=== PATIENT | male | born 1940 | race Caucasian/White ===

== ENCOUNTER 2018-07-24 17:18 | Emergency (ER) | payer MEDICARE, SELFPAY ==
[2018-07-24 17:20] VITALS: BP 125/103; PULSE 99; RESP 18; TEMP 36.8; O2SAT 97; BMI 22.7
[2018-07-24 17:25] VITALS: PULSE 92; RESP 18; O2SAT 97
--- NOTE | 2018-07-24 17:33 | EKG12_ITS ---
Test Reason : ARRHYTMIA Blood Pressure : / mmHG Vent. Rate : 093 BPM Atrial Rate : 093 BPM P-R Int : 144 ms QRS Dur : 106 ms QT Int : 334 ms P-R-T Axes : 084 041 072 degrees QTc Int : 415 ms Normal sinus rhythm Incomplete right bundle branch block Borderline ECG Confirmed by TYRONE WILSON, CORINNE ([id number]), online editor EPI ENRIQUEZ ([id number] on 07/26/2018 2:36:49 PM Referred By: Confirmed By:CORINNE HANSEN MD
--- NOTE | 2018-07-24 17:35 | RAD_ITS ---
STUDY: X-RAY CHEST REASON FOR EXAM: Male, 78 years old. Palpitation TECHNIQUE: Frontal view of the chest COMPARISON: 01/21/2016 FINDINGS: The lungs are hyperinflated, but clear. There are no pleural effusions. There is no pneumothorax. The heart is normal in size. The visualized osseous structures are within normal limits. RAD/Chest 1 View (Portable) IMPRESSION: No acute thoracic pathology. Electronically Signed: Ankush Melara, at 18:39 EDT Tel , Service support ,
[2018-07-24 17:47] LABS: Absolute Lymphocyte Count 1.68 X10^3/ul (0.83-4.51); Absolute Neutrophil Count 5.2 X10^3/uL (2.0-7.7); Basophil# 0.03 X10^3/uL; Basophil% 0.4 % (0-1); Eosinophil# 0.14 X10^3/uL; Eosinophils% 1.8 % (0-5); Hematocrit 46.8 % (40-54); Hemoglobin 16.5 g/dl (13.0-16.5); Lymphocyte # 1.68 X10^3/ul (4.0); Lymphocyte % 21.9 % (19-41); Mean Corp Hgb Conc 35.3 g/gl (32-36); Mean Corpuscular Hgb 33.4 pg (27.0-32.0); Mean Corpuscular Volume 94.7 fL (80-94); Mean Platelet Vol. 10.8 fl (6.2-12.0); Monocyte% 7.8 % (0-10); Platelet Count 210 K/mm3 (150-450); RBC Distribution Width CV 12.8 % (11.6-14.6); RBC Distribution Width SD 43.2 fl (35.1-43.9); Red Blood Count 4.94 M/mm3 (4.6-6.2); White Blood Count 7.7 K/mm3 (4.4-11.0)
[2018-07-24] MEDS: 0.9% Normal Saline 1,000 ML 150 ML IV (17:47)
[2018-07-24 17:52] LABS: POSITIVE COUNT NO; POSITIVE DIFFERENTIAL NO; POSITIVE MORPHOLOGY NO
[2018-07-24 18:04] LABS: Anion Gap 7 (5-15); BUN 13 mg/dL (7-18); BUN/Creat Ratio 14.5 RATIO (10-20); Calcium,Total 8.6 mg/dL (8.5-10.1); Chloride 101 mmol/L (98-107); EST Glomerular Filtration Rate 87 mL/min (>60); Est Glom Filt Rate - Afr Amer 105 mL/min (>60); Estimated Creatinine Clearance 60.06 ml/min; Glucose 111 mg/dL (74-106); Potassium 3.7 mmol/L (3.5-5.1); Sodium Level 136 mmol/L (136-145)
--- NOTE | 2018-07-24 19:16 | ED.VISSUMM ---
- ER Visit Summary Date of Service: 07/24/18 Chief Complaint: [Palpitations] History of Present Illness: The patient is a 78 M [resents the emergency room with complaint of palpitations that started around 10 AM today. Patient states that he felt like his heart was racing and when he would check his pulse with his pulse oximeter was reading in the 140s and then at times will go back into the 70s. Patient at times feels like he might pass out with it. Patient generally felt weak. He denies any nausea vomiting or diarrhea. Does have some shortness of breath which is chronic for him. Patient also with history of paroxysmal atrial fibrillation. Patient with history of hypertension and COPD. Patient denied any chest pain at any point. He denied recent fever.] Physical Examination: [HEENT-PERRLA, EOMI. Cranial nerves II through XII grossly intact. TMs clear. Mucous membranes moist. No adenopathy. Cardiovascular-regular rate and rhythm without murmur or ectopy Lungs-clear to auscultation, chest wall stable without crepitus or subcu emphysema Abdomen-normoactive bowel sounds, soft, nontender, no rebound or rigidity, no peritoneal signs. Extremities-intact ?4, normal range of motion, normal pulses, atraumatic] Test Results: [EKG obtained on arrival shows sinus rhythm with a ventricular rate of 93 bpm with a right bundle branch block. CBC with differential showed a white count 7.7, hemoglobin 16, hematocrit 47, platelets 210. Chemistries were unremarkable. Troponin was less than 0.015.] Chest x-ray showed nothing acute. Emergency Department Course and Treatment: [Patient case was discussed with Dr. Abel Price who was on-call for cardiology who asked that we increase his metoprolol to 50 mg twice a day. I was also asked to have patient receive a 48-hour Holter monitor. Patient to follow-up with sap security consultant within next 3-5 days.] Treatment Plan: [Holter monitor and increase metoprolol to 50 mg twice a day] Disposition: [Discharged to home in stable condition] Impression: [Palpitations-suspect paroxysmal atrial fibrillation] This note was generated with [employer] software. It may contain incorrect words, spelling, and punctuation that were not noted in review of the chart prior to signing ED Disposition - Plan for ED Patient: Chief Complaint: Palpitations Referrals: Maulik Christy MD [Primary Care Provider] -
--- NOTE | 2018-07-24 19:20 | ED.DCSUM_ITS ---
- ER Visit Summary Date of Service: 07/24/18 Chief Complaint: [Palpitations] History of Present Illness: The patient is a 78 M [resents the emergency room with complaint of palpitations that started around 10 AM today. Patient states that he felt like his heart was racing and when he would check his pulse with his pulse oximeter was reading in the 140s and then at times will go back into the 70s. Patient at times feels like he might pass out with it. Patient generally felt weak. He denies any nausea vomiting or diarrhea. Does have some shortness of breath which is chronic for him. Patient also with history of paroxysmal atrial fibrillation. Patient with history of hypertension and COPD. Patient denied any chest pain at any point. He denied recent fever.] Physical Examination: [HEENT-PERRLA, EOMI. Cranial nerves II through XII grossly intact. TMs clear. Mucous membranes moist. No adenopathy. Cardiovascular-regular rate and rhythm without murmur or ectopy Lungs-clear to auscultation, chest wall stable without crepitus or subcu emphysema Abdomen-normoactive bowel sounds, soft, nontender, no rebound or rigidity, no peritoneal signs. Extremities-intact ?4, normal range of motion, normal pulses, atraumatic] Test Results: [EKG obtained on arrival shows sinus rhythm with a ventricular rate of 93 bpm with a right bundle branch block. CBC with differential showed a white count 7.7, hemoglobin 16, hematocrit 47, platelets 210. Chemistries were unremarkable. Troponin was less than 0.015.] Chest x-ray showed nothing acute. Emergency Department Course and Treatment: [Patient case was discussed with Dr. Abel Price who was on-call for cardiology who asked that we increase his metoprolol to 50 mg twice a day. I was also asked to have patient receive a 48- hour Holter monitor. Patient to follow-up with surgical technologist within next 3-5 days.] Treatment Plan: [Holter monitor and increase metoprolol to 50 mg twice a day] Disposition: [Discharged to home in stable condition] Impression: [Palpitations-suspect paroxysmal atrial fibrillation] This note was generated with [employer]ation software. It may contain incorrect words, spelling, and punctuation that were not noted in review of the chart prior to signing ED Disposition - Plan for ED Patient: Chief Complaint: Palpitations Referrals: Maulik Christy MD [Primary Care Provider] -
--- NOTE | 2018-07-24 19:25 | ED.DEP ---
ED Disposition - Plan for ED Patient: Chief Complaint: Palpitations Instructions: ED Palpitations Referrals: Maulik Christy MD [Primary Care Provider] - Bharath Escalona MD [STAFF PHYSICIAN] - 3-5 Days Additional Instructions: increase your metoprolol to 50mg twice per day
[2018-07-24 19:37] VITALS: BP 148/73; PULSE 72; RESP 16; O2SAT 97
== END 2018-07-24 19:50 | disposition home or self-care (01) ==
PROVIDERS: Emergency Provider Emergency Medicine; Family Provider Family Medicine; PCP Family Medicine
DX: R00.2 Palpitations (principal); R51 Headache; I45.10 Unspecified right bundle-branch block; J44.9 Chronic obstructive pulmonary disease, unspecified; I10 Essential (primary) hypertension; I48.0 Paroxysmal atrial fibrillation; Z79.82 Long term (current) use of aspirin; Z79.899 Other long term (current) drug therapy; Z72.0 Tobacco use
CPT/HCPCS: 71045; 80048; 84484; 85025; 93005; 93225; 96360; 96361; 99284; J7030

== ENCOUNTER → 2018-07-24 19:44 | Outpatient (CLI) | payer MEDICARE, SELFPAY | PROVIDERS: Family Provider Family Medicine; PCP Family Medicine; Visit Provider Emergency Medicine | DX: R69 Illness, unspecified (principal) ==

== ENCOUNTER → 2018-08-18 09:46 | Outpatient (CLI) | payer MEDICARE, SELFPAY ==
--- NOTE | 2018-08-19 12:18 | PFT ---
INTRODUCTION: The patient is a 78-year-old male that presents for pulmonary function testing secondary to a diagnosis of COPD. Respiratory therapy reports good patient effort. Bronchodilators were used during testing. INTERPRETATION: Forced expiration spirometry demonstrates the presence of a moderately severe large airways obstructive ventilatory defect. There was a significant response to aerosolized bronchodilator noted based upon change in FVC. Spirograms are of good quality and do not plateau indicating slow emptying of the lungs. The respiratory flow volume loop pattern is suggestive of obstructive lung disease. Body plethysmography was performed and reveals an elevated TLC and RV, indicative of underlying hyperinflation and air-trapping. Diffusing capacity by single breath CO is within normal limits at 79% of predicted. IMPRESSION: These pulmonary function studies demonstrate the presence of a partially reversible moderately severe large airways obstructive ventilatory defect with associated hyperinflation and air-trapping. There are no previous pulmonary function studies available for comparison.
== END ==
PROVIDERS: Family Provider Family Medicine; PCP Family Medicine; Referring Provider Family Medicine; Visit Provider Family Medicine
DX: J44.9 Chronic obstructive pulmonary disease, unspecified (principal)
CPT/HCPCS: 94060; 94726; 94729

== ENCOUNTER → 2018-09-06 12:15 | Outpatient (CLI) | payer MEDICARE, SELFPAY ==
[2018-09-06 12:23] VITALS: PULSE 73; PULSE 86; PULSE 91; PULSE 93; PULSE 94; PULSE 96; PULSE 97; O2SAT 94; O2SAT 95; O2SAT 97
--- NOTE | 2018-09-06 15:50 | PCM.PSN.6M ---
PSN 6 Minute Walk Test - 6 Minute Walk Test 6 Minute Walk Test: 6 Minute Walk Test PSN:6-Minute Walk Test Start: 09/06/18 12:39 Freq: Status: Active Protocol: RESP.6MINW Document 09/06/18 12:23 SMB (Rec: 09/06/18 12:41 SMB [id number]) 6 Minute Walk Test Date Performed 09/06/18 Time Performed 12:23 Height 5 ft 6 in Weight: 63.503 kg Weight in Pounds 140.[address]: Maulik Christy Assistive device used: None Pre-test Oxygen Delivery Method Room Air Pulse Ox (%) 97 Pulse Rate (60-100 beats/min) 73 Dyspnea Natali Scale (0-10) 0 Exertion Natali Scale (6-20) 13 1st minute Oxygen Delivery Method Room Air Pulse Ox (%) 95 Pulse Rate (60-100 beats/min) 93 2nd minute Oxygen Delivery Method Room Air Pulse Ox (%) 94 Pulse Rate (60-100 beats/min) 94 3rd minute Oxygen Delivery Method Room Air Pulse Ox (%) 94 Pulse Rate (60-100 beats/min) 93 Number of Rests Taken 1 4th minute Oxygen Delivery Method Room Air Pulse Ox (%) 94 Pulse Rate (60-100 beats/min) 91 5th minute Oxygen Delivery Method Room Air Pulse Ox (%) 94 Pulse Rate (60-100 beats/min) 97 6th minute Oxygen Delivery Method Room Air Pulse Ox (%) 95 Pulse Rate (60-100 beats/min) 96 Post-test Oxygen Delivery Method Room Air Pulse Ox (%) 95 Pulse Rate (60-100 beats/min) 86 Dyspnea Natali Scale (0-10) 4 Exertion Natali Scale (6-20) 12 Full Laps Walked 8 Partial Lap, Number of Tiles Walked 9 Total Distance Walked (ft) 481 - Interpretation Interpretation: The patient was able to ambulate only 481 feet over the course of 6 minutes on room air with the assistance of a cane and one break. Patient explains no significant desaturation or tachycardia. These findings are consistent with a musculoskeletal limitation exercise tolerance - Recommendations Recommendations: No supplemental oxygen is indicated at this time.
== END ==
PROVIDERS: Family Provider Family Medicine; PCP Family Medicine; Referring Provider Family Medicine; Visit Provider Family Medicine
DX: J44.9 Chronic obstructive pulmonary disease, unspecified (principal)
CPT/HCPCS: 94618

== ENCOUNTER → 2018-09-14 15:49 | Outpatient (CLI) | payer MEDICARE, SELFPAY ==
[2018-08-02 15:05] VITALS: BMI 22.6
--- NOTE | 2018-09-14 15:53 | CT_ITS ---
STUDY: CT CHEST WITHOUT CONTRAST REASON FOR EXAM: Male, 78 years old. Smoking history, COPD RADIATION DOSAGE (If Supplied By Facility): CTDIvol = ( 10.39 ) mGy, DLP = ( 394.74 ) mGycm TECHNIQUE: Transaxial imaging was performed without the administration of intravenous contrast material. Multiplanar coronal and sagittal images were reformatted. Individualized dose optimization techniques were used for this CT. COMPARISON: None. FINDINGS: Lungs are hyperexpanded with moderate central lobular emphysema of the upper and midlung zones. No bronchiectasis or intralobular septal thickening identified. Minimal fibrotic bands of the right lower lobe demonstrated, however. Elongated soft tissue density in the posterior lower trachea extending into the right mainstem bronchus likely secretions. No solid pulmonary nodule or localized groundglass opacity. There is no demonstrated pleural abnormality. Normal heart and pericardium. There are calcifications of the coronary arteries. Normal mediastinum. Normal hilar regions. Normal unenhanced pulmonary arteries. There is atherosclerotic calcification of the aortic arch with tortuosity and elongation of the aortic arch and descending thoracic aorta. There are multi-level degenerative changes of the thoracic spine. There is no demonstrated abnormality of the visualized upper abdomen. CT/Chest without Contrast IMPRESSION: 1. Minimal fibrotic scarring in the right lower lobe. Centrilobular emphysema. No traction bronchiectasis. 2. Atherosclerosis including coronary arteries 3. Lower trachea and right mainstem bronchus secretions. Electronically Signed: Fabian Sultana MD at 9:34 EST , Service support ,
== END ==
PROVIDERS: Family Provider Family Medicine; PCP Family Medicine; Referring Provider Family Medicine; Visit Provider Family Medicine
DX: J44.9 Chronic obstructive pulmonary disease, unspecified (principal)
CPT/HCPCS: 71250

== ENCOUNTER → 2018-09-26 06:25 | Outpatient (CLI) | payer MEDICARE, SELFPAY ==
--- NOTE | 2018-09-26 11:50 | STRESSREP_ITS ---
Stress Test Report Pharmacologic myocardial perfusion stress test. 78-year-old man with a history of nonsustained ventricular tachycardia. Stress protocol: Resting EKG demonstrates normal sinus rhythm with a rate of 66 bpm incomplete right bundle branch block is noted resting blood pressure 132/70 6 m of mercury. 0.4 mg of regadenoson was infused per usual protocol followed by rapid intravenous saline flush injection continuous EKG monitoring was performed. The patient maintained sinus rhythm throughout the recording. The maximum heart rate attained was 108 bpm which was 76% of maximum predicted heart rate the maximum workload was 1 metabolic equivalent. At rest there were no ST or T wave changes noted suggest ischemia at peak infusion no ST or T wave changes were noted suggest ischemia. The resting blood pressure 132/76 with a final blood pressure 148/76. The peak blood pressure 162/80 mmHg. Myocardial perfusion protocol. 11.7 mCi of technetium 99m sestamibi was injected at rest. 0.4 mg of regadenoson was infused per usual protocol peak infusion 31.8 mCi of technetium 99m sestamibi was injected stress images were obtained stress and rest images were reconstructed and compared in the short axis vertical long and horizontal long axis. Gated images were also obtained pre- Perfusion SPECT analysis: Review of the stress images demonstrate normal uptake of tracer noted in all areas of the myocardium. The resting images similarly demonstrate normal uptake of tracer noted in all areas of the myocardium. No areas of perfusion a bnormality were noted to suggest ischemia or infarct. Gated SPECT analysis: The gated ejection fraction is noted to be 78%. Conclusion: Normal pharmacologic myocardial perfusion stress test. Preserved ejection fraction.
--- OUTSIDE RECORDS SUMMARY | 2018-11-19 03:55 | XMS RPT_ITS ---
:1940 Author Organization OHIP Support Name Relationship Address Phone DIANNA KENDAL Unavailable Unavailable + [place] [address] NUNU, SARA Unavailable [address] + [place] [address] R Unavailable Unavailable Unavailable MELLERT, KENDAL Unavailable Unavailable + [place] [address] NUNU, SARA Unavailable [address] + [place] [address] R Unavailable Unavailable Unavailable MELLERT, KENDAL Unavailable Unavailable + [place] [address] NUNU, SARA Unavailable [address] + [place] [address] R Unavailable Unavailable Unavailable MELLERT, KENDAL Unavailable Unavailable + [place] [address] NUNU, SARA Unavailable [address] + [place] [address] R Unavailable Unavailable Unavailable MELLERT, KENDAL Unavailable Unavailable + [place] [address] NUNU, SARA Unavailable [address] + [facility] [address] R Unavailable Unavailable Unavailable MELLERT, KENDAL Unavailable Unavailable + [place] [address] NUNU, SARA Unavailable [address] + [facility] [address] R Unavailable Unavailable Unavailable MELLERT, KENDAL Unavailable Unavailable + [place] [address] NUNU, SARA Unavailable [address] + [facility] [address] R Unavailable Unavailable Unavailable MELLERT, KENDAL Unavailable Unavailable + [place] [address] NUNU, SARA Unavailable [address] + [place] [address] R Unavailable Unavailable Unavailable NUNU, SARA Unavailable [address] + [place] [address] R Unavailable Unavailable Unavailable NUNU, SARA Unavailable [address] + [place] [address] R Unavailable Unavailable Unavailable NUNU, SARA Unavailable [address] + [place] [address] R Unavailable Unavailable Unavailable NUNU, SARA Unavailable [address] + [place] [address] R Unavailable Unavailable Unavailable NUNU, SARA Unavailable [address] + [place] [address] R Unavailable Unavailable Unavailable Care Team Providers Name Role Phone IqraJúnior sotoril Attending Unavailable Roof, Everton H Referring Unavailable Iqra, Oakdale Attending Unavailable Christy, Maulik Referring Unavailable Christy, Maulik Primary Care Unavailable Christy, Maulik Primary Care Unavailable Ungur, Remus Attending Unavailable Ungur, Remus Attending Unavailable Christy, Maulik Primary Care Unavailable Roof, Everton H Attending Unavailable Christy, Maulik Referring Unavailable Iqra, Oakdale Attending Unavailable Ungur, Remus Referring Unavailable Christy, Maulik Attending Unavailable Christy, Maulik Referring Unavailable Christy, Maulik Primary Care Unavailable Christy, Maulik Attending Unavailable Christy, Maulik Referring Unavailable Christy, Maulik Primary Care Unavailable Roof, Everton H Attending Unavailable Roof, Everton H Referring Unavailable Christy, Maulik Primary Care Unavailable Hernan Souza D.O. Attending Unavailable Christy, Maulik Referring Unavailable Christy, Maulik Attending Unavailable Christy, Maulik Referring Unavailable Christy, Maulik Primary Care Unavailable Apollo Washburn Attending Unavailable Christy, Maulik Referring Unavailable Iqra, Bharath Attending Unavailable Iqra, Bharath Referring Unavailable Christy, Maulik Primary Care Unavailable PROBLEMS PROBLEMS DATE TYPE CONDITION / CODE ATTENDING STATUS SOURCE 09/12/2018 Unknown J44.9 - Chronic Apollo Washburn Active [facility] obstructive pulmonary Community disease, unspecified / Hospital J44.9(ICD-10) Repository 08/18/2018 Unknown I48.0 - Paroxysmal Roof, Everton H Active [facility] atrial fibrillation / Community I48.0(ICD-10) Hospital Repository 10/10/2018 Unknown R00.2 - Palpitations / Iqra, Bharath Active [facility] R00.2(ICD-10) [facility] Repository 01/27/2018 Unknown I10 - Essential Iqra, [place] Active [facility] (primary) hypertension Community / I10(ICD-10) Hospital Repository 01/27/2018 Unknown I47.1 - Bharath Escalona Active [facility] Supraventricular [facility] tachycardia / Hospital I47.1(ICD-10) Repository PROCEDURES PROCEDURES No Procedure Records FoundRESULTS RESULTS STRESS REPORT Observed: 09/26/2018 Status: F Source: [place] 11:51 AM [facility] REPOSITORY [facility] Cardiovascular Services [address] [place] [address] MR#: [id number] Acct: [id number] Name: TOLU MONTANA Rep #: [id number] : 1940 78 From: Bharath Escalona MD Primary Care: Westley WILSON,Maulik Status: REG CLI Ordering Dr: Alexis: Agustin Vallecillo Stress Test Report Pharmacologic myocardial perfusion stress test. 78-year-old man with a history of nonsustained ventricular tachycardia. Stress protocol: Resting EKG demonstrates normal sinus rhythm with a rate of 66 bpm incomplete right bundle branch block is noted resting blood pressure 132/70 6 m of mercury. 0.4 mg of regadenoson was infused per usual protocol followed by rapid intravenous saline flush injection continuous EKG monitoring was performed. The patient maintained sinus rhythm throughout the recording. The maximum heart rate attained was 108 bpm which was 76% of maximum predicted heart rate the maximum workload was 1 metabolic equivalent. At rest there were no ST or T wave changes noted suggest ischemia at peak infusion no ST or T wave changes were noted suggest ischemia. The resting blood pressure 132/76 with a final blood pressure 148/76. The peak blood pressure 162/80 mmHg. Myocardial perfusion protocol. 11.7 mCi of technetium 99m sestamibi was injected at rest. 0.4 mg of regadenoson was infused per usual protocol peak infusion 31.8 mCi of technetium 99m sestamibi was injected stress images were obtained stress and rest images were reconstructed and compared in the short axis vertical long and horizontal long axis. Gated images were also obtained pre- Perfusion SPECT analysis: Review of the stress images demonstrate normal uptake of tracer noted in all areas of the myocardium. The resting images similarly demonstrate normal uptake of tracer noted in all areas of the myocardium. No areas of perfusion abnormality were noted to suggest ischemia or infarct. Gated SPECT analysis: The gated ejection fraction is noted to be 78%. Conclusion: Normal pharmacologic myocardial perfusion stress test. Preserved ejection fraction. 09/26/18 1151 <Electronically signed by Bharath Escalona MD> Date Bharath Escalona MD CC: Bharath Escalona MD; Maulik Christy MD Date Dictated: 09/26/18 1144 Date Transcribed: 09/26/18 114 [facility] Accommodation Consultant: CO Signed CHEST WITHOUT Observed: 09/14/2018 Status: F Source: [place] CONTRAST 3:53 PM [facility] Imaging Services [address] [place] [address] Chest without Contrast MR#: [id number] Acct: [id number] Name: TOLU MONTANA Rep #: [id number] : 1940 M 78 From: Fabian Sultana MD PCP: Maulik Christy MD Status: REG CLI Study: Chest without Contrast Date of Exam: 09/14/18 Exam# [id number] Ordering Dr: Maulik Christy MD STUDY: CT CHEST WITHOUT CONTRAST REASON FOR EXAM: Male, 78 years old. Smoking history, COPD RADIATION DOSAGE (If Supplied By Facility): CTDIvol = ( 10.39 ) mGy, DLP = ( 394.74 ) mGycm TECHNIQUE: Transaxial imaging was performed without the administration of intravenous contrast material. Multiplanar coronal and sagittal images were reformatted. Individualized dose optimization techniques were used for this CT. COMPARISON: None. FINDINGS: Lungs are hyperexpanded with moderate central lobular emphysema of the upper and midlung zones. No bronchiectasis or intralobular septal thickening identified. Minimal fibrotic bands of the right lower lobe demonstrated, however. Elongated soft tissue density in the posterior lower trachea extending into the right mainstem bronchus likely secretions. No solid pulmonary nodule or localized groundglass opacity. There is no demonstrated pleural abnormality. Normal heart and pericardium. There are calcifications of the coronary arteries. Normal mediastinum. Normal hilar regions. Normal unenhanced pulmonary arteries. There is atherosclerotic calcification of the aortic arch with tortuosity and elongation of the aortic arch and descending thoracic aorta. There are multi-level degenerative changes of the thoracic spine. There is no demonstrated abnormality of the visualized upper abdomen. CT/Chest without Contrast IMPRESSION: 1. Minimal fibrotic scarring in the right lower lobe. Centrilobular emphysema. No traction bronchiectasis. 2. Atherosclerosis including coronary arteries 3. Lower trachea and right mainstem bronchus secretions. Electronically Signed: Fabian Sultana MD at 9:34 EST , Service support , CC: Maulik Christy MD [facility] Accommodation Consultant: Signed 6 MINUTE WALK TEST Observed: 09/07/2018 Status: F Source: [place] 5:47 AM [facility] Pulmonary Services/Neurology [address] [place] [address] MR#: [id number] Acct: [id number] Name: TOLU MONTANA Rep #: [id number] : 1940 78 From: Apollo Washburn MD Referring Dr: Maulik Christy MD Date: Ordering Dr: Sex: M C Location: PSN PSN 6 Minute Walk Test - 6 Minute Walk Test 6 Minute Walk Test: 6 Minute Walk Test PSN:6-Minute Walk Test Start: 09/06/18 12:39 Freq: Status: Active Protocol: RESP.6MINW Document 09/06/18 12:23 SMB (Rec: 09/06/18 12:41 SMB [id number]) 6 Minute Walk Test Date Performed 09/06/18 Time Performed 12:23 Height 5 ft 6 in Weight: 63.503 kg Weight in Pounds 140.[address]: Maulik Christy Assistive device used: None Pre-test Oxygen Delivery Method Room Air Pulse Ox (%) 97 Pulse Rate (60-100 beats/min) 73 Dyspnea Natali Scale (0-10) 0 Exertion Natali Scale (6-20) 13 1st minute Oxygen Delivery Method Room Air Pulse Ox (%) 95 Pulse Rate (60-100 beats/min) 93 2nd minute Oxygen Delivery Method Room Air Pulse Ox (%) 94 Pulse Rate (60-100 beats/min) 94 3rd minute Oxygen Delivery Method Room Air Pulse Ox (%) 94 Pulse Rate (60-100 beats/min) 93 Number of Rests Taken 1 4th minute Oxygen Delivery Method Room Air Pulse Ox (%) 94 Pulse Rate (60-100 beats/min) 91 5th minute Oxygen Delivery Method Room Air Pulse Ox (%) 94 Pulse Rate (60-100 beats/min) 97 6th minute Oxygen Delivery Method Room Air Pulse Ox (%) 95 Pulse Rate (60-100 beats/min) 96 Post-test Oxygen Delivery Method Room Air Pulse Ox (%) 95 Pulse Rate (60-100 beats/min) 86 Dyspnea Natali Scale (0-10) 4 Exertion Natali Scale (6-20) 12 Full Laps Walked 8 Partial Lap, Number of Tiles Walked 9 Total Distance Walked (ft) 481 - Interpretation Interpretation: The patient was able to ambulate only 481 feet over the course of 6 minutes on room air with the assistance of a cane and one break. Patient explains no significant desaturation or tachycardia. These findings are consistent with a musculoskeletal limitation exercise tolerance - Recommendations Recommendations: No supplemental oxygen is indicated at this time. 09/07/18 0547 <Electronically signed by Apollo Washburn MD> Date Apollo Washburn MD CC: Date Dictated: 09/06/18 1550 Date Transcribed: 09/06/18 155 [facility] Accommodation Consultant: Apollo Washburn Signed PULMONARY FUNCTION Observed: 08/19/2018 Status: F Source: [place] TEST 12:20 PM [facility] Pulmonary Services/Neurology [address] [place] [address] MR#: [id number] Acct: [id number] Name: TOLU MONTANA Rep #: [id number] : 1940 78 From: Hernan Souza DO Referring Dr: Maulik Christy MD Status: REG CLI Ordering Dr: Date: Location: [facility] Sex: M C INTRODUCTION: The patient is a 78-year-old male that presents for pulmonary function testing secondary to a diagnosis of COPD. Respiratory therapy reports good patient effort. Bronchodilators were used during testing. INTERPRETATION: Forced expiration spirometry demonstrates the presence of a moderately severe large airways obstructive ventilatory defect. There was a significant response to aerosolized bronchodilator noted based upon change in FVC. Spirograms are of good quality and do not plateau indicating slow emptying of the lungs. The respiratory flow volume loop pattern is suggestive of obstructive lung disease. Body plethysmography was performed and reveals an elevated TLC and RV, indicative of underlying hyperinflation and air-trapping. Diffusing capacity by single breath CO is within normal limits at 79% of predicted. IMPRESSION: These pulmonary function studies demonstrate the presence of a partially reversible moderately severe large airways obstructive ventilatory defect with associated hyperinflation and air-trapping. There are no previous pulmonary function studies available for comparison. 08/19/18 1220 <Electronically signed by Hernan Souza DO> Date Hernan Souza DO CC: Maulik Christy MD Date Dictated: 08/19/181217 Date Transcribed: 08/19/181217 [facility] Accommodation Consultant: DB Signed 12 LEAD ELECTROCARDIOGRAM Observed: 07/26/2018 Status: F Source: [place] 2:37 PM [facility] Cardiovascular Services [address] [place] [address] 12 Lead EKG 07/24/18 1725 MR#: [id number] Acct: [id number] Name: TOLU MONTANA Rep #: [id number] : 1940 78 From: Bharath Escalona MD Attending Dr: Status: DEP ER Ordering Dr: Chidi Sanabria DO Date: 07/24/18 Location: ED Sex: M C Admitted: Test Reason : ARRHYTMIA Blood Pressure : / mmHG Vent. Rate : 093 BPM Atrial Rate : 093 BPM P-R Int : 144 ms QRS Dur : 106 ms QT Int : 334 ms P-R-T Axes : 084 041 072 degrees QTc Int : 415 ms Normal sinus rhythm Incomplete right bundle branch block Borderline ECG Confirmed by BHARATH ESCALONA MD ([id number]), pictures editor EPI ENRIQUEZ ([id number]) on 07/26/2018 2:36:49 PM Referred By: Confirmed By:BHARATH ESCALONA MD 07/26/18 1436 Date Bharath Escalona MD CC: Maulik Christy MD; Chidi Sanabria DO Signed EMERGENCY DEPARTMENT Observed: 07/24/2018 Status: F Source: [place] SUMMARY 11:53 PM [facility] Medical Records Department [address] [place] [address] Emergency Department Summary 07/24/181915 MR#: [id number] Acct: [id number] Name: TOLU MONTANA Rep #: [id number] : 1940 78 From: Chidi Sanabria DO PCP: Maulik Christy MD Status: DEP ER - ER Visit Summary Date of Service: 07/24/18 Chief Complaint: [Palpitations] History of Present Illness: The patient is a 78 M [resents the emergency room with complaint of palpitations that started around 10 AM today. Patient states that he felt like his heart was racing and when he would check his pulse with his pulse oximeter was reading in the 140s and then at times will go back into the 70s. Patient at times feels like he might pass out with it. Patient generally felt weak. He denies any nausea vomiting or diarrhea. Does have some shortness of breath which is chronic for him. Patient also with history of paroxysmal atrial fibrillation. Patient with history of hypertension and COPD. Patient denied any chest pain at any point. He denied recent fever.] Physical Examination: [HEENT-PERRLA, EOMI. Cranial nerves II through XII grossly intact. TMs clear. Mucous membranes moist. No adenopathy. Cardiovascular-regular rate and rhythm without murmur or ectopy Lungs-clear to auscultation, chest wall stable without crepitus or subcu emphysema Abdomen-normoactive bowel sounds, soft, nontender, no rebound or rigidity, no peritoneal signs. Extremities-intact 4, normal range of motion, normal pulses, atraumatic] Test Results: [EKG obtained on arrival shows sinus rhythm with a ventricular rate of 93 bpm with a right bundle branch block. CBC with differential showed a white count 7.7, hemoglobin 16, hematocrit 47, platelets 210. Chemistries were unremarkable. Troponin was less than 0.015.] Chest x-ray showed nothing acute. Emergency Department Course and Treatment: [Patient case was discussed with Dr. Abel Price who was on-call for cardiology who asked that we increase his metoprolol to 50 mg twice a day. I was also asked to have patient receive a 48-hour Holter monitor. 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 It may contain incorrect words, spelling, and punctuation that were not noted in review of the chart prior to signing ED Disposition - Plan for ED Patient: Chief Complaint: Palpitations Referrals: Maulik Christy MD [Primary Care Provider] - What to do if you have Problems For any increased pain, shortness of breath, bleeding, nausea or vomiting, chest pain, or any unexpected problems, contact your Primary Care Provider. Call [facility] ([phone]) or report to the closest Emergency Room. Call 911 if necessary. 07/24/18 4249 <Electronically signed by Chidi Sanabria DO> Date Chidi Sanabria DO Cosigner Signature (If Indicated): Date CC: Maulik Christy MD DISCHARGE INSTRUCTION Observed: 07/24/2018 Status: F Source: [place] 7:26 PM [facility] Medical Records Department [address] [place] [address] Discharge Instruction 07/24/18 1925 MR#: [id number] Acct: [id number] Name: TOLU MONTANA Rep #: [id number] : 1940 78 From: Chidi Sanabria DO PCP: Maulik Christy MD Status: REG ER ED Disposition - Plan for ED Patient: Chief Complaint: Palpitations Instructions: ED Palpitations Referrals: Maulik Christy MD [Primary Care Provider] - Bharath Escalona MD [STAFF PHYSICIAN] - 3-5 Days Additional Instructions: increase your metoprolol to 50mg twice per day What to do if you have Problems For any increased pain, shortness of breath, bleeding, nausea or vomiting, chest pain, or any unexpected problems, contact your Primary Care Provider. Call [facility] ([phone]) or report to the closest Emergency Room. Call 911 if necessary. 07/24/181925 <Electronically signed by Chidi Sanabria DO> Date Chidi Sanabria DO Cosigner Signature (If Indicated): Date CC: Maulik Christy MD CHEST 1 VIEW Observed: 07/24/2018 Status: F Source: [place] (PORTABLE) 5:34 PM [facility] Imaging Services [address] [place] [address] Chest 1 View (Portable) MR#: [id number] Acct: [id number] Name: TOLU MONTANA Rep #: [id number] : 1940 M 78 From: Ankush Melara MD PCP: Maulik Christy MD Status: REG ER Study: Chest 1 View (Portable) Date of Exam: 07/24/18 Exam# [id number] Ordering Dr: Chidi Sanabria DO STUDY: X-RAY CHEST REASON FOR EXAM: Male, 78 years old. Palpitation TECHNIQUE: Frontal view of the chest COMPARISON: 01/21/2016 FINDINGS: The lungs are hyperinflated, but clear. There are no pleural effusions. There is no pneumothorax. The heart is normal in size. The visualized osseous structures are within normal limits. RAD/Chest 1 View (Portable) IMPRESSION: No acute thoracic pathology. Electronically Signed: Ankush Melara, at 18:39 EDT Tel , Service support , CC: Maulik Christy MD; Chidi Sanabria DO [facility]ommodation Consultant: Signed CBC W/DIFF, AUTOMATED Collected: 07/24/2018 Status: F Source: [place] 5:30 PM [facility] TYPE CODE TESTS RESULT OUT OF RANGE REFERENCE UNITS LAB L100.1000 4.4-11.0 K/mm3 Normal WBC 7.7 LAB L100.1200 4.6-6.2 M/mm3 Normal RBC 4.94 LAB L100.1300 13.0-16.5 g/dl Normal HGB 16.5 LAB L100.1400 40-54 % Normal HCT 46.8 LAB L100.1500 80-94 fL High MCV 94.7 LAB L100.1600 27.0-32.0 pg High MCH 33.4 LAB L100.1700 32-36 g/gl Normal MCHC 35.3 LAB L100.1810 11.6-14.6 % Normal RDW CV 12.8 LAB L100.1820 35.1-43.9 fl Normal RDW SD 43.2 LAB L100.1900 150-450 K/mm3 Normal PLT 210 LAB L100.2000 6.2-12.0 fl Normal MPV 10.8 LAB L100.2100 47-70 % Normal NEUT% 68.0 LAB L100.2200 19-41 % Normal LY% 21.9 LAB L100.2300 0-10 % Normal MONO% 7.8 LAB L100.2400 0-5 % Normal EO% 1.8 LAB L100.2500 0-1 % Normal BASO% 0.4 LAB L100.2550 0.0-0.9 % Normal IM GRAN % 0.100 Result Comment: IG% - Immature Granulocytes (promyelocytes, myelocytes and metamyelocytes) > 1% indicates that a LEFT SHIFT is Present. LAB L100.2620 2.0-7.7 X10 3/uL Normal Absolute Neut 5.2 LAB L100.2720 0.83-4.51 X10 3/ul Normal Absolute Lymph 1.68 Performed By: #### L100.0100 #### [facility] [address] [place], [address] BASIC METABOLIC Collected: 07/24/2018 Status: F Source: [place] PROFILE (BMP) 5:30 PM [facility] TYPE CODE TESTS RESULT OUT OF RANGE REFERENCE UNITS LAB L501.0100 74-106 mg/dL High GLU 111 Result Comment: Fasting Glucose result from 100 to 125 mg/dL suggests IMPAIRED HOMEOSTASIS per A.D.A. criteria. Please note revised GLUCOSE reference range effective 2017. LAB L501.1000 7-18 mg/dL Normal BUN 13 LAB L501.1100 0.70-1.30 mg/dL Normal CREAT,SERUM 0.90 Result Comment: The validity of the calculated GFR AND GFRAA in patients over 70 years has not been determined. Clinical correlation is essential. LAB L501.1110 >60 mL/min Normal EST GFR 87 Result Comment: Non- GFR Calc LAB L501.1115 >60 mL/min Normal EST GFR - AA 105 Result Comment: GFR Calc LAB L501.1255 ml/min Normal Estimated CRCL 60.06 LAB L501.1300 10-20 RATIO Normal BUN/CRE 14.5 LAB L501.2200 8.5-10 mg/dL Normal .1 CA 8.6 LAB L501.5300 136-14 mmol/L Normal 5 NA 136 LAB L501.5600 3.5-5. mmol/L Normal 1 K 3.7 LAB L501.5900 98-107 mmol/L Normal CL 101 LAB L501.6100 21.0-3 mmol/L Normal 2.0 CO2 28.0 LAB L501.6200 5-15 Normal GAP 7 Performed By: #### L500.2500, L501.4010 #### [facility] [address] [place], [address] TROPONIN-I Collected: 07/24/2018 Status: F Source: [place] 5:30 PM [facility] TYPE CODE TESTS RESULT OUT OF RANGE REFERENCE UNITS LAB L501.4010 <0.045 ng/mL Normal < 0.015 TROPONIN-I Result Comment: TROPONIN-I EXPECTED VALUES <0.045 Negative 0.045 - 0.590 Consistent with Cardiac Damage > OR = 0.600 Critical Value Not every elevated troponin is indicative of ID. These values should be used with clinical judgement in examining the patient's clinical picture for diagnosis. To establish a diagnosis of ID versus myocardial injury, there must be a demonstrated rise and/or fall in the troponin values, in addition to ischemic symptoms, EKG changes, new regional wall motion abnormality, and/or angiographical evidence. PLEASE NOTE: REFERENCE RANGES EDITED 18 Performed By: #### L500.2500, L501.4010 #### [facility] [address] [place], [address] CARDIOLOGY VISIT Observed: 01/27/2018 Status: F Source: [place] REPORT 3:07 PM [facility] [address] [place] [address] OFFICE VISIT Date of Service: 01/27/18 MR#: [id number] Acct: [id number] Name: TOLU MONTANA Rep #: [id number] : 1940 Provider: Bharath Escalona MD Age/Sex: 78/M Location: [facility] Status: Signed HPI HPI Chief Complaint: Follow-up visit. Details: TOLU MONTANA, is a 78 M who presents to the office today for a follow-up cardiovascular visit. He has a history of hypertension paroxysmal atrial fibrillation as well as tobacco abuse. He returns for routine follow-up visit he denies any chest pain or shortness breath or paroxysmal nocturnal dyspnea he says that he has had possibly an upper respiratory tract infection. He has not had any neck arm or jaw discomfort suggest angina no dizziness no diaphoresis no near syncope or syncope. He has been compliant with all his medications. His blood pressure today appears to be elevated. His physical exam demonstrates clear lung acharya regular rate and rhythm and no pedal edema. Intake Vital Signs01/27/18 Height 5 ft 6 in 01/27/18 Weight: 146 lb 01/27/18 Body Mass Index (BMI) 23.6 01/27/18 Blood Pressure 178/80 Intake Visit Reasons: 6 M FU Allergies atenolol Adverse Reaction (Intermediate, Verified 01/27/18 14:45) Made me feel terrible Medications Budesonide/Formoterol 160/4.5 [Symbicort 160/4.5 Mcg Inhaler (SP)] 2 puff INHALATION BID 01/26/16 [History Confirmed 01/27/18] Handicap Parking Placard See Label Instructions .ROUTE .COMPLEX #1 12/20/17 [Rx Confirmed 01/27/18] aspirin 81 mg tablet,delayed release 81 mg PO QDAY tab 01/24/18 [History Confirmed 01/27/18] albuterol sulfate HFA 90 mcg/actuation aerosol inhaler 2 puff INHALATION Q4H g 01/27/18 [History Confirmed 01/27/18] amlodipine 10 mg tablet 10 mg PO QDAY #90 tab 01/27/18 [Rx Confirmed 01/27/18] metoprolol succinate ER 50 mg tablet,extended release 24 hr 50 mg PO QDAY #90 tab 01/27/18 [Rx Confirmed 01/27/18] multivitamin tablet 1 tab PO QDAY 01/27/18 [History Confirmed 01/27/18] vitamin B complex and vit C no.3 15 mg-10 mg-50 mg-5 mg-300 mg capsule 1 cap PO QDAY 01/27/18 [History Confirmed 01/27/18] vitamin E (dl, acetate) 1,000 unit capsule 1,000 unit PO QDAY 01/27/18 [History Confirmed 01/27/18] [facility] Medical History Peripheral vascular disease (Chronic) Nicotine abuse (Chronic) Palpitations (Chronic) Paroxysmal supraventricular tachycardia by electrocardiogram (ECG) (Chronic) COPD exacerbation (Acute) CAD (coronary artery disease) (Chronic) Old myocardial infarction (Chronic) Benign essential HTN (Chronic) Alcohol abuse (Chronic) Dyspnea (Acute) Near syncope (Acute) Weakness (Acute) Family History Other Sudden cardiac Social History Smoking Status: Current every day smoker ROS Const Const: Positive for fatigue (continues with fatigue); negative for weakness, weight gain, weight loss, frequent falls or excessive sweating Eyes Eyes: Negative for change in vision, blurry vision or transient loss of vision ENT ENT: Positive for balance problems (ambulates with a cane); negative for dizziness Cardio Chest Pain: No Palpitations: Yes (occasional/rare) Edema: None Muscle aches with walking: None Resp Respiratory: Positive for SOB with activity (increased); negative for SOB at rest GI GI: Negative vomiting or vomiting blood/hematemesis : Negative for hematuria Musc Musc: Positive for balance problems (ambulates with a cane) and muscle aches/ myalgia (generalized); negative for muscle weakness or joint pain Skin Skin: Negative non-healing lesions or rash Neuro Neuro: Negative for weakness, blurry vision, dizziness, lightheadedness, frequent falls or orthostatic symptoms Neto Hematologic/Lymphatic: Negative for easy bleeding Endo Endo: Positive for fatigue (continues with fatigue); negative for excessive sweating Psych Psych: Negative for anxiety or depression Allergy Allergy/Immunology: Negative for hives, Negative for rash Cardiology Exam Const Appearance: cooperative, healthy appearing, well developed, well groomed and no acute distress Nutritional Appearance: well nourished and average body habitus Orientation: alert, awake and oriented x3 Head Head: normal to inspection, normocephalic and atraumatic Ears: hearing grossly normal bilaterally and external ears normal Nose: external nose normal, nasal mucous membranes and turbinates normal, nares normal, septum normal, no nasal discharge Face and Sinus: face symmetric Mouth: oral mucosae normal, tongue normal, oropharynx normal and moist mucous membranes Teeth and gingiva: dentition normal Throat: posterior oropharynx normal, tonsils normal and uvula midline Eyes General: appearance normal, both eyes and all related structures Eyelids: eyelids normal Conjunctivae: conjunctivae normal Pupils: PERRL, normal by confrontation and accommodation normal EOM: EOM intact bilaterally Neck Neck: normal visual inspection, trachea midline and no JVD JVD: +5 Carotids: normal carotid upstroke and bounding pulses Chest Chest inspection: normal inspection of the chest, symmetric chest movement and normal respiratory effort Auscultation: Bilateral: Clear to Auscultation Cardio Palpation: normal PMI Rate: regular rate Rhythm: regular rhythm Heart sounds: S1 normal, S2 normal and normal, physiologic split S2; negative rub, gallop or murmur GI GI: normal to inspection, soft, no hepatosplenomegaly and bowel sounds present Neuro General: alert, awake, oriented x3, no focal sensory deficit, gait normal and moves all extremities Skin Skin: no rashes or lesions noted Extremities Pulses: Normal: Right Femoral Pulse, Left Femoral Pulse, Right Dorsalis Pedis Pulse, Left Dorsalis Pedis Pulse, Right Posterior Tibial Pulse, Left Posterior Tibial Pulse, Right Radial Pulse, Left Radial Pulse Lower Extremity Edema: None: Bilateral Musculoskel Musculoskeletal: No joint tenderness Psych Psychological: normal affect Assessment AND Plan 1. Benign essential HTN I10 Plan His blood pressure today appears to be elevated. He has had previous visit also with elevated blood pressures and my recommendation will be to increase the amlodipine to 10 mg once a day. He will continue on the beta-antonio at the same dosage. 2. Paroxysmal supraventricular tachycardia by electrocardiogram (ECG) I47.1 Plan He has not had any recurrence of the above he will stay on the beta-antonio his last echocardiogram had demonstrated preserved ejection fraction estimated at 65% with no wall motion abnormalities present. Thank you for allowing me to participate in the care of your patient. Please don't hesitate to call if any issues arise 3. Palpitations R00.2 Plan Detail Other Medications New: Discontinued: Follow Up 6 Months (r) Coding Level of Care Code Off vis,est,level 3 Diagnoses Benign essential HTN I10 Paroxysmal supraventricular tachycardia by electrocardiogram (ECG) I47.1 Palpitations R00.2 Coding Level of Care Code Off vis,est,level 3 Diagnoses Benign essential HTN I10 Paroxysmal supraventricular tachycardia by electrocardiogram (ECG) I47.1 Palpitations R00.2 01/27/18 1507 <Electronically signed by Bharath Escalona MD> Date Bharath Escalona MD Cosigner Signature: Date (if applicable) CC: Maulik Christy MD ALLERGIES ALLERGIES DATE TYPE / CODE NAME / CODE REACTION SEVERITY SOURCE 08/02/2018 Drug atenolol/F00 Made me feel MO Lisseth [id number] Repository CT) ENCOUNTERS ENCOUNTERS ADMIT/DISCHARGE ACCOUNT ADMITTING ENCOUNTER LOCATION SOURCE NUMBER CLASS 09/26/2018 [id number] Ambulatory [place] Liss[place] 1 [facility] Hospital ing:[facility] Repository 09/14/2018 [id number] Ambulatory Liss[place] Lisseth 4 [facility] Hospital ing:CT Repository 09/06/2018 [id number] Ambulatory [place] 8 [facility] Hospital ing:PSN Repository 09/06/2018 [id number] Ambulatory BMSBuilding:W Lisseth 9 [facility] Repository 08/19/2018 [id number] Ambulatory BMSBuilding:W [place] 6 [facility] Repository 08/18/2018 [id number] Ambulatory [place] Lisseth 4 [facility] Hospital ing:[facility] Repository 08/18/2018 [id number] Ambulatory BMSBuilding:W [place] 2 [facility] Repository 08/18/2018 [id number] Ambulatory Liss[place] Lisseth 5 [facility] Hospital ing:PSN Repository 08/02/2018/ [id number] Ambulatory BMSBuilding:B [place] 8 4 [facility] Repository 07/24/2018 [id number] Ambulatory Lisseth Lisseth 8 [facility] Hospital ing:PSN Repository 07/24/2018/ [id number] Emergency [place] 8 7 [facility] Hospital ing:ED Repository 07/24/2018 [id number] Ambulatory BMSBuilding:W [place] 9 [facility] Repository 01/27/2018/ [id number] Ambulatory BMSBuilding:B [place] 8 6 [facility] Repository PAYERS PAYERS ENCOUNTER GUARANTOR PAYER SUBSCRIBER SOURCE 09/26/2018 TOLU [id number] Insurance:DAVID ZARLENGODOB: [id number] Number: Repository [id number]: 330 [id number] [phone] (HP) Date:5514-77-59SG [address], [place] [address]XD: 09/26/2018 Secondary NOT GIVENUNK [place] Insurance:SELF PAY [facility] Number: Effective Repository Date:2018-09-19 09/14/2018 TOLU L Primary TOLU Burrell Lisseth [id number] Insurance:DAVID ZARLENGODOB: [facility] [id number] Lake Medical Center Number: Repository [id number]: 330 [id number] [phone] (HP) Date:3697-83-43JS [address] [address]AN: 09/14/2018 Secondary NOT GIVENUNK L[place] Insurance:SELF PAY [facility] Number: Effective Repository Date:2018-08-25 09/06/2018 TOLU L Primary TOLU L [place] [id number] Insurance:DAVID ZARLENGODOB: [facility] [id number] Lake Medical Center Number: Repository [id number]: 330 [id number] [phone]) Date:5986-55-43WB [facility] [address], [place] [address]SI: 09/06/2018 Secondary NOT GIVENUNK [place] Insurance:SELF PAY [facility] Number: Effective Repository Date:2018-08-09 09/06/2018 TOLU L Primary TOLU L [place] [id number] Insurance:DAVID ZARLENGODOB: [facility] [id number] Lake Medical Center Number: Repository [id number]: 330 [id number] [phone] (HP) Date:2036-37-39CA [address], [place] [address]UT: 09/06/2018 Secondary NOT GIVENUNK Liss[place] Insurance:SELF PAY [facility] Number: Effective Repository Date:2018-09-06 08/19/2018 TOLU Burrell Primary TOLU Burrell Lisseth [id number] Insurance:DAVID ZARLENGODOB: [facility] [id number]. Joseph's Medical CenterOPolunitypoint [facility] Number: Repository [id number]: 330 [id number] [phone] (HP) Date:1415-72-35FB [address], [place] [address]RK: 08/19/2018 Secondary NOT GIVENUNK [place] Insurance:SELF PAY [facility] Number: Effective Repository Date:2018-08-19 08/18/2018 TOLU Burrell Primary NOT GIVENUNK Liss[place] [id number] Insurance:SELF PAY [place] Number: Effective Repository [id number]: 330) Date:2018-08-17 [phone] (HP) 08/18/2018 TOLU L Primary TOLU Burrell [place] [id number] Insurance:DAVID ZARLENGODOB: [facility] [id number]. Joseph's Medical CenterOPolunitypoint [facility] Number: Repository [id number]: 330 [id number] [phone] () Date:3351-19-98XI [facility] [address], [place] [address]BI: 08/18/2018 Secondary NOT GIVENUNK [place] Insurance:SELF PAY [facility] Number: Effective Repository Date:2018-08-18 08/18/2018 TOLU Burrell Primary TOLU Burrell [place] [id number] Insurance:DAVID ZARLENGODOB: [facility] [id number]. Joseph's Medical CenterOPolunitypoint health[facility] Number: Repository [address]Eng: 330 [id number] [phone] (HP) Date:1700-61-48RN [address], [place] [address]PZ: 08/18/2018 Secondary NOT GIVENUNK [place] Insurance:SELF PAY [facility] Number: Effective Repository Date:2018-08-09 08/02/2018 TOLU Burrell Primary TOLU Burrell Lisseth [id number] Insurance:DAVID ZARLENGODOB: [facility] [id number] Lake Medical Center Number: Repository [id number]: 330 [id number] [phone] () Date:0048-61-93FK [address], [place] [address]PR: 08/02/2018 Secondary NOT GIVENUNK Liss[place] Insurance:SELF PAY [facility] Number: Effective Repository Date:2018-07-25 07/24/2018 TOLU Burrell Primary TOLU Burrell [place] [id number] Insurance:DAVID ZARLENGODOB: [facility] [id number] Lake Medical Center Number: Repository [address]Utw: 330 [id number] [phone] () Date:0466-11-04CZ [facility] [address], [place] [address]XB: 07/24/2018 Secondary NOT GIVENUNK Liss[place] Insurance:SELF PAY [facility] Number: Effective Repository Date:2018-07-24 07/24/2018 TOLU Burrell Primary TOLU Burrell [place] [id number] Insurance:DAVID ZARLENGODOB: [facility] [id number] Lake Medical Center Number: Repository [id number]: 330 [id number] [phone] () Date:7183-48-23VJ [address], [place] [address]HY: 07/24/2018 Secondary NOT GIVENUNK L[place] Insurance:SELF PAY [facility] Number: Effective Repository Date:2018-07-24 07/24/2018 TOLU L Primary TOLU Burrell Lisseth [id number] Insurance:DAVID ZARLENGODOB: [facility] [id number], [place] HMOPolicy Number: Repository [id number]: 330 [id number] [phone] () Date:4786-78-20CW [facility] [address], [place] [address]DB: 07/24/2018 Secondary NOT GIVENUNK [place] Insurance:SELF PAY [facility] Number: Effective Repository Date:2018-07-24 01/27/2018 TOLU Primary TOLU [place] [id number] Insurance:DVAIDLT MONTANADOB: [facility] [id number], [place] HMOPolicy Number: Repository [id number]: 330 [id number] [phone] () Date:9177-44-19HS [facility] [address] [address]CO: 01/27/2018 Secondary NOT GIVENUNK [place] Insurance:SELF PAY [facility] Number: Effective Repository Date:2018-01-27
== END ==
PROVIDERS: Family Provider Family Medicine; PCP Family Medicine; Referring Provider Internal Medicine Cardiovascular Disease; Visit Provider Internal Medicine Cardiovascular Disease
DX: I47.2 Ventricular tachycardia (principal); R06.09 Other forms of dyspnea; I48.0 Paroxysmal atrial fibrillation; I45.10 Unspecified right bundle-branch block; I73.9 Peripheral vascular disease, unspecified; I47.1 Supraventricular tachycardia; I25.2 Old myocardial infarction; I10 Essential (primary) hypertension
CPT/HCPCS: 78452; 93017; A9500; A4216; J2785

== ENCOUNTER 2019-01-02 16:24 | Emergency (ER) | payer MEDICARE, SELFPAY ==
[2019-01-02 16:25] VITALS: BP 161/73; PULSE 82; RESP 15; TEMP 37.4; O2SAT 97; BMI 22.7
--- NOTE | 2019-01-02 16:37 | EKG12_ITS ---
Test Reason : PALPS Blood Pressure : / mmHG Vent. Rate : 076 BPM Atrial Rate : 076 BPM P-R Int : 144 ms QRS Dur : 134 ms QT Int : 390 ms P-R-T Axes : 081 055 085 degrees QTc Int : 438 ms Normal sinus rhythm Right bundle branch block Abnormal ECG Confirmed by TYRONE WILSON, CORINNE ([id number]), sound editor YENI GALVIN ([id number]) on 01/06/2019 9:28:58 AM Referred By: CELSA Confirmed By:CORINNE HANSEN MD
[2019-01-02 17:32] VITALS: BP 145/71; PULSE 69; RESP 17; TEMP 36.8; O2SAT 96
--- NOTE | 2019-01-02 17:54 | CT_ITS ---
STUDY: CT BRAIN WITHOUT CONTRAST REASON FOR EXAM: Male, 78 years old. Palpitations, blurred vision RADIATION DOSAGE (If Supplied By Facility): CTDIvol = ( 44.99 ) mGy, DLP = ( 745.49 ) mGycm TECHNIQUE: Transaxial CT imaging of the brain was performed without administration of intravenous contrast material. Individualized dose optimization techniques were used for this CT. COMPARISON: None. FINDINGS: Normal soft tissue structures. Normal calvarium. There are bilateral deep white matter periventricular hypodensities. There are bilateral hypodensities within the basal ganglia. Normal basal ganglia and thalami. Normal brainstem. Normal cerebellum. There is no intracranial hemorrhage. There are no findings of an acute ischemic infarction. There is mild mucosal thickening within the paranasal sinuses. There is left maxillary sinus mucous retention cyst. CT/Brain/Head without Contrast IMPRESSION: Deep white matter small vessel ischemic changes with likely ischemic changes as well within the basal ganglia, MRI follow-up could be performed to exclude acute infarct Inflammatory changes paranasal sinuses Electronically Signed: John Gray, at 19:19 EDT Tel , Service support ,
--- NOTE | 2019-01-02 17:55 | RAD_ITS ---
STUDY: X-RAY CHEST REASON FOR EXAM: Male, 78 years old. Palpitations TECHNIQUE: Portable chest COMPARISON: 01/21/2016 FINDINGS: There is upper lobe COPD changes and scattered pulmonary scarring. There is a new 1 cm density within the right lower lobe.. There is no demonstrated pleural abnormality. Normal size heart. Normal mediastinum and bill. Normal visualized pulmonary arteries. Normal visualized aortic arch and descending thoracic aorta. Normal visualized thoracic spine. Normal visualized ribs, clavicles, and shoulders. There is no demonstrated abnormality of the visualized soft tissue structures of the upper abdomen. RAD/Chest 1 View (Portable) IMPRESSION: Scattered pulmonary scarring and likely COPD changes New 1 cm density within the right lower lobe possible pulmonary nodule versus scar, less likely atelectasis or infiltrate. CT chest follow-up is recommended Electronically Signed: John Gray, at 19:02 EDT Tel , Service support ,
[2019-01-02 18:13] VITALS: O2SAT 96
[2019-01-02 18:14] VITALS: BP 141/52; PULSE 67; RESP 14; TEMP 36.6; O2SAT 96
[2019-01-02] MEDS: Aspirin 81 MG TAB.CHEW 324 MG PO (18:17)
[2019-01-02 18:18] LABS: Absolute Neutrophil Count 5.4 X10^3/uL (2.0-7.7); Basophil# 0.02 X10^3/uL; Basophil% 0.3 % (0-1); Eosinophil# 0.16 X10^3/uL; Eosinophils% 2.1 % (0-5); Hematocrit 43.3 % (40-54); Hemoglobin 14.9 g/dl (13.0-16.5); Lymphocyte % 17.1 % (19-41); Mean Corp Hgb Conc 34.4 g/gl (32-36); Mean Corpuscular Hgb 33.4 pg (27.0-32.0); Mean Corpuscular Volume 97.1 fL (80-94); Mean Platelet Vol. 10.8 fl (6.2-12.0); Monocyte# 0.77 X10^3/uL; Monocyte% 10.1 % (0-10); Neutrophil # 5.36 X10^3/uL (2.7-7.7); Neutrophil % 70.3 % (47-70); Platelet Count 209 K/mm3 (150-450); RBC Distribution Width CV 12.6 % (11.6-14.6); RBC Distribution Width SD 44.1 fl (35.1-43.9); Red Blood Count 4.46 M/mm3 (4.6-6.2); White Blood Count 7.6 K/mm3 (4.4-11.0)
[2019-01-02 18:19] LABS: POSITIVE COUNT NO; POSITIVE DIFFERENTIAL NO; POSITIVE MORPHOLOGY NO
[2019-01-02 18:24] LABS: International Normalized Ratio 1.1; Partial Thromboplast Time 26.3 Seconds (24.1-36.2)
[2019-01-02 18:37] LABS: ALB/GLOB Ratio 1.1 RATIO (0.9-2.4); AST(SGOT) 15 U/L (15-37); Alanine Aminotransfer ALT/SGPT 24 U/L (16-61); Albumin, Serum 3.9 g/dL (3.2-5.0); Alkaline Phosphatase 104 U/L (45-117); Anion Gap 5 (5-15); BUN 17 mg/dL (7-18); BUN/Creat Ratio 20.1 RATIO (10-20); Calcium,Total 8.8 mg/dL (8.5-10.1); Chloride 104 mmol/L (98-107); Creatinine, Serum 0.84 mg/dL (0.70-1.30); EST Glomerular Filtration Rate 93 mL/min (>60); Est Glom Filt Rate - Afr Amer 113 mL/min (>60); Estimated Creatinine Clearance 66.34 ml/min; Globulin 3.6 g/dL (2.2-4.2); Glucose 82 mg/dL (74-106); Potassium 4.3 mmol/L (3.5-5.1); Protein, Total 7.5 g/dL (6.4-8.2); Sodium Level 135 mmol/L (136-145)
[2019-01-02 19:24] VITALS: BP 159/61; PULSE 68; RESP 14; O2SAT 96
--- NOTE | 2019-01-02 19:33 | ED.VISSUMM ---
- ER Visit Summary Date of Service: 01/02/19 Chief Complaint: Palpitations History of Present Illness: The patient is a 78 M who presents with palpitations. This has been going on for 3-4 days intermittently. It was worse today. Patient reports a headache but has no other associated symptoms. He has a history of atrial fibrillation, and complete right bundle branch block pattern, hypertension, CT, and COPD. He takes aspirin but no other blood thinners. Physical Examination: Afebrile and vital signs unremarkable. Alert and oriented. No acute distress. Heart is regular on my exam. Lungs clear. Abdomen soft. Skin normal in color. Alert and oriented. Test Results: EKG showed sinus rhythm at a rate of 76. CBC normal. Sodium 135. Coags normal. Troponin normal. Chest x-ray showed COPD and a possible lung nodule versus scar, CT follow-up recommended. Head CT showed chronic changes and sinusitis. Emergency Department Course and Treatment: Patient was placed on a monitor. He was in sinus rhythm with a right bundle branch block pattern. He had intermittent frequent PVCs and possibly atrial fibrillation on the monitor, but nothing sustained. Workup as above. He remained hemo-dynamically stable. He was discussed with Dr. Escalona. Holter monitor was ordered. He will follow-up with Dr. Escalona. Patient will follow up with his primary care doctor regarding a possible lung nodule. Treatment Plan: As above Disposition: Discharge Impression: 1. Palpitations 2. Right lung nodule This note was generated with [employer] software. It may contain incorrect words, spelling, and punctuation that were not noted in review of the chart prior to signing ED Disposition - Plan for ED Patient: Referrals: Maulik Christy MD [Primary Care Provider] -
--- NOTE | 2019-01-02 19:36 | ED.DCSUM_ITS ---
- ER Visit Summary Date of Service: 01/02/19 Chief Complaint: Palpitations History of Present Illness: The patient is a 78 M who presents with palpitations. This has been going on for 3-4 days intermittently. It was worse today. Patient reports a headache but has no other associated symptoms. He has a history of atrial fibrillation, and complete right bundle branch block pattern, hypertension, RI, and COPD. He takes aspirin but no other blood thinners. Physical Examination: Afebrile and vital signs unremarkable. Alert and oriented. No acute distress. Heart is regular on my exam. Lungs clear. Abdomen soft. Skin normal in color. Alert and oriented. Test Results: EKG showed sinus rhythm at a rate of 76. CBC normal. Sodium 135. Coags normal. Troponin normal. Chest x-ray showed COPD and a possible lung nodule versus scar, CT follow-up recommended. Head CT showed chronic changes and sinusitis. Emergency Department Course and Treatment: Patient was placed on a monitor. He was in sinus rhythm with a right bundle branch block pattern. He had intermittent frequent PVCs and possibly atrial fibrillation on the monitor, but nothing sustained. Workup as above. He remained hemo-dynamically stable. He was discussed with Dr. Escalona. Holter monitor was ordered. He will follow-up with Dr. Escalona. Patient will follow up with his primary care doctor regarding a possible lung nodule. Treatment Plan: As above Disposition: Discharge Impression: 1. Palpitations 2. Right lung nodule This note was generated with [employer] software. It may contain incorrect words, spelling, and punctuation that were not noted in review of the chart prior to signing ED Disposition - Plan for ED Patient: Referrals: Maulik Christy MD [Primary Care Provider] -
--- NOTE | 2019-01-02 19:36 | ED.DEP ---
ED Disposition - Plan for ED Patient: Instructions: ED Palpitations Referrals: Maulik Christy MD [Primary Care Provider] - Bharath Escalona MD [STAFF PHYSICIAN] -
--- NOTE | 2019-01-02 19:45 | ED.RN ---
notified resp therapy and then registration of pt needing holter monitor.
== END 2019-01-02 20:09 | disposition home or self-care (01) ==
LOC: ED 17:53
PROVIDERS: Emergency Provider Emergency Medicine; Family Provider Family Medicine; PCP Family Medicine
DX: R00.2 Palpitations (principal); R91.1 Solitary pulmonary nodule; I48.91 Unspecified atrial fibrillation; I25.2 Old myocardial infarction; Z72.0 Tobacco use; Z79.82 Long term (current) use of aspirin
CPT/HCPCS: 70450; 71045; 80053; 84484; 85025; 85610; 85730; 99285; A4216

== ENCOUNTER → 2019-01-02 19:49 | Outpatient (CLI) | payer MEDICARE, SELFPAY ==
[2019-01-02 16:25] VITALS: BMI 22.7
== END ==
PROVIDERS: Family Provider Family Medicine; PCP Family Medicine; Visit Provider Emergency Medicine
DX: I48.91 Unspecified atrial fibrillation (principal); R00.2 Palpitations; R91.1 Solitary pulmonary nodule; I25.2 Old myocardial infarction; Z72.0 Tobacco use; Z79.82 Long term (current) use of aspirin
CPT/HCPCS: 70450; 71045; 80053; 84484; 85025; 85610; 85730; 93005; 93225; 99285; A4216

== ENCOUNTER → 2019-11-15 16:59 | Outpatient (CLI) | payer MEDICARE, SELFPAY ==
[2019-08-01 14:57] VITALS: BMI 21.9
--- NOTE | 2019-11-15 17:03 | RAD_ITS ---
STUDY: X-RAY CHEST REASON FOR EXAM: Male, 79 years old. COPD with exacerbation TECHNIQUE: PA and lateral views of the chest. COMPARISON: January 02, 2019 FINDINGS: There is hyperinflation of the lungs consistent with chronic obstructive lung disease (COPD). Lungs are clear. There is no demonstrated pleural abnormality. There is mild cardiac enlargement. Normal mediastinum and bill. Normal visualized pulmonary arteries. Normal visualized aortic arch and descending thoracic aorta. There are diffuse degenerative changes of the visualized thoracic spine. There is degenerative osteoarthritis of the bilateral shoulders. There is no demonstrated abnormality of the visualized soft tissue structures of the upper abdomen. RAD/Chest PA and Lateral IMPRESSION: COPD. Lungs are clear. Electronically Signed: Loyd Becerra DO at 21:55 EST Tel , Service support ,
== END ==
PROVIDERS: PCP Family Medicine; Referring Provider Family Medicine; Visit Provider Family Medicine
DX: J44.1 Chronic obstructive pulmonary disease with (acute) exacerbation (principal)
CPT/HCPCS: 71046

== ENCOUNTER 2022-04-28 13:37 | Emergency (ER) | payer MEDICARE, SELFPAY ==
[2022-04-28 13:38] VITALS: BP 185/79; PULSE 87; RESP 20; TEMP 36.9; O2SAT 96; BMI 21.6
[2022-04-28 13:52] VITALS: BP 139/74; PULSE 85; RESP 17; O2SAT 94
[2022-04-28 13:56] VITALS: O2SAT 98
--- NOTE | 2022-04-28 14:15 | EKG12_ITS ---
Test Reason : PALPITATIONS Blood Pressure : / mmHG Vent. Rate : 080 BPM Atrial Rate : 080 BPM P-R Int : 136 ms QRS Dur : 118 ms QT Int : 368 ms P-R-T Axes : 080 025 069 degrees QTc Int : 424 ms Normal sinus rhythm Low voltage QRS Borderline ECG Confirmed by GT WILSON, SILVERIO ([id number]), magazine editor YENI GALVIN ([id number]) on 04/30/2022 9:04:24 AM Referred By: TSERING/JI Confirmed By:SILVERIO DEL REAL MD
--- NOTE | 2022-04-28 14:15 | RAD_ITS ---
STUDY: X-RAY CHEST REASON FOR EXAM: Male, 82 years old. Palpitations. Dyspnea. Wheezing. TECHNIQUE: Single AP portable view of the chest. COMPARISON: Comparison is made with prior study dated 04/15/2020. FINDINGS: EKG electrodes are seen. There is hyperinflation of the lungs consistent with chronic obstructive lung disease (COPD). Stable mild scarring at the lung bases. There is no demonstrated pleural abnormality. Normal size heart. Normal mediastinum and bill. Normal visualized pulmonary arteries. There is atherosclerotic calcification of the aortic arch with tortuosity. There are diffuse degenerative changes of the visualized thoracic spine. Normal visualized ribs, clavicles, and shoulders. There is no demonstrated abnormality of the visualized soft tissue structures of the upper abdomen. RAD/Chest 1 View (Portable) IMPRESSION: Hyperinflation. Stable mild scarring at the lung bases. Electronically Signed: Buddy Dave MD at 14:54 EDT ,
--- NOTE | 2022-04-28 14:17 | EX.ED.DYSGE1 ---
HPI History of Present Illness Chief Complaint: Palpitations Narrative Narrative: This is an 82-year-old male presenting with palpitations. He states it is not painful. He started having palpitations last night and noted that they did come and go. He checked his pulse ox with his pulse oximeter and it stated that his heart rate was about 45. When he checked his pulse it was not 45 but he can tell he was skipping beats. He does feel short of breath. He is currently wheezing more than he normally does. He states he has not had a fever or chills but does admit to a headache. No nausea or vomiting. [facility] Medical History Alcohol abuse COPD exacerbation Dyspnea Essential (primary) hypertension Incomplete right bundle branch block Near syncope Nicotine dependence Nonsustained paroxysmal supraventricular tachycardia Nonsustained ventricular tachycardia Palpitations Paroxysmal atrial fibrillation Peripheral vascular disease Weakness Home Medications budesonide-formoterol HFA 160 mcg-4.5 mcg/actuation aerosol inhaler 2 puff inhalation BID 01/26/16 [History Last Taken Unknown] aspirin 81 mg tablet,delayed release (Adult Low Dose Aspirin) 81 mg PO QDAY 01/24/18 [History Last Taken Unknown] albuterol sulfate 90 mcg/actuation aerosol inhaler (Proventil HFA) 2 puff inhalation Q4H 01/27/18 [History Last Taken Unknown] multivitamin 1 tab PO QDAY 01/27/18 [History Last Taken Unknown] vitamin B comp and C no.3 15 mg-10 mg-50 mg-5 mg-300 mg capsule (B Complex Plus Vitamin C) 1 cap PO QDAY 01/27/18 [History Last Taken Unknown] vitamin E (dl, acetate) 450 mg (1,000 unit) capsule 1,000 unit PO QDAY 01/27/18 [History Last Taken Unknown] metoprolol succinate 50 mg tablet,extended release 24 hr 50 mg PO BID #180 tabs 07/23/21 [Rx Last Taken Unknown] amlodipine 10 mg tablet 10 mg PO QDAY #90 tabs 10/20/21 [Rx Last Taken Unknown] prednisone 50 mg tablet 50 mg PO DAILY #5 tabs 04/28/22 [Rx Last Taken Unknown] Allergy/AdvReac Type Severity Reaction Status Date / Time atenolol AdvReac Intermediate Made me Verified 04/28/22 13:40 feel terrible Family History Other Sudden cardiac Social History Smoking Status: Current every day smoker tobacco type: cigarettes ROS ROS ED Constitutional Constitutional ED: Denies chills or fever(s) Eyes Eyes: Denies change in vision or diplopia ENT ENT ED: Denies rhinorrhea or sore throat Cardiovascular Cardiovascular: Reports palpitations; Denies chest pain Respiratory/Chest Respiratory/Chest: Reports dyspnea and dyspnea on exertion Gastrointestinal Gastrointestinal: Denies abdominal pain or constipation Genitourinary Genitourinary ED: Denies dysuria Musculoskeletal Musculoskeletal: Denies arthralgias, back pain or myalgias Integumentary Denies abscess or rash Neurologic Neurologic: Reports headache(s); Denies paresthesias or weakness EXAM Physical Exam Const Vital Signs: 04/28/22 13:38 04/28/22 13:52 04/28/22 13:55 Temperature 98.4 F Temperature Source Temporal Pulse Rate 87 85 Respiratory Rate 20 H 17 Respiratory Effort Short of Breath Respiratory Depth Normal Respiratory Pattern Normal Blood Pressure 185/79 H 139/74 H Blood Pressure Mean 114 95 Pulse Ox 96 94 Oxygen Delivery Method Room Air Room Air Oxygen Flow Rate (L/min) 04/28/22 13:56 04/28/22 14:37 04/28/22 15:08 Temperature Temperature Source Pulse Rate 78 73 Respiratory Rate 18 17 Respiratory Effort Respiratory Depth Respiratory Pattern Blood Pressure 145/68 H Blood Pressure Mean 93 Pulse Ox 98 97 Oxygen Delivery Method Nasal Cannula Room Air Oxygen Flow Rate (L/min) 2 Positive cachectic General Appearance ED: cachectic and NAD; Negative for pallor Nutritional Appearance: cachectic HEENT Reports dry mucous membranes Mouth ED: Yes dry mucous membranes Mouth: dry mucous membranes Eyes PERRL and EOMs intact bilaterally Resp normal respiratory effort Auscultation: wheezes expiratory wheezes and throughout Cardio regular rate and regular rhythm GI normal to inspection, nondistended, normoactive bowel sounds Neuro oriented x3 and CN's II-XII intact bilaterally Psych mental status grossly normal Skin no rashes or lesions noted and no wounds General Skin Exam: Negative for jaundice or pallor MDM MDM MDM Narrative Medical decision making narrative: Patient presenting with palpitations. He states is not having any chest pain. He feels as if his heart is skipping beats. He does have a history of paroxysmal A. fib. His EKG on my interpretation shows a normal sinus rhythm with a ventricular rate of 80 bpm without sign of ischemic change. It is noted that while I am interviewing the patient he does have PVCs on the monitor. Patient states he is using his albuterol inhaler more and this sometimes causes his heart to feel this way. CBC and BMP within normal limits. High-sensitivity troponin 7. Electrolytes within normal limits. Chest x-ray my interpretation shows no acute cardiopulmonary process and the radiologist agree. Patient feeling improved after Solu-Medrol and breathing treatments. He is no longer on oxygen. He started on prednisone burst for home. He is given instructions on albuterol inhaler. Impression: 1. COPD exacerbation 2. Palpitations Lab Data Attestation: I reviewed the patient's lab results. Labs: Laboratory Results - last 24 hr 04/28/22 04/28/22 04/28/22 13:50 13:50 13:50 WBC 7.9 RBC 4.86 Hgb 15.7 Hct 46.3 MCV 95.3 H MCH 32.3 H MCHC 33.9 RDW Std Deviation 44.3 H RDW Coeff of Matt 12.6 Plt Count 241 MPV 11.3 Immature Gran % (Auto) 0.500 Neut % (Auto) 63.3 Lymph % (Auto) 24.9 [place] % (Auto) 9.6 Eos % (Auto) 1.1 Baso % (Auto) 0.6 Absolute Neuts (auto) 5.0 Absolute Lymphs (auto) 1.97 Nucleated RBC % 0 Sodium 136 Potassium 4.3 Chloride 103 Carbon Dioxide 24.0 Anion Gap 9 BUN 13 Creatinine 0.62 L Estim Creat Clear Calc 46.68 Est GFR (MDRD) Af Amer 159 Est GFR (MDRD) Non-Af 131 BUN/Creatinine Ratio 20.9 H Glucose 101 Calcium 9.1 Total Bilirubin 0.60 AST 23 ALT 27 Alkaline Phosphatase 108 Troponin I High Sens 7 Total Protein 7.5 Albumin 3.9 Globulin 3.6 Albumin/Globulin Ratio 1.1 Radiography Diagnostic Testing: Clinical Impression(s) from Imaging Studies Chest X-Ray 04/28/22 14:15 IMPRESSION: Hyperinflation. Stable mild scarring at the lung bases. Electronically Signed: Buddy Dave MD at 14:54 EDT , Discharge Plan Triage Chief Complaint: Palpitations ED Provider: John Lowery Dx/Rx/DC Orders Instructions: ED Palpitations Prescriptions: New prednisone 50 mg tablet 50 mg PO DAILY Qty: 5 0RF No Action aspirin [Adult Low Dose Aspirin] 81 mg tablet,delayed release (DR/EC) 81 mg PO QDAY albuterol sulfate [Proventil HFA] 90 mcg/actuation HFA aerosol inhaler 2 puff INHALATION Q4H vitamin B comp and C no.3 [B Complex Plus Vitamin C] 16-44-04-5-300 mg capsule 1 cap PO QDAY multivitamin tablet 1 tab PO QDAY vitamin E (dl, acetate) 1,000 unit capsule 1,000 unit PO QDAY budesonide-formoterol 1 INHALER inhaler 2 puff INHALATION BID Label Comments: Inhale 2 (TWO) puffs TWICE DAILY metoprolol succinate 50 mg tablet extended release 24 hr 50 mg PO BID Qty: 180 3RF amlodipine 10 mg tablet 10 mg PO QDAY Qty: 90 3RF Primary Care Provider: Maulik Christy Referrals: Maulik Christy MD [Primary Care Provider] - Disposition Disposition: Home, Self Care Discharge Date/Time: 04/28/22 17:10
[2022-04-28] MEDS: Albuterol 2.5 MG/3 ML VIAL.NEB. INHALATION (14:36)
[2022-04-28 14:37] VITALS: PULSE 78; RESP 18
[2022-04-28] MEDS: Ipratropium/Albuterol Sulfate 3 ML AMPUL.NEB INHALATION (14:37)
[2022-04-28 14:47] LABS: Absolute Lymphocyte Count 1.97 X10^3/uL (0.83-4.51); Basophil# 0.05 X10^3/uL; Basophil% 0.6 % (0-1); Eosinophil# 0.09 X10^3/uL; Eosinophils% 1.1 % (0-5); Hematocrit 46.3 % (40-54); Hemoglobin 15.7 g/dL (13.0-16.5); Lymphocyte # 1.97 X10^3/ul (0.83-4.51); Lymphocyte % 24.9 % (19-41); Mean Corp Hgb Conc 33.9 g/dL (32-36); Mean Corpuscular Hgb 32.3 pg (27.0-32.0); Mean Corpuscular Volume 95.3 fL (80-94); Mean Platelet Vol. 11.3 fl (6.2-12.0); Monocyte# 0.76 X10^3/uL; Monocyte% 9.6 % (0-10); NRBC Flagged by Analyzer 0 % (0-5); Neutrophil # 4.99 X10^3/uL (2.7-7.7); Neutrophil % 63.3 % (47-70); Platelet Count 241 K/mm3 (150-450); RBC Distribution Width CV 12.6 % (11.6-14.6); RBC Distribution Width SD 44.3 fl (35.1-43.9); Red Blood Count 4.86 M/mm3 (4.6-6.2); White Blood Count 7.9 K/mm3 (4.4-11.0)
[2022-04-28] MEDS: Acetaminophen 500 MG Tablet 1000 MG PO (14:52)
[2022-04-28 15:05] LABS: Troponin-I HS 7 pg/mL (3.0-78.0)
[2022-04-28] MEDS: MethylPREDNISolone 125 MG/2 ML Vial IV (15:07)
[2022-04-28 15:08] VITALS: BP 145/68; PULSE 73; RESP 17; O2SAT 97
[2022-04-28 15:35] LABS: ALB/GLOB Ratio 1.1 RATIO (0.9-2.4); AST(SGOT) 23 U/L (15-37); Alanine Aminotransfer ALT/SGPT 27 U/L (16-61); Albumin, Serum 3.9 g/dL (3.2-5.0); Alkaline Phosphatase 108 U/L (45-117); Anion Gap 9 (5-15); BUN 13 mg/dL (7-18); BUN/Creat Ratio 20.9 RATIO (10-20); Calcium,Total 9.1 mg/dL (8.5-10.1); Chloride 103 mmol/L (98-107); Creatinine, Serum 0.62 mg/dL (0.70-1.30); EST Glomerular Filtration Rate 131 mL/min (>60); Est Glom Filt Rate - Afr Amer 159 mL/min (>60); Estimated Creatinine Clearance 46.68 ml/min; Globulin 3.6 g/dL (2.2-4.2); Glucose 101 mg/dL (74-106); Potassium 4.3 mmol/L (3.5-5.1); Protein, Total 7.5 g/dL (6.4-8.2); Sodium Level 136 mmol/L (136-145)
== END 2022-04-28 17:10 | disposition home or self-care (01) ==
PROVIDERS: Emergency Provider Student in an Organized Health Care Education/Training Program; PCP Family Medicine; Visit Provider Student in an Organized Health Care Education/Training Program
DX: J44.1 Chronic obstructive pulmonary disease with (acute) exacerbation (principal); I73.9 Peripheral vascular disease, unspecified; I48.0 Paroxysmal atrial fibrillation; I10 Essential (primary) hypertension; Z79.82 Long term (current) use of aspirin; Z79.899 Other long term (current) drug therapy; F17.210 Nicotine dependence, cigarettes, uncomplicated; I49.3 Ventricular premature depolarization
CPT/HCPCS: 71045; 80053; 84484; 85025; 93005; 94640; 96361; 96374; 99285; J7040; A4216

== ENCOUNTER → 2022-11-27 | Outpatient (CLI) | payer MEDICARE, SELFPAY ==
[2022-11-27 17:42] LABS: Absolute Lymphocyte Count 1.35 X10^3/uL (0.83-4.51); Absolute Neutrophil Count 5.4 X10^3/uL (2.0-7.7); Basophil# 0.04 X10^3/uL; Basophil% 0.5 % (0-1); Eosinophil# 0.08 X10^3/uL; Hematocrit 48.4 % (40-54); Lymphocyte # 1.35 X10^3/ul (0.83-4.51); Lymphocyte % 17.6 % (19-41); Mean Corp Hgb Conc 33.1 g/dL (32-36); Mean Corpuscular Hgb 31.9 pg (27.0-32.0); Mean Corpuscular Volume 96.4 fL (80-94); Mean Platelet Vol. 10.9 fl (6.2-12.0); Monocyte% 10.4 % (0-10); NRBC Flagged by Analyzer 0 % (0-5); Neutrophil # 5.38 X10^3/uL (2.7-7.7); Neutrophil % 70.1 % (47-70); Platelet Count 263 K/mm3 (150-450); Red Blood Count 5.02 M/mm3 (4.6-6.2); White Blood Count 7.7 K/mm3 (4.4-11.0)
[2022-11-27 18:06] LABS: AST(SGOT) 22 U/L (15-37); Alanine Aminotransfer ALT/SGPT 29 U/L (16-61); Albumin, Serum 3.9 g/dL (3.2-5.0); Alkaline Phosphatase 114 U/L (45-117); Anion Gap 7 (5-15); BUN 17 mg/dL (7-18); BUN/Creat Ratio 24.5 RATIO (10-20); Calcium,Total 9.1 mg/dL (8.5-10.1); Chloride 99 mmol/L (98-107); Creatinine, Serum 0.69 mg/dL (0.70-1.30); EST Glomerular Filtration Rate 116 mL/min (>60); Est Glom Filt Rate - Afr Amer 140 mL/min (>60); Globulin 3.9 g/dL (2.2-4.2); Glucose 103 mg/dL (74-106); Potassium 4.2 mmol/L (3.5-5.1); Protein, Total 7.8 g/dL (6.4-8.2); Sodium Level 134 mmol/L (136-145); Thyroid Stim Hormone (TSH) 1.38 uIU/mL (0.358-3.74)
== END | disposition home or self-care (01) ==
LOC: MFPLAB 16:10
PROVIDERS: PCP Family Medicine; Referring Provider Family Medicine; Visit Provider Family Medicine
DX: R06.02 Shortness of breath (principal); I10 Essential (primary) hypertension
CPT/HCPCS: 36415; 80053; 84443; 85025

== ENCOUNTER 2023-02-19 17:05 | Emergency (ER) | payer MEDICARE, SELFPAY ==
[2023-02-19] VITALS (7 sets, daily range): BP systolic 111–143; BP diastolic 64–79; PULSE 83–123; RESP 16–21; TEMP 36; O2SAT 94–98; BMI 22.6
--- NOTE | 2023-02-19 18:23 | EKG12_ITS ---
Test Reason : SOB/PALPS Blood Pressure : / mmHG Vent. Rate : 116 BPM Atrial Rate : 000 BPM P-R Int : 000 ms QRS Dur : 114 ms QT Int : 318 ms P-R-T Axes : 000 -55 074 degrees QTc Int : 442 ms Atrial fibrillation with rapid ventricular response Left axis deviation Incomplete right bundle branch block Abnormal ECG Confirmed by NURY WILSON, MG ([id number]), photograph editor YENI GALVIN ([id number]) on 02/22/2023 11:32:31 AM Referred By: TATE/CARLOS Confirmed By:BUFFY ARRINGTON MD
--- NOTE | 2023-02-19 18:30 | ED.VIS.CHEST ---
HPI History of Present Illness Chief Complaint: Palpitations Detail of Chief Complaint: History of A-fib. No chest pain. Informant: patient and family Onset/Context/Timing Onset: Today Activity at onset: gradual Timing: Continuous Worsened By: Nothing Relieved By: Nothing Associated Symptoms: Negative for Nausea, Vomiting, Diaphoresis, Cough, Fever, Lightheadedness, Acid Reflux or Palpitations Narrative Narrative: 83-year-old male history of A-fib, COPD, hypertension, peripheral vascular disease. He is on aspirin but no other blood thinners. States he had elevated heart rate today. Denies any chest pain. He is chronically short of breath he said he may be a little more short of breath today. He has had a history of A-fib for years. Denies any recent illness. Prior Similar Symptoms: Yes Recent Illness/Hospitalization: No CVD Risk Factors: Negative for Diabetes PE Risk Factors: Negative for Recent Travel/Surgery, Recent Immobilization, Prior DVT or PE, Cancer or OCP + Smoking + >/=35 TAD Risk Factors: Negative for Marfan's Syndrome [facility] Medical History (Updated 02/19/23 @ 19:[address] Aydin Goldberg MD) Alcohol abuse COPD exacerbation Dyspnea Essential (primary) hypertension Incomplete right bundle branch block Near syncope Nicotine dependence Nonsustained paroxysmal supraventricular tachycardia Nonsustained ventricular tachycardia Palpitations Paroxysmal atrial fibrillation Peripheral vascular disease Weakness Home Medications budesonide-formoterol HFA 160 mcg-4.5 mcg/actuation aerosol inhaler 2 puff inhalation BID 01/26/16 [History Last Taken Unknown] aspirin 81 mg tablet,delayed release (Adult Low Dose Aspirin) 81 mg PO QDAY 01/24/18 [History Last Taken Unknown] albuterol sulfate 90 mcg/actuation aerosol inhaler (Proventil HFA) 2 puff inhalation Q4H 01/27/18 [History Last Taken Unknown] multivitamin 1 tab PO QDAY 01/27/18 [History Last Taken Unknown] vitamin B comp and C no.3 15 mg-10 mg-50 mg-5 mg-300 mg capsule (B Complex Plus Vitamin C) 1 cap PO QDAY 01/27/18 [History Last Taken Unknown] vitamin E (dl, acetate) 450 mg (1,000 unit) capsule 1,000 unit PO QDAY 01/27/18 [History Last Taken Unknown] prednisone 50 mg tablet 50 mg PO DAILY #5 tabs 04/28/22 [Rx Last Taken Unknown] metoprolol succinate 50 mg tablet,extended release 24 hr 50 mg PO BID #180 tabs 07/20/22 [Rx Last Taken Unknown] Handicap Parking Placard #1 ea 10/05/22 [Rx Last Taken Unknown] amlodipine 10 mg tablet 10 mg PO QDAY #90 tabs 10/20/22 [Rx Last Taken Unknown] Allergy/AdvReac Type Severity Reaction Status Date / Time atenolol AdvReac Intermediate Made me Verified 02/19/23 17:08 feel terrible Family History Other Sudden cardiac Social History Smoking Status: Current every day smoker tobacco type: cigarettes ROS ROS ED ROS Narrative Denies recent illness. Palpitations. Review of Systems ROS Unobtainable: Denies due to encephalopathy Constitutional Constitutional ED: Denies chills or fever(s) Eyes Eyes: Reports none ENT ENT ED: Denies ear pain Cardiovascular Cardiovascular: Reports as per HPI, palpitations and racing heartbeat; Denies chest pain Respiratory/Chest Respiratory/Chest: Reports dyspnea; Denies cough Gastrointestinal Gastrointestinal: Denies abdominal pain Genitourinary Genitourinary ED: Denies dysuria or hematuria Musculoskeletal Musculoskeletal: Denies arthralgias Integumentary Denies abscess Neurologic Neurologic: Denies headache(s) Psychiatric Psychiatric: Denies anxiety or depression Endocrine Endocrinology: Denies cold intolerance Hematologic/Lymphatic Hematologic/Lymphatic: Denies easy bleeding Allergic/Immunologic Allergic/Immunologic ED: Denies mouth swelling EXAM Physical Exam Narrative Exam Narrative: 83-year-old male no acute distress vital signs stable he is tachycardic A-fib RVR rate in the 120-130 range. H EENT exam unremarkable. Neck nontender. Lungs coarse breath sounds. Few scattered wheezes. No rales or rhonchi. Heart irregularly irregular consistent with A-fib RVR rate of 105-130. Chest wall nontender. Abdomen soft nontender. Moving all 4 extremities. Calves are nontender that edema or cords. Neurologically is awake alert no focal motor deficits. Const Vital Signs: 02/19/23 17:06 02/19/23 17:05 04/28/23 17:05 Temperature 96.8 F L Temperature Source Temporal Pulse Rate 123 H 111 H Respiratory Rate 20 H Respiratory Effort Short of Breath Blood Pressure 124/64 H Blood Pressure Mean 84 Pulse Ox 94 Oxygen Delivery Method Room Air Oxygen Flow Rate (L/min) 02/19/23 17:11 02/19/23 18:23 02/19/23 18:11 Temperature Temperature Source Pulse Rate 105 H 112 H Respiratory Rate 16 16 Respiratory Effort Blood Pressure 143/79 H 112/72 Blood Pressure Mean 100 85 Pulse Ox 98 97 Oxygen Delivery Method Nasal Cannula Nasal Cannula Nasal Cannula Oxygen Flow Rate (L/min) 2 2 2 02/19/23 18:47 02/19/23 19:00 Temperature Temperature Source Pulse Rate 83 84 Respiratory Rate 16 21 H Respiratory Effort Blood Pressure 111/69 Blood Pressure Mean 83 Pulse Ox 98 95 Oxygen Delivery Method Nasal Cannula Nasal Cannula Oxygen Flow Rate (L/min) 2 2 Positive well nourished and well developed; Negative for obese, cachectic, contractures or unkempt General Appearance ED: well developed and NAD; Negative for unkempt, cachectic, contractures or pallor Nutritional Appearance: Negative for cachectic or obese HEENT Reports moist mucous membranes normocephalic and atraumatic; Negative for trauma or tenderness Eyes PERRL and EOMs intact bilaterally General Eye ED: Negative for pale conjunctiva or scleral icterus Neck no lymphadenopathy, supple and no JVD General: Negative for tenderness Chest Wall inspection of chest normal and palpation of chest normal Chest: Negative for tenderness Resp normal respiratory effort and No clear to auscultation bilaterally Resp Narrative: Few scattered wheezes. Auscultation: wheezes; Negative for rales or rhonchi Cardio regular rhythm; Negative for regular rate Rate: tachycardic Rhythm: abnormal rhythm irregularly irregular GI normal to inspection, nondistended, normoactive bowel sounds, soft to palpation, non-tender, non-distended and no masses Back/Spine no CVA tenderness and no thoracic nor lumbar tenderness General Back: Negative for CVA tenderness Cervical Spine: Negative for cervical spine tenderness Extremity General Extremety ED: Negative for edema General Extremity: Negative for edema Neuro oriented x3 and CN's II-XII intact bilaterally Sensorium / Orientation: awake, alert, oriented to person, oriented to place and oriented to time; Negative for confused or lethargic Motor Exam: strength 5/5 throughout Psych mental status grossly normal Appearance: Negative for unkempt Attitude: No agitated Mood & Affect: Negative for depressed, anxious or tearful Skin no rashes or lesions noted and no wounds General Skin Exam: Negative for jaundice or pallor Rashes: No rashes noted Trauma: Negative for abrasion or laceration MDM MDM MDM Narrative Medical decision making narrative: 83-year-old male history of COPD and A-fib. Currently he is in A-fib RVR. Will be given dose of Cardizem. Cardiac work-up. And reevaluated. Repeat exam patient is doing well at 7:45 PM. His heart rates in the 80s. He is in no distress. I went over all his labs with he and his family. They are comfortable with him being discharged home. He will take his normal medications tonight. Follow-up with Dr. Escalona next week or return if his heart rate becomes accelerated again. History & Record Review Discussion w/independent historian: Patient Lab Data Attestation: I reviewed the patient's lab results. Lab results narrative: CBC unremarkable white count 10.4. H&H 15 and 47. Platelets 264. Electrolytes showed a hyponatremia sodium 132. Gap of 4. Normal BUN of 14 creatinine 0.6. Glucose 98. Troponin normal at 8. Labs: Laboratory Results - last 24 hr 02/19/23 02/19/23 17:25 17:25 WBC 10.4 RBC 4.94 Hgb 15.9 Hct 47.3 MCV 95.7 H MCH 32.2 H MCHC 33.6 RDW Std Deviation 46.6 H RDW Coeff of Matt 13.2 Plt Count 264 MPV 11.5 Immature Gran % (Auto) 0.500 Neut % (Auto) 68.1 Lymph % (Auto) 18.5 L [place] % (Auto) 10.4 H Eos % (Auto) 1.9 Baso % (Auto) 0.6 Absolute Neuts (auto) 7.1 Absolute Lymphs (auto) 1.92 Nucleated RBC % 0 Sodium 132 L Potassium 3.9 Chloride 97 L Carbon Dioxide 31.0 Anion Gap 4 L BUN 14 Creatinine 0.66 L Estim Creat Clear Calc 47.83 Est GFR (MDRD) Af Amer 148 Est GFR (MDRD) Non-Af 122 BUN/Creatinine Ratio 21.2 H Glucose 98 Calcium 9.5 Troponin I High Sens 8 Radiography Chest X-Ray - ED: 1 View and Read by ED Physician Diagnostic Testing: Clinical Impression(s) from Imaging Studies Chest X-Ray 02/19/23 18:38 IMPRESSION: No acute radiographic abnormalities. COPD. Electronically Signed: Edi Sexton MD at 19:28 EDT , Chest x-ray, portable, single view interpreted both by myself and the radiologist. Shows no acute process. Normal cardiac silhouette. No effusions or failure. Chronic changes consistent with COPD. Rhythm Strip Rhythm Strip: A-fib Rate: 116 EKG Initial EKG: Attestation: I personally reviewed and interpreted this EKG as follows: Interpretation: Atrial Fibrillation Comments: A-fib with ventricular rate of 116. No acute signs of [place]. Incomplete right bundle branch block. Discharge Plan Triage Chief Complaint: Palpitations ED Provider: Aydin Goldberg Dx/Rx/DC Orders Clinical Impression: Atrial fibrillation with RVR, Essential (primary) hypertension, Palpitations, History of atrial fibrillation, No family history of COPD Instructions: AFib Prescriptions: No Action aspirin [Adult Low Dose Aspirin] 81 mg tablet,delayed release (DR/EC) 81 mg PO QDAY albuterol sulfate [Proventil HFA] 90 mcg/actuation HFA aerosol inhaler 2 puff INHALATION Q4H vitamin B comp and C no.3 [B Complex Plus Vitamin C] 50-59-42-5-300 mg capsule 1 cap PO QDAY multivitamin tablet 1 tab PO QDAY vitamin E (dl, acetate) 1,000 unit capsule 1,000 unit PO QDAY budesonide-formoterol 1 INHALER inhaler 2 puff INHALATION BID Label Comments: Inhale 2 (TWO) puffs TWICE DAILY prednisone 50 mg tablet 50 mg PO DAILY Qty: 5 0RF metoprolol succinate 50 mg tablet extended release 24 hr 50 mg PO BID Qty: 180 3RF (DME) Handicap Parking Placard See Rx Instructions .Route .MEDSUPPLY Qty: 1 0RF Rx Instructions: As directed amlodipine 10 mg tablet 10 mg PO QDAY Qty: 90 3RF Primary Care Provider: Christy,Maulik Referrals: Bharath Escalona MD [Med Staff - Active Staff] - As soon as possible Maulik Christy MD [Primary Care Provider] - Activity Restrictions/Additional Instructions: Are in A-fib. Your heart rate was accelerated. With 1 dose of medication we were able to get it back in a normal rate. You do remain in A-fib. Continue your normal medications. Make sure you take a dose of the medication to control your heart rate tonight before you go to bed. That is your metoprolol. Follow-up with Dr. Escalona next week. Return if you are feeling worse or if your heart rate becomes accelerated and continues that way. Disposition Disposition: Home, Self Care
--- NOTE | 2023-02-19 18:38 | RAD_ITS ---
INDICATION: chest pain EXAMINATION/TECHNIQUE: X-RAY - XR Chest 1 View COMPARISON: 11/15/2019. FINDINGS: Chronic lung changes with bibasilar scarring. No definite acute lung findings. Tortuous and calcified thoracic aorta. The heart is not enlarged. No pleural effusion or pneumothorax. Degenerative changes of the thoracic spine. RAD/Chest 1 View (Portable) IMPRESSION: No acute radiographic abnormalities. COPD. Electronically Signed: Edi Sexton MD at 19:28 EDT ,
[2023-02-19] MEDS: dilTIAZem 25 MG/5 ML Vial IV BOLUS (18:44)
[2023-02-19 18:51] LABS: Absolute Lymphocyte Count 1.92 X10^3/uL (0.83-4.51); Absolute Neutrophil Count 7.1 X10^3/uL (2.0-7.7); Basophil# 0.06 X10^3/uL; Basophil% 0.6 % (0-1); Eosinophils% 1.9 % (0-5); Hematocrit 47.3 % (40-54); Hemoglobin 15.9 g/dL (13.0-16.5); Lymphocyte # 1.92 X10^3/ul (0.83-4.51); Lymphocyte % 18.5 % (19-41); Mean Corp Hgb Conc 33.6 g/dL (32-36); Mean Corpuscular Hgb 32.2 pg (27.0-32.0); Mean Corpuscular Volume 95.7 fL (80-94); Mean Platelet Vol. 11.5 fl (6.2-12.0); Monocyte# 1.08 X10^3/uL; Monocyte% 10.4 % (0-10); NRBC Flagged by Analyzer 0 % (0-5); Neutrophil # 7.06 X10^3/uL (2.7-7.7); Neutrophil % 68.1 % (47-70); Platelet Count 264 K/mm3 (150-450); RBC Distribution Width CV 13.2 % (11.6-14.6); RBC Distribution Width SD 46.6 fl (35.1-43.9); Red Blood Count 4.94 M/mm3 (4.6-6.2); White Blood Count 10.4 K/mm3 (4.4-11.0)
[2023-02-19 19:10] LABS: Anion Gap 4 (5-15); BUN 14 mg/dL (7-18); BUN/Creat Ratio 21.2 RATIO (10-20); Calcium,Total 9.5 mg/dL (8.5-10.1); Chloride 97 mmol/L (98-107); Creatinine, Serum 0.66 mg/dL (0.70-1.30); EST Glomerular Filtration Rate 122 mL/min (>60); Est Glom Filt Rate - Afr Amer 148 mL/min (>60); Estimated Creatinine Clearance 47.83 ml/min; Glucose 98 mg/dL (74-106); Potassium 3.9 mmol/L (3.5-5.1); Sodium Level 132 mmol/L (136-145); Troponin-I HS 8 pg/mL (3.0-78.0)
== END 2023-02-19 20:04 | disposition home or self-care (01) ==
PROVIDERS: Emergency Provider Emergency Medicine; PCP Family Medicine; Visit Provider Emergency Medicine
DX: I48.0 Paroxysmal atrial fibrillation (principal); J44.9 Chronic obstructive pulmonary disease, unspecified; R00.2 Palpitations; I10 Essential (primary) hypertension; F17.210 Nicotine dependence, cigarettes, uncomplicated; Z79.82 Long term (current) use of aspirin; R00.0 Tachycardia, unspecified; Z79.51 Long term (current) use of inhaled steroids
CPT/HCPCS: 71045; 80048; 84484; 85025; 93005; 96374; 99284; A4216

== ENCOUNTER 2023-03-31 18:01 | Emergency (ER) | payer MEDICARE, SELFPAY ==
[2023-03-31 18:03] VITALS: BP 159/95; PULSE 114; RESP 18; TEMP 36.6; O2SAT 94; BMI 22.4
[2023-03-31 18:20] VITALS: BP 155/79; PULSE 108; RESP 18; O2SAT 96
--- NOTE | 2023-03-31 18:21 | EKG12_ITS ---
Test Reason : PALPS Blood Pressure : / mmHG Vent. Rate : 100 BPM Atrial Rate : 000 BPM P-R Int : 000 ms QRS Dur : 118 ms QT Int : 338 ms P-R-T Axes : 000 -02 060 degrees QTc Int : 436 ms Atrial fibrillation Incomplete right bundle branch block Nonspecific ST abnormality Abnormal ECG Confirmed by TYRONE WILSON, CORINNE ([id number]), graphic editor YENI GALVIN ([id number]) on 04/02/2023 8:09:05 AM Referred By: Confirmed By:CORINNE HANSEN MD
[2023-03-31] MEDS: Furosemide 100 MG/10 ML Vial 60 MG IV (18:51)
--- NOTE | 2023-03-31 18:57 | RAD_ITS ---
STUDY: X-RAY CHEST REASON FOR EXAM: Male, 83 years old. Bibasilar rales, lymphedema, A-fib TECHNIQUE: PA and lateral COMPARISON: February 19, 2023 FINDINGS: Lungs are hyperinflated. There is mild discoid atelectasis or scarring at the right base. There is no demonstrated pleural abnormality. Normal size heart. Normal mediastinum and bill. Normal visualized pulmonary arteries. Mildly calcified aortic arch and descending thoracic aorta. Dorsal spine and shoulders demonstrate degenerative changes. Normal visualized ribs, and clavicles. There is no demonstrated abnormality of the visualized soft tissue structures of the upper abdomen. RAD/Chest PA and Lateral IMPRESSION: COPD. Mild discoid atelectasis or scarring in the right lower lobe Electronically Signed: Lew Gastelum MD at 19:40 EDT ,
[2023-03-31 19:00] LABS: Hematocrit 46.3 % (40-54); Hemoglobin 15.7 g/dL (13.0-16.5); Mean Corp Hgb Conc 33.9 g/dL (32-36); Mean Corpuscular Hgb 32.5 pg (27.0-32.0); Mean Corpuscular Volume 95.9 fL (80-94); Mean Platelet Vol. 10.8 fl (6.2-12.0); Platelet Count 233 K/mm3 (150-450); RBC Distribution Width CV 12.8 % (11.6-14.6); RBC Distribution Width SD 45.3 fl (35.1-43.9); Red Blood Count 4.83 M/mm3 (4.6-6.2); White Blood Count 8.2 K/mm3 (4.4-11.0)
[2023-03-31 19:12] LABS: Anion Gap 4 (5-15); BUN 16 mg/dL (7-18); Calcium,Total 9.3 mg/dL (8.5-10.1); Chloride 100 mmol/L (98-107); EST Glomerular Filtration Rate 115 mL/min (>60); Est Glom Filt Rate - Afr Amer 139 mL/min (>60); Estimated Creatinine Clearance 50.45 ml/min; Glucose 110 mg/dL (74-106); Potassium 4.1 mmol/L (3.5-5.1); Sodium Level 135 mmol/L (136-145)
[2023-03-31 19:29] LABS: BNP,B-Type NATRIURETIC PEPTIDE 292.3 pg/mL (0-100)
--- NOTE | 2023-03-31 19:36 | EDS_ITS ---
HPI History of Present Illness Chief Complaint: Palpitations Detail of Chief Complaint: Palpitations and rapid heart rate Informant: patient Onset/Context/Timing Onset: Days Context: Sudden Onset Timing: Intermittent Quality: Fast irregular heartbeat Location: Chest Current Severity: Mild Maximum Severity: Moderate Worsened by: Nothing Relieved by: Nothing Associated Symptoms Associated Symptoms: None Narrative Narrative: Patient is a 83-year-old male with history of atrial fibrillation on metoprolol who presents with rapid heart rate and palpitations. This been going on for the past couple of days. He also reports increased swelling of his lower extremities. He was seen by Dr. Escalona's nurse practitioner. He was placed on Lasix by his PCP. He denies orthopnea or PND. He denies chest discomfort. He denies nausea or vomiting. He denies dyspnea on exertion. He denies headache, visual, ocular auditory symptoms. He denies abdominal pain, nausea, vomiting, diarrhea or constipation. Denies black or maroon-colored stool. Patient does endorse swelling of his lower extremities over the past several days. He states he is taking Lasix with slight improvement. Patient is on aspirin. He states he is not on an anticoagulant. He is a smoker and does have history of COPD. Prior similar symptoms: Yes Recent Illness/Hospitalization: Yes [facility] Medical History (Updated 03/31/23 @ 21:[address] Venu Brumfield MD) Alcohol abuse COPD exacerbation Dyspnea Essential (primary) hypertension Incomplete right bundle branch block Near syncope Nicotine dependence Nonsustained paroxysmal supraventricular tachycardia Nonsustained ventricular tachycardia Palpitations Paroxysmal atrial fibrillation Peripheral vascular disease Weakness Home Medications aspirin 81 mg tablet,delayed release (Adult Low Dose Aspirin) 81 mg PO QDAY 01/24/18 [History Last Taken Unknown] multivitamin 1 tab PO QDAY 01/27/18 [History Last Taken Unknown] vitamin B comp and C no.3 15 mg-10 mg-50 mg-5 mg-300 mg capsule (B Complex Plus Vitamin C) 1 cap PO QDAY 01/27/18 [History Last Taken Unknown] vitamin E (dl, acetate) 450 mg (1,000 unit) capsule 1,000 unit PO QDAY 01/27/18 [History Last Taken Unknown] Handicap Parking Placard #1 ea 10/05/22 [Rx Last Taken Unknown] amlodipine 10 mg tablet 10 mg PO QDAY #90 tabs 10/20/22 [Rx Last Taken Unknown] albuterol sulfate 90 mcg/actuation aerosol inhaler (Proventil HFA) 2 puff inhalation Q4H PRN 03/01/23 [History Last Taken Unknown] budesonide-formoterol HFA 160 mcg-4.5 mcg/actuation aerosol inhaler 2 puff inhalation BID 03/01/23 [History Last Taken Unknown] furosemide 40 mg tablet (Lasix) 40 mg PO Q OTHER DAY #45 tabs 03/01/23 [Rx Last Taken Unknown] metoprolol succinate 50 mg tablet,extended release 24 hr 50 mg PO TID 03/01/23 [History Last Taken Unknown] metoprolol succinate 25 mg capsule sprinkle, ext. release 24 hr 25 mg PO QHS #30 ea 03/31/23 [Rx Last Taken Unknown] Allergy/AdvReac Type Severity Reaction Status Date / Time atenolol AdvReac Intermediate Made me Verified 03/01/23 13:03 feel terrible Family History Other Sudden cardiac Social History (Updated 03/31/23 @ 19:[address] Venu Brumfield MD) household members: none Smoking Status: Light Smoker (<10/day) alcohol intake: never substance use type: does not use caffeine: Yes Type: coffee Number of servings: 3 ROS ROS ED Constitutional Constitutional ED: Denies chills, fever(s), subjective, sweats or weight loss Eyes Eyes: Denies blurry vision, change in vision or diplopia ENT ENT ED: Denies ear pain, rhinorrhea or sore throat Cardiovascular Cardiovascular: Reports palpitations and racing heartbeat; Denies chest pain, orthopnea or paroxysmal nocturnal dyspnea Respiratory/Chest Respiratory/Chest: Reports cough and dyspnea; Denies dyspnea on exertion, orthopnea or paroxysmal nocturnal dyspnea Gastrointestinal Gastrointestinal: Denies abdominal pain, nausea or vomiting Genitourinary Genitourinary ED: Denies dysuria, hematuria or urinary frequency Musculoskeletal Musculoskeletal: Denies arthralgias, back pain, myalgias or neck pain Integumentary Denies rash Neurologic Neurologic: Denies paresthesias or weakness Endocrine Endocrinology: Denies cold intolerance, heat intolerance, polydipsia or polyuria Hematologic/Lymphatic Hematologic/Lymphatic: Reports systems reviewed and no addt'l complaints, except as documented EXAM Physical Exam Const Vital Signs: 03/31/23 18:03 03/31/23 18:20 03/31/23 19:47 Temperature 97.9 F Temperature Source Temporal Pulse Rate 114 H 108 H 95 Respiratory Rate 18 18 16 Blood Pressure 159/95 H 155/79 H 127/66 H Blood Pressure Mean 116 104 86 Pulse Ox 94 96 96 Oxygen Delivery Method Room Air Room Air Room Air 03/31/23 20:07 03/31/23 20:38 Temperature Temperature Source Pulse Rate 102 H 99 Respiratory Rate 18 15 Blood Pressure 135/80 H 133/84 H Blood Pressure Mean 98 100 Pulse Ox 96 95 Oxygen Delivery Method Room Air Room Air Positive well nourished, well developed and unkempt General Appearance ED: unkempt, well developed, NAD and pallor; Negative for cyanotic or diaphoretic HEENT Reports moist mucous membranes HEENT Narrative: Head is atraumatic normocephalic. Ears are normal. Nares are patent. Posterior pharynx is normal. Uvula is midline. There is no deviation tongue with protrusion. Eyes PERRL and EOMs intact bilaterally General Eye ED: Negative for pale conjunctiva or scleral icterus Neck no lymphadenopathy, supple and no JVD Chest Wall inspection of chest normal and palpation of chest normal Resp normal respiratory effort and No clear to auscultation bilaterally Auscultation: rales bilateral base and wheezes expiratory wheezes, scattered wheezes and throughout Cardio no murmurs Rate: tachycardic Rhythm: abnormal rhythm irregularly irregular GI normal to inspection, nondistended, normoactive bowel sounds, non-tender, non- distended and no masses; Negative for hepatosplenomegaly Auscultation: normoactive bowel sounds Palpation: soft Back/Spine no CVA tenderness Extremity Extremity Narrative: 2-3+ pitting edema bilaterally. General Extremety ED: Yes edema General Extremity: edema Neuro oriented x3, CN's II-XII intact bilaterally and no sensory deficits noted Sensorium / Orientation: alert Motor Exam: strength 5/5 throughout Psych mental status grossly normal Appearance: unkempt Skin no rashes or lesions noted, no wounds and No skin turgor normal General Skin Exam: elasticity normal and pallor; Negative for jaundice MDM MDM MDM Narrative Medical decision making narrative: Patient has wheezing. This may be cardiac wheezing due to congestive heart failure since his bilateral rales and lymphedema will obtain chest x-ray versus wheezing due to his COPD. EKG was obtained to assess rhythm and rule out any acute ischemic changes. CBC to assess H&H. BMP to assess renal function. BNP was elevated at 292. Patient received 60 mg of Lasix IV push and 5 mg of metoprolol IV push for fluid overload state and A-fib with RVR. He is presently on metoprolol. Lab Data Labs: Laboratory Results - last 24 hr 03/31/23 03/31/23 03/31/23 18:40 18:40 18:40 WBC 8.2 RBC 4.83 Hgb 15.7 Hct 46.3 MCV 95.9 H MCH 32.5 H MCHC 33.9 RDW Std Deviation 45.3 H RDW Coeff of Matt 12.8 Plt Count 233 MPV 10.8 Sodium 135 L Potassium 4.1 Chloride 100 Carbon Dioxide 31.0 Anion Gap 4 L BUN 16 Creatinine 0.70 Estim Creat Clear Calc 50.45 Est GFR (MDRD) Af Amer 139 Est GFR (MDRD) Non-Af 115 BUN/Creatinine Ratio 23.0 H Glucose 110 H Calcium 9.3 B-Natriuretic Peptide 292.3 H Radiography Chest X-Ray - ED: 2 View and Read by ED Physician (Atelectasis right lower lobe. There is chronic changes. Cardiac silhouette size unremarkable. Perihilar region unremarkable. Osseous structures are unremarkable. This was independent reviewed interpreted by me at 1931) Diagnostic Testing: Clinical Impression(s) from Imaging Studies Chest X-Ray 03/31/23 18:57 IMPRESSION: COPD. Mild discoid atelectasis or scarring in the right lower lobe Electronically Signed: Lew Gastelum MD at 19:40 EDT , EKG Initial EKG: Interpretation: Atrial Fibrillation (Atrial fibrillation with a rate of 100. Cures duration 118 ms. QT duration 3 to 38 ms. [place] Point is normal. There is an RR prime and findings are consistent with incomplete right bundle branch block. There is also motion artifact noted.) Treatment and Re-Evaluation :: Patient was reassessed at 2019. He is no longer wheezing. This he presented for A-fib with RVR we will not treat with albuterol at this time since he is not wheezing. I was informed that he just received his metoprolol. We will reassess in 30 minutes. Patient was reassessed at 210. He feels markedly better. Heart rate is 95- 100. Will discharge to home with prescription to take 25 mg metoprolol at night. He is to contact Dr. Bharath Escalona for follow-up. Discharge Plan Triage Chief Complaint: Palpitations ED Provider: Venu Brumfield Dx/Rx/DC Orders Clinical Impression: Atrial fibrillation with RVR, Incomplete right bundle branch block, Nicotine dependence, Essential (primary) hypertension, Peripheral vascular disease, Chronic obstructive pulmonary disease with bronchospasm, Lymphedema Instructions: ED AFIB Prescriptions: New metoprolol succinate 25 mg capsule,sprinkle,ER 24hr 25 mg PO QHS Qty: 30 0RF No Action aspirin [Adult Low Dose Aspirin] 81 mg tablet,delayed release (DR/EC) 81 mg PO QDAY vitamin B comp and C no.3 [B Complex Plus Vitamin C] 63-31-16-5-300 mg capsule 1 cap PO QDAY multivitamin tablet 1 tab PO QDAY vitamin E (dl, acetate) 1,000 unit capsule 1,000 unit PO QDAY albuterol sulfate [Proventil HFA] 90 mcg/actuation HFA aerosol inhaler 2 puff INHALATION Q4H PRN metoprolol succinate 50 mg tablet extended release 24 hr 50 mg PO TID furosemide [Lasix] 40 mg tablet 40 mg PO Q OTHER DAY Qty: 45 3RF budesonide-formoterol 160-4.5 mcg/actuation HFA aerosol inhaler 2 puff INHALATION BID Label Comments: Inhale 2 (TWO) puffs TWICE DAILY (DME) Handicap Parking Placard See Rx Instructions .Route .MEDSUPPLY Qty: 1 0RF Rx Instructions: As directed amlodipine 10 mg tablet 10 mg PO QDAY Qty: 90 3RF Primary Care Provider: Maulik Christy Referrals: Bharath Escalona MD [Med Staff - Active Staff] - 5-7 Days Maulik Christy MD [Primary Care Provider] - Disposition Disposition: Home, Self Care
[2023-03-31 19:47] VITALS: BP 127/66; PULSE 95; RESP 16; O2SAT 96
[2023-03-31] MEDS: Metoprolol Tartrate 5 MG/5 ML Vial IV (20:06)
[2023-03-31 20:07] VITALS: BP 135/80; PULSE 102; RESP 18; O2SAT 96
[2023-03-31 20:38] VITALS: BP 133/84; PULSE 99; RESP 15; O2SAT 95
== END 2023-03-31 21:26 | disposition home or self-care (01) ==
PROVIDERS: Emergency Provider Emergency Medicine; PCP Family Medicine; Visit Provider Emergency Medicine
DX: I48.91 Unspecified atrial fibrillation (principal); J44.9 Chronic obstructive pulmonary disease, unspecified; I73.9 Peripheral vascular disease, unspecified; I89.0 Lymphedema, not elsewhere classified; F17.200 Nicotine dependence, unspecified, uncomplicated; E87.70 Fluid overload, unspecified; I10 Essential (primary) hypertension; I45.4 Nonspecific intraventricular block; Z79.82 Long term (current) use of aspirin; Z79.899 Other long term (current) drug therapy; Z79.51 Long term (current) use of inhaled steroids
CPT/HCPCS: 71046; 80048; 83880; 85027; 93005; 96374; 96375; 99284; A4216; J1940

== ENCOUNTER 2023-04-16 21:44 | Inpatient (IN) | payer MEDICARE, SELFPAY ==
[2023-04-16 21:46] VITALS: BP 134/79; PULSE 116; RESP 18; TEMP 36.6; O2SAT 97; BMI 22.1
[2023-04-16 22:18] VITALS: BP 142/83; PULSE 123; O2SAT 98
--- NOTE | 2023-04-16 22:18 | EKG12_ITS ---
Test Reason : DYSRHYTHMIA Blood Pressure : / mmHG Vent. Rate : 116 BPM Atrial Rate : 108 BPM P-R Int : 000 ms QRS Dur : 110 ms QT Int : 280 ms P-R-T Axes : 000 -21 066 degrees QTc Int : 389 ms Atrial fibrillation Abnormal ECG Confirmed by CORINNE HANSEN MD ([id number]), film editor supervisor YENI GALVIN ([id number]) on 04/19/2023 12:56:57 PM Referred By: YADI Confirmed By:CORINNE HANSEN MD
--- NOTE | 2023-04-16 22:19 | EDS_ITS ---
HPI History of Present Illness Chief Complaint: Dizziness Detail of Chief Complaint: Rapid heart rate with a history of A-fib. Informant: patient and family Onset/Context/Timing Onset: Today and Hours Activity at onset: gradual Timing: Continuous Narrative Narrative: 83-year-old male history of A-fib and COPD. Was at home used his nebulizer which is his routine. Noticed he was feeling somewhat lightheaded and dizzy with standing. Said on his pulse ox at home his heart rate was 145. He initially did not think that was correct and he took his pulse himself and said he has pulse was very rapid. No chest pain. No recent illness. Currently not on any blood thinners. Denies any recent hospitalization. Prior Similar Symptoms: Yes Recent Illness/Hospitalization: No CVD Risk Factors: Negative for Diabetes PE Risk Factors: Negative for Recent Travel/Surgery, Recent Immobilization, Prior DVT or PE, Cancer or OCP + Smoking + >/=35 TAD Risk Factors: Negative for Marfan's Syndrome [facility] Medical History (Updated 04/16/23 @ 23:[address] Aydin Goldberg MD) Alcohol abuse COPD exacerbation Dyspnea Essential (primary) hypertension Incomplete right bundle branch block Near syncope Nicotine dependence Nonsustained paroxysmal supraventricular tachycardia Nonsustained ventricular tachycardia Palpitations Paroxysmal atrial fibrillation Peripheral vascular disease Weakness Home Medications aspirin 81 mg tablet,delayed release (Adult Low Dose Aspirin) 81 mg PO QDAY 01/24/18 [History Last Taken Unknown] multivitamin 1 tab PO QDAY 01/27/18 [History Last Taken Unknown] vitamin B comp and C no.3 15 mg-10 mg-50 mg-5 mg-300 mg capsule (B Complex Plus Vitamin C) 1 cap PO QDAY 01/27/18 [History Last Taken Unknown] vitamin E (dl, acetate) 450 mg (1,000 unit) capsule 1,000 unit PO QDAY 01/27/18 [History Last Taken Unknown] Handicap Parking Placard #1 ea 10/05/22 [Rx Last Taken Unknown] amlodipine 10 mg tablet 10 mg PO QDAY #90 tabs 10/20/22 [Rx Last Taken Unknown] albuterol sulfate 90 mcg/actuation aerosol inhaler (Proventil HFA) 2 puff inhalation Q4H PRN Wheezing 03/01/23 [History Last Taken Unknown] budesonide-formoterol HFA 160 mcg-4.5 mcg/actuation aerosol inhaler 2 puff inhalation BID 03/01/23 [History Last Taken Unknown] furosemide 40 mg tablet (Lasix) 40 mg PO Q OTHER DAY #45 tabs 03/01/23 [Rx Last Taken Unknown] metoprolol succinate 25 mg tablet,extended release 24 hr 25 mg PO .COMPLEX #450 tabs 04/05/23 [Rx Last Taken Unknown] potassium citrate 10 mEq (1,080 mg) tablet,extended release 10 meq PO DAILY PRN supplement 04/16/23 [History Last Taken Unknown] Allergy/AdvReac Type Severity Reaction Status Date / Time atenolol AdvReac Intermediate Made me Verified 04/16/23 21:48 feel terrible Family History Other Sudden cardiac Social History household members: none Smoking Status: Light Smoker (<10/day) alcohol intake: never substance use type: does not use caffeine: Yes Type: coffee Number of servings: 3 ROS ROS ED ROS Narrative Denies recent illness. Review of Systems ROS Unobtainable: Denies due to encephalopathy Constitutional Constitutional ED: Denies chills or fever(s) Eyes Eyes: Reports none ENT ENT ED: Denies ear pain Cardiovascular Cardiovascular: Reports palpitations and racing heartbeat; Denies as per HPI or chest pain Respiratory/Chest Respiratory/Chest: Denies cough Gastrointestinal Gastrointestinal: Denies abdominal pain Genitourinary Genitourinary ED: Denies dysuria Musculoskeletal Musculoskeletal: Denies arthralgias Integumentary Denies abscess Neurologic Neurologic: Denies headache(s) Psychiatric Psychiatric: Denies anxiety Endocrine Endocrinology: Denies cold intolerance Hematologic/Lymphatic Hematologic/Lymphatic: Denies easy bleeding Allergic/Immunologic Allergic/Immunologic ED: Denies mouth swelling or tongue swelling EXAM Physical Exam Narrative Exam Narrative: 83-year-old male. No acute distress. He is in A-fib on the monitor jumping between 110 and 145. HEENT exam unremarkable. Neck nontender. Lungs few scattered wheezes. Heart irregular irregular consistent with A-fib rate between 110 and 145. Chest wall nontender. Equal and symmetrical. No rales or rhonchi. Abdomen soft nontender. Normal bowel sounds no peritoneal signs. Moving all 4 extremities. Edema bilaterally greater on the right which is his baseline. Neurologically is awake and alert. Moving all 4 extremities. Answering questions and following commands. Const Vital Signs: 04/16/23 21:46 04/16/23 22:30 04/16/23 22:18 Temperature 97.8 F Temperature Source Temporal Pulse Rate 116 H 123 H Respiratory Rate 18 Blood Pressure 134/79 H 142/83 H Blood Pressure Mean 97 102 Pulse Ox 97 98 Oxygen Delivery Method Nasal Cannula Nasal Cannula Nasal Cannula Oxygen Flow Rate (L/min) 2 2 2 04/16/23 22:45 04/16/23 23:00 Temperature Temperature Source Pulse Rate 114 H 126 H Respiratory Rate 17 Blood Pressure 130/73 H Blood Pressure Mean 92 Pulse Ox 97 Oxygen Delivery Method Nasal Cannula Oxygen Flow Rate (L/min) 2 Positive well nourished and well developed; Negative for obese, cachectic, contractures or unkempt General Appearance ED: well developed and NAD; Negative for unkempt, cachectic, contractures or pallor Nutritional Appearance: Negative for cachectic or obese HEENT Reports moist mucous membranes normocephalic and atraumatic; Negative for trauma or tenderness Eyes PERRL and EOMs intact bilaterally General Eye ED: Negative for pale conjunctiva, scleral icterus or other Neck no lymphadenopathy, supple and no JVD General: Negative for tenderness Chest Wall inspection of chest normal and palpation of chest normal Resp normal respiratory effort and No clear to auscultation bilaterally Auscultation: wheezes Cardio Negative for regular rate or regular rhythm Rate: tachycardic Rhythm: abnormal rhythm GI normal to inspection, nondistended, normoactive bowel sounds, soft to palpation, non-tender, non-distended and no masses Auscultation: Negative for hyperactive bowel sounds Palpation: Negative for splenomegaly Back/Spine no CVA tenderness and no thoracic nor lumbar tenderness General Back: Negative for CVA tenderness Cervical Spine: Negative for cervical spine tenderness Extremity normal to inspection General Extremety ED: Yes edema; Negative for pulses abnormal or tenderness General Extremity: edema; Negative for pulses abnormal Neuro oriented x3 and CN's II-XII intact bilaterally Sensorium / Orientation: awake, alert, oriented to person, oriented to place and oriented to time; Negative for confused, lethargic, stuporous or other Motor Exam: strength 5/5 throughout Psych mental status grossly normal Appearance: Negative for unkempt Attitude: No agitated Mood & Affect: Negative for depressed, anxious, tearful or other Skin no rashes or lesions noted and no wounds General Skin Exam: Negative for jaundice or pallor Rashes: No rashes noted Trauma: Negative for abrasion, laceration or puncture MDM MDM MDM Narrative Medical decision making narrative: 83-year-old male A-fib RVR will be given IV Cardizem. Undergo cardiac work-up. He has no neurological symptoms. His dizziness and lightheaded I think is from his A-fib RVR. He has normal motor strength and sensation bilaterally. NIH score is 0. I do not think he needs any imaging of his brain. Repeat exam patient is initially given IV Cardizem. Currently his weight is actually 140+ he remains in A-fib. His exam otherwise is unchanged. He will be started on a Cardizem drip and admitted. I will discuss his admission with the hospitalist. I also discussed with the patient his test results. He has not had any recent fever. He has a chronic cough. His phlegm is clear and unchanged. History & Record Review Discussion w/independent historian: Patient Additional record(s) reviewed:: Prior inpatient record, Prior outpatient record, Prior ED visit, Prior labs and No prior records Lab Data Attestation: I reviewed the patient's lab results. Lab results narrative: CBC unremarkable. White count 8.9. H&H 15 and 46. Platelets 243. Electrolytes show sodium 134 gap of 5. Normal BUN and creatinine. Glucose 110. Troponin 7. Chest x-ray chronic changes. No acute process. Labs: Laboratory Results - last 24 hr 04/16/23 04/16/23 22:20 22:20 WBC 8.9 RBC 4.82 Hgb 15.7 Hct 46.4 MCV 96.3 H MCH 32.6 H MCHC 33.8 RDW Std Deviation 44.7 H RDW Coeff of Matt 12.5 Plt Count 243 MPV 11.1 Immature Gran % (Auto) 0.400 Neut % (Auto) 61.9 Lymph % (Auto) 24.4 Cannon % (Auto) 9.9 Eos % (Auto) 2.8 Baso % (Auto) 0.6 Absolute Neuts (auto) 5.5 Absolute Lymphs (auto) 2.17 Nucleated RBC % 0 Sodium 134 L Potassium 3.8 Chloride 100 Carbon Dioxide 29.0 Anion Gap 5 BUN 18 Creatinine 0.71 Estim Creat Clear Calc 50.01 Est GFR (MDRD) Af Amer 136 Est GFR (MDRD) Non-Af 112 BUN/Creatinine Ratio 25.3 H Glucose 110 H Calcium 9.3 Troponin I High Sens 7 Radiography Chest X-Ray - ED: 1 View, Read by ED Physician, Read by Radiologist, Heart, Lungs, Mediastinum, Bony Structures, No Acute Disease and Chronic Changes Diagnostic Testing: Clinical Impression(s) from Imaging Studies Chest X-Ray 04/16/23 22:32 IMPRESSION: Basilar atelectasis. Possible focal right midlung infiltrate. Electronically Signed: Vlad Arita DO at 22:50 EDT Reading Location ID and State: [facility] / [place] Tel [phone], Service support , Chest x-ray, portable, single view shows no acute process. Chronic changes. He has COPD. Radiologist mentioned possible right middle lobe infiltrate I do not think so clinically or my interpretation of the x-ray. Rhythm Strip Rhythm Strip: A-fib Rate: 116 EKG Initial EKG: Attestation: I personally reviewed and interpreted this EKG as follows: Interpretation: Atrial Fibrillation Comments: A-fib with rapid ventricular rate 116. No acute signs of ND. No ischemia. Discharge Plan Triage Chief Complaint: Dizziness Other Complaint: Palpitations ED Provider: Aydin Goldberg Dx/Rx/DC Orders Clinical Impression: Atrial fibrillation with rapid ventricular response, History of COPD Prescriptions: No Action aspirin [Adult Low Dose Aspirin] 81 mg tablet,delayed release (DR/EC) 81 mg PO QDAY vitamin B comp and C no.3 [B Complex Plus Vitamin C] 91-07-84-5-300 mg capsule 1 cap PO QDAY multivitamin tablet 1 tab PO QDAY vitamin E (dl, acetate) 1,000 unit capsule 1,000 unit PO QDAY albuterol sulfate [Proventil HFA] 90 mcg/actuation HFA aerosol inhaler 2 puff INHALATION Q4H PRN (Reason: Wheezing) furosemide [Lasix] 40 mg tablet 40 mg PO Q OTHER DAY Qty: 45 3RF budesonide-formoterol 160-4.5 mcg/actuation HFA aerosol inhaler 2 puff INHALATION BID Label Comments: Inhale 2 (TWO) puffs TWICE DAILY potassium citrate 10 mEq (1,080 mg) tablet extended release 10 meq PO DAILY PRN (Reason: supplement) Label Comments: TAKE 1 TABLET BY MOUTH DAILY AT LUNCH (DME) Handicap Parking Placard See Rx Instructions .Route .MEDSUPPLY Qty: 1 0RF Rx Instructions: As directed amlodipine 10 mg tablet 10 mg PO QDAY Qty: 90 3RF metoprolol succinate 25 mg tablet extended release 24 hr 25 mg PO .COMPLEX Qty: 450 3RF Rx Instructions: 25 mg orally; 50mg in AM, 25mg in afternoon, 50mg in PM Primary Care Provider: Maulik Christy Referrals: Maulik Christy MD [Primary Care Provider] - Disposition Disposition: Acute Care Hospital [facility]
[2023-04-16] MEDS: Aspirin 81 MG TAB.CHEW 324 MG PO (22:26)
[2023-04-16] MEDS: dilTIAZem 25 MG/5 ML Vial 20 MG IV BOLUS (22:27)
[2023-04-16 22:29] LABS: Absolute Lymphocyte Count 2.17 X10^3/uL (0.83-4.51); Absolute Neutrophil Count 5.5 X10^3/uL (2.0-7.7); Basophil# 0.05 X10^3/uL; Basophil% 0.6 % (0-1); Eosinophil# 0.25 X10^3/uL; Eosinophils% 2.8 % (0-5); Hematocrit 46.4 % (40-54); Hemoglobin 15.7 g/dL (13.0-16.5); Lymphocyte # 2.17 X10^3/ul (0.83-4.51); Lymphocyte % 24.4 % (19-41); Mean Corp Hgb Conc 33.8 g/dL (32-36); Mean Corpuscular Hgb 32.6 pg (27.0-32.0); Mean Corpuscular Volume 96.3 fL (80-94); Mean Platelet Vol. 11.1 fl (6.2-12.0); Monocyte# 0.88 X10^3/uL; Monocyte% 9.9 % (0-10); NRBC Flagged by Analyzer 0 % (0-5); Neutrophil # 5.51 X10^3/uL (2.7-7.7); Neutrophil % 61.9 % (47-70); Platelet Count 243 K/mm3 (150-450); RBC Distribution Width CV 12.5 % (11.6-14.6); RBC Distribution Width SD 44.7 fl (35.1-43.9); Red Blood Count 4.82 M/mm3 (4.6-6.2); White Blood Count 8.9 K/mm3 (4.4-11.0)
--- NOTE | 2023-04-16 22:32 | RAD_ITS ---
INDICATION: chest pain EXAMINATION/TECHNIQUE: X-RAY - XR Chest 1 View COMPARISON: March 31 2023 FINDINGS: LINES/DEVICES: None. LUNGS: Possible focal right mid lung infiltrate. Basilar atelectasis. No pneumothorax. MEDIASTINUM AND CARDIOVASCULAR STRUCTURES: Cardiac silhouette not enlarged. Calcified aortic arch. Central airways and mediastinal contour are unremarkable. BONES AND SOFT TISSUES: Degenerative vertebral changes. RAD/Chest 1 View (Portable) IMPRESSION: Basilar atelectasis. Possible focal right midlung infiltrate. Electronically Signed: Vlad Arita DO at 22:50 EDT ,
[2023-04-16 22:45] VITALS: PULSE 114
[2023-04-16 22:50] LABS: Anion Gap 5 (5-15); BUN 18 mg/dL (7-18); BUN/Creat Ratio 25.3 RATIO (10-20); Calcium,Total 9.3 mg/dL (8.5-10.1); Chloride 100 mmol/L (98-107); Creatinine, Serum 0.71 mg/dL (0.70-1.30); EST Glomerular Filtration Rate 112 mL/min (>60); Est Glom Filt Rate - Afr Amer 136 mL/min (>60); Estimated Creatinine Clearance 50.01 ml/min; Glucose 110 mg/dL (74-106); Potassium 3.8 mmol/L (3.5-5.1); Sodium Level 134 mmol/L (136-145); Troponin-I HS 7 pg/mL (3.0-78.0)
[2023-04-16 23:00] VITALS: BP 130/73; PULSE 126; RESP 17; O2SAT 97
[2023-04-16 23:51] VITALS: BP 132/73; PULSE 128; RESP 16; TEMP 36.2; O2SAT 98
[2023-04-16 23:52] VITALS: PULSE 160
[2023-04-17] VITALS (35 sets, daily range): BP systolic 98–165; BP diastolic 44–83; PULSE 77–130; RESP 16–30; TEMP 36.6–37.2; O2SAT 88–97; BMI 22.7
--- NOTE | 2023-04-17 00:51 | PCM.HP.STD ---
HPI - General General Date of Admission: 04/17/23 Date of Service: 04/17/23 Chief Complaint: Elevated heart rate HPI Narrative TOLU MONTANA, is a 83 M with a significant history of oxygen dependent COPD; and proximal A-fib who presents emergency department with elevated heart beats. Patient use is Pulse oximeter at home and realized that his heart rate was elevated. When he stood out he realized he was dizzy. He reports his dizziness as a feeling of getting ready to fall. At the emergency department patient was found to be in A-fib RVR. He was placed on a Cardizem drip. [facility] Medical History Alcohol abuse COPD exacerbation Dyspnea Essential (primary) hypertension Incomplete right bundle branch block Near syncope Nicotine dependence Nonsustained paroxysmal supraventricular tachycardia Nonsustained ventricular tachycardia Palpitations Paroxysmal atrial fibrillation Peripheral vascular disease Weakness Home Medications aspirin 81 mg tablet,delayed release (Adult Low Dose Aspirin) 81 mg PO QDAY 01/24/18 [History Last Taken Unknown] multivitamin 1 tab PO QDAY 01/27/18 [History Last Taken Unknown] vitamin B comp and C no.3 15 mg-10 mg-50 mg-5 mg-300 mg capsule (B Complex Plus Vitamin C) 1 cap PO QDAY 01/27/18 [History Last Taken Unknown] vitamin E (dl, acetate) 450 mg (1,000 unit) capsule 1,000 unit PO QDAY 01/27/18 [History Last Taken Unknown] Handicap Parking Placard #1 ea 10/05/22 [Rx Last Taken Unknown] amlodipine 10 mg tablet 10 mg PO QDAY #90 tabs 10/20/22 [Rx Last Taken Unknown] albuterol sulfate 90 mcg/actuation aerosol inhaler (Proventil HFA) 2 puff inhalation Q4H PRN Wheezing 03/01/23 [History Last Taken Unknown] budesonide-formoterol HFA 160 mcg-4.5 mcg/actuation aerosol inhaler 2 puff inhalation BID 03/01/23 [History Last Taken Unknown] furosemide 40 mg tablet (Lasix) 40 mg PO Q OTHER DAY #45 tabs 03/01/23 [Rx Last Taken Unknown] metoprolol succinate 25 mg tablet,extended release 24 hr 25 mg PO .COMPLEX #450 tabs 04/05/23 [Rx Last Taken Unknown] potassium citrate 10 mEq (1,080 mg) tablet,extended release 10 meq PO DAILY PRN supplement 04/16/23 [History Last Taken Unknown] Allergy/AdvReac Type Severity Reaction Status Date / Time atenolol AdvReac Intermediate Made me Verified 04/16/23 21:48 feel terrible Family History Other Sudden cardiac Surgical History History of herniorrhaphy Social History household members: none Smoking Status: Light Smoker (<10/day) alcohol intake: never substance use type: does not use caffeine: Yes Type: coffee Number of servings: 3 ROS ROS Narrative Pertinent positives and pertinent negatives as noted in HPI. All other systems were reviewed and are negative Vital Signs Vital Signs Vital Signs: 04/16/23 21:46 04/16/23 22:30 04/16/23 22:18 Temperature 97.8 F Temperature Source Temporal Pulse Rate 116 H 123 H Respiratory Rate 18 Blood Pressure 134/79 H 142/83 H Blood Pressure Mean 97 102 Blood Pressure Source Pulse Ox 97 98 Oxygen Delivery Method Nasal Cannula Nasal Cannula Nasal Cannula Oxygen Flow Rate (L/min) 2 2 2 04/16/23 22:45 04/16/23 23:00 04/16/23 23:52 Temperature Temperature Source Pulse Rate 114 H 126 H 160 H Respiratory Rate 17 Blood Pressure 130/73 H Blood Pressure Mean 92 Blood Pressure Source Pulse Ox 97 Oxygen Delivery Method Nasal Cannula Oxygen Flow Rate (L/min) 2 04/16/23 23:51 04/17/23 00:00 04/17/23 00:08 Temperature 97.1 F L Temperature Source Temporal Pulse Rate 128 H 130 H 90 Respiratory Rate 16 Blood Pressure 132/73 H Blood Pressure Mean 92 Blood Pressure Source Pulse Ox 98 Oxygen Delivery Method Nasal Cannula Oxygen Flow Rate (L/min) 2 04/17/23 00:20 Temperature Temperature Source Pulse Rate 112 H Respiratory Rate 17 Blood Pressure 125/70 H Blood Pressure Mean 88 Blood Pressure Source Monitor Pulse Ox 97 Oxygen Delivery Method Nasal Cannula Oxygen Flow Rate (L/min) 2 Weight Weight: 64.3 kg Body Mass Index (BMI) 22.1 Physical Exam Narrative Physical exam: General: Well-nourished, well-developed. Head: Normocephalic, atraumatic, no tenderness Eyes: Vision is grossly intact. EOMI ENT, no trauma, moist mucous membranes, no rhinorrhea Neck: Nontender, No thyromegaly. CVS: Tachycardia, irregularly irregular rate and rhythm. Respiratory : clear to auscultation bilaterally, chest wall nontender Abdomen: Soft, nontender, nondistended, normal bowel sounds, no masses : Deferred Back: Nontender, no CVA tenderness. Extremities: Nontender full range of motion, no trauma Skin: Normal color, no trauma, abrasions Neuro: Alert, oriented, cranial nerves II through XII grossly intact. Psychiatry: Normal mood. Normal affect. Not depressed. Not anxious. Results Lab / Micro Data Result Diagrams: 04/16/23 22:20 04/16/23 22:20 Labs: Laboratory Results - last 24 hr 04/16/23 22:20: WBC 8.9, RBC 4.82, Hgb 15.7, Hct 46.4, MCV 96.3 H, MCH 32.6 H, MCHC 33.8, RDW Std Deviation 44.7 H, RDW Coeff of Matt 12.5, Plt Count 243, MPV 11.1, Immature Gran % (Auto) 0.400, Neut % (Auto) 61.9, Lymph % (Auto) 24.4, [place] % (Auto) 9.9, Eos % (Auto) 2.8, Baso % (Auto) 0.6, Absolute Neuts (auto) 5.5, Absolute Lymphs (auto) 2.17, Nucleated RBC % 0 04/16/23 22:20: Sodium 134 L, Potassium 3.8, Chloride 100, Carbon Dioxide 29.0, Anion Gap 5, BUN 18, Creatinine 0.71, Estim Creat Clear Calc 50.01, Est GFR (MDRD) Af Amer 136, Est GFR (MDRD) Non-Af 112, BUN/Creatinine Ratio 25.3 H, Glucose 110 H, Calcium 9.3, Troponin I High Sens 7 Rhythm Strip Rhythm Strip: A-fib Rate: 116 Radiology Impression Chest X-Ray 04/16/23 22:32 IMPRESSION: Basilar atelectasis. Possible focal right midlung infiltrate. Electronically Signed: Vladdesiree Arita DO at 22:50 EDT , Assessment & Plan Assessment/Plan (1) Atrial fibrillation with rapid ventricular response: (2) Paroxysmal atrial fibrillation: (3) Essential (primary) hypertension: (4) History of COPD: PLAN: Plan A-fib with RVR Place on PCU on telemetry Obtain echo Reportedly not on anticoagulation because of easy bruising. Potassium 3.8, replaced. Trend BMP. Check magnesium. Check TSH Chest x-ray interpreted by radiologist as bibasilar atelectasis. Possible focal right midlung infiltrates. Presentation chest x-ray and previous chest x-ray was independently visualized. Per my independent interpretation stable Hypertension Blood pressure stable on Cardizem drip. Hold home amlodipine. Trend blood pressure. Adjust blood pressure medication as necessary COPD On baseline home oxygen, stable Continue home inhalers. DVT prophylaxis: Subcutaneous heparin ordered. Charges/Coding Visit Charges Inpatient E&M: 30198 Init Hosp L3
--- NOTE | 2023-04-17 01:41 | ECHOCS_ITS ---
Reason For Study: AFIB/FLUTTER Procedure This was a 2D Doppler, Color Flow transthoracic echocardiogram. The study was technically limited. The study was technically difficult. Contrast injection was performed. Exam performed portable in patient room. Left Ventricle Normal size and thickness. The left ventricular ejection fraction is 65 %. Unable to assess diastolic dysfunction due to arrhythmia. Right Ventricle Normal right ventricle. Atria Normal left atrium. The right atrium is not well visualized. Mitral Valve Mild focal mitral valve calcification, bileaflet. Tricuspid Valve Normal tricuspid valve. Aortic Valve Normal aortic valve. Pulmonic Valve The pulmonic valve is not well visualized. Great Vessels The aortic root is not well visualized. Pericardium/Pleural No pericardial effusion. Medication Diluted definity 3.0ml given slow IV push to enhance endocardial definition. MMode/2D Measurements & Calculations LVIDd: 4.4 cm IVSd: 0.99 cm Ao root diam: 2.4 cm LVIDs: 2.3 cm LVPWd: 1.0 cm RVDd: 2.8 cm FS: 47.1 % LA dimension(2D): 3.7 cm Doppler Measurements & Calculations MV E max jarret: 119.1 cm/sec Ao V2 max: 104.2 cm/sec LV V1 max: 73.4 cm/sec Ao max P.3 mmHg LV V1 max P.2 mmHg PA V2 max: 96.8 cm/sec ECHO/Echo Complete W/ Contrast Interpretation Summary The study was technically limited. The left ventricular ejection fraction is 65 %. Unable to assess diastolic dysfunction due to arrhythmia. Mild focal mitral valve calcification, bileaflet. Ordering Physician: Vik Rust Referring Physician: Maulik Christy Performed By: Laura Vargas RDCS, RVT
[2023-04-17] MEDS: Potassium Chloride Oral Tablet 20 MEQ PO (03:06)
[2023-04-17] MEDS: Heparin Injection (Vial) 5,000 UNIT/ML VIAL 5000 UNIT SC ×3 (06:04→22:27)
[2023-04-17] MEDS: Metoprolol(XL)Succ 50 MG Tablet PO (06:04)
[2023-04-17 06:33] LABS: Absolute Neutrophil Count 4.8 X10^3/uL (2.0-7.7); Basophil# 0.04 X10^3/uL; Basophil% 0.5 % (0-1); Eosinophil# 0.25 X10^3/uL; Eosinophils% 3.3 % (0-5); Hematocrit 39.7 % (40-54); Hemoglobin 13.6 g/dL (13.0-16.5); Lymphocyte % 23.4 % (19-41); Mean Corp Hgb Conc 34.3 g/dL (32-36); Mean Corpuscular Volume 96.4 fL (80-94); Mean Platelet Vol. 11.1 fl (6.2-12.0); Monocyte# 0.79 X10^3/uL; Monocyte% 10.3 % (0-10); NRBC Flagged by Analyzer 0 % (0-5); Neutrophil # 4.79 X10^3/uL (2.7-7.7); Neutrophil % 62.2 % (47-70); Platelet Count 219 K/mm3 (150-450); RBC Distribution Width CV 12.6 % (11.6-14.6); RBC Distribution Width SD 44.3 fl (35.1-43.9); Red Blood Count 4.12 M/mm3 (4.6-6.2); White Blood Count 7.7 K/mm3 (4.4-11.0)
--- NOTE | 2023-04-17 07:07 | PN.HOSP_ITS ---
Reason for Visit Reason for Visit: Diagnoses Essential (primary) hypertension (04/17/23) Paroxysmal atrial fibrillation (04/17/23) Unspecified atrial fibrillation (04/17/23) Personal history of other diseases of the respiratory system (04/17/23) Subjective Subjective Patient overnight with rate improvement with Cardizem drip, currently being wea elvin. Patient maintained on 2 L nasal cannula and notes that he does use chronic 2 L supplementation continuous at night and intermittent through the day although from description likely frequently. Patient denies any dyspnea, chest pain or palpitation sensation at this time but also notes that he really does not recognize when he goes into A-fib and his heart rates up unless he checks his pulse oximeter which gives him his heart rate as well. He denies any current lightheadedness or dizziness. Patient is extremely eager for discharge but understands that he needs to be weaned off and at least rate controlled. Attempted discussions again for anticoagulation therapy but he again declined and this was reviewed on a recent cardiology note as well. Patient denies fevers, chills, nausea, emesis, abdominal pain, chest pain or dyspnea above his baseline chronic. Objective Data Objective Data Vital Signs: Vital Signs Temp Pulse Resp BP Pulse Ox O2 Del Method O2 Flow Rate 97.8 F 86 26 H 116/70 93 Nasal Cannula 2 04/17/23 02:00 04/17/23 06:04 04/17/23 05:00 04/17/23 06:04 04/17/23 05:00 04/17/23 05:00 04/17/23 03:00 Oxygen Flow Rate (L/min) 2 Oxygen Delivery Method Nasal Cannula Weight: 140 lb 14.006 oz Body Mass Index (BMI) 22.7 Intake & Output: Intake and Output for Last 24 Hours 04/15/23 04/16/23 04/17/23 23:59 23:59 23:59 Intake Total 43.00 / 43.00 Balance 43.00 / 43.00 Lab / Micro Data Result Diagrams: 04/17/23 05:23 04/17/23 05:23 Labs: Laboratory Results - last 24 hr 04/16/23 22:20: WBC 8.9, RBC 4.82, Hgb 15.7, Hct 46.4, MCV 96.3 H, MCH 32.6 H, MCHC 33.8, RDW Std Deviation 44.7 H, RDW Coeff of Matt 12.5, Plt Count 243, MPV 11.1, Immature Gran % (Auto) 0.400, Neut % (Auto) 61.9, Lymph % (Auto) 24.4, [place] % (Auto) 9.9, Eos % (Auto) 2.8, Baso % (Auto) 0.6, Absolute Neuts (auto) 5.5, Absolute Lymphs (auto) 2.17, Nucleated RBC % 0 04/16/23 22:20: Sodium 134 L, Potassium 3.8, Chloride 100, Carbon Dioxide 29.0, Anion Gap 5, BUN 18, Creatinine 0.71, Estim Creat Clear Calc 50.01, Est GFR (MDRD) Af Amer 136, Est GFR (MDRD) Non-Af 112, BUN/Creatinine Ratio 25.3 H, Glucose 110 H, Calcium 9.3, Troponin I High Sens 7 04/17/23 05:23: WBC 7.7, RBC 4.12 L, Hgb 13.6, Hct 39.7 L, MCV 96.4 H, MCH 33.0 H, MCHC 34.3, RDW Std Deviation 44.3 H, RDW Coeff of Matt 12.6, Plt Count 219, MPV 11.1, Immature Gran % (Auto) 0.300, Neut % (Auto) 62.2, Lymph % (Auto) 23.4, [place] % (Auto) 10.3 H, Eos % (Auto) 3.3, Baso % (Auto) 0.5, Absolute Neuts (auto) 4.8, Absolute Lymphs (auto) 1.80, Nucleated RBC % 0 Radiography Diagnostic Testing: Radiology Impression Chest X-Ray 04/16/23 22:32 IMPRESSION: Basilar atelectasis. Possible focal right midlung infiltrate. Electronically Signed: Vlad Arita DO at 22:50 EDT Reading Location ID and State: [facility] / [place] Tel [phone], Service support , Rhythm Strip Rhythm Strip: A-fib Rate: 116 Physical Exam Narrative Physical Examination: General: Awake, alert, oriented x 3 and cooperative, seated upright in PCU bed, fatigued but no acute distress, denies any dyspnea, lightheadedness, dizziness, chest pain. Skin: Normal color, normal turgor, no icterus, no cyanosis except occasional staged ecchymoses. HEENT: AT/NC, EOMI, PERRLA, MMM. Lungs: Notably diminished, greater bases, very occasional end expiratory wheeze, respiratory rate mildly increased but no distress, no rales or rhonchi. Heart: Irregular, currently rate controlled; no gallop, rub audible. Abdomen: Soft, thin or habitus, NTTP, ND, normal BS. Extremities: No cyanosis, no clubbing, mild ankle pitting edema bilaterally. Neurological: Patient awake, alert, oriented as noted, cognitive function intact; pupils equally reactive to light and accommodation, cranial nerves II- XII grossly normal, moving all 4 extremities, no focal deficits, strength at least moderately global decreased. Psychiatric: Affect appears mildly fatigued otherwise normal, no acute evidence of depressive or anxiety feelings. Assessment & Plan Assessment/Plan (1) Atrial fibrillation with rapid ventricular response: PLAN: Plan The patient is an 83 y/o M w/ PMHx: PAF, COPD, HTN, HLD, Tobacco use who presents to the [facility] ED on 04/17/23 with history of onset lightheadedness and dizziness especially with standing with heart rate elevated to 145 when checked at home prompting eventual ED evaluation. #1. Paroxsymal atrial fibrillation w/ RVR: Work-up in the ED included initial vital signs T97.1, heart rate 128, BP 132/73, respiratory rate 16, 98% on 2 L, CBC with WC 7.7, hemoglobin 13.6, platelet 219 without marked shift, troponin 7, chest x-ray with basilar atelectasis and possible right midlung infiltrate however once compared to prior appears chronic compared to his previous chest x- rays therefore very low suspicion for infiltrate, EKG with atrial fibrillation with RVR with no acute evidence of ischemia. In the ED patient initially administered IV Cardizem bolus but given ongoing persistent tachycardia transition to Cardizem drip. Of note last ECHO 2017 EF 65% with no wall motion abnormalities present. Patient admitted to PCU, maintained on telemetry,, magnesium level 2.2, TSH 1.86, requested ECHO. CHADs scoring appropriate however from review of notes with Cardiology has declined anticoagulation thus on ASA, will continue. will add eliquis and consult CM for cost/assistance. Will continue on cardizem drip de-escalation as BB overlap, still in atrial fibrillation this AM; however, rate improved in the 80s and asymptomatic but is not normally baseline in AF. Patient very eager for discharge thus will reassess if able to wean off of Cardizem drip for possible discharge later this afternoon with cardiology follow-up to which the patient is amenable. #2. Chronic COPD w/ chronic hypoxic respiratory failure: Will maintain on home oxygen supplementation, continue ATC budesonide, PRN albuterol, HOB, IS paramete rs. #3. Hypertension: Continue home regimen including Lasix, metoprolol, amlodipine with hold parameters as needed given concurrent IV cardizem drip, PRN hydralazine. #4. Hyperlipidemia: Not on statin therapy, FLP in AM. #5. Tobacco Abuse: Encouraged cessation, inpatient consultation per RT, NR if desired. #6. DVT prophylaxis: Heparin. #7. CODE status: Full Code. Admission Evaluation Time spent evaluating chart, patient history, patient evaluation, care planning and discussion with specialists: 35 minutes but nonbillable as patient admitted after midnight.
[2023-04-17 07:18] LABS: Anion Gap 4 (5-15); BUN 13 mg/dL (7-18); BUN/Creat Ratio 21.2 RATIO (10-20); Calcium,Total 8.8 mg/dL (8.5-10.1); Chloride 102 mmol/L (98-107); Creatinine, Serum 0.61 mg/dL (0.70-1.30); EST Glomerular Filtration Rate 133 mL/min (>60); Est Glom Filt Rate - Afr Amer 161 mL/min (>60); Estimated Creatinine Clearance 49.62 ml/min; Glucose 107 mg/dL (74-106); Magnesium 2.2 mg/dL (1.6-2.6); Potassium 3.8 mmol/L (3.5-5.1); Sodium Level 136 mmol/L (136-145); Thyroid Stim Hormone (TSH) 1.86 uIU/mL (0.358-3.74)
[2023-04-17] MEDS: Budesonide Respules 0.5 MG/2 ML AMPUL.NEB. INHALATION ×2 (07:39→20:02)
[2023-04-17] MEDS: Albuterol 2.5 MG/3 ML VIAL.NEB. INHALATION ×2 (07:39→13:32)
[2023-04-17] MEDS: Multivitamins,Therapeutic Tablet 1 TABLET PO (09:46)
[2023-04-17] MEDS: Aspirin E.C. 81 MG Tablet PO (10:00)
--- NOTE | 2023-04-17 11:37 | CASEMGMT ---
THEODORA SOLIMAN in to discuss JASON form with patient. THEODORA SOLIMAN explained JASON form, patient voiced understanding. Pt signed form and filed in chart. Pt provided with a copy of signed JASON form. Pt states he lives alone in a single story home. Pt reports he is I in ADL's and manages his own meals. Pt has a niece who assists in going to basement to get pt items from freezer that he needs so he does not have to do the steps. Pt uses a cane. Pt denies any need for homegoing services. Pt reports he has oxgyen through [employer] at 2L cont. Pt does have a portable tank to go home on. 6 clicks= pt can go home alone, no therapy ordered. Noted pt to dc on Vivox. Provided pt with Vivox savings card with explanation. Patient had no further questions or concerns at this time.
[2023-04-17] MEDS: Metoprolol(XL)Succ 25 MG Tablet PO (14:23)
[2023-04-17] MEDS: dilTIAZem 25 MG/5 ML Vial 10 MG IV BOLUS (16:10)
[2023-04-17] MEDS: 0.9% Saline Lock 10 ML Syringe IV (16:16)
[2023-04-17] MEDS: Ipratropium/Albuterol Sulfate 3 ML AMPUL.NEB INHALATION (20:02)
[2023-04-17] MEDS: Metoprolol(XL)Succ 50 MG Tablet 75 MG PO (22:30)
[2023-04-18] VITALS (17 sets, daily range): BP systolic 122–161; BP diastolic 73–92; PULSE 90–121; RESP 16–18; TEMP 36.4–37.5; O2SAT 93–98
[2023-04-18] MEDS: Ipratropium/Albuterol Sulfate 3 ML AMPUL.NEB INHALATION ×4 (00:13→19:21)
[2023-04-18] MEDS: Heparin Injection (Vial) 5,000 UNIT/ML VIAL 5000 UNIT SC ×2 (05:36→12:50)
[2023-04-18] MEDS: Budesonide Respules 0.5 MG/2 ML AMPUL.NEB. INHALATION ×2 (07:40→19:21)
[2023-04-18] MEDS: Multivitamins,Therapeutic Tablet 1 TABLET PO (08:42)
[2023-04-18] MEDS: Aspirin E.C. 81 MG Tablet PO (08:42)
[2023-04-18] MEDS: Furosemide 40 MG Tablet PO (08:42)
[2023-04-18] MEDS: Metoprolol(XL)Succ 100 MG Tablet PO ×2 (08:42→20:57)
[2023-04-18] MEDS: 0.9% Saline Lock 10 ML Syringe IV ×3 (08:42→15:55)
[2023-04-18] MEDS: Digoxin 250 MCG/ML Ampul 500 MCG IV (12:46)
[2023-04-18] MEDS: Digoxin 250 MCG/ML Ampul IV (15:54)
--- NOTE | 2023-04-18 16:32 | EKG12_ITS ---
Test Reason : rhythm change Blood Pressure : / mmHG Vent. Rate : 101 BPM Atrial Rate : 101 BPM P-R Int : 142 ms QRS Dur : 114 ms QT Int : 338 ms P-R-T Axes : 076 -37 063 degrees QTc Int : 438 ms Sinus tachycardia Left axis deviation Low voltage QRS Incomplete right bundle branch block Abnormal ECG When compared with ECG of 16-APR-2023 22:03, MANUAL COMPARISON REQUIRED, DATA IS UNCONFIRMED Confirmed by TYRONE WILSON, CORINNE ([id number]), editorial assistant YENI GALVIN ([id number]) on 04/19/2023 2:29:31 PM Referred By: Adriana Confirmed By:CORINNE HANSEN MD
--- NOTE | 2023-04-18 18:53 | PCM.PN.HOSP ---
Reason for Visit Reason for Visit: Diagnoses Essential (primary) hypertension (04/18/23) Paroxysmal atrial fibrillation (04/18/23) Unspecified atrial fibrillation (04/18/23) Personal history of other diseases of the respiratory system (04/18/23) Subjective Subjective Patient was seen and examined today, late this afternoon he converted from A-fib into normal sinus rhythm, I had made the patient a full admission prior to this because I was having trouble getting his heart rate under control with oral beta-blockers. I made the decision late this afternoon to place the patient on digoxin and increase his beta-antonio. Currently the patient's heart rate is little over 100 but it is sinus rhythm at this time. Objective Data Objective Data Vital Signs: Vital Signs Temp Pulse Resp BP Pulse Ox O2 Del Method O2 Flow Rate 98.8 F 106 H 18 128/78 H 98 Nasal Cannula 2 04/18/23 15:33 04/18/23 15:54 04/18/23 15:33 04/18/23 15:54 04/18/23 15:33 04/18/23 15:36 04/18/23 15:36 Oxygen Flow Rate (L/min) 2 Oxygen Delivery Method Nasal Cannula Weight: 63.9 kg Body Mass Index (BMI) 22.7 Intake & Output: Intake and Output for Last 24 Hours 04/16/23 04/17/23 04/18/23 23:59 23:59 23:59 Intake Total 78.83 / 198.83 1020 / 1020 Balance 78.83 / 198.83 1020 / 1020 Lab / Micro Data Result Diagrams: 04/17/23 05:23 04/17/23 05:23 Micro: Microbiology 04/17/23 15:00 Sputum, Expectorated/Coughed Gram Stain - Final 04/17/23 15:00 Sputum, Expectorated/Coughed Respiratory Culture - Preliminary Appears to be normal respiratory jc. Further studies to follow. Rhythm Strip Rhythm Strip: A-fib Rate: 116 Physical Exam Const alert, oriented x3 and no apparent distress General Appearance: cooperative, well kempt and well developed Orientation / Consciousness: awake, oriented to person, oriented to place and oriented to time HEENT normocephalic, head/scalp atraumatic and moist oral mucous membranes Eyes PERRL, EOMs intact bilaterally and conjunctivae normal Neck supple, no JVD, thyroid normal and no carotid bruits General: trachea midline Resp normal respiratory effort, no retractions, no use of accessory muscles and clear to auscultation bilaterally Auscultation: Negative for rales, rhonchi or wheezes Cardio regular rate, regular rhythm, S1 normal heart sound, S2 normal heart sound, no murmurs, no rub and no gallops GI normal to inspection, nondistended, normoactive bowel sounds, soft to palpation, non-tender and non-distended Extremity no clubbing, cyanosis or edema Skin no rashes or lesions noted General Skin Exam: no breakdown Neuro oriented x3, CN's II-XII intact bilaterally, moves all extremities, no focal motor deficits and no sensory deficits noted Sensorium / Orientation: awake and alert Speech: speech normal Psych affect normal Assessment & Plan Assessment/Plan (1) Atrial fibrillation with rapid ventricular response: PLAN: Plan 1. Atrial fibrillation with RVR-now converted to normal sinus rhythm, patient will remain on metoprolol at 150 mg twice daily and digoxin 0.25 mg daily. Patient will be reevaluated tomorrow. Patient has agreed to take Eliquis after I explained to him the benefits of this medication, I also talked with his daughter who was in the room at the time my exam today. I will start the patient on Eliquis tonight. #2 chronic hypoxic respiratory failure-patient currently is on supplemental oxygen at 2 L/min, he will need a walking pulse oximetry before he leaves the hospital to go home. #3 chronic obstructive pulmonary disease-patient will remain on his present medications #4 essential hypertension-patient will remain on his present medications Patient states that he would like to be changed from Lasix to another diuretic, he states he feels tired on the medication, I told him that he would most likely have the same feeling on another diuretic but I would change him at his request. Total clinical time spent by myself addressing the patient's medical issues, reviewing all of his data, and collaborating with patient's care team: 50 minutes Charges/Coding Visit Charges Inpatient E&M: 95480 Subs Hosp L3
[2023-04-18] MEDS: APIXABAN 5 MG TABLET PO (21:10)
[2023-04-19] VITALS (7 sets, daily range): BP systolic 126–139; BP diastolic 51–71; PULSE 83–100; RESP 14–20; TEMP 36.8–37; O2SAT 91–95
[2023-04-19] MEDS: Ipratropium/Albuterol Sulfate 3 ML AMPUL.NEB INHALATION ×2 (07:21→12:59)
[2023-04-19] MEDS: Budesonide Respules 0.5 MG/2 ML AMPUL.NEB. INHALATION (07:21)
[2023-04-19] MEDS: Metoprolol(XL)Succ 100 MG Tablet PO (11:04)
[2023-04-19] MEDS: Digoxin 250 MCG Tablet PO (11:04)
[2023-04-19] MEDS: Multivitamins,Therapeutic Tablet 1 TABLET PO (11:04)
[2023-04-19] MEDS: APIXABAN 5 MG TABLET PO (11:05)
--- NOTE | 2023-04-19 11:47 | DCINST_ITS ---
Discharge Instructions Diet Discharge Diet: No restrictions Activity Discharge Activity: Return to Normal Activity Weight Bearing Status: Full weight bearing Follow Up Care Test Results: Test results from this visit will be discussed in further detail at your follow- up appointment, if applicable. Discharge Plan Admission Admit Date/Time: 04/18/23 15:38 Primary Reason for Your Visit: a-fib Attending Provider: Reji Wright Primary Care Provider: Maulik Christy Consulting Providers: Vik Rust ; Bridget Isidro Instructions Additional Instructions / Restrictions: oxygen at 2 liters per min at rest, 3 liters per min during activity Do not take Aleve or Ibuprofen when on Eliquis, dont take aspirin, take Tylenol for pain Discharge Orders/Prescriptions Prescriptions: New Eliquis 5 mg Tablet 5 mg PO BID Qty: 60 0RF metoprolol succinate 100 mg Tablet Extended Release 24 Hr 100 mg PO BID Qty: 60 0RF digoxin 250 mcg (0.25 mg) Tablet 250 mcg PO DAILY Qty: 30 0RF torsemide 10 mg tablet 10 mg PO DAILY Qty: 30 0RF potassium chloride 10 mEq tablet extended release 20 meq PO DAILY Qty: 60 0RF Continued vitamin B comp and C no.3 [B Complex Plus Vitamin C] 41-65-10-5-300 mg capsule 1 cap PO QDAY multivitamin tablet 1 tab PO QDAY albuterol sulfate [Proventil HFA] 90 mcg/actuation HFA aerosol inhaler 2 puff INHALATION Q4H PRN (Reason: Wheezing) budesonide-formoterol 160-4.5 mcg/actuation HFA aerosol inhaler 2 puff INHALATION BID Label Comments: Inhale 2 (TWO) puffs TWICE DAILY (DME) Handicap Parking Placard See Rx Instructions .Route .MEDSUPPLY Qty: 1 0RF Rx Instructions: As directed amlodipine 10 mg tablet 10 mg PO QDAY Qty: 90 3RF Discontinued aspirin [Adult Low Dose Aspirin] 81 mg tablet,delayed release (DR/EC) 81 mg PO QDAY vitamin E (dl, acetate) 1,000 unit capsule 1,000 unit PO QDAY furosemide [Lasix] 40 mg tablet 40 mg PO Q OTHER DAY Qty: 45 3RF potassium citrate 10 mEq (1,080 mg) tablet extended release 10 meq PO DAILY PRN (Reason: supplement) Label Comments: TAKE 1 TABLET BY MOUTH DAILY AT LUNCH metoprolol succinate 25 mg tablet extended release 24 hr 25 mg PO .COMPLEX Qty: 450 3RF Rx Instructions: 25 mg orally; 50mg in AM, 25mg in afternoon, 50mg in PM Referrals / Follow Up: Bharath Escalona MD [Med Staff - Active Staff] - Within 1 Month Maulik Christy MD [Primary Care Provider] - Within 2 Weeks Disposition Disposition (needs filled in before D/C Order can be placed): Home, Self Care
--- NOTE | 2023-04-19 12:00 | PCM.DC.SUM ---
Providers Date of Admission: 04/18/23 Date of Discharge: 04/19/23 Primary Care Physician: Dr. Maulik Christy MD Reason For Visit: AFIB WITH RVR Diagnosis Discharge Diagnosis (1) Atrial fibrillation with rapid ventricular response: Status: Acute Code(s): I48.91 - Unspecified atrial fibrillation Plan 1. Atrial fibrillation with RVR-now converted to normal sinus rhythm, #2 chronic hypoxic respiratory failure-patient currently is on supplemental oxygen at 2 L/min, he will need a walking pulse oximetry before he leaves the hospital to go home. #3 chronic obstructive pulmonary disease-patient will remain on his present medications #4 essential hypertension-patient will remain on his present medications Patient states that he would like to be changed from Lasix to another diuretic, he states he feels tired on the medication, I told him that he would most likely have the same feeling on another diuretic but I would change him at his request. Total clinical time spent by myself addressing the patient's medical issues, reviewing all of his data, and collaborating with patient's care team: 50 minutes Medications at Discharge Home Medications multivitamin 1 tab PO QDAY 01/27/18 vitamin B comp and C no.3 15 mg-10 mg-50 mg-5 mg-300 mg capsule (B Complex Plus Vitamin C) 1 cap PO QDAY 01/27/18 Handicap Parking Placard #1 ea 10/05/22 amlodipine 10 mg tablet 10 mg PO QDAY #90 tabs 10/20/22 albuterol sulfate 90 mcg/actuation aerosol inhaler (Proventil HFA) 2 puff inhalation Q4H PRN Wheezing 03/01/23 budesonide-formoterol HFA 160 mcg-4.5 mcg/actuation aerosol inhaler 2 puff inhalation BID 03/01/23 apixaban 5 mg tablet (Eliquis) 5 mg PO BID #60 tabs 04/19/23 digoxin 250 mcg (0.25 mg) tablet 250 mcg PO DAILY #30 tabs 04/19/23 metoprolol succinate 100 mg tablet,extended release 24 hr 100 mg PO BID #60 tabs 04/19/23 potassium chloride 10 mEq tablet,extended release 20 meq (2 x 10 mEq) PO DAILY #60 tabs 04/19/23 torsemide 10 mg tablet 10 mg PO DAILY #30 tabs 04/19/23 Hospital Course Operations None Procedures 2-D Echocardiogram Summary of Care Provided Minutes Spent on Discharge: 31 Hospital Course: This 83-year-old white male was seen in the emergency room at [facility] with a chief complaint of feeling lightheaded and dizzy when standing, he took his pulse ox at home and he noticed his heart rate was elevated, he took his pulse himself and noticed that it was elevated and came to the emergency room for evaluation.Work-up in the emergency room included an EKG which showed the patient to be in atrial fib with RVR, he was given IV Cardizem, troponin was unremarkable, chest x-ray showed basilar atelectasis and a possible focal right midlung infiltrate. Patient CBC was unremarkable. Patient was placed on a Cardizem drip and he was admitted to PCU, subsequently the Cardizem drip was stopped and he was maintained on rate limiting medications. Patient remained in atrial fibrillation and his rate medications were readjusted with the addition of IV digoxin. Patient converted to normal sinus rhythm after administration of IV digoxin, I had discussions with the patient and his daughter about the patient going on full anticoagulation due to his atrial fibrillation and patient agreed to go on Eliquis. Patient's echocardiogram showed a normal EF. On 04/19/2023, patient was seen and examined: On examination he appeared in good health and spirits. Vital signs as documented. Skin warm and dry and without overt rashes. Neck without JVD, neck was supple, trachea midline, thyroid was normal. Lungs clear bilaterally, normal air movement was noted. Heart exam notable for regular rhythm, normal sounds and absence of murmurs, rubs or gallops. Abdomen unremarkable and without evidence of organomegaly, masses, or abdominal aortic enlargement. Bowel sounds are present, abdomen is not distended. Extremities nonedematous, no cyanosis was noted, no clubbing was noted. Neuro: Cranial nerves II through XII are grossly intact, no focal motor deficits were noted, sensation to light touch and pinprick intact, motor exam 5/5 throughout. Psych: Patient is alert and oriented x3, he does not appear anxious or depressed, he does not appear agitated. Patient was discharged home in stable condition on 04/19/2023. Weight / BMI Weight Weight: 63.9 kg Body Mass Index (BMI) 22.7 ABG / Lab / Microbiology Data 04/17/23 05:23 04/17/23 05:23 Microbiology: Microbiology 04/17/23 15:00 Sputum, Expectorated/Coughed Gram Stain - Final 04/17/23 15:00 Sputum, Expectorated/Coughed Respiratory Culture - Preliminary Gram negative yamil D/C Instructions Discharge Diet: No restrictions Weight Bearing Status: Full weight bearing Meaningful Use Info Meaningful Use Diagnoses (Choose all that apply): None applicable Discharge Plan Admission Admit Date/Time: 04/18/23 15:38 Primary Reason for Your Visit: a-fib Attending Provider: Reji Wright Primary Care Provider: Maulik Christy Consulting Providers: Vik Rust; Bridget Isidro Instructions Additional Instructions / Restrictions: oxygen at 2 liters per min at rest, 3 liters per min during activity Do not take Aleve or Ibuprofen when on Eliquis, dont take aspirin, take Tylenol for pain Discharge Orders/Prescriptions Prescriptions: New Eliquis 5 mg Tablet 5 mg PO BID Qty: 60 0RF metoprolol succinate 100 mg Tablet Extended Release 24 Hr 100 mg PO BID Qty: 60 0RF digoxin 250 mcg (0.25 mg) Tablet 250 mcg PO DAILY Qty: 30 0RF torsemide 10 mg tablet 10 mg PO DAILY Qty: 30 0RF potassium chloride 10 mEq tablet extended release 20 meq PO DAILY Qty: 60 0RF Continued vitamin B comp and C no.3 [B Complex Plus Vitamin C] 42-64-33-5-300 mg capsule 1 cap PO QDAY multivitamin tablet 1 tab PO QDAY albuterol sulfate [Proventil HFA] 90 mcg/actuation HFA aerosol inhaler 2 puff INHALATION Q4H PRN (Reason: Wheezing) budesonide-formoterol 160-4.5 mcg/actuation HFA aerosol inhaler 2 puff INHALATION BID Patient Comments: Inhale 2 (TWO) puffs TWICE DAILY (DME) Handicap Parking Placard See Rx Instructions .Route .MEDSUPPLY Qty: 1 0RF Rx Instructions: As directed amlodipine 10 mg tablet 10 mg PO QDAY Qty: 90 3RF Discontinued aspirin [Adult Low Dose Aspirin] 81 mg tablet,delayed release (DR/EC) 81 mg PO QDAY vitamin E (dl, acetate) 1,000 unit capsule 1,000 unit PO QDAY furosemide [Lasix] 40 mg tablet 40 mg PO Q OTHER DAY Qty: 45 3RF potassium citrate 10 mEq (1,080 mg) tablet extended release 10 meq PO DAILY PRN (Reason: supplement) Patient Comments: TAKE 1 TABLET BY MOUTH DAILY AT LUNCH metoprolol succinate 25 mg tablet extended release 24 hr 25 mg PO .COMPLEX Qty: 450 3RF Rx Instructions: 25 mg orally; 50mg in AM, 25mg in afternoon, 50mg in PM Referrals / Follow Up: Bharath Escalona MD [Med Staff - Active Staff] - Within 1 Month Maulik Christy MD [Primary Care Provider] - Within 2 Weeks Disposition Disposition (needs filled in before D/C Order can be placed): Home, Self Care Charges/Coding Visit Charges Inpatient E&M: 06645 Disch Hosp >30min
--- NOTE | 2023-04-19 12:46 | CASEMGMT ---
RN CM notified that patient has discharge today. Patient does not require increase in oxygen orders. RN CM inquired if patient has any needs at discharge. Patient denies needs at discharge. Patient had no further questions or concerns at this time.
--- NOTE | 2023-04-19 14:19 | PHA.DC.MC ---
Pharmacy Service has performed discharge medication reconciliation and counseling for this patient. 1. APIXABAN 5MG PO BID 2. DIGOXIN 250MCG PO DAILY 3. TORSEMIDE 10MG PO DAILY The patient's discharge medication list was reviewed for discrepancies and discrepancies were resolved. Home Medications multivitamin 1 tab PO QDAY 01/27/18 vitamin B comp and C no.3 15 mg-10 mg-50 mg-5 mg-300 mg capsule (B Complex Plus Vitamin C) 1 cap PO QDAY 01/27/18 Handicap Parking Placard #1 ea 10/05/22 amlodipine 10 mg tablet 10 mg PO QDAY #90 tabs 10/20/22 albuterol sulfate 90 mcg/actuation aerosol inhaler (Proventil HFA) 2 puff inhalation Q4H PRN Wheezing 03/01/23 budesonide-formoterol HFA 160 mcg-4.5 mcg/actuation aerosol inhaler 2 puff inhalation BID 03/01/23 apixaban 5 mg tablet (Eliquis) 5 mg PO BID #60 tabs 04/19/23 digoxin 250 mcg (0.25 mg) tablet 250 mcg PO DAILY #30 tabs 04/19/23 metoprolol succinate 100 mg tablet,extended release 24 hr 100 mg PO BID #60 tabs 04/19/23 potassium chloride 10 mEq tablet,extended release 20 meq PO DAILY #60 tabs 04/19/23 torsemide 10 mg tablet 10 mg PO DAILY #30 tabs 04/19/23 The patient was counseled on the following discharge medications and changes in medications for homegoing were reviewed. The Reason for Use, instructions for use, and potential side effects were reviewed for all new medications. The patient's questions regarding all of their medications were answered. The patient was able to verbally demonstrate an understanding of their discharge medications. Patient counseled by pharmacy order entry technicianAdrián.
== END 2023-04-19 14:34 | disposition home or self-care (01) | DRG 309 ==
LOC: ED 23:54 → PCU 04-17 01:47
PROVIDERS: Admitting Provider Hospitalist; Emergency Provider Emergency Medicine; PCP Family Medicine; Visit Provider Internal Medicine
DX: I48.0 Paroxysmal atrial fibrillation (principal); J96.11 Chronic respiratory failure with hypoxia; J44.9 Chronic obstructive pulmonary disease, unspecified; I10 Essential (primary) hypertension; F17.200 Nicotine dependence, unspecified, uncomplicated; E78.5 Hyperlipidemia, unspecified; Z79.82 Long term (current) use of aspirin
CPT/HCPCS: 36415; 71045; 80048; 83735; 84443; 84484; 85025; 87070; 87077; 87184; 87186; 87205; 93005; 93306; 94640; 99285; Q9957; A4216; C8929

== ENCOUNTER 2023-04-21 16:10 | Emergency (ER) | payer MEDICARE, SELFPAY ==
[2023-04-21] VITALS (9 sets, daily range): BP systolic 109–138; BP diastolic 50–57; PULSE 92–101; RESP 20–26; TEMP 37–37.3; O2SAT 90–93; BMI 31.4
--- NOTE | 2023-04-21 16:36 | EKG12_ITS ---
Test Reason : SOB Blood Pressure : / mmHG Vent. Rate : 090 BPM Atrial Rate : 090 BPM P-R Int : 130 ms QRS Dur : 116 ms QT Int : 348 ms P-R-T Axes : 081 000 069 degrees QTc Int : 425 ms Sinus rhythm with occasional Premature ventricular complexes and Premature atrial complexes Incomplete right bundle branch block Borderline ECG Confirmed by TYRONE WILSON, CORINNE ([id number]), medical editor YENI GALVIN ([id number]) on 04/22/2023 10:45:28 AM Referred By: Confirmed By:CORINNE HANSEN MD
--- NOTE | 2023-04-21 16:40 | RAD_ITS ---
INDICATION: Productive cough, dyspnea, fever EXAMINATION/TECHNIQUE: X-RAY - XR Chest 2 Views COMPARISON: 04/16/2023 FINDINGS: LUNGS: Similar chronically coarsened lung markings and bibasilar atelectasis. No focal consolidation or pleural effusion. MEDIASTINUM AND CARDIOVASCULAR STRUCTURES: Cardiac silhouette not enlarged. Central airways and mediastinal contour are unremarkable. RAD/Chest PA and Lateral IMPRESSION: Chronic lung disease without acute abnormal cardiopulmonary finding. Electronically Signed: Abel Meyers MD at 17:08 EDT ,
[2023-04-21] MEDS: Ipratropium/Albuterol Sulfate 3 ML AMPUL.NEB INHALATION (16:55)
[2023-04-21] MEDS: Albuterol 2.5 MG/3 ML VIAL.NEB. INHALATION (16:55)
--- NOTE | 2023-04-21 16:58 | EDS_ITS ---
HPI History of Present Illness Chief Complaint: Shortness of Breath Detail of Chief Complaint: Shortness of breath, productive cough and documented temperature of 101.8 Informant: patient and spouse/S.O. Onset/Context/Timing Onset: Today Context: Sudden Onset Timing: Continuous Quality: Dyspnea, [place] exertion and productive cough with fever Location: Respiratory Current Severity: Mild Maximum Severity: Moderate Worsened by: Activity Relieved by: Nothing Associated Symptoms Associated Symptoms: Documented temperature to 101.8 Narrative Narrative: Patient is a 83-year-old male who was recently admitted to the hospital for atrial fibrillation. He was discharged on Wednesday. He presents because of document temperature of 101.8 ?F, increased shortness of breath. He normally is on 2 L of oxygen. He is present on 5 L by nasal cannula. He states he does increase to 3 L with activity. He does have a cough productive of colored sputum. He states it is normally clear. He denies headache, visual, ocular auditory symptoms. [place] rhinorrhea, congestion or postnasal drainage. Denies sore throat. He denies chest discomfort. He denies nausea, vomiting or diarrhea. He denies abdominal pain. He denies back pain. He does report shaking chills. He denies rash. He denies black or maroon-colored stool. He denies urologic symptoms. Prior similar symptoms: No Recent Illness/Hospitalization: Yes [facility] Medical History Alcohol abuse COPD exacerbation Dyspnea Essential (primary) hypertension Incomplete right bundle branch block Near syncope Nicotine dependence Nonsustained paroxysmal supraventricular tachycardia Nonsustained ventricular tachycardia Palpitations Paroxysmal atrial fibrillation Peripheral vascular disease Weakness Home Medications multivitamin 1 tab PO QDAY 01/27/18 [History Last Taken Unknown] vitamin B comp and C no.3 15 mg-10 mg-50 mg-5 mg-300 mg capsule (B Complex Plus Vitamin C) 1 cap PO QDAY 01/27/18 [History Last Taken Unknown] Handicap Parking Placard #1 ea 10/05/22 [Rx Last Taken Unknown] amlodipine 10 mg tablet 10 mg PO QDAY #90 tabs 10/20/22 [Rx Last Taken Unknown] albuterol sulfate 90 mcg/actuation aerosol inhaler (Proventil HFA) 2 puff inhalation Q4H PRN Wheezing 03/01/23 [History Last Taken Unknown] budesonide-formoterol HFA 160 mcg-4.5 mcg/actuation aerosol inhaler 2 puff inhalation BID 03/01/23 [History Last Taken Unknown] apixaban 5 mg tablet (Eliquis) 5 mg PO BID #60 tabs 04/19/23 [Rx Last Taken Unknown] digoxin 250 mcg (0.25 mg) tablet 250 mcg PO DAILY #30 tabs 04/19/23 [Rx Last Taken Unknown] metoprolol succinate 100 mg tablet,extended release 24 hr 100 mg PO BID #60 tabs 04/19/23 [Rx Last Taken Unknown] potassium chloride 10 mEq tablet,extended release 20 meq (2 x 10 mEq) PO DAILY #60 tabs 04/19/23 [Rx Last Taken Unknown] torsemide 10 mg tablet 10 mg PO DAILY #30 tabs 04/19/23 [Rx Last Taken Unknown] doxycycline monohydrate 100 mg capsule 100 mg PO BID #10 CAPSULES 04/21/23 [Rx Last Taken Unknown] prednisone 20 mg tablet 60 mg (3 x 20 mg) PO DAILY #12 TABLETS 04/21/23 [Rx Last Taken Unknown] Allergy/AdvReac Type Severity Reaction Status Date / Time atenolol AdvReac Intermediate Made me Verified 04/16/23 21:48 feel terrible Family History Other Sudden cardiac Surgical History History of herniorrhaphy Social History household members: none Smoking Status: Light Smoker (<10/day) alcohol intake: never substance use type: does not use caffeine: Yes Type: coffee Number of servings: 3 ROS ROS ED Constitutional Constitutional ED: Reports chills, fever(s) and sweats; Denies weight loss Eyes Eyes: Denies blurry vision, change in vision or diplopia ENT ENT ED: Denies ear pain, rhinorrhea or sore throat Cardiovascular Cardiovascular: Denies chest pain, orthopnea, palpitations, paroxysmal nocturnal dyspnea or racing heartbeat Respiratory/Chest Respiratory/Chest: Reports cough, dyspnea, dyspnea on exertion and sputum; Denies orthopnea or paroxysmal nocturnal dyspnea Gastrointestinal Gastrointestinal: Denies abdominal pain, constipation, diarrhea, melena, nausea or vomiting Genitourinary Genitourinary ED: Denies dysuria, hematuria or urinary frequency Musculoskeletal Musculoskeletal: Denies arthralgias, back pain, myalgias or neck pain Integumentary Denies rash Neurologic Neurologic: Reports weakness; Denies headache(s) or paresthesias Endocrine Endocrinology: Denies cold intolerance or heat intolerance Hematologic/Lymphatic Hematologic/Lymphatic: Reports systems reviewed and no addt'l complaints, except as documented EXAM Physical Exam Const Vital Signs: 04/21/23 16:15 04/21/23 16:19 04/21/23 16:55 Temperature 98.6 F Temperature Source Temporal Pulse Rate 95 Respiratory Rate 22 H Respiratory Effort Short of Breath Blood Pressure 135/57 H Blood Pressure Mean 83 Pulse Ox 93 93 Oxygen Delivery Method Nasal Cannula Nasal Cannula Nasal Cannula Oxygen Flow Rate (L/min) 5 5 04/21/23 16:55 04/21/23 16:36 04/21/23 16:13 Temperature 99.2 F H Temperature Source Temporal Pulse Rate 101 H 92 Respiratory Rate 20 H Respiratory Effort Blood Pressure 135/57 H Blood Pressure Mean 83 Pulse Ox Oxygen Delivery Method Oxygen Flow Rate (L/min) 04/21/23 17:13 04/21/23 18:00 04/21/23 19:00 Temperature Temperature Source Pulse Rate 92 100 93 Respiratory Rate 26 H Respiratory Effort Blood Pressure 109/51 L 135/50 H 138/52 H Blood Pressure Mean 70 78 80 Pulse Ox Oxygen Delivery Method Oxygen Flow Rate (L/min) Positive well nourished and well developed Constitutional Narrative: Patient's to be tachypneic. There is use of accessory muscles. There is no retractions. General Appearance ED: well developed; Negative for cyanotic, diaphoretic, NAD or pallor HEENT Reports moist mucous membranes HEENT Narrative: Head is atraumatic normocephalic. TMs normal. Ears normal. Nares patent. Posterior pharynx is normal. Eyes PERRL and EOMs intact bilaterally General Eye ED: Negative for pale conjunctiva or scleral icterus Neck no lymphadenopathy, supple and no JVD Chest Wall inspection of chest normal and palpation of chest normal Resp No normal respiratory effort and No clear to auscultation bilaterally Effort and Inspection: Negative for retractions or pain with movement Auscultation: rales bilateral lower and wheezes expiratory wheezes, scattered wheezes and throughout (There is increased expiratory phase.) Cardio regular rate and no murmurs Rhythm: abnormal rhythm irregularly irregular GI normal to inspection, nondistended, normoactive bowel sounds, non-tender, non- distended and no masses; Negative for hepatosplenomegaly Auscultation: normoactive bowel sounds Palpation: soft Back/Spine no CVA tenderness Thoracic Spine / Upper Back: Negative for thoracic spinal tenderness Lumbar Spine / Lower Back: Negative for lumbar spinal tenderness Extremity normal to inspection General Extremety ED: Negative for edema or tenderness General Extremity: Negative for edema Neuro oriented x3, CN's II-XII intact bilaterally and no sensory deficits noted Sensorium / Orientation: alert Motor Exam: strength 5/5 throughout Psych mental status grossly normal Skin no rashes or lesions noted and no wounds General Skin Exam: Negative for jaundice or pallor MDM MDM MDM Narrative Medical decision making narrative: Documented fever, productive cough, tachypnea and abnormal aspiratory findings need to evaluate for pneumonia versus exacerbation of COPD with exacerbation chronic bronchitis. EKG was obtained to determine rhythm. Suspect he is in atrial fibrillation. CBC to assess for anemia. Competence metabolic panel to assess for endorgan dysfunction as well as lactate. Patient was treated with DuoNeb and albuterol. Records from recent admission were reviewed. He is not seen by pulmonology. History & Record Review Additional record(s) reviewed:: Prior inpatient record and Prior ED visit Lab Data Attestation: I reviewed the patient's lab results. Lab results narrative: Count is elevated 12.3 thousand with shift. There is no bandemia. There is no comprehensive metabolic panel is unremarkable. Sodium is slightly below normal at 135. BUN to creatinine ratio is elevated at 24-1. Creatinine and GFR. Lactate was normal at 1.1. Labs: Laboratory Results - last 24 hr 04/21/23 16:57 WBC 12.3 H RBC 4.29 L Hgb 14.2 Hct 41.1 MCV 95.8 H MCH 33.1 H MCHC 34.5 RDW Std Deviation 44.4 H RDW Coeff of Matt 12.5 Plt Count 226 MPV 10.7 Immature Gran % (Auto) 0.500 Neut % (Auto) 85.5 H Lymph % (Auto) 5.0 L Elk % (Auto) 8.3 Eos % (Auto) 0.5 Baso % (Auto) 0.2 Absolute Neuts (auto) 10.5 H Absolute Lymphs (auto) 0.61 L Nucleated RBC % 0 Sodium 135 L Potassium 3.7 Chloride 101 Carbon Dioxide 29.0 Anion Gap 5 BUN 21 H Creatinine 0.85 Estim Creat Clear Calc 58.38 Est GFR (MDRD) Af Amer 110 Est GFR (MDRD) Non-Af 91 BUN/Creatinine Ratio 24.6 H Glucose 123 H Lactic Acid 1.1 Calcium 8.9 Total Bilirubin 1.10 H AST 15 ALT 27 Alkaline Phosphatase 103 Total Protein 7.3 Albumin 3.1 L Globulin 4.2 Albumin/Globulin Ratio 0.7 L Radiography Chest X-Ray - ED: 2 View and Read by ED Physician (Chronic changes. Question of increased interstitial markings right lower lobe compared to prior. There is slight difference in penetration.) Diagnostic Testing: Clinical Impression(s) from Imaging Studies Chest X-Ray 04/21/23 16:40 IMPRESSION: Chronic lung disease without acute abnormal cardiopulmonary finding. Electronically Signed: Abel Meyers MD at 17:08 EDT , EKG Initial EKG: Attestation: I personally reviewed and interpreted this EKG as follows: Interpretation: Sinus Rhythm (Rate is 90. Patient has frequent premature atrial and ventricular beats. Patient does have evidence of a right bundle b ranch block.) Treatment and Re-Evaluation :: Patient was reassessed at 2034. He is no longer wheezing. He states he feels markedly better. Since he has a fever with elevated white count and purulent sputum compared to normal we will treat with antibiotics. He also was placed on a burst of prednisone. He received his first dose of prednisone and antibiotic in the emergency department. Discharge Plan Triage Chief Complaint: Shortness of Breath ED Provider: Venu Brumfield Dx/Rx/DC Orders Clinical Impression: Acute exacerbation of chronic obstructive pulmonary disease, Essential (primary) hypertension, Peripheral vascular disease, Acute exacerbation of chronic bronchitis, Acute bronchospasm, Chronic respiratory failure with hypoxia Instructions: ED COPD Flare Prescriptions: New prednisone 20 mg tablet 60 mg PO DAILY Qty: 12 0RF doxycycline monohydrate 100 mg capsule 100 mg PO BID Qty: 10 0RF No Action vitamin B comp and C no.3 [B Complex Plus Vitamin C] 55-50-08-5-300 mg capsule 1 cap PO QDAY multivitamin tablet 1 tab PO QDAY albuterol sulfate [Proventil HFA] 90 mcg/actuation HFA aerosol inhaler 2 puff INHALATION Q4H PRN (Reason: Wheezing) budesonide-formoterol 160-4.5 mcg/actuation HFA aerosol inhaler 2 puff INHALATION BID Patient Comments: Inhale 2 (TWO) puffs TWICE DAILY Eliquis 5 mg Tablet 5 mg PO BID Qty: 60 0RF metoprolol succinate 100 mg Tablet Extended Release 24 Hr 100 mg PO BID Qty: 60 0RF digoxin 250 mcg (0.25 mg) Tablet 250 mcg PO DAILY Qty: 30 0RF torsemide 10 mg tablet 10 mg PO DAILY Qty: 30 0RF potassium chloride 10 mEq tablet extended release 20 meq PO DAILY Qty: 60 0RF (DME) Handicap Parking Placard See Rx Instructions .Route .MEDSUPPLY Qty: 1 0RF Rx Instructions: As directed amlodipine 10 mg tablet 10 mg PO QDAY Qty: 90 3RF Primary Care Provider: Maulik Christy Referrals: Maulik Christy MD [Primary Care Provider] - 3-5 Days Disposition Disposition: Home, Self Care
[2023-04-21 17:15] LABS: Absolute Lymphocyte Count 0.61 X10^3/uL (0.83-4.51); Absolute Neutrophil Count 10.5 X10^3/uL (2.0-7.7); Basophil# 0.02 X10^3/uL; Basophil% 0.2 % (0-1); Eosinophil# 0.06 X10^3/uL; Eosinophils% 0.5 % (0-5); Hematocrit 41.1 % (40-54); Hemoglobin 14.2 g/dL (13.0-16.5); Lymphocyte # 0.61 X10^3/ul (0.83-4.51); Mean Corp Hgb Conc 34.5 g/dL (32-36); Mean Corpuscular Hgb 33.1 pg (27.0-32.0); Mean Corpuscular Volume 95.8 fL (80-94); Mean Platelet Vol. 10.7 fl (6.2-12.0); Monocyte# 1.02 X10^3/uL; Monocyte% 8.3 % (0-10); NRBC Flagged by Analyzer 0 % (0-5); Neutrophil # 10.48 X10^3/uL (2.7-7.7); Neutrophil % 85.5 % (47-70); Platelet Count 226 K/mm3 (150-450); RBC Distribution Width CV 12.5 % (11.6-14.6); RBC Distribution Width SD 44.4 fl (35.1-43.9); Red Blood Count 4.29 M/mm3 (4.6-6.2); White Blood Count 12.3 K/mm3 (4.4-11.0)
[2023-04-21 17:30] LABS: ALB/GLOB Ratio 0.7 RATIO (0.9-2.4); AST(SGOT) 15 U/L (15-37); Alanine Aminotransfer ALT/SGPT 27 U/L (16-61); Albumin, Serum 3.1 g/dL (3.2-5.0); Alkaline Phosphatase 103 U/L (45-117); Anion Gap 5 (5-15); BUN 21 mg/dL (7-18); BUN/Creat Ratio 24.6 RATIO (10-20); Calcium,Total 8.9 mg/dL (8.5-10.1); Chloride 101 mmol/L (98-107); Creatinine, Serum 0.85 mg/dL (0.70-1.30); EST Glomerular Filtration Rate 91 mL/min (>60); Est Glom Filt Rate - Afr Amer 110 mL/min (>60); Estimated Creatinine Clearance 58.38 ml/min; Globulin 4.2 g/dL (2.2-4.2); Glucose 123 mg/dL (74-106); Potassium 3.7 mmol/L (3.5-5.1); Protein, Total 7.3 g/dL (6.4-8.2); Sodium Level 135 mmol/L (136-145)
[2023-04-21 17:49] LABS: Lactic Acid 1.1 mmol/L (0.4-1.9)
[2023-04-21] MEDS: Doxycycline 100 MG CAPSULE PO (20:46)
[2023-04-21] MEDS: predniSONE 20 MG Tablet 60 MG PO (20:46)
== END 2023-04-21 21:53 | disposition home or self-care (01) ==
PROVIDERS: Emergency Provider Emergency Medicine; PCP Family Medicine; Visit Provider Emergency Medicine
DX: J96.11 Chronic respiratory failure with hypoxia (principal); J44.0 Chronic obstructive pulmonary disease with (acute) lower respiratory infection; I73.9 Peripheral vascular disease, unspecified; I48.0 Paroxysmal atrial fibrillation; F17.200 Nicotine dependence, unspecified, uncomplicated; I10 Essential (primary) hypertension; J20.9 Acute bronchitis, unspecified; Z79.899 Other long term (current) drug therapy; Z79.51 Long term (current) use of inhaled steroids; Z79.01 Long term (current) use of anticoagulants
CPT/HCPCS: 71046; 80053; 83605; 85025; 93005; 94640; 94667; 99285; A4216

== ENCOUNTER → 2023-06-10 | Outpatient (CLI) | payer MEDICARE, SELFPAY ==
[2023-06-10 17:33] LABS: Anion Gap 3 (5-15); BUN 13 mg/dL (7-18); BUN/Creat Ratio 20.6 RATIO (10-20); Calcium,Total 9.1 mg/dL (8.5-10.1); Chloride 107 mmol/L (98-107); Creatinine, Serum 0.63 mg/dL (0.70-1.30); EST Glomerular Filtration Rate 129 mL/min (>60); Est Glom Filt Rate - Afr Amer 156 mL/min (>60); Glucose 120 mg/dL (74-106); Sodium Level 141 mmol/L (136-145)
== END | disposition home or self-care (01) ==
LOC: LAB 16:27
PROVIDERS: PCP Family Medicine; Referring Provider Nurse Practitioner Family; Visit Provider Nurse Practitioner Family
DX: Z51.81 Encounter for therapeutic drug level monitoring (principal); Z79.899 Other long term (current) drug therapy
CPT/HCPCS: 36415; 80048

== ENCOUNTER 2023-06-14 14:55 | Emergency (ER) | payer MEDICARE, SELFPAY ==
[2023-06-14] VITALS (11 sets, daily range): BP systolic 132–167; BP diastolic 51–74; PULSE 68–84; RESP 14–24; TEMP 36.5–36.6; O2SAT 94–97
--- NOTE | 2023-06-14 15:45 | RAD_ITS ---
STUDY: X-RAY CHEST REASON FOR EXAM: Male, 83 years old. S/P TKA TECHNIQUE: Single frontal view of the chest. COMPARISON: April 21, 2023 FINDINGS: Lungs are hyperaerated. Eventration right hemidiaphragm. The lungs are clear and expanded. There is no demonstrated pleural abnormality. Normal size heart. Normal mediastinum and bill. Normal visualized pulmonary arteries. Normal visualized aortic arch and descending thoracic aorta. Normal visualized thoracic spine. Normal visualized ribs, clavicles, and shoulders. There is no demonstrated abnormality of the visualized soft tissue structures of the upper abdomen. RAD/Chest 1 View (Portable) IMPRESSION: COPD Electronically Signed: Santosh Ford MD at 17:16 EDT ,
[2023-06-14] MEDS: 0.9% Normal Saline 1,000 ML 50 ML IV (15:49)
[2023-06-14 15:53] LABS: Absolute Lymphocyte Count 1.98 X10^3/uL (0.83-4.51); Absolute Neutrophil Count 5.8 X10^3/uL (2.0-7.7); Basophil# 0.07 X10^3/uL; Basophil% 0.8 % (0-1); Eosinophil# 0.39 X10^3/uL; Eosinophils% 4.2 % (0-5); Hematocrit 45.6 % (40-54); Hemoglobin 14.9 g/dL (13.0-16.5); Lymphocyte # 1.98 X10^3/ul (0.83-4.51); Lymphocyte % 21.4 % (19-41); Mean Corp Hgb Conc 32.7 g/dL (32-36); Mean Corpuscular Hgb 31.6 pg (27.0-32.0); Mean Corpuscular Volume 96.6 fL (80-94); Mean Platelet Vol. 11.4 fl (6.2-12.0); Monocyte# 0.95 X10^3/uL; Monocyte% 10.3 % (0-10); NRBC Flagged by Analyzer 0 % (0-5); Neutrophil # 5.82 X10^3/uL (2.7-7.7); Platelet Count 250 K/mm3 (150-450); RBC Distribution Width CV 13.4 % (11.6-14.6); RBC Distribution Width SD 48.1 fl (35.1-43.9); Red Blood Count 4.72 M/mm3 (4.6-6.2); White Blood Count 9.2 K/mm3 (4.4-11.0)
[2023-06-14 15:59] LABS: International Normalized Ratio 1.3; Prothrombin Time (Protime)PT. 16.6 SECONDS (11.7-14.9)
[2023-06-14 16:00] LABS: Partial Thromboplast Time 33.7 Seconds (24.1-36.2)
--- NOTE | 2023-06-14 16:12 | CT_ITS ---
STUDY: CT BRAIN WITHOUT CONTRAST REASON FOR EXAM: Male, 83 years old. headache RADIATION DOSAGE (If Supplied By Facility): CTDIvol = ( 44.99 ) mGy, DLP = ( 779.24 ) mGycm TECHNIQUE: Transaxial CT imaging of the brain was performed without administration of intravenous contrast material. Individualized dose optimization techniques were used for this CT. COMPARISON: CT brain January 02, 2019 FINDINGS: Normal soft tissue structures. Normal calvarium. There is mild cerebral atrophy with widening of the extra-axial spaces and ventricular dilatation. There are areas of decreased attenuation within the white matter tracts of the supratentorial brain, consistent with microvascular disease changes. Normal basal ganglia and thalami. Normal brainstem. Normal cerebellum. There is no intracranial hemorrhage. There are no findings of an acute ischemic infarction. Intracranial atherosclerosis. Opacification of the maxillary ethmoid and frontal sinuses.
[2023-06-14 16:17] LABS: Anion Gap 1 (5-15); BUN 15 mg/dL (7-18); BUN/Creat Ratio 17.8 RATIO (10-20); Calcium,Total 9.5 mg/dL (8.5-10.1); Chloride 103 mmol/L (98-107); Creatinine, Serum 0.84 mg/dL (0.70-1.30); EST Glomerular Filtration Rate 92 mL/min (>60); Est Glom Filt Rate - Afr Amer 111 mL/min (>60); Glucose 120 mg/dL (74-106); Potassium 3.8 mmol/L (3.5-5.1); Sodium Level 138 mmol/L (136-145)
--- NOTE | 2023-06-14 16:32 | EDS_ITS ---
HPI History of Present Illness Chief Complaint: Dizziness Narrative Narrative: 83-year-old male presenting with multiple symptoms. He states that for the last month his hearing is progressively gotten worse. 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 He states that his vision is gotten worse over the same timeframe and is acutely worse today. Sometimes he puts his contacts in thoracic wall and sometimes he does not. Patient states that his last eye exam was greater than 2 years ago. He states that he has prescription eyeglasses which he does not wear all the time. He states he only wears them for the bifocals. He describes a headache pressure behind his eyes which started today and he has not taken anything for headache. Patient also wears oxygen at home for history of COPD and is at his baseline oxygen at 2 L. Denies any new shortness of breath, cough, fever, chills. Denies chest pain. He states he feels well other than a headache behind his eyes. Patient also reports that he does not wear his oxygen all the time and if he feels better he will just take it off he does not monitor his O2 sats. Patient is on Eliquis due to history of A-fib and has not missed any doses. Patient does state digoxin for heart rate control. [facility] Medical History Alcohol abuse COPD exacerbation Dyspnea Essential (primary) hypertension Incomplete right bundle branch block Near syncope Nicotine dependence Nonsustained paroxysmal supraventricular tachycardia Nonsustained ventricular tachycardia Palpitations Paroxysmal atrial fibrillation Peripheral vascular disease Weakness Home Medications multivitamin 1 tab PO QDAY 01/27/18 [History Last Taken Unknown] Handicap Parking Placard #1 ea 10/05/22 [Rx Last Taken Unknown] albuterol sulfate 90 mcg/actuation aerosol inhaler (Proventil HFA) 2 puff inhalation Q4H PRN Wheezing 03/01/23 [History Last Taken Unknown] budesonide-formoterol HFA 160 mcg-4.5 mcg/actuation aerosol inhaler 2 puff inhalation BID 03/01/23 [History Last Taken Unknown] amlodipine 10 mg tablet 10 mg PO QDAY #90 tabs 05/13/23 [Rx Last Taken Unknown] apixaban 5 mg tablet (Eliquis) 5 mg PO BID #60 tabs 05/13/23 [Rx Last Taken Unknown] digoxin 250 mcg (0.25 mg) tablet 250 mcg PO DAILY #90 tabs 05/13/23 [Rx Last Taken Unknown] metoprolol succinate 100 mg tablet,extended release 24 hr 100 mg PO BID #60 tabs 05/13/23 [Rx Last Taken Unknown] potassium chloride 10 mEq tablet,extended release 20 meq (2 x 10 mEq) PO DAILY #180 tabs 05/13/23 [Rx Last Taken Unknown] torsemide 10 mg tablet 10 mg PO DAILY #90 tabs 05/13/23 [Rx Last Taken Unknown] Allergy/AdvReac Type Severity Reaction Status Date / Time atenolol AdvReac Intermediate Made me Verified 06/14/23 14:56 feel terrible Family History Other Sudden cardiac Surgical History History of herniorrhaphy Social History household members: none Smoking Status: Former smoker alcohol intake: never substance use type: does not use caffeine: Yes Type: coffee Number of servings: 3 ROS ROS ED Constitutional Constitutional ED: Denies chills, fever(s) or weight loss Eyes Eyes: Reports blurry vision bilateral ENT ENT ED: Denies rhinorrhea or sore throat Cardiovascular Cardiovascular: Denies chest pain or palpitations Respiratory/Chest Respiratory/Chest: Denies cough or dyspnea Gastrointestinal Gastrointestinal: Denies abdominal pain, nausea or vomiting Genitourinary Genitourinary ED: Denies dysuria or hematuria Musculoskeletal Musculoskeletal: Denies arthralgias Integumentary Denies abscess or Abrasions Neurologic Neurologic: Reports headache(s); Denies paresthesias or weakness Psychiatric Psychiatric: Denies anxiety EXAM Physical Exam Const Vital Signs: 06/14/23 14:56 06/14/23 15:45 06/14/23 15:22 Temperature 97.9 F 97.7 F L Temperature Source Temporal Temporal Pulse Rate 77 75 75 Pulse Rate [Lying] Pulse Rate [Sitting (for 1 minute prior to obtaining)] Pulse Rate [Standing (for 1 minute prior to obtaining)] Respiratory Rate 22 H 24 H 22 H Blood Pressure 156/56 H 140/64 H 145/70 H Blood Pressure [Lying] Blood Pressure [Sitting (for 1 minute prior to obtaining)] Blood Pressure [Standing (for 1 minute prior to obtaining)] Blood Pressure Mean 89 89 95 Blood Pressure Mean [Lying] Blood Pressure Mean [Sitting (for 1 minute prior to obtaining)] Blood Pressure Mean [Standing (for 1 minute prior to obtaining)] Pulse Ox 95 96 95 Oxygen Delivery Method Nasal Cannula Nasal Cannula Nasal Cannula Oxygen Flow Rate (L/min) 2 2 2 06/14/23 15:52 06/14/23 16:51 06/14/23 16:51 Temperature 97.7 F L Temperature Source Temporal Pulse Rate 84 70 Pulse Rate [Lying] Pulse Rate [Sitting (for 1 minute prior to obtaining)] Pulse Rate [Standing (for 1 minute prior to obtaining)] Respiratory Rate 16 14 Blood Pressure 145/64 H Blood Pressure [Lying] Blood Pressure [Sitting (for 1 minute prior to obtaining)] Blood Pressure [Standing (for 1 minute prior to obtaining)] Blood Pressure Mean 91 Blood Pressure Mean [Lying] Blood Pressure Mean [Sitting (for 1 minute prior to obtaining)] Blood Pressure Mean [Standing (for 1 minute prior to obtaining)] Pulse Ox 97 96 Oxygen Delivery Method Room Air Nasal Cannula Oxygen Flow Rate (L/min) 2.5 06/14/23 17:05 06/14/23 17:00 06/14/23 19:04 Temperature Temperature Source Pulse Rate 75 Pulse Rate [Lying] 76 Pulse Rate [Sitting (for 1 minute prior to obtaining)] 77 Pulse Rate [Standing (for 1 minute prior to obtaining)] 82 Respiratory Rate 18 Blood Pressure 132/66 H 154/53 H Blood Pressure [Lying] 165/61 H Blood Pressure [Sitting (for 1 minute prior to obtaining)] 167/74 H Blood Pressure [Standing (for 1 minute prior to obtaining)] 137/72 H Blood Pressure Mean 88 86 Blood Pressure Mean [Lying] 95 Blood Pressure Mean [Sitting (for 1 minute prior to obtaining)] 105 Blood Pressure Mean [Standing (for 1 minute prior to obtaining)] 93 Pulse Ox 94 Oxygen Delivery Method Nasal Cannula Oxygen Flow Rate (L/min) 2 06/14/23 20:10 06/14/23 21:21 06/14/23 22:25 Temperature Temperature Source Pulse Rate 69 78 Pulse Rate [Lying] 68 Pulse Rate [Sitting (for 1 minute prior to obtaining)] 78 Pulse Rate [Standing (for 1 minute prior to obtaining)] Respiratory Rate 18 17 Blood Pressure 138/53 H 135/74 H Blood Pressure [Lying] 138/51 H Blood Pressure [Sitting (for 1 minute prior to obtaining)] 143/55 H Blood Pressure [Standing (for 1 minute prior to obtaining)] Blood Pressure Mean 81 Blood Pressure Mean [Lying] 80 Blood Pressure Mean [Sitting (for 1 minute prior to obtaining)] 84 Blood Pressure Mean [Standing (for 1 minute prior to obtaining)] Pulse Ox 96 95 Oxygen Delivery Method Nasal Cannula Oxygen Flow Rate (L/min) 2 Positive well nourished General Appearance ED: NAD; Negative for pallor HEENT Reports moist mucous membranes HEENT Narrative: ceruman impaction right ear Eyes PERRL Neck no lymphadenopathy Resp normal respiratory effort Auscultation: wheezes scattered wheezes Cardio regular rate and regular rhythm GI normal to inspection, nondistended, normoactive bowel sounds Neuro oriented x3 and CN's II-XII intact bilaterally Sensorium / Orientation: alert Motor Exam: strength 5/5 throughout Psych mental status grossly normal Skin no rashes or lesions noted and no wounds General Skin Exam: Negative for jaundice or pallor MDM MDM MDM Narrative Medical decision making narrative: Patient presenting with headache, decreased vision, decreased hearing. This seems to have progressed over the last month and is worse today. On exam he has no focal neurologic deficits or lateralizing signs or symptoms. I had him put his prescription eyeglasses on and he states he can see well after he was put these on. I will obtain visual acuities. I also discussed with he and his daughter at length that not wearing oxygen and not wearing glasses can cause headaches. Differential includes headache, migraine, nonacute peripheral hear ing loss, dehydration, electrolyte abnormalities, anemia, stroke, patient pneumonia, COPD exacerbation. Will obtain orthostatic vital signs to make sure the patient is not orthostatic. No evidence of peripheral or central vertigo. Patient given Tylenol for his headache. CBC to assess for blood cell count, hemoglobin, platelets. BMP to assess renal function, electrolytes, glucose. High-sensitivity troponin and EKG to rule out ischemia or dysrhythmia. Chest x- ray to rule out pneumonia. Patient is on digoxin and I will have a level drawn. Patient did have scattered wheezes on examination and I will give him a DuoNeb. This is likely chronic. Patient not complaining shortness of breath. CBC shows normal white blood cell count 9.2. Hemoglobin hematocrit are stable. Platelets are normal. Renal function electrolytes within normal limits. Coagulation studies normal. Patient had Debrox placed in the right ear and cerumen was disimpacted on reevaluation there appears to be a perforated TM. This could explain some dizziness. Patient's orthostatics were positive and he was given 2 L of IV fluids and after this his orthostatics were normal. CBC shows a normal white blood cell count, hemoglobin, platelets. BMP shows normal renal function electrolytes. High-sensitivity troponin 13. Digoxin level was slightly elevated before IV fluid at 2.18 which is just slightly above normal. EKG normal sinus rhythm with a ventricular rate of 75 bpm without sign ischemic change or ectopy on my interpretation. There is an incomplete right bundle branch block. Chest x-ray showed no acute process on my interpretation. The radiologist interprets this and agrees. I obtained a CT brain which was also negative for acute findings. He obtained visual acuities which were 20/30 OD an d 20/50 OS. These were obtained with his glasses. I recommended that he follow-up with a orthophotography technician to recheck his vision. When I went back to reevaluate the patient he states he feels better although he still feels like he is weak and having trouble walking which does sound like a chronic issue. The patient seems to go back and forth on whether he is stable or not so I had the nursing staff walked him with his normal cane and baseline 2 L of oxygen. He did very well and was able to ambulate to and from the bathroom without any difficulty with exception of getting up out of the bed but after he stabilized he was very comfortable walking. I discussed case with Dr. Mark from cardiology recommended that the patient hold his digoxin for 1 day and then restart it. He is to make an appointment for Dr. Escalona. Return precautions were discussed. Impression: 1. Right TM perforation 2. Cerumen impaction 3. Dizziness 4. Elevated digoxin level 5. Orthostatic hypotension resolved 6. Headache 7. Blurry vision Lab Data Attestation: I reviewed the patient's lab results. Labs: Laboratory Results - last 24 hr 06/14/23 06/14/23 15:35 16:39 WBC 9.2 RBC 4.72 Hgb 14.9 Hct 45.6 MCV 96.6 H MCH 31.6 MCHC 32.7 RDW Std Deviation 48.1 H RDW Coeff of Matt 13.4 Plt Count 250 MPV 11.4 Immature Gran % (Auto) 0.300 Neut % (Auto) 63.0 Lymph % (Auto) 21.4 Whiteside % (Auto) 10.3 H Eos % (Auto) 4.2 Baso % (Auto) 0.8 Absolute Neuts (auto) 5.8 Absolute Lymphs (auto) 1.98 Nucleated RBC % 0 PT 16.6 H INR 1.3 APTT 33.7 Sodium 138 Potassium 3.8 Chloride 103 Carbon Dioxide 34.0 H Anion Gap 1 L BUN 15 Creatinine 0.84 Est GFR (MDRD) Af Amer 111 Est GFR (MDRD) Non-Af 92 BUN/Creatinine Ratio 17.8 Glucose 120 H Calcium 9.5 Troponin I High Sens 13 Digoxin 2.18 H* Radiography Diagnostic Testing: Clinical Impression(s) from Imaging Studies Chest X-Ray 06/14/23 15:45 IMPRESSION: COPD Electronically Signed: Santosh Ford MD at 17:16 EDT Reading Location ID and State: [address] [place] [address] , Service support , Brain CT 06/14/23 16:12 IMPRESSION: Lam sinusitis otherwise no acute intracranial disease Electronically Signed: Santosh Ford MD at 18:09 EDT Reading Location ID and State: [facility] / [place] , Service support , Discharge Plan Triage Chief Complaint: Dizziness ED Provider: John Lowery Dx/Rx/DC Orders Instructions: Self-Care for Headaches, CERUMEN IMPACTION, Home Care, ED Dizziness, Uncertain Cause, ED Hypotension, Orthostatic, ED PERFORATED TM Infected [Adult] Prescriptions: No Action multivitamin tablet 1 tab PO QDAY albuterol sulfate [Proventil HFA] 90 mcg/actuation HFA aerosol inhaler 2 puff INHALATION Q4H PRN (Reason: Wheezing) budesonide-formoterol 160-4.5 mcg/actuation HFA aerosol inhaler 2 puff INHALATION BID Patient Comments: Inhale 2 (TWO) puffs TWICE DAILY (DME) Handicap Parking Nadia See Rx Instructions .Route .MEDSUPPLY Qty: 1 0RF Rx Instructions: As directed digoxin 250 mcg (0.25 mg) tablet 250 mcg PO DAILY Qty: 90 3RF Eliquis 5 mg tablet 5 mg PO BID Qty: 60 11RF metoprolol succinate 100 mg tablet extended release 24 hr 100 mg PO BID Qty: 60 11RF torsemide 10 mg tablet 10 mg PO DAILY Qty: 90 3RF amlodipine 10 mg tablet 10 mg PO QDAY Qty: 90 3RF potassium chloride 10 mEq tablet extended release 20 meq PO DAILY Qty: 180 3RF Primary Care Provider: Maulik Christy Referrals: Bharath Escalona MD [Med Staff - Active Staff] - 3-5 Days Maulik Christy MD [Primary Care Provider] - Activity Restrictions/Additional Instructions: Your digoxin level was slightly elevated today. I spoke with Dr. Mark who recommended holding your digoxin tomorrow and then restarting it at normal time on the next day. Disposition Disposition: Home, Self Care Discharge Date/Time: 06/14/23 22:27
[2023-06-14] MEDS: Ipratropium/Albuterol Sulfate 3 ML AMPUL.NEB INHALATION (16:49)
[2023-06-14 17:50] LABS: Digoxin Level 2.18 ng/mL (0.80-2.00)
[2023-06-14 18:02] LABS: Troponin-I HS 13 pg/mL (3.0-78.0)
[2023-06-14] MEDS: Acetaminophen 500 MG Tablet 1000 MG PO (18:57)
[2023-06-14] MEDS: Carbamide Peroxide 15 ML Bottle 5 DRP OTIC (19:03)
[2023-06-14] MEDS: 0.9% Normal Saline 1,000 ML 999 ML IV (19:21)
== END 2023-06-14 22:27 | disposition home or self-care (01) ==
PROVIDERS: Emergency Provider Student in an Organized Health Care Education/Training Program; PCP Family Medicine; Visit Provider Student in an Organized Health Care Education/Training Program
DX: R42 Dizziness and giddiness (principal); J44.9 Chronic obstructive pulmonary disease, unspecified; I48.0 Paroxysmal atrial fibrillation; Z87.891 Personal history of nicotine dependence; I10 Essential (primary) hypertension; R51.9 Headache, unspecified; Z99.81 Dependence on supplemental oxygen; Z79.01 Long term (current) use of anticoagulants; Z79.899 Other long term (current) drug therapy; Z79.51 Long term (current) use of inhaled steroids; H72.91 Unspecified perforation of tympanic membrane, right ear; H61.21 Impacted cerumen, right ear; R89.2 Abnormal level of other drugs, medicaments and biological substances in specimens from other organs, systems and tissues; I95.1 Orthostatic hypotension; H53.8 Other visual disturbances
CPT/HCPCS: 70450; 71045; 80048; 80162; 84484; 85025; 85610; 85730; 93005; 94640; 96360; 96361; 99285; J7030; A4216

== ENCOUNTER 2023-10-05 07:42 | Inpatient (IN) | payer MEDICARE, SELFPAY ==
[2023-10-05] VITALS (17 sets, daily range): BP systolic 117–145; BP diastolic 65–78; PULSE 106–124; RESP 18–26; TEMP 36.6–37.1; O2SAT 93–100; BMI 23.6; BMI 22.7
--- NOTE | 2023-10-05 07:44 | EKG12_ITS ---
Test Reason : SOB Blood Pressure : / mmHG Vent. Rate : 111 BPM Atrial Rate : 000 BPM P-R Int : 000 ms QRS Dur : 106 ms QT Int : 326 ms P-R-T Axes : 000 -68 055 degrees QTc Int : 443 ms Atrial fibrillation with rapid ventricular response Left axis deviation Incomplete right bundle branch block Abnormal ECG Confirmed by NURY WILSON, MG ([id number]), associate editor EARLE LECHUGA ([id number]) on 10/11/2023 7:02:37 AM Referred By: Confirmed By:BUFFY ARRINGTON MD
--- NOTE | 2023-10-05 07:46 | ED.VIS.DYS ---
HPI History of Present Illness Chief Complaint: Shortness of Breath Detail of Chief Complaint: Increasing shortness of breath, history of COPD Informant: patient and EMS Onset/Context/Timing Onset: Days (Onset of symptoms 3 days ago) Context: gradual Timing: Continuous Quality: Positive for Dyspnea on exertion, Orthopnea (Chronic) and Wheezing; Negative for PND Current Severity: Moderate Maximum Severity: Severe Worsened by: Exertion and Coughing Relieved by: Nothing Associated Symptoms cough, sore throat and white sputum; Negative for rhinorrhea, post nasal drip, ear pain, fever, subjective, chills, sweats, clear sputum, yellow sputum or green sputum Chest Pain: Positive for None Narrative Narrative: Patient is a 83-year-old male who is on oxygen by nasal cannula at 4 L. Squad states when they arrived his pulse ox was 84%. His oxygenation improved after DuoNeb. He has not been on prednisone the last 90 days. He has not been on an antibiotic recently. He denies history of VTE. He denies leg pain or discoloration. He has swelling. He does have a history of lower extremity lymphedema. He is on a loop diuretic. Patient is on long-term anticoagulant for atrial fibrillation. He states he is compliant with his medicine. He does have a history of hypertension. He denies headache, visual, ocular auditory symptoms. He denies chest pain, pressure or tightness. He denies pleuritic pain. He denies abdominal pain, nausea, vomit or diarrhea. He denies dysuria, frequency, urgency. PE Risk Factors: Negative for Cancer, OCP + Smoking + > 35, Prior DVT or PE, Recent immobilization, Recent surgery or Recent travel Prior similar symptoms: Yes (COPD May 2023) Recent Illness/Hospitalization: No PFSH [facility] Medical History Alcohol abuse COPD exacerbation Dyspnea Essential (primary) hypertension Incomplete right bundle branch block Near syncope Nicotine dependence Nonsustained paroxysmal supraventricular tachycardia Nonsustained ventricular tachycardia Palpitations Paroxysmal atrial fibrillation Peripheral vascular disease Weakness Home Medications multivitamin 1 tab PO QDAY 01/27/18 [History Last Taken Unknown] Handicap Parking Placard #1 ea 10/05/22 [Rx Last Taken Unknown] albuterol sulfate 90 mcg/actuation aerosol inhaler (Proventil HFA) 2 puff inhalation Q4H PRN Wheezing 03/01/23 [History Last Taken Unknown] budesonide-formoterol HFA 160 mcg-4.5 mcg/actuation aerosol inhaler 2 puff inhalation BID 03/01/23 [History Last Taken Unknown] amlodipine 10 mg tablet 10 mg PO QDAY #90 tabs 05/13/23 [Rx Last Taken Unknown] apixaban 5 mg tablet (Eliquis) 5 mg PO BID #60 tabs 05/13/23 [Rx Last Taken Unknown] metoprolol succinate 100 mg tablet,extended release 24 hr 100 mg PO BID #60 tabs 05/13/23 [Rx Last Taken Unknown] potassium chloride 10 mEq tablet,extended release 20 meq (2 x 10 mEq) PO DAILY #180 tabs 05/13/23 [Rx Last Taken Unknown] torsemide 10 mg tablet 10 mg PO DAILY #90 tabs 05/13/23 [Rx Last Taken Unknown] Allergy/AdvReac Type Severity Reaction Status Date / Time atenolol AdvReac Intermediate Made me Verified 10/05/23 07:48 feel terrible digoxin AdvReac Intermediate Digitoxicit Verified 10/05/23 07:48 y Family History Other Sudden cardiac Surgical History History of herniorrhaphy Social History household members: none Smoking Status: Former smoker alcohol intake: never substance use type: does not use caffeine: Yes Type: coffee Number of servings: 3 ROS ROS ED Constitutional Constitutional ED: Denies chills, fever(s), sweats or weight loss Eyes Eyes: Denies blurry vision, change in vision or diplopia ENT ENT ED: Denies ear pain, rhinorrhea or sore throat Cardiovascular Cardiovascular: Reports orthopnea and palpitations; Denies chest pain or paroxysmal nocturnal dyspnea Respiratory/Chest Respiratory/Chest: Reports cough, dyspnea, dyspnea on exertion, orthopnea and sputum; Denies paroxysmal nocturnal dyspnea Gastrointestinal Gastrointestinal: Denies abdominal pain, diarrhea, nausea or vomiting Genitourinary Genitourinary ED: Denies dysuria, hematuria or urinary frequency Musculoskeletal Musculoskeletal: Denies arthralgias or myalgias Integumentary Denies rash Neurologic Neurologic: Reports weakness; Denies headache(s) Endocrine Endocrinology: Denies cold intolerance Hematologic/Lymphatic Hematologic/Lymphatic: Denies easy bleeding or easy bruising EXAM Physical Exam Const Vital Signs: 10/05/23 07:42 10/05/23 07:48 10/05/23 07:52 Temperature 98.4 F 98.4 F Temperature Source Temporal Temporal Pulse Rate 121 H 117 H Respiratory Rate 20 H 20 H Respiratory Effort Respiratory Depth Respiratory Pattern Blood Pressure 145/75 H 145/75 H Blood Pressure Mean 98 98 Pulse Ox 96 97 Oxygen Delivery Method Nasal Cannula Nasal Cannula Nasal Cannula Oxygen Flow Rate (L/min) 4 4 4 10/05/23 07:58 10/05/23 08:09 10/05/23 08:48 Temperature 98.4 F Temperature Source Temporal Pulse Rate 118 H 109 H Respiratory Rate 20 H 20 H Respiratory Effort Short of Breath Respiratory Depth Shallow Respiratory Pattern Normal Blood Pressure 122/65 H 124/68 H Blood Pressure Mean 84 86 Pulse Ox 96 98 Oxygen Delivery Method Nasal Cannula Nasal Cannula Nasal Cannula Oxygen Flow Rate (L/min) 4 4 10/05/23 08:48 10/05/23 09:19 10/05/23 08:07 Temperature 98.4 F Temperature Source Temporal Pulse Rate 108 H 109 H 116 H Respiratory Rate 20 H 20 H 20 H Respiratory Effort Respiratory Depth Respiratory Pattern Blood Pressure 124/68 H 124/68 H Blood Pressure Mean 86 86 Pulse Ox 98 98 Oxygen Delivery Method Nasal Cannula Nasal Cannula Oxygen Flow Rate (L/min) 4 4 Positive well developed and cachectic Constitutional Narrative: Is in obvious respiratory distress. He has use of accessory muscles. There is retractions and paradoxical breathing. Patient is able to say the alphabet D/C before a gasp for breath. Paramedics states he was unable to give one-word responses initially. General Appearance ED: well developed and cachectic; Negative for NAD or pallor Nutritional Appearance: cachectic HEENT Reports moist mucous membranes HEENT Narrative: Are normal. Nares patent. Posterior pharynx is normal. atraumatic Eyes PERRL and EOMs intact bilaterally General Eye ED: Negative for pale conjunctiva or scleral icterus Neck no lymphadenopathy, supple, no meningeal signs and no JVD Neck Narrative: Is midline. Nose. Resp No normal respiratory effort and No clear to auscultation bilaterally Auscultation: wheezes expiratory wheezes, scattered wheezes and throughout and diminished lung sounds bilateral throughout Cardio no murmurs Rate: tachycardic Rhythm: abnormal rhythm irregularly irregular GI non-tender, non-distended and no masses Auscultation: hypoactive bowel sounds Palpation: soft Back/Spine no CVA tenderness Extremity Negative for normal to inspection Extremity Narrative: Marked edema of the lower extremities. It is pitting. General Extremety ED: Yes edema General Extremity: edema Neuro oriented x3, CN's II-XII intact bilaterally and no sensory deficits noted Olena Coma Scale: document GCS findings Spontaneous Obeys Commands Oriented 15 Sensorium / Orientation: alert Motor Exam: strength 5/5 throughout Psych mental status grossly normal Skin no wounds and No skin turgor normal General Skin Exam: Negative for jaundice or pallor Lesions: no lesions Rashes: no rashes MDM MDM MDM Narrative Medical decision making narrative: Marítn with respiratory symptoms. Differential would be exacerbated COPD, exacerbation chronic bronchitis versus viral infection causing exacerbation COPD, pneumonia exacerbating COPD, with him having chronic orthopnea pedal edema on loop diuretic need to evaluate for congestive heart failure as well. EKG was obtained to assess for acute ischemic changes. CBC to assess white count and H&H. H&H to rule out anemia as a cause of his dyspnea. BNP was obtained because of concern for congestive heart failure. Electrolyte panel was obtained to assess renal function and determine if there is any evidence of endorgan dysfunction. Lactate was obtained as well. This may be elevated due to the fact that he was hypoxic, type A lactic acidosis. History & Record Review Additional record(s) reviewed:: Prior inpatient record (Admission in March for atrial fibrillation with RVR.), Prior outpatient record (He has been seen several times for COPD exacerbation.), Prior ED visit and Prior labs Lab Data Attestation: I reviewed the patient's lab results. Lab results narrative: CBC is unremarkable. Basic metabolic panel reveals elevated CO2. He has had elevated CO2's in the past. Glucose is slowly elevated 117 with normal anion gap. Influenza and COVID rapid antigen are both negative. BNP is elevated to 70. Patient's had chronic elevated BMPs. Lactate is normal. Labs: Laboratory Results - last 24 hr 10/05/23 07:56 WBC 6.6 RBC 4.58 L Hgb 14.6 Hct 45.4 MCV 99.1 H MCH 31.9 MCHC 32.2 RDW Std Deviation 47.4 H RDW Coeff of Matt 13.1 Plt Count 183 MPV 11.3 Immature Gran % (Auto) 0.300 Neut % (Auto) 62.7 Lymph % (Auto) 20.9 [place] % (Auto) 14.4 H Eos % (Auto) 1.4 Baso % (Auto) 0.3 Absolute Neuts (auto) 4.1 Absolute Lymphs (auto) 1.37 Nucleated RBC % 0 Sodium 141 Potassium 4.0 Chloride 106 Carbon Dioxide 33.0 H Anion Gap 2 L BUN 18 Creatinine 0.79 Estim Creat Clear Calc 49.62 Est GFR (MDRD) Af Amer 120 Est GFR (MDRD) Non-Af 99 BUN/Creatinine Ratio 22.8 H Glucose 117 H Lactic Acid 0.5 Calcium 9.3 B-Natriuretic Peptide 270.2 H ABG Data Attestation: I personally reviewed and interpreted this ABG as follows: Interpretation: VBG reveals normal pH. pO2 is 54 which is slightly high for venous gas. Bicarb is 30 which is elevated. This was obtained with the patient on 4 L, which is his baseline. CO2 was 31 which is within normal range. ABG results: ABG 10/05/23 08:04 Specimen Type FARHAT Sample Site Not entered VBG pH 7.40 VBG pO2 54 H VBG HCO3 30 H VBG Total CO2 31 VBG O2 Sat (Calc) 87 H VBG Base Excess 5 H POC Mix VBG pCO2 Pt Tmp 47.9 O2 Delivery Device Not entered Clinical Comments 4lpm Radiography Chest X-Ray - ED: 2 View and Read by ED Physician (Compared to prior from. There is a difference in technique. Film today is overpenetrated and the interstitial markings are more prominent on the right. Suspect this is all chronic. Cardiac silhouette and size normal. Perihilar region normal. Osseous structures unremarkable. This was interpret) Diagnostic Testing: Clinical Impression(s) from Imaging Studies Chest X-Ray 10/05/23 08:35 IMPRESSION: Hyperinflation. Patchy bibasilar infiltrates worse on the right side superimposed on bibasilar scarring. Electronically Signed: Buddy Dave MD at 9:14 EST , Interpretation by radiologist was read. It is still my opinion that the difference in the lung parenchyma is due to this film being overpenetrated in comparison to x-ray obtained May of this year. Rhythm Strip Rhythm Strip: A-fib Rate: 120 EKG Initial EKG: Attestation: I personally reviewed and interpreted this EKG as follows: Interpretation: Atrial Fibrillation (Rate is 111. QRS duration 106 ms. QT duration 326 ms. Perry is to the left. There is evidence of a incomplete right bundle branch block. There is also significant artifact due to patient's respiratory distress.) Prior: Unchanged Management Discussion w/another healthcare provider: Hospitalist (Spoke with Dr. Mejia, hospitalist, patient be admitted to [facility] with telemetry monitoring since he is in A-fib. His A-fib and all likelihood is due to his respiratory distress.) Treatment and Re-Evaluation :: Patient's heart rate is 1 20-1 30. He is breathing 28 times a minute not 20. He still has use of accessory muscles. Breathing still appears to be paradoxical. He has conversational dyspnea. He still has significant wheezing with increased x-ray phase. Niece is in the room. He is not at baseline per niece. My opinion patient is to be admitted. Since he has received 4 aerosol treatments Solu-Medrol and is still using accessory muscles with tachypnea, tachycardia and conversational dyspnea hospitalist was paged for admission. Cough is productive of green-colored sputum. Discharge Plan Dx/Rx/DC Orders Clinical Impression: Acute exacerbation of chronic obstructive pulmonary disease, Peripheral vascular disease, Acute exacerbation of chronic bronchitis, Acute bronchospasm, Atrial fibrillation with RVR, Anticoagulant long-term use Disposition Disposition: Acute Care Hospital [facility]
[2023-10-05] MEDS: Albuterol 2.5 MG/3 ML VIAL.NEB. INHALATION ×3 (07:56)
[2023-10-05] MEDS: MethylPREDNISolone 125 MG/2 ML Vial 60 MG IV (07:56)
[2023-10-05 08:09] LABS: Absolute Lymphocyte Count 1.37 X10^3/uL (0.83-4.51); Absolute Neutrophil Count 4.1 X10^3/uL (2.0-7.7); Basophil# 0.02 X10^3/uL; Basophil% 0.3 % (0-1); Eosinophil# 0.09 X10^3/uL; Eosinophils% 1.4 % (0-5); Hematocrit 45.4 % (40-54); Hemoglobin 14.6 g/dL (13.0-16.5); Lymphocyte # 1.37 X10^3/ul (0.83-4.51); Lymphocyte % 20.9 % (19-41); Mean Corp Hgb Conc 32.2 g/dL (32-36); Mean Corpuscular Hgb 31.9 pg (27.0-32.0); Mean Corpuscular Volume 99.1 fL (80-94); Mean Platelet Vol. 11.3 fl (6.2-12.0); Monocyte# 0.94 X10^3/uL; Monocyte% 14.4 % (0-10); NRBC Flagged by Analyzer 0 % (0-5); Neutrophil # 4.11 X10^3/uL (2.7-7.7); Neutrophil % 62.7 % (47-70); Platelet Count 183 K/mm3 (150-450); RBC Distribution Width CV 13.1 % (11.6-14.6); RBC Distribution Width SD 47.4 fl (35.1-43.9); Red Blood Count 4.58 M/mm3 (4.6-6.2); White Blood Count 6.6 K/mm3 (4.4-11.0)
[2023-10-05 08:10] LABS: Blood Gas Specimen Type VEN; O2 Delivery Device Not entered; SITE Not entered; VBG BASE EXCESS 5 mmol/L (-1.0-3.5); VBG Bicarbonate 30 mmol/L (22-26); VBG PO2 54 mmHg (25-40); VBG SO2 87 % (50-70); VBG TCO2 31 mmol/L (23-33); VBG pCO2 47.9 mmHg (41-51)
[2023-10-05 08:21] LABS: Anion Gap 2 (5-15); BUN 18 mg/dL (7-18); BUN/Creat Ratio 22.8 RATIO (10-20); Calcium,Total 9.3 mg/dL (8.5-10.1); Chloride 106 mmol/L (98-107); Creatinine, Serum 0.79 mg/dL (0.70-1.30); EST Glomerular Filtration Rate 99 mL/min (>60); Est Glom Filt Rate - Afr Amer 120 mL/min (>60); Estimated Creatinine Clearance 49.62 ml/min; Glucose 117 mg/dL (74-106); Sodium Level 141 mmol/L (136-145)
[2023-10-05 08:32] LABS: Lactic Acid 0.5 mmol/L (0.4-1.9)
--- NOTE | 2023-10-05 08:35 | RAD_ITS ---
STUDY: X-RAY CHEST REASON FOR EXAM: Male, 83 years old. Wheezing, productive cough, hypoxia TECHNIQUE: PA and lateral views of the chest. COMPARISON: Comparison is made with prior study June 14, 2023. FINDINGS: EKG electrodes are seen. There is hyperinflation of the lungs consistent with chronic obstructive lung disease (COPD). Patchy infiltrates are seen at both lung bases slightly worse on the right side superimposed on chronic basilar scarring. There is no demonstrated pleural abnormality. Normal size heart. Normal mediastinum and bill. Normal visualized pulmonary arteries. There is atherosclerotic calcification of the aortic arch with tortuosity. There are diffuse degenerative changes of the visualized thoracic spine. Normal visualized ribs, clavicles, and shoulders. There is no demonstrated abnormality of the visualized soft tissue structures of the upper abdomen. RAD/Chest PA and Lateral IMPRESSION: Hyperinflation. Patchy bibasilar infiltrates worse on the right side superimposed on bibasilar scarring. Electronically Signed: Buddy Dave MD at 9:14 EST ,
[2023-10-05 08:49] LABS: BNP,B-Type NATRIURETIC PEPTIDE 270.2 pg/mL (0-100)
--- NOTE | 2023-10-05 09:31 | PCM.HP.STD ---
HPI - General General Date of Admission: 10/05/23 Date of Service: 10/05/23 Chief Complaint: Worsening shortness of breath HPI Narrative TOLU MONTANA, is a 83 M who presented to [facility] ED on 10/04/2023 with worsening shortness of breath. Patient seen at bedside in the ED, niece present. Patient had received a breathing treatment prior to my interview and stated he felt moderately better after this. On my interview, patient was satting in the low to mid 90s on 4L NC. He did not have any increased work of breathing. He did have mild wheezing in upper airways bilaterally but otherwise has fairly good air movement throughout in both lungs, slightly worse on right. His HR was consistently in the 110s-120s. Patient denied feeling any palpitations. Stated his URI symptoms started about 2 days ago. He reports a cough with wheezing during that time but no productive sputum. Denies any subjective fevers/chills at home. Has a pulse ox at home and saw that his saturations were in the mid 80s on his home 3 L, so he called the squad to bring him in. He otherwise denies any chest pain, abdominal pain/discomfort, lightheadedness or dizziness. No other acute concerns at this time. [facility] Medical History Alcohol abuse COPD exacerbation Dyspnea Essential (primary) hypertension Incomplete right bundle branch block Near syncope Nicotine dependence Nonsustained paroxysmal supraventricular tachycardia Nonsustained ventricular tachycardia Palpitations Paroxysmal atrial fibrillation Peripheral vascular disease Weakness Home Medications multivitamin 1 tab PO DAILY supplement 01/27/18 [History Last Taken 10/04/23 12:00 1 TAB] Handicap Parking Placard #1 ea 10/05/22 [Rx Last Taken Unknown] albuterol sulfate 90 mcg/actuation aerosol inhaler (Proventil HFA) 2 puff inhalation Q4H PRN Wheezing 03/01/23 [History Last Taken Unknown] budesonide-formoterol HFA 160 mcg-4.5 mcg/actuation aerosol inhaler 2 puff inhalation BID shortness of breath 03/01/23 [History Last Taken 10/05/23] apixaban 5 mg tablet (Eliquis) 5 mg PO BID #60 tabs 05/13/23 [Rx Last Taken 10/05/23 5 mg] metoprolol succinate 100 mg tablet,extended release 24 hr 100 mg PO BID #60 tabs 05/13/23 [Rx Last Taken 10/05/23 100 mg] potassium chloride 10 mEq tablet,extended release 20 meq (2 x 10 mEq) PO DAILY supplement #180 tabs 05/13/23 [Rx Last Taken 10/03/23 12:00 20 mEq] torsemide 10 mg tablet 10 mg PO DAILY fluid #90 tabs 05/13/23 [Rx Last Taken 10/03/23 00:00 10 mg] albuterol sulfate 2.5 mg/3 mL (0.083 %) solution for nebulization 2.5 mg continuous nebulization Q6H PRN shortness of breath 10/05/23 [History Last Taken 10/04/23] amlodipine 10 mg tablet 10 mg PO DAILY blood pressure 10/05/23 [History Last Taken 10/04/23 12:00 10 mg] Allergy/AdvReac Type Severity Reaction Status Date / Time atenolol AdvReac Intermediate Made me Verified 10/05/23 07:48 feel terrible digoxin AdvReac Intermediate Digitoxicit Verified 10/05/23 07:48 y Family History Other Sudden cardiac Surgical History History of herniorrhaphy Social History household members: none Smoking Status: Former smoker alcohol intake: never substance use type: does not use caffeine: Yes Type: coffee Number of servings: 3 ROS Constitutional Constitutional: Reports fatigue and weakness; Denies chills or fever(s) Eyes Eyes: Denies change in vision ENT HEENT: Reports sinus pressure and sore throat; Denies dysphagia, nasal congestion or nasal discharge Cardiovascular Cardiovascular: Reports dyspnea on exertion; Denies chest pain, edema, lightheadedness or palpitations Respiratory/Chest Respiratory/Chest: Reports cough, shortness of breath at rest, shortness of breath with exertion and wheezing; Denies productive cough Gastrointestinal Gastrointestinal: Denies abdominal pain Genitourinary Genitourinary: Denies dysuria Musculoskeletal Musculoskeletal: Denies arthralgias or back pain Neurologic Neurologic: Denies dizziness, focal weakness, headache(s), numbness or paresthesias Vital Signs Vital Signs Vital Signs: 10/05/23 07:42 10/05/23 07:48 10/05/23 07:52 Temperature 98.4 F 98.4 F Temperature Source Temporal Temporal Pulse Rate 121 H 117 H Respiratory Rate 20 H 20 H Respiratory Effort Respiratory Depth Respiratory Pattern Blood Pressure 145/75 H 145/75 H Blood Pressure Mean 98 98 Pulse Ox 96 97 Oxygen Delivery Method Nasal Cannula Nasal Cannula Nasal Cannula Oxygen Flow Rate (L/min) 4 4 4 10/05/23 07:58 10/05/23 08:09 10/05/23 08:48 Temperature 98.4 F Temperature Source Temporal Pulse Rate 118 H 109 H Respiratory Rate 20 H 20 H Respiratory Effort Short of Breath Respiratory Depth Shallow Respiratory Pattern Normal Blood Pressure 122/65 H 124/68 H Blood Pressure Mean 84 86 Pulse Ox 96 98 Oxygen Delivery Method Nasal Cannula Nasal Cannula Nasal Cannula Oxygen Flow Rate (L/min) 4 4 10/05/23 08:48 10/05/23 09:19 10/05/23 08:07 Temperature 98.4 F Temperature Source Temporal Pulse Rate 108 H 109 H 116 H Respiratory Rate 20 H 20 H 20 H Respiratory Effort Respiratory Depth Respiratory Pattern Blood Pressure 124/68 H 124/68 H Blood Pressure Mean 86 86 Pulse Ox 98 98 Oxygen Delivery Method Nasal Cannula Nasal Cannula Oxygen Flow Rate (L/min) 4 4 Weight Weight: 66.2 kg Body Mass Index (BMI) 23.6 Physical Exam Const alert, oriented x3 and no apparent distress Constitutional Narrative: Elderly male, chronically ill-appearing, thin and somewhat cachectic appearing, sitting up in bed, conversing normally, appears mildly anxious but otherwise in no acute distress. General Appearance: cooperative HEENT normocephalic, head/scalp atraumatic, hearing grossly normal bilaterally, nasal mucous membranes and turbinates normal and moist oral mucous membranes Eyes PERRL, EOMs intact bilaterally and conjunctivae normal Neck full ROM, no lymphadenopathy and supple Lymph Lymphatic: no lymphadenopathy noted Chest inspection of chest normal Resp Resp Narrative: Satting in low to mid 90s on 4L NC at rest, no increased work of breathing noted. Mild wheezing in bilateral upper lungs. Otherwise decent breath sounds throughout, mildly worse on right. Cardio no murmurs and peripheral pulses 2+ throughout Cardio Narrative: Afib with RVR. GI normal to inspection, nondistended, normoactive bowel sounds, soft to palpation, non-tender and non-distended Back/Spine normal ROM Extremity normal to inspection, full ROM and no pedal edema Skin no rashes or lesions noted Neuro moves all extremities and no focal motor deficits Speech: speech normal Psych Mood & Affect: anxious Results Lab / Micro Data 10/05/23 07:56 10/05/23 07:56 Labs: Laboratory Results - last 24 hr 10/05/23 07:56: WBC 6.6, RBC 4.58 L, Hgb 14.6, Hct 45.4, MCV 99.1 H, MCH 31.9, MCHC 32.2, RDW Std Deviation 47.4 H, RDW Coeff of Matt 13.1, Plt Count 183, MPV 11.3, Immature Gran % (Auto) 0.300, Neut % (Auto) 62.7, Lymph % (Auto) 20.9, [place] % (Auto) 14.4 H, Eos % (Auto) 1.4, Baso % (Auto) 0.3, Absolute Neuts (auto) 4.1, Absolute Lymphs (auto) 1.37, Nucleated RBC % 0, Sodium 141, Potassium 4.0, Chloride 106, Carbon Dioxide 33.0 H, Anion Gap 2 L, BUN 18, Creatinine 0.79, Estim Creat Clear Calc 49.62, Est GFR (MDRD) Af Amer 120, Est GFR (MDRD) Non-Af 99, BUN/Creatinine Ratio 22.8 H, Glucose 117 H, Lactic Acid 0.5, Calcium 9.3, B-Natriuretic Peptide 270.2 H Micro: Microbiology 10/05/23 07:50 Nasal Secretion SARS-CoV-2 & FLU Antigen (Rapid) - Final ABG Data ABG results: ABG 10/05/23 08:04 Specimen Type FARHAT Sample Site Not entered VBG pH 7.40 VBG pO2 54 H VBG HCO3 30 H VBG Total CO2 31 VBG O2 Sat (Calc) 87 H VBG Base Excess 5 H POC Mix VBG pCO2 Pt Tmp 47.9 O2 Delivery Device Not entered Clinical Comments 4lpm Rhythm Strip Rhythm Strip: A-fib Rate: 120 Imagaing Radiology Impression Chest X-Ray 10/05/23 08:35 IMPRESSION: Hyperinflation. Patchy bibasilar infiltrates worse on the right side superimposed on bibasilar scarring. Electronically Signed: Buddy Dave MD at 9:14 EST , Assessment & Plan Assessment/Plan (1) Atrial fibrillation with RVR: (2) Acute exacerbation of chronic obstructive pulmonary disease: PLAN: Plan Patient is an 83 year old male who presented to [facility] ED on 10/04/2023 with worsening shortness of breath. 1. Acute exacerbation of COPD, acute hypoxia in setting of chronic respiratory failure on home 3L O2 Etiology of exacerbation suspected to be likely viral or bacterial URI infection. Symptom onset 2 days prior to admit. Wheezy and dyspneic in the ED, oxygenation improved and patient subjectively improved with a breathing treatment. CXR showed hyperinflation, patchy bibasilar infiltrates worse on right side superimposed on bibasilar scarring. WBC count 6, afebrile, mild Afib w/ RVR, BP normal on admit. COVID and flu negative. Notably does have previous sputum culture from 03/2023 that grew pansensitive Pseudomonas. - Admit under inpatient status to [facility]. Continue Levaquin, IV steroids and scheduled duonebs for COPD exacerbation. Follow up sputum cx, respiratory PCR panel. Wean supplemental O2 as able. Continue home long-acting inhaler. 2. Afib with RVR Mild RVR to HR 110s-120 on admit, presumed secondary to COPD exacerbation as noted above. Home meds of Toprol 100 mg BID, Eliquis 5 mg BID. - Continue home Toprol and Eliquis. Monitor telemetry. Treat COPD exacerbation as noted above. 3. Debility Patient lives at home on his own in a single story home. Has niece that assists him regularly. Use a cane at baseline. Reports generally worsening debility over the past several months, worse in the last few days. - PT/OT/CM consulted. Chronic medical conditions: - Hypertension: Continue home amlodipine, Toprol, Lasix and potassium supplement. DVT prophylaxis: Eliquis Code status: DNRCCA, DO NOT INTUBATE Expected disposition: Home with home health care, 2-3 days Total clinical time spent by myself addressing the patient's medical issues, reviewing all the data, and collaborating with patient's care team: 35 minutes.
--- NOTE | 2023-10-05 09:34 | NURSING ---
DR KELLOGG FOR DR ROCA
--- NOTE | 2023-10-05 09:47 | NURSING ---
MED SURG MOSTELLER COPD EXAC
[2023-10-05] MEDS: levoFLOXacin IV 500 MG/100 ML BAG 100 MG IV (10:04)
[2023-10-05] MEDS: APIXABAN 5 MG TABLET PO ×2 (11:38→20:02)
[2023-10-05] MEDS: Metoprolol(XL)Succ 100 MG Tablet PO ×2 (11:38→20:01)
[2023-10-05] MEDS: 0.9% Saline Lock 10 ML Syringe IV ×2 (13:59→20:05)
[2023-10-05] MEDS: Budesonide Respules 0.5 MG/2 ML AMPUL.NEB. INHALATION (16:25)
[2023-10-05] MEDS: Ipratropium/Albuterol Sulfate 3 ML AMPUL.NEB INHALATION ×2 (16:25→20:32)
[2023-10-05] MEDS: levoFLOXacin IV 750 MG/150 ML BAG 100 MG IV (19:57)
[2023-10-05] MEDS: Menthol/Lanolin/Calamine/Znox 113 GM Tube 1 APPLIC TOPICAL (20:00)
[2023-10-05] MEDS: MELATONIN 3 MG TABLET PO (20:10)
[2023-10-05] MEDS: 0.9% Normal Saline (250mL Bag) 250 ML 15 ML IV (20:10)
[2023-10-05] MEDS: Furosemide 20 MG Tablet PO (23:35)
[2023-10-06] VITALS (17 sets, daily range): BP systolic 105–129; BP diastolic 67–89; PULSE 57–140; RESP 18–22; TEMP 36.6–37; O2SAT 92–97
[2023-10-06] MEDS: 0.9% Saline Lock 10 ML Syringe IV ×4 (05:09→21:49)
[2023-10-06] MEDS: Ipratropium/Albuterol Sulfate 3 ML AMPUL.NEB INHALATION ×4 (07:12→19:34)
[2023-10-06] MEDS: Budesonide Respules 0.5 MG/2 ML AMPUL.NEB. INHALATION ×2 (07:12→19:34)
[2023-10-06 08:16] LABS: Mean Corp Hgb Conc 31.7 g/dL (32-36); Mean Corpuscular Volume 97.9 fL (80-94); Mean Platelet Vol. 11.8 fl (6.2-12.0); Platelet Count 186 K/mm3 (150-450); Red Blood Count 4.19 M/mm3 (4.6-6.2); White Blood Count 8.9 K/mm3 (4.4-11.0)
[2023-10-06 08:42] LABS: Anion Gap 5 (5-15); BUN 30 mg/dL (7-18); BUN/Creat Ratio 30.7 RATIO (10-20); Calcium,Total 8.8 mg/dL (8.5-10.1); Chloride 107 mmol/L (98-107); Creatinine, Serum 0.98 mg/dL (0.70-1.30); EST Glomerular Filtration Rate 78 mL/min (>60); Est Glom Filt Rate - Afr Amer 94 mL/min (>60); Estimated Creatinine Clearance 50.63 ml/min; Glucose 157 mg/dL (74-106); Potassium 3.9 mmol/L (3.5-5.1); Sodium Level 142 mmol/L (136-145)
[2023-10-06] MEDS: Potassium Chloride Oral Tablet 20 MEQ PO (09:12)
[2023-10-06] MEDS: amLODIPine 10 MG Tablet PO (09:12)
[2023-10-06] MEDS: Furosemide 20 MG Tablet PO (09:12)
[2023-10-06] MEDS: APIXABAN 5 MG TABLET PO ×2 (09:12→21:49)
[2023-10-06] MEDS: Metoprolol(XL)Succ 100 MG Tablet PO ×2 (09:12→21:48)
[2023-10-06] MEDS: Multivitamins,Therapeutic Tablet 1 TABLET PO (09:12)
[2023-10-06] MEDS: Menthol/Lanolin/Calamine/Znox 113 GM Tube 1 APPLIC TOPICAL ×2 (10:46→21:49)
[2023-10-06] MEDS: Flu Vacc QS2023-24(65YR UP)/PF 240 MCG/0.7 ML Syringe IM (10:46)
[2023-10-06] MEDS: Metoprolol Tartrate 5 MG/5 ML Vial IV (11:06)
--- NOTE | 2023-10-06 11:30 | CASEMGMT ---
Addendum entered by Bob Esparza 10/07/23 12:18: Gillian @ [facility] made aware pt is not discharging today. She states SOC slated for Wednesday now. This was changed in discharge plan. Pt made aware [facility] able to accept w/SOC slated for Wednesday. Addendum entered by Bob Esparza 10/07/23 09:51: 10/06 @ 3:50 PM: [facility] able to accept pt w/SOC slated for Wednesday, pending pt is discharged by . Original Note: RN?CM?LEARNING OFFICER?CM?to room to meet with patient for initial transition planning/care coordination?assessment.?RN?CM?introduced self and role at [facility].? Pt voices understanding and consents to?assessment?at this time.? Pt resting in bed in no distress at this time.? Pt is A/O at this time and answers all questions appropriately.?? Care providers, pharmacy, and demographics verified/updated at this time. PCP: Dr Christy Specialists: YAMILE/Dr Escalona-cardiology Preferred Pharmacy:[facility] Insurance: [place] [employer] Prescription Benefit:?Yes LNOK: Nieces Krissy and Karol Living Arrangements: Lives alone in one-story home w/basement and ramp entrance. Pt states he rarely has to go to the basement. Pt states he is independent w/ADL's and manages his own medications. Nieces get his groceries. Pt reports the dowel setting machine operator dep't calls him daily @ 11 AM to check on him. Transportation:?Pt, niece DME: ?States has the following DME:?cane, nebulizer, pulse ox, O2 @ 2 l/m from [employer]. Pt states he has been wearing it up to 4 l/m recently. Has concentrator and portability and niece can bring it in @ discharge for him to go home on. Pt has a walker, but does not use it. Pt does not have a medical alert button and does not want information on one. Pt states no need for further DME at this time.? HHC/SNF: No hx of either. Discussed discharge planning. Pt wishes to discharge home and interested in HHC. HHC list provided to pt that was prepared by planner schedulerTracey. Pt chooses [facility] as his 1st preference. Call placed to Radha @ [facility] and referral made. Palliative: Discussed Palliative care. Pt declines wanting a referral. Pt wishes to return home and states has no concerns with going home at time of discharge.? ?CM?to follow for any increase in home oxygen needs and any further discharge planning/needs.? Pt voices no further concerns/needs at this time.? Advised pt to ask for?CM?if any further questions/concerns/needs arise.? Voices understanding. PLAN:??Home w/HHC. Follow for any increase in O2 needs. Rico BSN?RN?CM
--- NOTE | 2023-10-06 12:04 | CASEMGMT ---
Discharge Planning A list of?HH providers including quality and resource use data and consistent with the patient's preferred geographic region, medical needs, and insurance network was created in [employer] Guide.? This list was provided to the RN JOURDAN. Tracey Guerra, Discharge Planning Asst.
--- NOTE | 2023-10-06 15:21 | WOUNDNOTE ---
Was asked to see patient for dry skin to bilateral lower legs and feet. patient does have dry flaky skin, but does not appear to be extreme. Lotion can be applied as needed. no need for wound care at this time.
--- NOTE | 2023-10-06 15:27 | CASEMGMT ---
Social Work SW met with pt to discuss advance directives.? Pt confirms she has completed a living will and health care POA naming her Milan Catalan. Pt notified that documents are not on file at [facility] and SW requested they be brought in for scanning into the EMR.? DONNY Godinez
--- NOTE | 2023-10-06 16:49 | PN.HOSP_ITS ---
Reason for Visit Reason for Visit: Diagnoses Unspecified atrial fibrillation (10/05/23) Chronic obstructive pulmonary disease with (acute) exacerbation (10/05/23) Subjective Subjective Patient seen at bedside this morning. Sitting comfortably in bed, conversing normally, in no acute distress. Appears similar today to yesterday, no increased work of breathing noted on exam. However, patient states he has significant shortness of breath on exertion, was hardly able to walk a few feet without getting winded. States the breathing treatments have been helpful for him. He continues to have a dry cough. Patient notably is positive for RSV, which explains his acute COPD exacerbation and symptoms. Patient has no other acute concerns at this time. Objective Data Objective Data Vital Signs: Vital Signs Temp Pulse Resp BP Pulse Ox O2 Del Method O2 Flow Rate 98.2 F 101 H 22 H 118/67 96 Nasal Cannula 4 10/06/23 14:10 10/06/23 14:58 10/06/23 14:58 10/06/23 14:10 10/06/23 14:10 10/06/23 14:14 10/06/23 14:14 Oxygen Flow Rate (L/min) 4 Oxygen Delivery Method Nasal Cannula Weight: 64 kg Body Mass Index (BMI) 22.7 Intake & Output: Intake and Output for Last 24 Hours 10/04/23 10/05/23 10/06/23 23:59 23:59 23:59 Intake Total 935 / 935 0 / 0 Output Total 150 / 150 Balance 785 / 785 0 / 0 Lab / Micro Data 10/06/23 07:14 10/06/23 07:14 Labs: Laboratory Results - last 24 hr 10/06/23 07:14: WBC 8.9, RBC 4.19 L, Hgb 13.0, Hct 41.0, MCV 97.9 H, MCH 31.0, MCHC 31.7 L, RDW Std Deviation 46.0 H, RDW Coeff of Matt 13.0, Plt Count 186, MPV 11.8, Sodium 142, Potassium 3.9, Chloride 107, Carbon Dioxide 30.0, Anion Gap 5, BUN 30 H, Creatinine 0.98, Estim Creat Clear Calc 50.63, Est GFR (MDRD) Af Amer 94, Est GFR (MDRD) Non-Af 78, BUN/Creatinine Ratio 30.7 H, Glucose 157 H, Calcium 8.8 Micro: Microbiology 10/06/23 00:16 Mucosa - Nasopharyngeal Respiratory Panel (PCR) - Final RSV A 10/05/23 07:50 Nasal Secretion SARS-CoV-2 & FLU Antigen (Rapid) - Final Rhythm Strip Rhythm Strip: A-fib Rate: 120 Physical Exam Const alert, oriented x3 and no apparent distress Constitutional Narrative: Elderly male, chronically ill-appearing, thin and somewhat cachectic appearing, sitting up in bed, conversing normally, appears mildly anxious but otherwise in no acute distress. General Appearance: cooperative HEENT normocephalic, head/scalp atraumatic, hearing grossly normal bilaterally, nasal mucous membranes and turbinates normal and moist oral mucous membranes Eyes PERRL, EOMs intact bilaterally and conjunctivae normal Neck full ROM, no lymphadenopathy and supple Lymph Lymphatic: no lymphadenopathy noted Chest inspection of chest normal Resp Resp Narrative: Satting in low to mid 90s on 4L NC at rest, no increased work of breathing noted. Mild wheezing in bilateral upper lungs. Otherwise decent breath sounds throughout, mildly worse on right. Cardio no murmurs and peripheral pulses 2+ throughout Cardio Narrative: Afib with RVR. GI normal to inspection, nondistended, normoactive bowel sounds, soft to palpation, non-tender and non-distended Back/Spine normal ROM Extremity normal to inspection, full ROM and no pedal edema Skin no rashes or lesions noted Neuro moves all extremities and no focal motor deficits Speech: speech normal Psych Mood & Affect: anxious Assessment & Plan Assessment/Plan (1) Atrial fibrillation with RVR: (2) Acute exacerbation of chronic obstructive pulmonary disease: PLAN: Plan Patient is an 83 year old male who presented to [facility] ED on 10/04/2023 with worsening shortness of breath. 1. Acute exacerbation of COPD, acute hypoxia in setting of chronic respiratory failure on home 3L O2, RSV infection Etiology of exacerbation suspected to be likely viral or bacterial URI infection. Symptom onset 2 days prior to admit. Wheezy and dyspneic in the ED, oxygenation improved and patient subjectively improved with a breathing treatment. CXR showed hyperinflation, patchy bibasilar infiltrates worse on right side superimposed on bibasilar scarring. WBC count 6, afebrile, mild Afib w/ RVR, BP normal on admit. COVID and flu negative. Notably does have previous sputum culture from 03/2023 that grew pansensitive Pseudomonas. RSV positive. Unable to produce sputum sample to this point. ? Continue IV steroids, scheduled DuoNebs for COPD exacerbation. Will continue Levaquin empirically and plan to treat with 7-day course. Wean supplemental O2 as able. Continue home long-acting inhaler. Patient still requiring significantly more oxygen with exertion than his baseline, will need to show improvement with this prior to discharge. 2. Afib with RVR Mild RVR to HR 110s-120 on admit, presumed secondary to COPD exacerbation as noted above. Home meds of Toprol 100 mg BID, Eliquis 5 mg BID. Has intermittently had worsening of A-fib to the 130s, blood pressure remained stable. - Continue home Toprol and Eliquis, IV Lopressor 5 mg every 6 as needed added for heart rate greater than 130. Monitor telemetry. Treat COPD exacerbation as noted above. 3. Debility Patient lives at home on his own in a single story home. Has niece that assists him regularly. Use a cane at baseline. Reports generally worsening debility over the past several months, worse in the last few days. - PT/OT/CM consulted. Likely plan for home with home health care on discharge. Chronic medical conditions: - Hypertension: Continue home amlodipine, Toprol, Lasix and potassium supplement. DVT prophylaxis: Marcin Code status: DNRCCA, DO NOT INTUBATE Expected disposition: Home with home health care, 2-3 days Total clinical time spent by myself addressing the patient's medical issues, reviewing all the data, and collaborating with patient's care team: 35 minutes. Charges/Coding Visit Charges Inpatient E&M: 41783 Subs Hosp L2
[2023-10-06] MEDS: levoFLOXacin IV 750 MG/150 ML BAG 100 MG IV (22:05)
[2023-10-07] VITALS (13 sets, daily range): BP systolic 112–130; BP diastolic 74–77; PULSE 63–125; RESP 18–24; TEMP 36.4–36.9; O2SAT 92–97
[2023-10-07] MEDS: 0.9% Saline Lock 10 ML Syringe IV ×2 (04:22→14:25)
[2023-10-07] MEDS: Ipratropium/Albuterol Sulfate 3 ML AMPUL.NEB INHALATION ×3 (07:17→15:41)
[2023-10-07] MEDS: Budesonide Respules 0.5 MG/2 ML AMPUL.NEB. INHALATION ×2 (07:17→19:46)
[2023-10-07 07:43] LABS: Hematocrit 38.5 % (40-54); Hemoglobin 12.2 g/dL (13.0-16.5); Mean Corp Hgb Conc 31.7 g/dL (32-36); Mean Corpuscular Hgb 31.1 pg (27.0-32.0); Mean Corpuscular Volume 98.2 fL (80-94); Mean Platelet Vol. 11.8 fl (6.2-12.0); Platelet Count 197 K/mm3 (150-450); RBC Distribution Width CV 13.2 % (11.6-14.6); RBC Distribution Width SD 47.5 fl (35.1-43.9); Red Blood Count 3.92 M/mm3 (4.6-6.2); White Blood Count 11.7 K/mm3 (4.4-11.0)
[2023-10-07 08:14] LABS: Anion Gap 4 (5-15); BUN 33 mg/dL (7-18); BUN/Creat Ratio 41.4 RATIO (10-20); Calcium,Total 8.3 mg/dL (8.5-10.1); Chloride 111 mmol/L (98-107); EST Glomerular Filtration Rate 98 mL/min (>60); Est Glom Filt Rate - Afr Amer 119 mL/min (>60); Estimated Creatinine Clearance 62.03 ml/min; Glucose 131 mg/dL (74-106); Potassium 4.3 mmol/L (3.5-5.1); Sodium Level 143 mmol/L (136-145)
[2023-10-07] MEDS: Potassium Chloride Oral Tablet 20 MEQ PO (09:31)
[2023-10-07] MEDS: APIXABAN 5 MG TABLET PO ×2 (09:31→21:22)
[2023-10-07] MEDS: Furosemide 20 MG Tablet PO (09:31)
[2023-10-07] MEDS: amLODIPine 10 MG Tablet PO (09:31)
[2023-10-07] MEDS: Metoprolol(XL)Succ 100 MG Tablet PO ×2 (09:31→21:23)
[2023-10-07] MEDS: Multivitamins,Therapeutic Tablet 1 TABLET PO (09:31)
[2023-10-07] MEDS: Menthol/Lanolin/Calamine/Znox 113 GM Tube 1 APPLIC TOPICAL ×2 (09:31→21:23)
--- NOTE | 2023-10-07 14:26 | PN.HOSP_ITS ---
Reason for Visit Reason for Visit: Diagnoses Unspecified atrial fibrillation (10/05/23) Chronic obstructive pulmonary disease with (acute) exacerbation (10/05/23) Subjective Subjective Patient seen at bedside this morning. Sitting comfortably bedside chair, conversing normally, no acute distress. Patient states he continues to have moderate shortness of breath with exertion but does feel considerably better since admission. Feels like he is getting closer to his baseline. Has been tolerating treatments well. Appetite is been good. He is hoping to go home tomorrow if able. No other acute concerns this morning. Objective Data Objective Data Vital Signs: Vital Signs Temp Pulse Resp BP Pulse Ox O2 Del Method O2 Flow Rate 98.5 F 69 18 124/74 H 92 Nasal Cannula 4 10/07/23 09:30 10/07/23 11:35 10/07/23 11:35 10/07/23 09:30 10/07/23 09:41 10/07/23 09:41 10/07/23 09:41 Oxygen Flow Rate (L/min) 4 Oxygen Delivery Method Nasal Cannula Weight: 64 kg Body Mass Index (BMI) 22.7 Intake & Output: Intake and Output for Last 24 Hours 10/05/23 10/06/23 10/07/23 23:59 23:59 23:59 Intake Total 935 / 935 150 / 150 Output Total 150 / 150 Balance 785 / 785 150 / 150 Lab / Micro Data 10/07/23 07:02 10/07/23 07:02 Labs: Laboratory Results - last 24 hr 10/07/23 07:02: WBC 11.7 H, RBC 3.92 L, Hgb 12.2 L, Hct 38.5 L, MCV 98.2 H, MCH 31.1, MCHC 31.7 L, RDW Std Deviation 47.5 H, RDW Coeff of Matt 13.2, Plt Count 197, MPV 11.8, Sodium 143, Potassium 4.3, Chloride 111 H, Carbon Dioxide 28.0, Anion Gap 4 L, BUN 33 H, Creatinine 0.80, Estim Creat Clear Calc 62.03, Est GFR (MDRD) Af Amer 119, Est GFR (MDRD) Non-Af 98, BUN/Creatinine Ratio 41.4 H, Glucose 131 H, Calcium 8.3 L Micro: Microbiology 10/06/23 16:45 Sputum, Expectorated/Coughed Gram Stain - Final 10/06/23 00:16 Mucosa - Nasopharyngeal Respiratory Panel (PCR) - Final RSV A 10/05/23 07:50 Nasal Secretion SARS-CoV-2 & FLU Antigen (Rapid) - Final Rhythm Strip Rhythm Strip: A-fib Rate: 120 Physical Exam Const alert, oriented x3 and no apparent distress Constitutional Narrative: Elderly male, chronically ill-appearing, thin and somewhat cachectic appearing, sitting up in bedside chair, conversing normally, no acute distress. General Appearance: cooperative HEENT normocephalic, head/scalp atraumatic, hearing grossly normal bilaterally, nasal mucous membranes and turbinates normal and moist oral mucous membranes Eyes PERRL, EOMs intact bilaterally and conjunctivae normal Neck full ROM, no lymphadenopathy and supple Lymph Lymphatic: no lymphadenopathy noted Chest inspection of chest normal Resp Resp Narrative: Satting in mid 90s on 3L NC at rest, no increased work of breathing noted. No wheezing or crackles noted. Improved breath sounds bilaterally. Cardio no murmurs and peripheral pulses 2+ throughout Cardio Narrative: Afib, rate controlled. GI normal to inspection, nondistended, normoactive bowel sounds, soft to palpation, non-tender and non-distended Back/Spine normal ROM Extremity normal to inspection, full ROM and no pedal edema Skin no rashes or lesions noted Neuro moves all extremities and no focal motor deficits Speech: speech normal Psych Mood & Affect: anxious Assessment & Plan Assessment/Plan (1) Atrial fibrillation with RVR: (2) Acute exacerbation of chronic obstructive pulmonary disease: PLAN: Plan Patient is an 83 year old male who presented to [facility] ED on 10/04/2023 with worsening shortness of breath. 1. Acute exacerbation of COPD, acute hypoxia in setting of chronic respiratory failure on home 3L O2, RSV infection Etiology of exacerbation suspected to be likely viral or bacterial URI infection. Symptom onset 2 days prior to admit. Wheezy and dyspneic in the ED, oxygenation improved and patient subjectively improved with a breathing treatment. CXR showed hyperinflation, patchy bibasilar infiltrates worse on right side superimposed on bibasilar scarring. WBC count 6, afebrile, mild Afib w/ RVR, BP normal on admit. COVID and flu negative. Notably does have previous sputum culture from 03/2023 that grew pansensitive Pseudomonas. RSV positive. Unable to produce sputum sample to this point. ? Patient showing signs of improvement. Continue IV steroids, scheduled DuoNebs for COPD exacerbation for now. Will continue Levaquin empirically and plan to treat with 7-day course. Continue home long-acting inhaler. Planning for O2 ambulatory testing tomorrow morning to determine home-going oxygen needs, with hopeful discharge tomorrow. 2. Afib with RVR, improving Mild RVR to HR 110s-120 on admit, presumed secondary to COPD exacerbation as noted above. Home meds of Toprol 100 mg BID, Eliquis 5 mg BID. Has intermittently had worsening of A-fib to the 130s, blood pressure remained stabl e. - Continue home Toprol and Eliquis, IV Lopressor 5 mg every 6 as needed added for heart rate greater than 130. Monitor telemetry. Treat COPD exacerbation as noted above. 3. Debility Patient lives at home on his own in a single story home. Has niece that assists him regularly. Use a cane at baseline. Reports generally worsening debility over the past several months, worse in the last few days. - PT/OT/CM following. Planning for home with home health care on discharge. Chronic medical conditions: - Hypertension: Continue home amlodipine, Toprol, Lasix and potassium supplement. DVT prophylaxis: Marcin Code status: DNRCCA, DO NOT INTUBATE Expected disposition: Home with home health care, tomorrow Total clinical time spent by myself addressing the patient's medical issues, reviewing all the data, and collaborating with patient's care team: 35 minutes. Charges/Coding Visit Charges Inpatient E&M: 88840 Subs Hosp L2
--- NOTE | 2023-10-07 15:43 | CASEMGMT ---
Social Work SW met with pt and discussed advance directives. Pt states that his Niece Karol Stauffer is the health care POA and she has brought documents in to the hospital. SW looked in pt's chart and pt's financial POA is on the chart but no HCPOA. Phone call to Karol Stauffer and SW updated that HCPOA is needed and Financial POA was brought in. Karol states she will bring in all of the paperwork she has from the commonwealth attorney for SW to make a copy. DONNY Godinez
--- NOTE | 2023-10-07 21:26 | CPS ---
[1946] Emmett held for pt. at this time due to active A-Fib with tachycardia.
[2023-10-07] MEDS: levoFLOXacin 750 MG Tablet PO (21:29)
[2023-10-08] VITALS (12 sets, daily range): BP systolic 118–136; BP diastolic 58–86; PULSE 106–149; RESP 16–20; TEMP 36.4–36.9; O2SAT 90–97
[2023-10-08] MEDS: 0.9% Saline Lock 10 ML Syringe IV ×4 (05:41→22:19)
[2023-10-08] MEDS: Budesonide Respules 0.5 MG/2 ML AMPUL.NEB. INHALATION ×2 (07:49→19:28)
[2023-10-08] MEDS: Ipratropium/Albuterol Sulfate 3 ML AMPUL.NEB INHALATION ×3 (07:49→19:28)
[2023-10-08 08:14] LABS: Hematocrit 40.7 % (40-54); Hemoglobin 13.3 g/dL (13.0-16.5); Mean Corp Hgb Conc 32.7 g/dL (32-36); Mean Corpuscular Hgb 32.5 pg (27.0-32.0); Mean Corpuscular Volume 99.5 fL (80-94); Mean Platelet Vol. 11.8 fl (6.2-12.0); Platelet Count 204 K/mm3 (150-450); RBC Distribution Width CV 13.4 % (11.6-14.6); RBC Distribution Width SD 49.1 fl (35.1-43.9); Red Blood Count 4.09 M/mm3 (4.6-6.2); White Blood Count 10.4 K/mm3 (4.4-11.0)
[2023-10-08 08:37] LABS: Anion Gap 3 (5-15); BUN 32 mg/dL (7-18); Calcium,Total 8.5 mg/dL (8.5-10.1); Chloride 109 mmol/L (98-107); Creatinine, Serum 0.74 mg/dL (0.70-1.30); EST Glomerular Filtration Rate 106 mL/min (>60); Est Glom Filt Rate - Afr Amer 129 mL/min (>60); Estimated Creatinine Clearance 49.62 ml/min; Glucose 141 mg/dL (74-106); Sodium Level 143 mmol/L (136-145)
[2023-10-08] MEDS: Furosemide 20 MG Tablet PO (09:46)
[2023-10-08] MEDS: Multivitamins,Therapeutic Tablet 1 TABLET PO (09:46)
[2023-10-08] MEDS: APIXABAN 5 MG TABLET PO ×2 (09:46→22:20)
[2023-10-08] MEDS: Metoprolol(XL)Succ 100 MG Tablet PO ×2 (09:46→22:19)
[2023-10-08] MEDS: Menthol/Lanolin/Calamine/Znox 113 GM Tube 1 APPLIC TOPICAL ×2 (09:46→22:20)
[2023-10-08] MEDS: amLODIPine 10 MG Tablet PO (09:46)
[2023-10-08] MEDS: Potassium Chloride Oral Tablet 20 MEQ PO (09:46)
[2023-10-08] MEDS: Metoprolol Tartrate 5 MG/5 ML Vial IV (10:52)
--- NOTE | 2023-10-08 13:47 | PN.HOSP_ITS ---
Reason for Visit Reason for Visit: Diagnoses Unspecified atrial fibrillation (10/05/23) Chronic obstructive pulmonary disease with (acute) exacerbation (10/05/23) Subjective Subjective Patient seen at bedside this morning. Sitting comfortably in bed, conversing normally, no acute distress. When asked if he was ready to go home, patient stated that he continues to feel quite short of breath with exertion and notes that his heart rate spikes without much movement. He does feel better from admission but is still wary about going home at this point. Denies any fevers or chills. Denies any cough or sputum production. No other acute concerns morning. Objective Data Objective Data Vital Signs: Vital Signs Temp Pulse Resp BP Pulse Ox O2 Del Method O2 Flow Rate 97.9 F 116 H 16 135/70 H 96 Nasal Cannula 4 10/08/23 09:40 10/08/23 11:21 10/08/23 11:21 10/08/23 09:40 10/08/23 11:21 10/08/23 11:21 10/08/23 11:21 Oxygen Flow Rate (L/min) [ 4 AMBULATING with Oxygen #1] Oxygen Flow Rate (L/min) [At 4 REST with Oxygen] Oxygen Flow Rate (L/min) 4 Oxygen Delivery Method Nasal Cannula Weight: 64 kg Body Mass Index (BMI) 22.7 Intake & Output: Intake and Output for Last 24 Hours 10/06/23 10/07/23 10/08/23 23:59 23:59 23:59 Intake Total 150 / 150 Balance 150 / 150 Lab / Micro Data 10/08/23 07:05 10/08/23 07:05 Labs: Laboratory Results - last 24 hr 10/08/23 07:05: WBC 10.4, RBC 4.09 L, Hgb 13.3, Hct 40.7, MCV 99.5 H, MCH 32.5 H , MCHC 32.7, RDW Std Deviation 49.1 H, RDW Coeff of Matt 13.4, Plt Count 204, MPV 11.8, Sodium 143, Potassium 4.0, Chloride 109 H, Carbon Dioxide 31.0, Anion Gap 3 L, BUN 32 H, Creatinine 0.74, Estim Creat Clear Calc 49.62, Est GFR (MDRD) Af Amer 129, Est GFR (MDRD) Non-Af 106, BUN/Creatinine Ratio 43.0 H, Glucose 141 H, Calcium 8.5 Micro: Microbiology 10/06/23 16:45 Sputum, Expectorated/Coughed Gram Stain - Final 10/06/23 16:45 Sputum, Expectorated/Coughed Respiratory Culture - Preliminary Presumptive C albicans 10/06/23 00:16 Mucosa - Nasopharyngeal Respiratory Panel (PCR) - Final RSV A 10/05/23 07:50 Nasal Secretion SARS-CoV-2 & FLU Antigen (Rapid) - Final Rhythm Strip Rhythm Strip: A-fib Rate: 120 Physical Exam Const alert, oriented x3 and no apparent distress Constitutional Narrative: Elderly male, chronically ill-appearing, thin and somewhat cachectic appearing, sitting up in bedside chair, conversing normally, no acute distress. General Appearance: cooperative HEENT normocephalic, head/scalp atraumatic, hearing grossly normal bilaterally, nasal mucous membranes and turbinates normal and moist oral mucous membranes Eyes PERRL, EOMs intact bilaterally and conjunctivae normal Neck full ROM, no lymphadenopathy and supple Lymph Lymphatic: no lymphadenopathy noted Chest inspection of chest normal Resp Resp Narrative: Satting in mid 90s on 3L NC at rest, no increased work of breathing noted. No wheezing or crackles noted. Improved breath sounds bilaterally. Cardio no murmurs and peripheral pulses 2+ throughout Cardio Narrative: Afib, rate controlled. GI normal to inspection, nondistended, normoactive bowel sounds, soft to palpation, non-tender and non-distended Back/Spine normal ROM Extremity normal to inspection, full ROM and no pedal edema Skin no rashes or lesions noted Neuro moves all extremities and no focal motor deficits Speech: speech normal Psych Mood & Affect: anxious Assessment & Plan Assessment/Plan (1) Atrial fibrillation with RVR: (2) Acute exacerbation of chronic obstructive pulmonary disease: PLAN: Plan Patient is an 83 year old male who presented to [facility] ED on 10/04/2023 with worsening shortness of breath. 1. Acute exacerbation of COPD, acute hypoxia in setting of chronic respiratory failure on home 3L O2, RSV infection RSV plus possible bacterial infection are presumed cause of exacerbation. Symptom onset 2 days prior to admit. CXR showed hyperinflation, patchy bibasilar infiltrates worse on right side superimposed on bibasilar scarring. WBC count 6, afebrile, mild Afib w/ RVR, BP normal on admit. COVID and flu negative. Notably does have previous sputum culture from 03/2023 that grew pansensitive Pseudomonas. RSV positive. Sputum sample with only Tara albicans growing. ? Patient with improvement at rest but continues to have significant dyspnea with exertion. Continue IV steroids, scheduled Komal Sharma. Continue home long-acting inhaler. Failed home O2 ambulatory evaluation on 10/08, will repeat tomorrow. 2. Afib with RVR, improving Mild RVR to HR 110s-120 on admit, presumed secondary to COPD exacerbation as noted above. Home meds of Toprol 100 mg BID, Eliquis 5 mg BID. Has intermittently had worsening of A-fib to the 130s, blood pressure remained stable. - Continue home Toprol and Eliquis, IV Lopressor 5 mg every 6 as needed added for heart rate greater than 130. Monitor telemetry. Treat COPD exacerbation as noted above. 3. Debility Patient lives at home on his own in a single story home. Has niece that assists him regularly. Use a cane at baseline. Reports generally worsening debility over the past several months, worse in the last few days. - PT/OT/CM following. Planning for home with home health care on discharge. Chronic medical conditions: - Hypertension: Continue home amlodipine, Toprol, Lasix and potassium supplement. DVT prophylaxis: Marcin Code status: DNRCCA, DO NOT INTUBATE Expected disposition: Home with home health care, 1 to 2 days Total clinical time spent by myself addressing the patient's medical issues, reviewing all the data, and collaborating with patient's care team: 35 minutes. Charges/Coding Visit Charges Inpatient E&M: 67908 Subs Hosp L2
--- NOTE | 2023-10-08 15:11 | CASEMGMT ---
TC ha French at [facility], she is aware pt is not dc'ing today. Green sheet on chart for oxygen for increase in rx.
[2023-10-08] MEDS: levoFLOXacin 750 MG Tablet PO (22:20)
[2023-10-09] VITALS (9 sets, daily range): BP systolic 126–153; BP diastolic 71–86; PULSE 84–136; RESP 18–22; TEMP 36.5–36.8; O2SAT 91–98
[2023-10-09] MEDS: Metoprolol Tartrate 5 MG/5 ML Vial IV (02:57)
[2023-10-09] MEDS: Budesonide Respules 0.5 MG/2 ML AMPUL.NEB. INHALATION (06:56)
[2023-10-09] MEDS: Ipratropium/Albuterol Sulfate 3 ML AMPUL.NEB INHALATION ×2 (06:56→10:50)
[2023-10-09] MEDS: Multivitamins,Therapeutic Tablet 1 TABLET PO (08:17)
[2023-10-09] MEDS: predniSONE 20 MG Tablet 40 MG PO (08:17)
[2023-10-09] MEDS: Furosemide 20 MG Tablet PO (10:02)
[2023-10-09] MEDS: Potassium Chloride Oral Tablet 20 MEQ PO (10:03)
[2023-10-09] MEDS: Metoprolol(XL)Succ 100 MG Tablet PO (10:03)
[2023-10-09] MEDS: APIXABAN 5 MG TABLET PO (10:03)
[2023-10-09] MEDS: amLODIPine 10 MG Tablet PO (10:03)
[2023-10-09] MEDS: Menthol/Lanolin/Calamine/Znox 113 GM Tube 1 APPLIC TOPICAL (10:03)
[2023-10-09] MEDS: Albuterol 2.5 MG/3 ML VIAL.NEB. INHALATION (15:01)
--- NOTE | 2023-10-09 16:00 | DCINST_ITS ---
Discharge Instructions Diet Discharge Diet: No restrictions Activity Discharge Activity: No Restrictions Weight Bearing Status: Full weight bearing Follow Up Care Please Follow Up With: Maulik Christy MD When: As needed Test Results: Test results from this visit will be discussed in further detail at your follow- up appointment, if applicable. Pending Tests Upon Discharge: None Discharge Plan Admission Admit Date/Time: 10/05/23 09:35 Primary Reason for Your Visit: Worsening shortness of breath Attending Provider: Berhane Mejia Primary Care Provider: Maulik Christy Instructions Additional Instructions / Restrictions: Please take prednisone taper as follows: ? 40 mg for 3 days, followed by 30 mg for 3 days, followed by 20 mg for 3 days, then off steroids. Take 2 more days of levofloxacin to complete a 7-day course of antibiotics. Continue all other home medications as normal. Follow-up with your primary care doctor as needed. Discharge Orders/Prescriptions Prescriptions: New prednisone 20 mg tablet 40 mg PO DAILY 3 Days Qty: 6 0RF prednisone 10 mg tablet 30 mg PO DAILY 3 Days Qty: 9 0RF prednisone 20 mg tablet 20 mg PO DAILY 3 Days Qty: 3 0RF levofloxacin 750 mg tablet 750 mg PO DAILY 2 Days Qty: 2 0RF Continued multivitamin tablet 1 tab PO DAILY albuterol sulfate [Proventil HFA] 90 mcg/actuation HFA aerosol inhaler 2 puff INHALATION Q4H PRN (Reason: Wheezing) budesonide-formoterol 160-4.5 mcg/actuation HFA aerosol inhaler 2 puff INHALATION BID albuterol sulfate 2.5 mg /3 mL (0.083 %) solution for nebulization 2.5 mg continuous nebulization Q6H PRN (Reason: shortness of breath ) amlodipine 10 mg tablet 10 mg PO DAILY (DME) Handicap Parking Placard See Rx Instructions .Route .MEDSUPPLY Qty: 1 0RF Rx Instructions: As directed Eliquis 5 mg tablet 5 mg PO BID Qty: 60 11RF metoprolol succinate 100 mg tablet extended release 24 hr 100 mg PO BID Qty: 60 11RF torsemide 10 mg tablet 10 mg PO DAILY Qty: 90 3RF potassium chloride 10 mEq tablet extended release 20 meq PO DAILY Qty: 180 3RF Referrals / Follow Up: Maulik Christy MD [Primary Care Provider] - Disposition Disposition (needs filled in before D/C Order can be placed): Home Health Service
--- NOTE | 2023-10-09 16:04 | PCM.DC.SUM ---
Providers Date of Admission: 10/05/23 Date of Discharge: 10/09/23 Primary Care Physician: Dr. Maulik Christy MD Consultations 10/05/23 18:48 Consult: Onc/Wound/food technologist Routine Comment: Reason for Consult:: JULY FEET AND LOWER LEGS Comments:: VERY DRY SKIN Reason For Visit: COPD EXCERBATION Diagnosis Discharge Diagnosis (1) Atrial fibrillation with RVR: Status: Acute Code(s): I48.91 - Unspecified atrial fibrillation (2) Acute exacerbation of chronic obstructive pulmonary disease: Status: Chronic Code(s): J44.1 - Chronic obstructive pulmonary disease with (acute) exacerbation Medications at Discharge Home Medications multivitamin 1 tab PO DAILY supplement 01/27/18 Handicap Parking Placard #1 ea 10/05/22 albuterol sulfate 90 mcg/actuation aerosol inhaler (Proventil HFA) 2 puff inhalation Q4H PRN Wheezing 03/01/23 budesonide-formoterol HFA 160 mcg-4.5 mcg/actuation aerosol inhaler 2 puff inhalation BID shortness of breath 03/01/23 apixaban 5 mg tablet (Eliquis) 5 mg PO BID #60 tabs 05/13/23 metoprolol succinate 100 mg tablet,extended release 24 hr 100 mg PO BID #60 tabs 05/13/23 potassium chloride 10 mEq tablet,extended release 20 meq (2 x 10 mEq) PO DAILY supplement #180 tabs 05/13/23 torsemide 10 mg tablet 10 mg PO DAILY fluid #90 tabs 05/13/23 albuterol sulfate 2.5 mg/3 mL (0.083 %) solution for nebulization 2.5 mg continuous nebulization Q6H PRN shortness of breath 10/05/23 amlodipine 10 mg tablet 10 mg PO DAILY blood pressure 10/05/23 levofloxacin 750 mg tablet 750 mg PO DAILY 2 days #2 tabs 10/09/23 prednisone 10 mg tablet 30 mg (3 x 10 mg) PO DAILY 3 days #9 tabs 10/09/23 prednisone 20 mg tablet 20 mg PO DAILY 3 days #3 tabs 10/09/23 prednisone 20 mg tablet 40 mg (2 x 20 mg) PO DAILY 3 days #6 tabs 10/09/23 Hospital Course Operations None Procedures - (Chest x-ray) Summary of Care Provided Minutes Spent on Discharge: 35 Hospital Course: Patient is an 83 year old male who presented to [facility] ED on 10/04/2023 with worsening shortness of breath. Hospital course as noted below. Patient stable for home with home health care on 10/09. 1. Acute exacerbation of COPD, acute hypoxia in setting of chronic respiratory failure on home 3L O2, RSV infection RSV plus possible bacterial infection are presumed cause of exacerbation. Symptom onset 2 days prior to admit. CXR showed hyperinflation, patchy bibasilar infiltrates worse on right side superimposed on bibasilar scarring. WBC count 6, afebrile, mild Afib w/ RVR, BP normal on admit. COVID and flu negative. Notably does have previous sputum culture from 03/2023 that grew pansensitive Pseudomonas. RSV positive. Sputum sample with only Tara albicans growing. ? Patient showed significant improvement at rest during admission. Maintained good oxygen saturations with exertion but continued to have moderate dyspnea with exertion despite several days of treatment; suspect this is due to deconditioning and will take some time at home for patient to fully recover. Treated with IV steroids, Levaquin, scheduled DuoNebs while inpatient. Discharged on prednisone taper as follows?40 mg x 3 days, followed by 30 mg x 3 days, followed by 20 mg x 3 days, then off. Discharged on Levaquin to complete 7-day course total. Continued home long-acting inhaler. 2. Afib with RVR, improving Mild RVR to HR 110s-120 on admit, presumed secondary to COPD exacerbation as noted above. Home meds of Toprol 100 mg BID, Eliquis 5 mg BID. Has intermittently had worsening of A-fib to the 130s, blood pressure remained stable. ? Patient did continue to have heart rate elevations to the 140s and 150s with exertion throughout admission. Suspect this is largely due to deconditioning. Rate appropriately controlled at rest. Continued home Toprol and Eliquis on discharge. Suspect patient's heart rate with exertion will improve in time. 3. Debility Patient lives at home on his own in a single story home. Has niece that assists him regularly. Use a cane at baseline. Reports generally worsening debility over the past several months, worse in the last few days. - PT/OT/CM followed. Stable for discharge home with home health care. Chronic medical conditions: - Hypertension: Continued home amlodipine, Toprol, Lasix and potassium supplement. Total clinical time spent by myself addressing the patient's discharge needs: 35 minutes. Physical Exam Const alert, oriented x3 and no apparent distress Constitutional Narrative: Elderly male, chronically ill-appearing, thin and somewhat cachectic appearing, sitting up in bedside chair, conversing normally, no acute distress. General Appearance: cooperative and comfortable HEENT normocephalic, head/scalp atraumatic, hearing grossly normal bilaterally, nasal mucous membranes and turbinates normal and moist oral mucous membranes Eyes PERRL, EOMs intact bilaterally and conjunctivae normal Neck full ROM, no lymphadenopathy and supple Lymph Lymphatic: no lymphadenopathy noted Chest inspection of chest normal Resp Resp Narrative: Satting in mid 90s on 3L NC at rest, no increased work of breathing noted. No wheezing or crackles noted. Improved breath sounds bilaterally. Cardio regular rate, regular rhythm, no murmurs and peripheral pulses 2+ throughout Cardio Narrative: Afib, rate controlled. GI normal to inspection, nondistended, normoactive bowel sounds, soft to palpation, non-tender and non-distended Back/Spine normal ROM Extremity normal to inspection, full ROM and no pedal edema Skin no rashes or lesions noted Neuro moves all extremities and no focal motor deficits Speech: speech normal Psych mental status grossly normal Mood & Affect: anxious Weight / BMI Weight Weight: 64 kg Body Mass Index (BMI) 22.7 ABG / Lab / Microbiology Data 10/08/23 07:05 10/08/23 07:05 Microbiology: Microbiology 10/06/23 16:45 Sputum, Expectorated/Coughed Gram Stain - Final 10/06/23 16:45 Sputum, Expectorated/Coughed Respiratory Culture - Preliminary Presumptive C albicans GNR Poss Pseudomonas sp 10/06/23 00:16 Mucosa - Nasopharyngeal Respiratory Panel (PCR) - Final RSV A 10/05/23 07:50 Nasal Secretion SARS-CoV-2 & FLU Antigen (Rapid) - Final D/C Instructions Discharge Diet: No restrictions Weight Bearing Status: Full weight bearing Pending Tests Upon Discharge: None Please Follow Up With: Maulik Christy MD When: As needed Meaningful Use Info Meaningful Use Diagnoses (Choose all that apply): None applicable Discharge Plan Admission Admit Date/Time: 10/05/23 09:35 Primary Reason for Your Visit: Worsening shortness of breath Attending Provider: Berhane Mejia Primary Care Provider: Maulik Christy Instructions Additional Instructions / Restrictions: Please take prednisone taper as follows: ? 40 mg for 3 days, followed by 30 mg for 3 days, followed by 20 mg for 3 days, then off steroids. Take 2 more days of levofloxacin to complete a 7-day course of antibiotics. Continue all other home medications as normal. Follow-up with your primary care doctor as needed. Discharge Orders/Prescriptions Prescriptions: New prednisone 20 mg tablet 40 mg PO DAILY 3 Days Qty: 6 0RF prednisone 10 mg tablet 30 mg PO DAILY 3 Days Qty: 9 0RF prednisone 20 mg tablet 20 mg PO DAILY 3 Days Qty: 3 0RF levofloxacin 750 mg tablet 750 mg PO DAILY 2 Days Qty: 2 0RF Continued multivitamin tablet 1 tab PO DAILY albuterol sulfate [Proventil HFA] 90 mcg/actuation HFA aerosol inhaler 2 puff INHALATION Q4H PRN (Reason: Wheezing) budesonide-formoterol 160-4.5 mcg/actuation HFA aerosol inhaler 2 puff INHALATION BID albuterol sulfate 2.5 mg /3 mL (0.083 %) solution for nebulization 2.5 mg continuous nebulization Q6H PRN (Reason: shortness of breath ) amlodipine 10 mg tablet 10 mg PO DAILY (DME) Handicap Parking Placard See Rx Instructions .Route .MEDSUPPLY Qty: 1 0RF Rx Instructions: As directed Eliquis 5 mg tablet 5 mg PO BID Qty: 60 11RF metoprolol succinate 100 mg tablet extended release 24 hr 100 mg PO BID Qty: 60 11RF torsemide 10 mg tablet 10 mg PO DAILY Qty: 90 3RF potassium chloride 10 mEq tablet extended release 20 meq PO DAILY Qty: 180 3RF Referrals / Follow Up: Maulik Christy MD [Primary Care Provider] - Disposition Disposition (needs filled in before D/C Order can be placed): Home Health Service Charges/Coding Visit Charges Inpatient E&M: 64372 Disch Hosp >30min
== END 2023-10-09 16:30 | disposition home health service (06) | DRG 191 ==
LOC: ED 09:38 → MS3 10:10
PROVIDERS: Admitting Provider Hospitalist; Emergency Provider Emergency Medicine; PCP Family Medicine; Visit Provider Hospitalist
DX: J44.1 Chronic obstructive pulmonary disease with (acute) exacerbation (principal); J96.10 Chronic respiratory failure, unspecified whether with hypoxia or hypercapnia; B97.4 Respiratory syncytial virus as the cause of diseases classified elsewhere; R54 Age-related physical debility; I48.0 Paroxysmal atrial fibrillation; I10 Essential (primary) hypertension; Z99.81 Dependence on supplemental oxygen; Z66 Do not resuscitate; Z79.01 Long term (current) use of anticoagulants; Z79.51 Long term (current) use of inhaled steroids; Z79.899 Other long term (current) drug therapy; Z87.891 Personal history of nicotine dependence; Z23 Encounter for immunization
CPT/HCPCS: 36415; 71046; 80048; 82803; 83605; 83880; 85025; 85027; 87070; 87077; 87184; 87186; 87205; 87428; 87633; 93005; 94640; 94668; 97116; 97162; 97166; 97530; 97535; 97802; 99285; J7050; 90662; A4216

== ENCOUNTER 2023-10-11 00:16 | Inpatient (IN) | payer MEDICARE, SELFPAY ==
[2023-10-11] VITALS (32 sets, daily range): BP systolic 84–142; BP diastolic 55–88; PULSE 57–139; RESP 17–26; TEMP 36.4–37.1; O2SAT 92–98; BMI 25.0; BMI 23.7
--- NOTE | 2023-10-11 00:40 | RAD_ITS ---
INDICATION: sob EXAMINATION: Frontal view of the chest COMPARISON: Chest x-ray October 05, 2023. FINDINGS: Frontal view of the chest was obtained. Suboptimal inspiration. The cardiac silhouette is not enlarged. Chronic interstitial changes are similar to the prior exam. Possible superimposed mild acute opacities in the lower lobes bilaterally. No pneumothorax. RAD/Chest 1 View (Portable) IMPRESSION: Chronic interstitial changes with possible superimposed mild acute opacities in the lower lobes. These could represent atelectasis, mild infection or aspiration. Electronically Signed: Saw Tipton MD at 2:08 EST ,
[2023-10-11 00:51] LABS: Absolute Neutrophil Count 11.2 X10^3/uL (2.0-7.7); Basophil# 0.04 X10^3/uL; Basophil% 0.3 % (0-1); Hematocrit 42.7 % (40-54); Hemoglobin 13.7 g/dL (13.0-16.5); Lymphocyte % 6.9 % (19-41); Mean Corp Hgb Conc 32.1 g/dL (32-36); Mean Corpuscular Hgb 31.1 pg (27.0-32.0); Mean Platelet Vol. 11.8 fl (6.2-12.0); Monocyte# 0.82 X10^3/uL; Monocyte% 6.3 % (0-10); NRBC Flagged by Analyzer 0 % (0-5); Neutrophil # 11.21 X10^3/uL (2.7-7.7); Neutrophil % 85.6 % (47-70); Platelet Count 248 K/mm3 (150-450); RBC Distribution Width CV 13.2 % (11.6-14.6); RBC Distribution Width SD 47.2 fl (35.1-43.9); White Blood Count 13.1 K/mm3 (4.4-11.0)
--- NOTE | 2023-10-11 00:58 | CT_ITS ---
EXAM: CT brain without IV contrast. HISTORY: dysquilibrium TECHNIQUE: No intravenous contrast. A radiation dose optimization technique was used for this scan. COMPARISON: CT head June 14, 2023. LIMITATIONS: None. BRAIN: Mild involutional change. Moderate low attenuation bilaterally within the deep white matter, likely secondary to chronic microvascular ischemia. VENTRICLES: No hydrocephalus. EXTRA-AXIAL SPACES: No acute hemorrhage. CALVARIUM/SKULL BASE: No acute fracture. FACE/SINUSES: The maxillary sinuses are completely opacified bilaterally, similar to the prior exam. Mucosal thickening and/or fluid in the frontal and right ethmoid sinuses is mildly improved since prior study. SOFT TISSUES: Normal. OTHER: None. CONCLUSION: No acute intracranial abnormality. Extensive paranasal sinus disease. Electronically Signed: Saw Tipton MD at 3:01 EST , CT/Brain/Head without Contrast IMPRESSION: undefined
--- NOTE | 2023-10-11 00:59 | EKG12_ITS ---
Test Reason : SOB Blood Pressure : / mmHG Vent. Rate : 143 BPM Atrial Rate : 147 BPM P-R Int : 144 ms QRS Dur : 112 ms QT Int : 320 ms P-R-T Axes : 053 -66 069 degrees QTc Int : 493 ms Critical Test Result: High HR Sinus tachycardia with Premature supraventricular complexes and with occasional Premature ventricular complexes Left axis deviation Incomplete right bundle branch block Abnormal ECG Confirmed by TYRONE WILSON, CORINNE ([id number]), newspaper editor YENI GALVIN ([id number]) on 10/11/2023 1:14:04 PM Referred By: Duran Lopez Confirmed By:CORINNE HANSEN MD
[2023-10-11 01:09] LABS: Anion Gap 4 (5-15); BUN 32 mg/dL (7-18); BUN/Creat Ratio 35.5 RATIO (10-20); Calcium,Total 8.8 mg/dL (8.5-10.1); Chloride 105 mmol/L (98-107); EST Glomerular Filtration Rate 85 mL/min (>60); Est Glom Filt Rate - Afr Amer 103 mL/min (>60); Estimated Creatinine Clearance 55.14 ml/min; Glucose 144 mg/dL (74-106); Potassium 3.5 mmol/L (3.5-5.1); Sodium Level 141 mmol/L (136-145)
[2023-10-11] MEDS: dilTIAZem 25 MG/5 ML Vial 15 MG IV BOLUS ×2 (01:10→04:14)
[2023-10-11] MEDS: Meclizine HCl 25 MG Tablet PO (01:11)
--- NOTE | 2023-10-11 01:16 | EX.ED.DYSGE1 ---
HPI History of Present Illness Chief Complaint: Shortness of Breath Narrative Narrative: Patient presents by EMS for acute disequilibrium/off-balance, and shortness of breath. He was just discharged from the hospital after being admitted for RSV plus or minus bacterial pneumonia causing a COPD exacerbation and A-fib with RVR. He was on 3 L of oxygen at home now he is on 4. He states his breathing has been no worse generally speaking since he was discharged home yesterday, but he states with any light exertion he is very winded. Tonight after doing some nebulizer treatments, he got up from the couch and suddenly felt off balance like his legs were going 1 way and he was falling another way but denies feeling rg spinning. He did feel some type of dizziness in his head, and states that his hearing has seemed a little worse today although it is chronically bad. He states he called EMS for this reason because he was feeling very poorly and having trouble focusing his vision on an object due to this feeling which she has not had before. Denies any tinnitus or earache. He is on antibiotics and prednisone which she has been following. He states when EMS came and got him to the cot he got very out of breath. Denies any chest discomfort or feeling his heart racing. [facility] Medical History Alcohol abuse COPD exacerbation Dyspnea Essential (primary) hypertension Incomplete right bundle branch block Near syncope Nicotine dependence Nonsustained paroxysmal supraventricular tachycardia Nonsustained ventricular tachycardia Palpitations Paroxysmal atrial fibrillation Peripheral vascular disease Weakness Home Medications multivitamin 1 tab PO DAILY supplement 01/27/18 [History Last Taken 10/04/23 12:00 1 TAB] Handicap Parking Placard #1 ea 10/05/22 [Rx Last Taken Unknown] budesonide-formoterol HFA 160 mcg-4.5 mcg/actuation aerosol inhaler 2 puff inhalation BID shortness of breath 03/01/23 [History Last Taken 10/05/23] apixaban 5 mg tablet (Eliquis) 5 mg PO BID #60 tabs 05/13/23 [Rx Last Taken 10/05/23 5 mg] metoprolol succinate 100 mg tablet,extended release 24 hr 100 mg PO BID #60 tabs 05/13/23 [Rx Last Taken 10/05/23 100 mg] potassium chloride 10 mEq tablet,extended release 20 meq (2 x 10 mEq) PO DAILY supplement #180 tabs 05/13/23 [Rx Last Taken 10/03/23 12:00 20 mEq] torsemide 10 mg tablet 10 mg PO DAILY fluid #90 tabs 05/13/23 [Rx Last Taken 10/03/23 00:00 10 mg] albuterol sulfate 2.5 mg/3 mL (0.083 %) solution for nebulization 2.5 mg continuous nebulization Q6H PRN shortness of breath 10/05/23 [History Last Taken 10/04/23] amlodipine 10 mg tablet 10 mg PO DAILY blood pressure 10/05/23 [History Last Taken 10/04/23 12:00 10 mg] levofloxacin 750 mg tablet 750 mg PO DAILY 2 days #2 tabs 10/09/23 [Rx Last Taken Unknown] prednisone 10 mg tablet 30 mg (3 x 10 mg) PO DAILY 3 days #9 tabs 10/09/23 [Rx Last Taken Unknown] prednisone 20 mg tablet 20 mg PO DAILY 3 days #3 tabs 10/09/23 [Rx Last Taken Unknown] prednisone 20 mg tablet 40 mg (2 x 20 mg) PO DAILY 3 days #6 tabs 10/09/23 [Rx Last Taken Unknown] Allergy/AdvReac Type Severity Reaction Status Date / Time atenolol AdvReac Intermediate Made me Verified 10/11/23 00:16 feel terrible digoxin AdvReac Intermediate Digitoxicit Verified 10/11/23 00:16 y Family History Other Sudden cardiac Surgical History History of herniorrhaphy Social History household members: none Smoking Status: Former smoker alcohol intake: never substance use type: does not use caffeine: Yes Type: coffee Number of servings: 3 ROS ROS ED Constitutional Constitutional ED: Denies chills or fever(s) Eyes Eyes: Denies change in vision or diplopia ENT ENT ED: Reports as per HPI; Denies rhinorrhea or sore throat Cardiovascular Cardiovascular: Denies chest pain, palpitations or racing heartbeat Respiratory/Chest Respiratory/Chest: Reports cough and dyspnea Gastrointestinal Gastrointestinal: Denies abdominal pain, diarrhea, nausea or vomiting Genitourinary Genitourinary ED: Denies dysuria or hematuria Musculoskeletal Musculoskeletal: Denies back pain or neck pain Integumentary Denies abscess or rash Neurologic Neurologic: Reports as per HPI, disequilibrium and dizziness; Denies headache(s), paresthesias or weakness Psychiatric Psychiatric: Denies anxiety or suicidal thoughts EXAM Physical Exam Const Vital Signs: 10/11/23 00:17 10/11/23 00:21 10/11/23 00:44 Temperature 98.8 F Temperature Source Temporal Pulse Rate 139 H Respiratory Rate 19 H Respiratory Effort Short of Breath Respiratory Depth Shallow Respiratory Pattern Tachypnea Blood Pressure 142/81 H Blood Pressure Mean 101 Pulse Ox 94 Oxygen Delivery Method Nasal Cannula Nasal Cannula Nasal Cannula Oxygen Flow Rate (L/min) 4 4 4 10/11/23 00:44 10/11/23 02:16 10/11/23 03:07 Temperature Temperature Source Pulse Rate 120 H 118 H Respiratory Rate 23 H 22 H 20 H Respiratory Effort Respiratory Depth Respiratory Pattern Blood Pressure 102/80 119/86 H Blood Pressure Mean 87 97 Pulse Ox 93 95 94 Oxygen Delivery Method Nasal Cannula Nasal Cannula Nasal Cannula Oxygen Flow Rate (L/min) 4 4 4 Positive well nourished and well developed General Appearance ED: well developed and NAD HEENT Reports TM's clear and moist mucous membranes normocephalic and atraumatic Tympanic Membrane ED: Yes TM's clear Eyes PERRL and EOMs intact bilaterally Neck full ROM and supple Resp normal respiratory effort Resp Narrative: Few end expiratory wheezes, diminished throughout, otherwise clear. Speaking in full sentences. Cardio Rate: tachycardic Rhythm: abnormal rhythm irregularly irregular GI non-tender and non-distended Auscultation: normoactive bowel sounds Palpation: soft Back/Spine no CVA tenderness General Back: other FROM Extremity normal to inspection General Extremety ED: Yes edema; Negative for pulses abnormal or tenderness General Extremity: edema bilateral lower extremity Details: moderate; Negative for pulses abnormal Neuro oriented x3, CN's II-XII intact bilaterally and no sensory deficits noted Neuro Narrative: Normal [id number] and [id number] bilaterally. Attempted to perform jolt test given that patient is symptomatic with regards to trouble focusing on an object, however patient is not able to relax his head/neck musculature, limiting the test. No pathologic nonfatigable or vertical/rotatory nystagmus. Sensorium / Orientation: awake and alert Motor Exam: strength 5/5 throughout Skin no rashes or lesions noted and no wounds MDM MDM MDM Narrative Medical decision making narrative: The patient disequilibrium is most likely peripheral. It was triggered by motion change, he is better when at rest and worse when he tries to change positions. He is also in A-fib with RVR. We treated these with oral meclizine and IV diltiazem while working him up and obtaining a CT of the head. I think a stroke/central etiology is much less likely here especially since he is chronically anticoagulated on apixaban. CT of the head was unremarkable I reviewed the images and report which I agree with. Although this does not rule out central process, his history is more consistent with peripheral and after meclizine he is doing much better with regards to his dizziness and vision disturbance. More consistent with peripheral etiology. With regards to his A-fib with RVR, treated him with Cardizem 15 mg, he transiently went down to around 120, but on reevaluation he is back in the 140s. He is mildly dyspneic conversationally, but not requiring a nebulizer treatment here. Soon as he does he is likely to be even more tachycardic, and he states he is not able to get around at home without being very dyspneic, and I suspect his dyspnea this morning was more due to his A-fib with RVR rather than his infection/COPD. On my interpretation of his 1 view chest x-ray, it shows possible basilar infiltrates versus atelectasis, it is similar or improved compared with the prior film on my interpretation. Radiology did not provide significant insight on comparison views. Given all of this I think he will benefit from being readmitted to the hospital. Given another dose of Cardizem followed by [facility] and discussed with hospitalist. Lab Data Attestation: I reviewed the patient's lab results. Labs: Laboratory Results - last 24 hr 10/11/23 10/11/23 00:18 00:47 WBC 13.1 H RBC 4.40 L Hgb 13.7 Hct 42.7 MCV 97.0 H MCH 31.1 MCHC 32.1 RDW Std Deviation 47.2 H RDW Coeff of Matt 13.2 Plt Count 248 MPV 11.8 Immature Gran % (Auto) 0.900 Neut % (Auto) 85.6 H Lymph % (Auto) 6.9 L Carter % (Auto) 6.3 Eos % (Auto) 0.0 Baso % (Auto) 0.3 Absolute Neuts (auto) 11.2 H Absolute Lymphs (auto) 0.90 Nucleated RBC % 0 Sodium 141 Potassium 3.5 Chloride 105 Carbon Dioxide 32.0 Anion Gap 4 L BUN 32 H Creatinine 0.90 Estim Creat Clear Calc 55.14 Est GFR (MDRD) Af Amer 103 Est GFR (MDRD) Non-Af 85 BUN/Creatinine Ratio 35.5 H Glucose 144 H Calcium 8.8 Troponin I High Sens 13 Radiography Diagnostic Testing: Clinical Impression(s) from Imaging Studies Chest X-Ray 10/11/23 00:40 IMPRESSION: Chronic interstitial changes with possible superimposed mild acute opacities in the lower lobes. These could represent atelectasis, mild infection or aspiration. Electronically Signed: Saw Tipton MD at 2:08 EST , Brain CT 10/11/23 00:58 IMPRESSION: undefined Rhythm Strip Rhythm Strip: A-fib Rate: 140 Ectopy: PVC(s) EKG Initial EKG: Attestation: I personally reviewed and interpreted this EKG as follows: Interpretation: No Acute Injury Pattern, Atrial Fibrillation (w/ RVR 140's) and RBBB Prior EKG tracings: available for review Prior: Unchanged Management Discussion w/another healthcare provider: Hospitalist Discharge Plan Triage Chief Complaint: Shortness of Breath ED Provider: Duran Lopez Dx/Rx/DC Orders Clinical Impression: Acute respiratory insufficiency, Acute exacerbation of chronic obstructive pulmonary disease, Atrial fibrillation with RVR, Peripheral vertigo Prescriptions: No Action multivitamin tablet 1 tab PO DAILY budesonide-formoterol 160-4.5 mcg/actuation HFA aerosol inhaler 2 puff INHALATION BID albuterol sulfate 2.5 mg /3 mL (0.083 %) solution for nebulization 2.5 mg continuous nebulization Q6H PRN (Reason: shortness of breath ) amlodipine 10 mg tablet 10 mg PO DAILY prednisone 20 mg tablet 40 mg PO DAILY 3 Days Qty: 6 0RF prednisone 10 mg tablet 30 mg PO DAILY 3 Days Qty: 9 0RF prednisone 20 mg tablet 20 mg PO DAILY 3 Days Qty: 3 0RF levofloxacin 750 mg tablet 750 mg PO DAILY 2 Days Qty: 2 0RF (DME) Handicap Parking Placard See Rx Instructions .Route .MEDSUPPLY Qty: 1 0RF Rx Instructions: As directed Eliquis 5 mg tablet 5 mg PO BID Qty: 60 11RF metoprolol succinate 100 mg tablet extended release 24 hr 100 mg PO BID Qty: 60 11RF torsemide 10 mg tablet 10 mg PO DAILY Qty: 90 3RF potassium chloride 10 mEq tablet extended release 20 meq PO DAILY Qty: 180 3RF Primary Care Provider: Maulik Christy Referrals: Maulik Christy MD [Primary Care Provider] - Disposition Disposition: Acute Care Hospital [facility]
--- OUTSIDE RECORDS SUMMARY | 2023-10-11 01:17 | XMS RPT_ITS | CCD ---
Author Name Unknown Address [address] [place] [address] Organization [facility] Care Team Providers Care Telephone Advice Nurse Name Role Phone Piper YIP, Tracey Tyson Unavailable Unavailable Violetta Christy Unavailable Violetta Christy Unavailable Allergies Allergy Classification Reported Allergen(s) Allergy Type Date of Onset Reaction(s) Facility (3 sources) Atenolol Drug Allergy 01-26-2017 made me feel terrible [employer] Work Phone: Medications Completed/Discontinued Medications Medication Drug Class(es) Dates Sig (Normalized) Sig (Original) 200 actuat albuterol 0.09 mg/actuat metered dose inhaler (3 sources) beta2-Adrenergic Agonist Start: 02-12-2012 PROVENTIL HFA AERS 90 mcg/inh -2 puffs Q4H as needed ALBUTEROL SULFATE AERS [id number] Tracey Saldaña RN amLODIPine 5 mg oral tablet (3 sources) Dihydropyridine Calcium Channel David Start: 01-30-2016 take 1 tablet by mouth once daily AMLODIPINE BESYLATE 5 MG TABS One tablet by mouth daily AMLODIPINE BESYLATE [id number] Bharath Escalona MD aspirin 81 mg oral tablet (6 sources) Platelet Aggregation Inhibitor, Nonsteroidal Anti-inflammatory Drug Start: 12-22-2012 take 1 tablet by mouth once daily ASPIRIN 81 MG TABS One tablet by mouth daily ASPIRIN [id number] Bharath Escalona MD Problems Active Problems Problem Classification Problem Date Documented Date Episodic/Chronic Cardiac dysrhythmias (9 sources) Atrial flutter; Translations: [Paroxysmal supraventricular tachycardia] Onset: 02-12-2012 Resolved: 01-29-2016 01-29-2016 Chronic Chronic obstructive pulmonary disease and bronchiectasis (3 sources) Chronic obstructive lung disease; Translations: [Chronic obstructive pulmonary disease, unspecified] Onset: 02-12-2012 02-12-2012 Chronic Essential hypertension (3 sources) Hypertensive disorder; Translations: [Essential (primary) hypertension] Onset: 02-12-2012 02-12-2012 Chronic Peripheral and visceral atherosclerosis (3 sources) Peripheral vascular disease; Translations: [Peripheral vascular disease, unspecified] Onset: 02-12-2012 02-12-2012 Chronic Substance-related disorders (3 sources) Tobacco dependence syndrome; Translations: [Nicotine dependence, unspecified, uncomplicated] Onset: 02-12-2012 02-12-2012 Chronic Past or Other Problems Problem Classification Problem Date Documented Da te Episodic/Chronic Cardiac dysrhythmias (3 sources) Palpitations; Translations: [Palpitations] Onset: 01-29-2016 01-29-2016 Episodic Malaise and fatigue (3 sources) Asthenia; Translations: [Weakness] Onset: 01-30-2016 01-30-2016 Episodic Other lower respiratory disease (3 sources) Dyspnea; Translations: [Dyspnea, unspecified] Onset: 01-30-2016 01-30-2016 Episodic Residual codes; unclassified (3 sources) Family history of sudden ; Translations: [Family history of other specified conditions] 01-30-2016 Episodic Syncope (3 sources) Near syncope; Translations: [Syncope and collapse] Onset: 02-10-2016 02-10-2016 Episodic Results Test Name Value Interpretation Reference Range Facil ity Vital Signs Date Time Vital Sign Value Performing Clinician Zohra rogers 07-30-2017 14:40-0400 BMI (Body Mass Index) 23.96 kg/m2 Violetta Montanez [facility] Work Phone: 07-30-2017 14:40-0400 BP Diastolic 62 mm[Hg] Violetta [facility] Work Phone: 07-30-2017 14:40-0400 BP Systolic 160 mm[Hg] Violetta Montanez [facility] Work Phone: 07-30-2017 14:40-0400 Height 170.18 cm Violetta Montanez [employer] [facility] Work Phone: 07-30-2017 14:40-0400 Pulse (Heart Rate) 84 /min Violetta Christy [facility] Work Phone: 07-30-2017 14:40-0400 Respiratory Rate 20 /min [facility] Work Phone: 07-30-2017 14:40-0400 Weight 69.4 kg Violetta Christy [facility] Work Phone: 01-26-2017 15:09-0400 BMI (Body Mass Index) 24.15 kg/m2 Tracey Saldaña RN [facility] Work Phone: 01-26-2017 15:09-0400 BP Diastolic 60 mm[Hg] Tracey Saldaña RN [facility] Work Phone: 01-26-2017 15:09-0400 BP Systolic 140 mm[Hg] Tracey Saldaña RN [facility] Work Phone: 01-26-2017 15:09-0400 Height 170.18 cm Tracey Saldaña RN [facility] Work Phone: 01-26-2017 15:09-0400 Pulse (Heart Rate) 88 /min Tracey Saldaña RN [facility] Work Phone: 01-26-2017 15:09-0400 Respiratory Rate 24 /min Tracey Saldaña RN [facility] Work Phone: 01-26-2017 15:09-0400 Weight 69.95 kg Tracey Saldaña RN [facility] Work Phone: 07-28-2016 15:21-0400 BSA (Body Surface Area) 1.79 m2 Tracey Saldaña RN [facility] Work Phone: 01-30-2016 12:52-0400 Pulse Oximetry 97 % Tracey Saldaña RN [facility] Work Phone: Procedures Date Procedure Procedure Detail Performing Clinician Start: 07-30-2017 End: 07-30-2017 RIVETER HELPER Anna Kearns PA-C Work Phone: Start: 07-30-2017 End: 07-30-2017 Follow Up Appt 6 months Anna swain PA-C Work Phone: Start: 01-26-2017 End: 02-10-2017 Echocardiography Bharath Escalona MD Start: 01-26-2017 End: 07-14-2017 Follow Up Appt 6 months Agustin Marshall Start: 01-26-2017 End: 07-14-2017 MMAgustin Escalona MD Start: 07-28-2016 End: 07-28-2016 RIVETER HELPER Anna Kearns PA-C Work Phone: Start: 07-28-2016 End: 07-28-2016 Follow Up Appt 6 months Anna swain PA-C Work Phone: Start: 03-03-2016 End: 07-15-2016 [facility] mobile cv telemetry w/i&report 30 days Bharath Escalona MD Start: 02-10-2016 End: 02-13-2016 24 hour holter monitor Bharath Escalona MD Start: 01-30-2016 End: 01-30-2016 Follow Up Appt 6 months Agustin Marshall Start: 01-30-2016 End: 01-30-2016 MAVERICK Escalona MD Start: 12-22-2012 End: 12-22-2012 Follow Up Appt 6 months Agustin Marshall Start: 12-22-2012 End: 12-22-2012 MAVERICK Escalona MD Start: 05-24-2012 End: 05-24-2012 Follow Up Appt 6 months Agustin Marshall Start: 02-16-2012 End: 03-15-2012 Arterial exam Bharath Escalona MD Start: 02-16-2012 End: 03-02-2012 Echocardiography Bharath Escalona MD Start: 02-16-2012 End: 07-15-2016 Follow Up Appt 3 months Agustin Marshall Start: 02-16-2012 End: 03-02-2012 Nuclear stress test -adenosine Bharath Escalona MD Plan of Treatment Date Care Activity Detail Author Start: 01-27-2018 End: 01-27-2018 Appointment Appointment [facility] Work Phone: Start: 07-30-2017 End: 07-30-2017 Appointment Appointment [facility] Work Phone: Start: 07-30-2017 End: 07-30-2017 RIVETER HELPER RIVETER HELPER [facility] Work Phone: Start: 07-30-2017 End: 07-30-2017 Follow Up Appt 6 months Follow Up Appt 6 months [facility] Work Phone: Start: 01-26-2017 End: 01-26-2017 Echocardiography Echocardiogram (complete) [facility] Work Phone: Start: 01-26-2017 End: 07-14-2017 Follow Up Appt 6 months Follow Up Appt 6 months [facility] Work Phone: Start: 01-26-2017 End: 07-14-2017 MMM MMM [facility] Work Phone: Start: 07-28-2016 End: 07-28-2016 RIVETER HELPER RIVETER HELPER [facility] Work Phone: Start: 07-28-2016 End: 07-28-2016 Follow Up Appt 6 months Follow Up Appt 6 months [facility] Work Phone: Start: 03-03-2016 End: 03-04-2016 [facility] mobile cv telemetry w/i&report 30 days 30 Day Holter Monitor [facility] Work Phone: Start: 02-10-2016 End: 02-13-2016 24 hour holter monitor 24 hour holter monitor [facility] Work Phone: Start: 01-30-2016 End: 01-30-2016 Follow Up Appt 6 months Follow Up Appt 6 months [facility]iss[facility] arshad [employer] Work Phone: Start: 01-30-2016 End: 01-30-2016 MMM MMM [facility] Work Phone: Start: 12-22-2012 End: 12-22-2012 Follow Up Appt 6 months Follow Up Appt 6 months Lisseth arshad [employer] Work Phone: Start: 12-22-2012 End: 12-22-2012 MMM MMM [facility] Work Phone: Start: 05-24-2012 End: 05-24-2012 Follow Up Appt 6 months Follow Up Appt 6 months [facility] [employer] Work Phone: Start: 02-16-2012 End: 02-16-2012 Arterial exam Arterial exam [facility] Work Phone: Start: 02-16-2012 End: 02-16-2012 Echocardiography Echocardiogram (complete) [facility] Work Phone: Start: 02-16-2012 End: 07-15-2016 Follow Up Appt 3 months Follow Up Appt 3 months [facility] arshad [employer] Work Phone: Start: 02-16-2012 End: 02-16-2012 Nuclear stress test -adenosine Nuclear stress test -adenosine [facility] Work Phone: Additional Source Comments FOR RECORDS PERTAINING TO PATIENTS WHO ARE OR HAVE BEEN ENROLLED IN A CHEMICAL DEPENDENCY/SUBSTANCEABUSE PROGRAM, SOME INFORMATION MAY BE OMITTED. This clinical summary was aggregated from multiple sources. Caution should be exercised in using it in the provision of clinical care. This summary normalizes information from multiple sources, and as a consequence, information in this document may materially change the coding, format and clinical context of patient data. In addition, data may be omitted in some cases. CLINICAL DECISIONS SHOULD BE BASED ON THE PRIMARY CLINICAL RECORDS. [employer] provides no warranty or guarantee of the accuracy or completeness of information in this document.
[2023-10-11 01:37] LABS: Troponin-I HS 13 pg/mL (3.0-78.0)
--- NOTE | 2023-10-11 04:12 | PCM.HP.STD ---
HPI - General General Date of Admission: 10/11/23 Date of Service: 10/11/23 Chief Complaint: Dyspnea, recurrent racing heart, vertigo/easiness disequilibrium sensation. HPI Narrative The patient is an 83 y/o M w/ PMHx: EtOH abuse, PAF, NSVT, Tobacco use, HTN, Former tobacco use, recent admission 10/05/2023-10/09/2023 with treatment of acute on chronic COPD exacerbation with chronic hypoxic respiratory failure with acute hypoxia requiring patient's oxygen to increase to 4 L instead of his baseline 3 L nasal cannula secondary to RSV infection and concern for superimposed bacterial infection treated with IV steroids, Levaquin, DuoNeb therapy discharged on prednisone taper as well as completion Levaquin for planned 7-day course complicated by atrial fibrillation with RVR continued on Toprol and Eliquis with patient with frequently episodes of RVR during his recent presentation secondary to aerosol usage and his his exacerbation who now re-presents to the [facility] ED on 10/11/23 with history of increased dyspnea since his recent discharge with acute disequilibrium and noted to feel off balance reportedly getting up tonight off his couch to self treat with nebulizers however he felt suddenly dizzy with a spinning sensation with his hearing specifically feeling worse on day of presentation prompting EMS call. Workup in the ED included T98.8, heart rate 139, BP 142/81, respiratory rate 19, 94% on 4 L nasal cannula which is what patient was recently discharged on--> rate improved with IV diltiazem however intermittently increasing upward now again at 118, CBC with WBC 13.1, hemoglobin 13.7, platelet 248 with left shift, BMP with BUN/creatinine 32/0.90, glucose 144, troponin 13, rapid SARS COVID antigen negative, EKG with atrial fibrillation with RVR, CT of the brain with no acute intracranial abnormality with extensive paranasal sinus disease noted, chest x-ray with chronic insertional changes with possible superimposed mild acute opacities in the lower lobes possibly atelectasis versus mild infection versus aspiration with recent 10/05/2023 chest x-ray with hyperinflation with patchy bibasilar infiltrates worse on the right side superimposed on bibasilar scarring. In the ED patient administered meclizine 25 mg p.o. x 1 as well as diltiazem 50 mg IV x 2 eventually now placed on Cardizem drip. [facility] Medical History Chronic hypoxic respiratory failure COPD (chronic obstructive pulmonary disease) Essential (primary) hypertension History of ETOH abuse Incomplete right bundle branch block Nonsustained paroxysmal supraventricular tachycardia Nonsustained ventricular tachycardia Paroxysmal atrial fibrillation Peripheral vascular disease Tobacco use Home Medications multivitamin 1 tab PO DAILY supplement 01/27/18 [History Last Taken 10/04/23 12:00 1 TAB] Handicap Parking Placard #1 ea 10/05/22 [Rx Last Taken Unknown] budesonide-formoterol HFA 160 mcg-4.5 mcg/actuation aerosol inhaler 2 puff inhalation BID shortness of breath 03/01/23 [History Last Taken 10/05/23] apixaban 5 mg tablet (Eliquis) 5 mg PO BID #60 tabs 05/13/23 [Rx Last Taken 10/05/23 5 mg] metoprolol succinate 100 mg tablet,extended release 24 hr 100 mg PO BID #60 tabs 05/13/23 [Rx Last Taken 10/05/23 100 mg] potassium chloride 10 mEq tablet,extended release 20 meq (2 x 10 mEq) PO DAILY supplement #180 tabs 05/13/23 [Rx Last Taken 10/03/23 12:00 20 mEq] torsemide 10 mg tablet 10 mg PO DAILY fluid #90 tabs 05/13/23 [Rx Last Taken 10/03/23 00:00 10 mg] albuterol sulfate 2.5 mg/3 mL (0.083 %) solution for nebulization 2.5 mg continuous nebulization Q6H PRN shortness of breath 10/05/23 [History Last Taken 10/04/23] amlodipine 10 mg tablet 10 mg PO DAILY blood pressure 10/05/23 [History Last Taken 10/04/23 12:00 10 mg] levofloxacin 750 mg tablet 750 mg PO DAILY 2 days #2 tabs 10/09/23 [Rx Last Taken Unknown] prednisone 10 mg tablet 30 mg (3 x 10 mg) PO DAILY 3 days #9 tabs 10/09/23 [Rx Last Taken Unknown] prednisone 20 mg tablet 20 mg PO DAILY 3 days #3 tabs 10/09/23 [Rx Last Taken Unknown] prednisone 20 mg tablet 40 mg (2 x 20 mg) PO DAILY 3 days #6 tabs 10/09/23 [Rx Last Taken Unknown] Allergy/AdvReac Type Severity Reaction Status Date / Time atenolol AdvReac Intermediate Made me Verified 10/11/23 00:16 feel terrible digoxin AdvReac Intermediate Digitoxicit Verified 10/11/23 00:16 y Family History (Updated 10/11/23 @ 04:[address] Bridget Isidro MD) Brother Sudden cardiac Active rheumatic fever involving heart Mother Diabetes Father Diabetes Surgical History (Updated 10/11/23 @ 05:[address] Bridget Isidro MD) History of umbilical hernia repair Social History (Updated 10/11/23 @ 04:[address] Bridget Isidro MD) household members: none Smoking Status: Former smoker how long ago did patient quit smoking: Quit 6 months prior, smoked prior 1.5 ppd->last 1-2 yr 1 ppd. alcohol intake: former substance use type: does not use caffeine: Yes Type: coffee Number of servings: 3 ROS ROS Narrative Admission Review of Systems: CONSTITUTIONAL: No weight loss, fever, chills, + weakness or fatigue. HEENT: + Recent admission previous complaint of cough, congestion, rhinorrhea. Current admission more so complaint of vertigo/dizziness/disequilibrium. Eyes: No visual loss, blurred vision, double vision or yellow sclerae. Ears, Nose, Throat: No hearing loss, sneezing. SKIN: No rash or itching, lesions, wounds. CARDIOVASCULAR: + Racing heart, palpitations. No chest pain, chest pressure or chest discomfort, edema, orthopnea, syncopal events. RESPIRATORY: + shortness of breath, cough without marked sputum, wheezing. No hemoptysis. GASTROINTESTINAL: No anorexia, nausea, vomiting or diarrhea, abdominal pain, melena, BRBPR. GENITOURINARY: No dysuria, frequency, urgency or retention. NEUROLOGICAL: + Vertigo/dizziness, disequilibrium. No headache, syncope, paralysis, ataxia, numbness or tingling in the extremities, focal weakness, change in bowel or bladder control, seizure. MUSCULOSKELETAL: + muscle, back pain, joint pain or stiffness. HEMATOLOGIC: No anemia. Easy bleeding/bruising. LYMPHATICS: No enlarged nodes. No history of splenectomy. PSYCHIATRIC: No history of depression or anxiety. ENDOCRINOLOGIC: No reports of sweating, cold or heat intolerance. No polyuria or polydipsia. ALLERGIES: No history of asthma, hives, eczema or rhinitis. Vital Signs Vital Signs Vital Signs: 10/11/23 00:17 10/11/23 00:21 10/11/23 00:44 Temperature 98.8 F Temperature Source Temporal Pulse Rate 139 H Respiratory Rate 19 H Respiratory Effort Short of Breath Respiratory Depth Shallow Respiratory Pattern Tachypnea Blood Pressure 142/81 H Blood Pressure Mean 101 Pulse Ox 94 Oxygen Delivery Method Nasal Cannula Nasal Cannula Nasal Cannula Oxygen Flow Rate (L/min) 4 4 4 10/11/23 00:44 10/11/23 02:16 10/11/23 03:07 Temperature Temperature Source Pulse Rate 120 H 118 H Respiratory Rate 23 H 22 H 20 H Respiratory Effort Respiratory Depth Respiratory Pattern Blood Pressure 102/80 119/86 H Blood Pressure Mean 87 97 Pulse Ox 93 95 94 Oxygen Delivery Method Nasal Cannula Nasal Cannula Nasal Cannula Oxygen Flow Rate (L/min) 4 4 4 Weight Weight: 154 lb 12.232 oz Body Mass Index (BMI) 25.0 Physical Exam Narrative Physical Examination: General: Awake, alert, oriented x 3 and cooperative, seated upright in the ED bed, fatigued, notes feelings improved since initial ED arrival, vertiginous symptoms currently resolved. Skin: Normal color, normal turgor, no icterus, no cyanosis except for occasional staged ecchymoses, abrasion. HEENT: AT/NC, EOMI, PERRLA, mildly dry MM, no carotid bruits or JVD noted. Lungs: Diffusely diminished, mildly coarse, greater bases, mildly increased respiratory rate but no distress, occasional expiratory wheeze, no appreciated rales. Heart: Irregular irregular; no gallop, rub audible. Abdomen: Soft, NTTP, ND, mildly hyperactive BS, no HSM. Extremities: No cyanosis, no clubbing, pedal to proximal meier 2+ pitting edema. Neurological: Patient awake, alert, oriented as noted, cognitive function appears baseline intact; pupils equally reactive to light and accommodation, cranial nerves grossly normal, moving all 4 extremities, no focal deficits, strength severely globally decreased secondary to acute presentation and recent admission complicated by underlying comorbidities, denies any current vertigo, no appreciated nystagmus. Psychiatric: Affect appears flat, fatigued, no acute evidence of depressive or anxiety feelings. Results Lab / Micro Data 10/11/23 00:18 10/11/23 00:18 Labs: Laboratory Results - last 24 hr 10/11/23 00:18: WBC 13.1 H, RBC 4.40 L, Hgb 13.7, Hct 42.7, MCV 97.0 H, MCH 31.1, MCHC 32.1, RDW Std Deviation 47.2 H, RDW Coeff of Matt 13.2, Plt Count 248, MPV 11.8, Immature Gran % (Auto) 0.900, Neut % (Auto) 85.6 H, Lymph % (Auto) 6.9 L, [place] % (Auto) 6.3, Eos % (Auto) 0.0, Baso % (Auto) 0.3, Absolute Neuts (auto) 11.2 H, Absolute Lymphs (auto) 0.90, Nucleated RBC % 0, Sodium 141, Potassium 3.5, Chloride 105, Carbon Dioxide 32.0, Anion Gap 4 L, BUN 32 H, Creatinine 0.90, Estim Creat Clear Calc 55.14, Est GFR (MDRD) Af Amer 103, Est GFR (MDRD) Non-Af 85, BUN/Creatinine Ratio 35.5 H, Glucose 144 H, Calcium 8.8 10/11/23 00:47: Troponin I High Sens 13 Micro: Microbiology 10/11/23 00:40 Nasal Secretion SARS-CoV-2 Antigen (Rapid) - Final Rhythm Strip Rhythm Strip: A-fib Rate: 140 Ectopy: PVC(s) Imagaing Radiology Impression Chest X-Ray 10/11/23 00:40 IMPRESSION: Chronic interstitial changes with possible superimposed mild acute opacities in the lower lobes. These could represent atelectasis, mild infection or aspiration. Electronically Signed: Saw Tipton MD at 2:08 EST , Brain CT 10/11/23 00:58 IMPRESSION: undefined Assessment & Plan Assessment/Plan (1) Atrial fibrillation with RVR: (2) Peripheral vertigo: PLAN: Plan The patient is an 83 y/o M w/ PMHx: EtOH abuse, PAF, NSVT, Tobacco use, HTN, Former tobacco use, recent admission 10/05/2023-10/09/2023 with treatment of acute on chronic COPD exacerbation with chronic hypoxic respiratory failure with acute hypoxia requiring patient's oxygen to increase to 4 L instead of his baseline 3 L nasal cannula secondary to RSV infection and concern for superimposed bacterial infection treated with IV steroids, Levaquin, DuoNeb therapy discharged on prednisone taper as well as completion Levaquin for planned 7-day course complicated by atrial fibrillation with RVR continued on Toprol and Eliquis with patient with frequently episodes of RVR during his recent presentation secondary to aerosol usage and his his exacerbation who now re-presents to the [facility] ED on 10/11/23 with history of increased dyspnea since his recent discharge with acute disequilibrium and noted to feel off balance reportedly getting up tonight off his couch to self treat with nebulizers however he felt suddenly dizzy with a spinning sensation with his hearing specifically feeling worse on day of presentation prompting EMS call. #1. Recurrent Episodes Paroxsymal atrial fibrillation w/ RVR: EKG in ED w/ atrial fibrillation w/ RVR. Patient administered Cardizem bolus in ED with notable improvement. Will admit to PCU, will maintain on telemetry, obtain cardiac enzyme serial set, obtain magnesium level, obtain ECHO, obtain TSH level, 04/17/2023 echocardiogram with LVEF 65%, mild focal MV calcification, bileaflet noted to be in atrial fibrillation at that time. As noted in the ED unfortunately despite serial boluses of diltiazem patient with ongoing atrial fibrillation with rate poorly controlled, will maintain on Cardizem drip and will continue patient home metoprolol regimen with dose now in addition to home apixaban regimen. If not improving or remains uncontrolled would have low threshold to involve cardiology. #2. Recent acute on chronic COPD exacerbation with chronic hypoxic respiratory failure with acute hypoxia requiring increased to 4 L nasal cannula from home 3 L nasal cannula secondary to RSV viral syndrome in addition to superimposed pseudomonal bacterial BL bibasilar PNA with prior history of pseudomonal infection with increased dyspnea sensation: Will maintain on oxygen with wean as tolerated to home oxygen supplementation, continue ATC budesonide, PRN albuterol, will temporally hold home prednisone and transition back in the interim to IV Solu-Medrol, 10/06/2023 respiratory panel with positive RSV A, 10/06/2023 sputum with final culture Pseudomonas aeruginosa and C albicans with barker sensitivity including to Levaquin thus will continue recently initiated oral Levaquin regimen, HOB, IS parameters. #3. Disequilibrium, vertigo, peripheral with suspected BPPV: Will maintain in the PCU as noted, will continue low-dose scheduled meclizine and if patient does clinically improve then will defer but if not would need to consider obtaining MRI of the brain, maintain on fall precautions, judicious hydration if necessary, as needed antiemetic regimen. If there is any concern that this is posterior stroke associated then would need to pursue further stroke workup. #4. Adult failure to thrive, multifactorial: Noted secondary to #1, #2 and now compounded by #3, will maintain on fall and aspiration precautions, PT/OT/case management consulted and may need to be considered for skilled placement as recently was discharged to home with home therapies but he is already returned. #5. Hypertension: Continue home regimen including amlodipine, metoprolol, Lasix, PRN hydralazine. #6. DVT prophylaxis: We will continue patient home Eliquis regimen. #7. CODE status: Patient HCPOA and healthcare power of bankruptcy assistant are not formally in place but he notes his daughter who is present would be his decision-maker. She is he notes his financial power of bankruptcy assistant. Discussed CODE status at length including difference between FULL code, DNR-CCA and DNR-CC status. Following discussions about the differences in these status, requested DNR-CCA, no intubation status. Advanced Care Planning Face to Face Time: 16 minutes. Charges/Coding Visit Charges Inpatient E&M: 71467 Init Hosp L3 Procedures Hospitalists Procedures: 17748 Advncd Care Plan 30 Min
[2023-10-11] MEDS: Diltiazem 125 MG in Dextrose 5%-Water (100mL Bag) 100 ML CONT INF (04:21)
[2023-10-11 05:44] LABS: Magnesium 2.8 mg/dL (1.6-2.6)
[2023-10-11] MEDS: Metoprolol(XL)Succ 100 MG Tablet PO ×2 (06:32→20:45)
[2023-10-11] MEDS: 0.9% Normal Saline (1000mL) 1,000 ML 100 ML IV (06:32)
[2023-10-11] MEDS: Meclizine HCl 25 MG Tablet 12.5 MG PO ×3 (06:32→20:44)
[2023-10-11 06:40] LABS: Absolute Lymphocyte Count 1.11 X10^3/uL (0.83-4.51); Absolute Neutrophil Count 7.9 X10^3/uL (2.0-7.7); Basophil# 0.04 X10^3/uL; Basophil% 0.4 % (0-1); Hematocrit 41.9 % (40-54); Hemoglobin 13.6 g/dL (13.0-16.5); Lymphocyte # 1.11 X10^3/ul (0.83-4.51); Mean Corp Hgb Conc 32.5 g/dL (32-36); Mean Corpuscular Hgb 31.1 pg (27.0-32.0); Mean Corpuscular Volume 95.7 fL (80-94); Mean Platelet Vol. 11.3 fl (6.2-12.0); Monocyte# 0.91 X10^3/uL; NRBC Flagged by Analyzer 0 % (0-5); Neutrophil # 7.87 X10^3/uL (2.7-7.7); Neutrophil % 78.3 % (47-70); Platelet Count 199 K/mm3 (150-450); RBC Distribution Width CV 13.1 % (11.6-14.6); RBC Distribution Width SD 46.9 fl (35.1-43.9); Red Blood Count 4.38 M/mm3 (4.6-6.2); White Blood Count 10.1 K/mm3 (4.4-11.0)
[2023-10-11 07:03] LABS: ALB/GLOB Ratio 0.9 RATIO (0.9-2.4); AST(SGOT) 37 U/L (15-37); Alanine Aminotransfer ALT/SGPT 84 U/L (16-61); Albumin, Serum 2.9 g/dL (3.2-5.0); Alkaline Phosphatase 68 U/L (45-117); Anion Gap 6 (5-15); BUN 28 mg/dL (7-18); BUN/Creat Ratio 36.1 RATIO (10-20); Chloride 107 mmol/L (98-107); Creatinine, Serum 0.78 mg/dL (0.70-1.30); EST Glomerular Filtration Rate 101 mL/min (>60); Est Glom Filt Rate - Afr Amer 123 mL/min (>60); Estimated Creatinine Clearance 49.62 ml/min; Globulin 3.3 g/dL (2.2-4.2); Glucose 127 mg/dL (74-106); Potassium 3.4 mmol/L (3.5-5.1); Protein, Total 6.2 g/dL (6.4-8.2); Sodium Level 145 mmol/L (136-145); Thyroid Stim Hormone (TSH) 0.66 uIU/mL (0.358-3.74)
[2023-10-11 07:04] LABS: Troponin-I HS 15 pg/mL (3.0-78.0)
--- OUTSIDE RECORDS SUMMARY | 2023-10-11 07:06 | XMS RPT_ITS | CCD ---
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 Name Role Phone Piper YIP, Tracey Tyson Unavailable Unavailable Violetta Christy Unavailable Violetta Christy Unavailable Allergies Allergy Classification Reported Allergen(s) Allergy Type Date of Onset Reaction(s) Facility (3 sources) Atenolol Drug Allergy 01-26-2017 made me feel terrible [facility] Work Phone: Medications Completed/Discontinued Medications Medication Drug Class(es) Dates Sig (Normalized) Sig (Original) 200 actuat albuterol 0.09 mg/actuat metered dose inhaler (3 sources) beta2-Adrenergic Agonist Start: 02-12-2012 PROVENTIL HFA AERS 90 mcg/inh -2 puffs Q4H as needed ALBUTEROL SULFATE AERS [id number] Tracey Saldaña RN amLODIPine 5 mg oral tablet (3 sources) Dihydropyridine Calcium Channel David Start: 01-30-2016 take 1 tablet by mouth once daily AMLODIPINE BESYLATE 5 MG TABS One tablet by mouth daily AMLODIPINE BESYLATE [id number] Bharath Escalona MD aspirin 81 mg oral tablet (6 sources) Platelet Aggregation Inhibitor, Nonsteroidal Anti-inflammatory Drug Start: 12-22-2012 take 1 tablet by mouth once daily ASPIRIN 81 MG TABS One tablet by mouth daily ASPIRIN [id number] Bharath Escalona MD Problems Active Problems Problem [...] 07-30-2017 14:40-0400 Height 170.18 cm Violetta Montanez [facility] Work Phone: 07-30-2017 14:40-0400 Pulse (Heart Rate) 84 /min Violetta Christy [facility] Work Phone: 07-30-2017 14:40-0400 Respiratory Rate 20 /min [facility] Work Phone: 07-30-2017 14:40-0400 Weight 69.4 kg Violetta Christy [facility] Work Phone: 01-26-2017 15:09-0400 BMI (Body Mass Index) 24.15 kg/m2 Tracey Saldaña RN [facility] Work Phone: 01-26-2017 15:09-0400 BP Diastolic 60 mm[Hg] Tracey Saldaña RN [facility] Work Phone: 01-26-2017 15:09-0400 BP Systolic 140 mm[Hg] Tracey Saldaña RN [facility] Work Phone: 01-26-2017 15:09-0400 Height 170.18 cm Tracey Saldaña RN [facility] Work Phone: 01-26-2017 15:09-0400 Pulse (Heart Rate) 88 /min Tracey Saldaña RN [facility] Work Phone: 01-26-2017 15:09-0400 Respiratory Rate 24 /min Tracey Saldaña RN [facility] Work Phone: 01-26-2017 15:09-0400 Weight 69.95 kg Tracey Saldaña RN [facility] Work Phone: 07-28-2016 15:21-0400 BSA (Body Surface Area) 1.79 m2 Tracey Saldaña RN [facility] Work Phone: 01-30-2016 12:52-0400 Pulse Oximetry 97 % Tracey Saldaña RN [facility] Work Phone: Procedures Date Procedure Procedure Detail Performing Clinician Start: 07-30-2017 End: 07-30-2017 RN PRODUCTION Anna Kearns PA-C Work Phone: Start: 07-30-2017 End: 07-30-2017 Follow Up Appt 6 months Anna swain PA-C Work Phone: Start: 01-26-2017 End: 02-10-2017 Echocardiography Bharath Escalona MD Start: 01-26-2017 End: 07-14-2017 Follow Up Appt 6 months Agustin Marshall Start: 01-26-2017 End: 07-14-2017 MMAgustin Escalona MD Start: 07-28-2016 End: 07-28-2016 RN PRODUCTION Anna Kearns PA-C Work Phone: Start: 07-28-2016 [...] Phone: Start: 07-30-2017 End: 07-30-2017 Appointment Appointment [facility] Work Phone: Start: 07-30-2017 End: 07-30-2017 RN PRODUCTION RN PRODUCTION [facility] Work Phone: Start: 07-30-2017 End: 07-30-2017 Follow Up Appt 6 months Follow Up Appt 6 months [facility] Work Phone: Start: 01-26-2017 End: 01-26-2017 Echocardiography Echocardiogram (complete) [facility] Work Phone: Start: 01-26-2017 End: 07-14-2017 Follow Up Appt 6 months Follow Up Appt 6 months [facility] Work Phone: Start: 01-26-2017 End: 07-14-2017 MMM MMM [facility] Work Phone: Start: 07-28-2016 End: 07-28-2016 RN PRODUCTION RN PRODUCTION [facility] Work Phone: Start: 07-28-2016 End: 07-28-2016 Follow Up Appt 6 months Follow Up Appt 6 months [facility] Work Phone: Start: 03-03-2016 End: 03-04-2016 [facility] mobile cv telemetry w/i&report 30 days 30 Day Holter Monitor [facility] Work Phone: Start: 02-10-2016 End: 02-13-2016 24 hour holter monitor 24 hour holter monitor [facility] Work Phone: Start: 01-30-2016 End: 01-30-2016 Follow Up Appt 6 months Follow Up Appt 6 months [facility] Work Phone: Start: 01-30-2016 End: 01-30-2016 MMM MMM [facility] Work Phone: Start: 12-22-2012 End: 12-22-2012 Follow Up Appt 6 months Follow Up Appt 6 months [facility] Work Phone: Start: 12-22-2012 End: 12-22-2012 MMM MMM [facility] Work Phone: Start: 05-24-2012 End: 05-24-2012 Follow Up Appt 6 months Follow Up Appt 6 months [facility] [employer] [facility] Work Phone: Start: 02-16-2012 End: 02-16-2012 Arterial exam Arterial exam [facility] Work Phone: Start: 02-16-2012 End: 02-16-2012 Echocardiography Echocardiogram (complete) [facility] Work Phone: Start: 02-16-2012 End: 07-15-2016 Follow Up Appt 3 months Follow Up Appt 3 months [facility] Work Phone: Start: 02-16-2012 End: 02-16-2012 Nuclear stress test -adenosine Nuclear stress test -adenosine [facility] Work Phone: Additional Source Comments FOR RECORDS [...] BE BASED ON THE PRIMARY CLINICAL RECORDS. [employer] provides no warranty or guarantee of the accuracy or completeness of information in this document.
--- NOTE | 2023-10-11 07:31 | PN.HOSP_ITS ---
Subjective Subjective Feeling short of breath. Objective Data Objective Data Vital Signs: Vital Signs Temp Pulse Resp BP Pulse Ox O2 Del Method O2 Flow Rate 36.6 C 101 H 22 H 114/69 96 Nasal Cannula 4 10/11/23 05:53 10/11/23 06:32 10/11/23 06:00 10/11/23 06:32 10/11/23 06:00 10/11/23 06:00 10/11/23 06:00 Oxygen Flow Rate (L/min) 4 Oxygen Delivery Method Nasal Cannula Weight: 66.6 kg Body Mass Index (BMI) 23.7 Intake & Output: Intake and Output for Last 24 Hours 10/09/23 10/10/23 10/11/23 23:59 23:59 23:59 Intake Total 50.91 / 50.91 Balance 50.91 / 50.91 Lab / Micro Data 10/11/23 06:30 10/11/23 06:30 Labs: Laboratory Results - last 24 hr 10/11/23 00:18: WBC 13.1 H, RBC 4.40 L, Hgb 13.7, Hct 42.7, MCV 97.0 H, MCH 31.1, MCHC 32.1, RDW Std Deviation 47.2 H, RDW Coeff of Matt 13.2, Plt Count 248, MPV 11.8, Immature Gran % (Auto) 0.900, Neut % (Auto) 85.6 H, Lymph % (Auto) 6.9 L, [place] % (Auto) 6.3, Eos % (Auto) 0.0, Baso % (Auto) 0.3, Absolute Neuts (auto) 11.2 H, Absolute Lymphs (auto) 0.90, Nucleated RBC % 0, Sodium 141, Potassium 3.5, Chloride 105, Carbon Dioxide 32.0, Anion Gap 4 L, BUN 32 H, Creatinine 0. 90, Estim Creat Clear Calc 55.14, Est GFR (MDRD) Af Amer 103, Est GFR (MDRD) Non-Af 85, BUN/Creatinine Ratio 35.5 H, Glucose 144 H, Calcium 8.8 10/11/23 00:47: Magnesium 2.8 H, Troponin I High Sens 13 10/11/23 06:30: WBC 10.1, RBC 4.38 L, Hgb 13.6, Hct 41.9, MCV 95.7 H, MCH 31.1, MCHC 32.5, RDW Std Deviation 46.9 H, RDW Coeff of Matt 13.1, Plt Count 199, MPV 11.3, Immature Gran % (Auto) 1.300 H, Neut % (Auto) 78.3 H, Lymph % (Auto) 11.0 L, [place] % (Auto) 9.0, Eos % (Auto) 0.0, Baso % (Auto) 0.4, Absolute Neuts (auto) 7.9 H, Absolute Lymphs (auto) 1.11, Nucleated RBC % 0, Sodium 145, Potassium 3.4 L, Chloride 107, Carbon Dioxide 32.0, Anion Gap 6, BUN 28 H, Creatinine 0.78, Estim Creat Clear Calc 49.62, Est GFR (MDRD) Af Amer 123, Est GFR (MDRD) Non-Af 101, BUN/Creatinine Ratio 36.1 H, Glucose 127 H, Calcium 8.0 L, Total Bilirubin 1.10 H, AST 37, ALT 84 H, Alkaline Phosphatase 68, Troponin I High Sens 15, Total Protein 6.2 L, Albumin 2.9 L, Globulin 3.3, Albumin/Globulin Ratio 0.9, TSH 0.66 Micro: Microbiology 10/11/23 00:40 Nasal Secretion SARS-CoV-2 Antigen (Rapid) - Final Radiography Diagnostic Testing: Radiology Impression Chest X-Ray 10/11/23 00:40 IMPRESSION: Chronic interstitial changes with possible superimposed mild acute opacities in the lower lobes. These could represent atelectasis, mild infection or aspiration. Electronically Signed: Saw Tipton MD at 2:08 EST , Brain CT 10/11/23 00:58 IMPRESSION: undefined Rhythm Strip Rhythm Strip: A-fib Rate: 140 Ectopy: PVC(s) Physical Exam Const alert and no apparent distress Constitutional Narrative: up in chair. hard of hearing. Neck no lymphadenopathy Resp normal respiratory effort and no retractions Auscultation: wheezes Cardio regular rate, regular rhythm, S1 normal heart sound and S2 normal heart sound GI normal to inspection, nondistended, normoactive bowel sounds, soft to palpation, non-tender and non-distended Extremity Extremity Narrative: 2+ LE edema. lymphedema wraps in place. Neuro Sensorium / Orientation: awake and alert Assessment & Plan Assessment/Plan (1) Atrial fibrillation with RVR: (2) Peripheral vertigo: PLAN: Plan 1. Recurrent Episodes Paroxysmal atrial fibrillation w/ RVR: * Patient administered Cardizem bolus in ED with notable improvement. * 04/17/2023 echocardiogram with LVEF 65%, mild focal MV calcification, bileaflet noted to be in atrial fibrillation at that time. * On dilt gtt w 100 BID metoprolol succinate. * Consult cardiology. * anticoagulation w apixaban 2. Recent acute on chronic COPD exacerbation with chronic hypoxic respiratory failure * exacerbated by RSV and pseudomonal pneumonia. * IV methypred Solu-Medrol, BDs 3. vertigo, peripheral with suspected BPPV: * Scheduled meclizine and if patient does clinically improve then will defer but if not would need to consider obtaining MRI of the brain, maintain on fall precautions, judicious hydration if necessary, as needed antiemetic regimen. If there is any concern that this is posterior stroke associated then would need to pursue further stroke workup. 4. Adult failure to thrive, multifactorial: * PT/OT/case management consulted and may need to be considered for skilled placement as recently was discharged to home with home therapies but he is already returned. 5. Hypertension: Continue home regimen including amlodipine, metoprolol, Lasix, PRN hydralazine. 6. DVT prophylaxis: We will continue patient home Eliquis regimen. 7. CODE status: DNRCCA, no intubation. Charges/Coding Visit Charges Inpatient E&M: 82958 Subs Hosp L2
[2023-10-11] MEDS: Budesonide Respules 0.5 MG/2 ML AMPUL.NEB. INHALATION ×2 (08:05→20:47)
[2023-10-11] MEDS: levoFLOXacin 750 MG Tablet PO (08:45)
[2023-10-11] MEDS: APIXABAN 5 MG TABLET PO ×2 (08:45→20:45)
[2023-10-11] MEDS: Potassium Chloride Oral Tablet 20 MEQ 40 MEQ PO (08:46)
[2023-10-11] MEDS: amLODIPine 10 MG Tablet PO (08:46)
[2023-10-11] MEDS: Furosemide 20 MG Tablet PO (08:46)
[2023-10-11] MEDS: Multivitamins,Therapeutic Tablet 1 TABLET PO (08:46)
[2023-10-11] MEDS: Potassium Chloride Oral Tablet 10 MEQ 20 MEQ PO (08:47)
[2023-10-11 09:18] LABS: Troponin-I HS 16 pg/mL (3.0-78.0)
[2023-10-11] MEDS: Albuterol 2.5 MG/3 ML VIAL.NEB. INHALATION (10:54)
--- NOTE | 2023-10-11 11:05 | CASEMGMT ---
THEODORA SOLIMAN Readmission Review/Assessment: Index: 10/05 thru 10/09, Dx: COPD, RSV, Afib Readmission: 10/11, Dx: Afib RVR, vertigo, FTT Pt with COPD, chronic respiratory failure on home O2, HTN, PVD, and hx of ETOH and smoking was admitted on the above noted dates for the corresponding dx. Pt was discharged on index with [facility] HH services (SOC was to be today 10/11 per pt) and increased home O2 to 4l/min per [place] from [facility]. Pt readmitted with reoccurrence of atrial fib w/RVR. This RN CM met with pt face to face. Pt sitting up in chair, alert, noted to be [place] but answering questions appropriate. Pt states he was navigating his home well after discharge, obtained his prednisone and Levaquin medications from the pharmacy and was taking them as prescribed. Pt able to state he had them at home and aware of when he was due to take them. Pt states his niece Karol checks on him daily and provides assistance with household tasks and errands. Pt states he was wearing his home O2 at 4l/min. Pt states he has not consumed ETOH in 4 years and had stopped smoking previously. Pt states his goal/plan is to return to home at discharge and would be interested in help with bathing. Noted PT/OT evaluations have been ordered. 6 clicks from nursing noted to be a 12. Will monitor pt's progress with tx and discuss appropriate discharge disposition with pt. Pt states his niece Karol will be in later today to visit. Heriberto Ross RN CM
--- NOTE | 2023-10-11 12:08 | PCM.CONS.C ---
Assessment & Plan Assessment/Plan (1) Atrial fibrillation with RVR: (2) Essential (primary) hypertension: PLAN: Plan HR is similar to what it has been at prior admission Echo is pending Will stop his Diltiazem IV, Stop his Norvasc and switch to Oral Cardizem. With his lower Bp readings will start on amiodarone He will continue with his Eliquis, lasix, potassium, Metoprolol. Will need to continue to monitor HR, may need to decrease rate limiting medications. This will likely be considered on an OP basis. HPI Consult Data Date of Consult: 10/11/23 HPI Narrative HPI Narrative: TOLU MONTANA, is a 83 M who presented to the ER on 10/11/2023 for increase SOB. He was hospitalized on 10/05/2023-10/09/2023 for acute on chronic COPD exacerbation with chronic hypoxic respiratory failure with acute hypoxia, secondary to RSV infection, bacterial infection, atrial fibrillation with RVR. EKG on admission was AFib with RVR, he was treated with Cardizem IV. He is also on metoprolol and eliquis. Echocardiogram from 03/2023 demonstrated an EF of 65%. He does have a hx of HTN, PAF and tobacco abuse. He was last seen on our office in 04/2023. Pt sts that his HR at home is variable. He notes that depending on his activity it can be in the 120's. He is on home O2. He does have edema, over the summer his edema did resolve. He does not have any CP. He does not have any bleeding issues. He does complain of dizziness and balance issues since his last hospital stay. He also has some vision changes at times. [facility] Medical History Chronic hypoxic respiratory failure COPD (chronic obstructive pulmonary disease) Essential (primary) hypertension History of ETOH abuse Incomplete right bundle branch block Nonsustained paroxysmal supraventricular tachycardia Nonsustained ventricular tachycardia Paroxysmal atrial fibrillation Peripheral vascular disease Tobacco use Home Medications multivitamin 1 tab PO DAILY supplement 01/27/18 [History Last Taken 10/04/23 12:00 1 TAB] Handicap Parking Placard #1 ea 10/05/22 [Rx Last Taken Unknown] budesonide-formoterol HFA 160 mcg-4.5 mcg/actuation aerosol inhaler 2 puff inhalation BID shortness of breath 03/01/23 [History Last Taken 10/05/23] apixaban 5 mg tablet (Eliquis) 5 mg PO BID #60 tabs 05/13/23 [Rx Last Taken 10/05/23 5 mg] metoprolol succinate 100 mg tablet,extended release 24 hr 100 mg PO BID #60 tabs 05/13/23 [Rx Last Taken 10/05/23 100 mg] potassium chloride 10 mEq tablet,extended release 20 meq (2 x 10 mEq) PO DAILY supplement #180 tabs 05/13/23 [Rx Last Taken 10/03/23 12:00 20 mEq] torsemide 10 mg tablet 10 mg PO DAILY fluid #90 tabs 05/13/23 [Rx Last Taken 10/03/23 00:00 10 mg] albuterol sulfate 2.5 mg/3 mL (0.083 %) solution for nebulization 2.5 mg continuous nebulization Q6H PRN shortness of breath 10/05/23 [History Last Taken 10/04/23] amlodipine 10 mg tablet 10 mg PO DAILY blood pressure 10/05/23 [History Last Taken 10/04/23 12:00 10 mg] levofloxacin 750 mg tablet 750 mg PO DAILY 2 days #2 tabs 10/09/23 [Rx Last Taken Unknown] prednisone 10 mg tablet 30 mg (3 x 10 mg) PO DAILY 3 days #9 tabs 10/09/23 [Rx Last Taken Unknown] prednisone 20 mg tablet 20 mg PO DAILY 3 days #3 tabs 10/09/23 [Rx Last Taken Unknown] prednisone 20 mg tablet 40 mg (2 x 20 mg) PO DAILY 3 days #6 tabs 10/09/23 [Rx Last Taken Unknown] Allergy/AdvReac Type Severity Reaction Status Date / Time atenolol AdvReac Intermediate Made me Verified 10/11/23 00:16 feel terrible digoxin AdvReac Intermediate Digitoxicit Verified 10/11/23 00:16 y Family History (Updated 10/11/23 @ 04:[address] Bridget Isidro MD) Brother Sudden cardiac Active rheumatic fever involving heart Mother Diabetes Father Diabetes Surgical History (Updated 10/11/23 @ 05:[address] Bridget Isidro MD) History of umbilical hernia repair Social History (Updated 10/11/23 @ 04:[address] Bridget Isidro MD) household members: none Smoking Status: Former smoker how long ago did patient quit smoking: Quit 6 months prior, smoked prior 1.5 ppd->last 1-2 yr 1 ppd. alcohol intake: former substance use type: does not use caffeine: Yes Type: coffee Number of servings: 3 ROS ROS Narrative CONSTITUTIONAL: No weight loss, fever, chills, + weakness. HEENT: + Recent admission previous complaint of cough, congestion, rhinorrhea. Current admission more so complaint of vertigo/dizziness/disequilibrium. Eyes: +blurred vision CARDIOVASCULAR: + Racing heart, palpitations. +edema. No chest pain, chest pressure or chest discomfort, orthopnea, syncopal events. RESPIRATORY: + shortness of breath, cough without marked sputum, wheezing. No hemoptysis. GASTROINTESTINAL: No anorexia, nausea, vomiting or diarrhea, abdominal pain, melena, GENITOURINARY: No dysuria, frequency, urgency or retention. NEUROLOGICAL: + Vertigo/dizziness, disequilibrium. No headache, syncope, paralysis, ataxia, numbness or tingling in the extremities, focal weakness, change in bowel or bladder control, seizure. MUSCULOSKELETAL: + muscle HEMATOLOGIC: No anemia. Easy bleeding/bruising. Physical Exam Const alert, oriented x3 and no apparent distress General Appearance: frail HEENT normocephalic, head/scalp atraumatic, external ears normal, external nose normal and moist oral mucous membranes General Ear: hearing grossly impaired Eyes PERRL, EOMs intact bilaterally, conjunctivae normal and no scleral icterus Neck no lymphadenopathy, supple and no JVD Resp normal respiratory effort Resp Narrative: Diminished with crackles, on O2 Cardio Rate: tachycardic Rhythm: abnormal rhythm irregularly irregular Heart Sounds: S1 normal and S2 normal; Negative for click, gallop or murmur GI normal to inspection, nondistended, normoactive bowel sounds, soft to palpation, non-tender and non-distended Extremity General Extremity: edema bilateral lower extremity (wearing rachele wraps) Neuro oriented x3, CN's II-XII intact bilaterally, moves all extremities and no focal motor deficits Psych cooperative and affect normal Risk Stratification Risk Stratification Applicable: No Charges/Coding Visit Charges Office Visits / Consults: [id number] IP Consult L4 Objective Data Vital Signs: Vital Signs Temp Pulse Resp BP Pulse Ox O2 Del Method O2 Flow Rate 97.6 F L 57 L 18 127/59 H 97 Nasal Cannula 4 10/11/23 11:00 10/11/23 11:00 10/11/23 11:00 10/11/23 11:00 10/11/23 11:00 10/11/23 11:00 10/11/23 11:00 Oxygen Flow Rate (L/min) 4 Oxygen Delivery Method Nasal Cannula Weight: 146 lb 13.246 oz Body Mass Index (BMI) 23.7 Intake & Output: Intake and Output for Last 24 Hours 10/09/23 10/10/23 10/11/23 23:59 23:59 23:59 Intake Total 50.91 / 50.91 Output Total 175 / 175 Balance -124.09 / -124.09 Lab / Micro Data 10/11/23 06:30 10/11/23 06:30 Labs: Laboratory Results - last 24 hr 10/11/23 00:18: WBC 13.1 H, RBC 4.40 L, Hgb 13.7, Hct 42.7, MCV 97.0 H, MCH 31.1, MCHC 32.1, RDW Std Deviation 47.2 H, RDW Coeff of Matt 13.2, Plt Count 248, MPV 11.8, Immature Gran % (Auto) 0.900, Neut % (Auto) 85.6 H, Lymph % (Auto) 6.9 L, [place] % (Auto) 6.3, Eos % (Auto) 0.0, Baso % (Auto) 0.3, Absolute Neuts (auto) 11.2 H, Absolute Lymphs (auto) 0.90, Nucleated RBC % 0, Sodium 141, Potassium 3.5, Chloride 105, Carbon Dioxide 32.0, Anion Gap 4 L, BUN 32 H, Creatinine 0.90, Estim Creat Clear Calc 55.14, Est GFR (MDRD) Af Amer 103, Est GFR (MDRD) Non-Af 85, BUN/Creatinine Ratio 35.5 H, Glucose 144 H, Calcium 8.8 10/11/23 00:47: Magnesium 2.8 H, Troponin I High Sens 13 10/11/23 06:30: WBC 10.1, RBC 4.38 L, Hgb 13.6, Hct 41.9, MCV 95.7 H, MCH 31.1, MCHC 32.5, RDW Std Deviation 46.9 H, RDW Coeff of Matt 13.1, Plt Count 199, MPV 11.3, Immature Gran % (Auto) 1.300 H, Neut % (Auto) 78.3 H, Lymph % (Auto) 11.0 L, [place] % (Auto) 9.0, Eos % (Auto) 0.0, Baso % (Auto) 0.4, Absolute Neuts (auto) 7.9 H, Absolute Lymphs (auto) 1.11, Nucleated RBC % 0, Sodium 145, Potassium 3.4 L, Chloride 107, Carbon Dioxide 32.0, Anion Gap 6, BUN 28 H, Creatinine 0.78, Estim Creat Clear Calc 49.62, Est GFR (MDRD) Af Amer 123, Est GFR (MDRD) Non-Af 101, BUN/Creatinine Ratio 36.1 H, Glucose 127 H, Calcium 8.0 L, Total Bilirubin 1.10 H, AST 37, ALT 84 H, Alkaline Phosphatase 68, Troponin I High Sens 15, Total Protein 6.2 L, Albumin 2.9 L, Globulin 3.3, Albumin/Globulin Ratio 0.9, TSH 0.66 10/11/23 08:50: Troponin I High Sens 16 Micro: Microbiology 10/11/23 00:40 Nasal Secretion SARS-CoV-2 Antigen (Rapid) - Final Rhythm Strip Rhythm Strip: A-fib Rate: 140 Ectopy: PVC(s) Cardiology Labs/Tests 10/11/23 00:18: WBC 13.1 H, RBC 4.40 L, Hgb 13.7, Hct 42.7, MCV 97.0 H, MCH 31.1, MCHC 32.1, Plt Count 248, MPV 11.8, Immature Gran % (Auto) 0.900, Neut % (Auto) 85.6 H, Lymph % (Auto) 6.9 L, [place] % (Auto) 6.3, Eos % (Auto) 0.0, Baso % (Auto) 0.3, Absolute Neuts (auto) 11.2 H, Nucleated RBC % 0, Sodium 141, Potassium 3.5, Chloride 105, Carbon Dioxide 32.0, Anion Gap 4 L, BUN 32 H, Creatinine 0.90, Est GFR (MDRD) Af Amer 103, Est GFR (MDRD) Non-Af 85, BUN/Creatinine Ratio 35.5 H, Glucose 144 H, Calcium 8.8 10/11/23 00:47: Magnesium 2.8 H 10/11/23 06:30: WBC 10.1, RBC 4.38 L, Hgb 13.6, Hct 41.9, MCV 95.7 H, MCH 31.1, MCHC 32.5, Plt Count 199, MPV 11.3, Immature Gran % (Auto) 1.300 H, Neut % (Auto) 78.3 H, Lymph % (Auto) 11.0 L, [place] % (Auto) 9.0, Eos % (Auto) 0.0, Baso % (Auto) 0.4, Absolute Neuts (auto) 7.9 H, Nucleated RBC % 0, Sodium 145, Potassium 3.4 L, Chloride 107, Carbon Dioxide 32.0, Anion Gap 6, BUN 28 H, Creatinine 0.78, Est GFR (MDRD) Af Amer 123, Est GFR (MDRD) Non-Af 101, BUN/Creatinine Ratio 36.1 H, Glucose 127 H, Calcium 8.0 L, Total Bilirubin 1.10 H Rhythm: Afib with RVR Radiography Diagnostic Testing: Radiology Impression Chest X-Ray 10/11/23 00:40 IMPRESSION: Chronic interstitial changes with possible superimposed mild acute opacities in the lower lobes. These could represent atelectasis, mild infection or aspiration. Electronically Signed: Saw Tipton MD at 2:08 EST , Brain CT 10/11/23 00:58 IMPRESSION: undefined
[2023-10-11 13:21] LABS: Troponin-I HS 12 pg/mL (3.0-78.0)
[2023-10-11] MEDS: Diltiazem 125 MG in Dextrose 5%-Water (100mL Bag) 100 ML 15 MG CONT INF (14:18)
[2023-10-11] MEDS: dilTIAZem CD 120 MG Capsule PO ×2 (17:06→22:41)
[2023-10-11] MEDS: Amiodarone 200 MG Tablet PO (20:45)
[2023-10-11] MEDS: 0.9% Saline Lock 10 ML Syringe IV (20:48)
[2023-10-12] VITALS (16 sets, daily range): BP systolic 92–138; BP diastolic 51–93; PULSE 101–120; RESP 18–23; TEMP 36.3–37.1; O2SAT 92–96; BMI 24.3
[2023-10-12] MEDS: 0.9% Saline Lock 10 ML Syringe IV ×3 (03:50→21:28)
[2023-10-12 04:02] LABS: Absolute Lymphocyte Count 0.54 X10^3/uL (0.83-4.51); Absolute Neutrophil Count 12.7 X10^3/uL (2.0-7.7); Basophil# 0.03 X10^3/uL; Basophil% 0.2 % (0-1); Hematocrit 40.7 % (40-54); Hemoglobin 12.8 g/dL (13.0-16.5); Lymphocyte # 0.54 X10^3/ul (0.83-4.51); Lymphocyte % 3.9 % (19-41); Mean Corp Hgb Conc 31.4 g/dL (32-36); Mean Corpuscular Hgb 30.9 pg (27.0-32.0); Mean Corpuscular Volume 98.3 fL (80-94); Mean Platelet Vol. 11.8 fl (6.2-12.0); Monocyte# 0.31 X10^3/uL; Monocyte% 2.2 % (0-10); NRBC Flagged by Analyzer 0 % (0-5); Neutrophil # 12.74 X10^3/uL (2.7-7.7); Neutrophil % 92.5 % (47-70); POSITIVE DIFFERENTIAL YES; Platelet Count 204 K/mm3 (150-450); RBC Distribution Width CV 13.4 % (11.6-14.6); RBC Distribution Width SD 48.2 fl (35.1-43.9); Red Blood Count 4.14 M/mm3 (4.6-6.2); White Blood Count 13.8 K/mm3 (4.4-11.0)
[2023-10-12 04:06] LABS: Differential Indicated SCAN CRITERIA MET
[2023-10-12 04:19] LABS: Anion Gap 5 (5-15); BUN 33 mg/dL (7-18); BUN/Creat Ratio 38.7 RATIO (10-20); Calcium,Total 7.9 mg/dL (8.5-10.1); Chloride 110 mmol/L (98-107); Creatinine, Serum 0.85 mg/dL (0.70-1.30); EST Glomerular Filtration Rate 91 mL/min (>60); Est Glom Filt Rate - Afr Amer 110 mL/min (>60); Estimated Creatinine Clearance 58.38 ml/min; Glucose 184 mg/dL (74-106); Potassium 4.2 mmol/L (3.5-5.1); Sodium Level 147 mmol/L (136-145)
[2023-10-12 04:45] LABS: Differential Comment SCANNED
[2023-10-12] MEDS: Meclizine HCl 25 MG Tablet 12.5 MG PO ×3 (05:14→21:25)
--- NOTE | 2023-10-12 06:52 | PN.HOSP_ITS ---
Subjective Subjective Feeling more short of breath today. Objective Data Objective Data Vital Signs: Vital Signs Temp Pulse Resp BP Pulse Ox O2 Del Method O2 Flow Rate 36.6 C 107 H 20 H 112/65 95 Nasal Cannula 4 10/12/23 03:45 10/12/23 03:45 10/12/23 03:45 10/12/23 03:45 10/12/23 03:45 10/12/23 03:45 10/12/23 03:45 Oxygen Flow Rate (L/min) 4 Oxygen Delivery Method Nasal Cannula Weight: 68.4 kg Body Mass Index (BMI) 24.3 Intake & Output: Intake and Output for Last 24 Hours 10/10/23 10/11/23 10/12/23 23:59 23:59 23:59 Intake Total 1065.00 / 1065.00 Output Total 395 / 395 450 / 450 Balance 670.00 / 670.00 -450 / -450 Lab / Micro Data 10/12/23 03:52 10/12/23 03:52 Labs: Laboratory Results - last 24 hr 10/11/23 06:30: Sodium 145, Potassium 3.4 L, Chloride 107, Carbon Dioxide 32.0, Anion Gap 6, BUN 28 H, Creatinine 0.78, Estim Creat Clear Calc 49.62, Est GFR (MDRD) Af Amer 123, Est GFR (MDRD) Non-Af 101, BUN/Creatinine Ratio 36.1 H, Glu cose 127 H, Calcium 8.0 L, Total Bilirubin 1.10 H, AST 37, ALT 84 H, Alkaline Phosphatase 68, Troponin I High Sens 15, Total Protein 6.2 L, Albumin 2.9 L, Globulin 3.3, Albumin/Globulin Ratio 0.9, TSH 0.66 10/11/23 08:50: Troponin I High Sens 16 10/11/23 12:55: Troponin I High Sens 12 10/12/23 03:52: WBC 13.8 H, RBC 4.14 L, Hgb 12.8 L, Hct 40.7, MCV 98.3 H, MCH 30.9, MCHC 31.4 L, RDW Std Deviation 48.2 H, RDW Coeff of Matt 13.4, Plt Count 204, MPV 11.8, Immature Gran % (Auto) 1.200 H, Neut % (Auto) 92.5 H, Lymph % (Auto) 3.9 L, [place] % (Auto) 2.2, Eos % (Auto) 0.0, Baso % (Auto) 0.2, Absolute Neuts (auto) 12.7 H, Absolute Lymphs (auto) 0.54 L, Nucleated RBC % 0, Differential Comment SCANNED, Sodium 147 H, Potassium 4.2, Chloride 110 H, Carbon Dioxide 32.0, Anion Gap 5, BUN 33 H, Creatinine 0.85, Estim Creat Clear Calc 58.38, Est GFR (MDRD) Af Amer 110, Est GFR (MDRD) Non-Af 91, BUN/Creatinine Ratio 38.7 H, Glucose 184 H, Calcium 7.9 L Micro: Microbiology 10/11/23 00:40 Nasal Secretion SARS-CoV-2 Antigen (Rapid) - Final Rhythm Strip Rhythm Strip: A-fib Rate: 140 Ectopy: PVC(s) Physical Exam Const alert and no apparent distress HEENT head/scalp atraumatic and moist oral mucous membranes Resp normal respiratory effort Auscultation: wheezes expiratory wheezes and throughout Cardio regular rate, regular rhythm, S1 normal heart sound and S2 normal heart sound GI normal to inspection, nondistended, normoactive bowel sounds, soft to palpation and non-tender Extremity normal to inspection Neuro Sensorium / Orientation: awake and alert Assessment & Plan Assessment/Plan (1) Atrial fibrillation with RVR: (2) Peripheral vertigo: PLAN: Plan 1. Recurrent Episodes Paroxysmal atrial fibrillation w/ RVR: * Patient administered Cardizem bolus in ED with notable improvement. * 04/17/2023 echocardiogram with LVEF 65%, mild focal MV calcification, bileaflet noted to be in atrial fibrillation at that time. * 100 BID metoprolol succinate and amiodarone taper. * Cardiology consulted. Follow up with cards as outpt. * anticoagulation w apixaban 2. Recent acute on chronic COPD exacerbation with chronic hypoxic respiratory failure * exacerbated by RSV and pseudomonal pneumonia. * IV methypred Solu-Medrol, BDs 3. vertigo, suspected BPPV: * Scheduled meclizine and if patient does clinically improve then will defer but if not would need to consider obtaining MRI of the brain, maintain on fall precautions, judicious hydration if necessary, as needed antiemetic regimen. If there is any concern that this is posterior stroke associated then would need to pursue further stroke workup. 4. Adult failure to thrive, multifactorial: * PT/OT/case management consulted and may need to be considered for skilled placement as recently was discharged to home with home therapies 5. Hypertension: Continue home regimen including amlodipine, metoprolol, Lasix, PRN hydralazine. 6. Recent pseudomonal pneumonia. completed levofloxacin. 6. DVT prophylaxis: We will continue patient home Eliquis regimen. 7. CODE status: DNRCCA, no intubation. 8. Severe protein calorie malnutrition: add supplements. Charges/Coding Visit Charges Inpatient E&M: 54990 Subs Hosp L2
[2023-10-12] MEDS: Budesonide Respules 0.5 MG/2 ML AMPUL.NEB. INHALATION (07:25)
[2023-10-12] MEDS: dilTIAZem CD 120 MG Capsule PO ×2 (08:18→21:26)
[2023-10-12] MEDS: Amiodarone 200 MG Tablet PO ×2 (08:18→21:24)
[2023-10-12] MEDS: levoFLOXacin 750 MG Tablet PO (08:22)
[2023-10-12] MEDS: Multivitamins,Therapeutic Tablet 1 TABLET PO (08:22)
[2023-10-12] MEDS: APIXABAN 5 MG TABLET PO ×2 (08:22→21:24)
[2023-10-12] MEDS: Furosemide 20 MG Tablet PO (08:22)
[2023-10-12] MEDS: Metoprolol(XL)Succ 100 MG Tablet PO ×2 (08:22→21:25)
[2023-10-12] MEDS: Potassium Chloride Oral Tablet 10 MEQ 20 MEQ PO (08:22)
--- NOTE | 2023-10-12 08:47 | NURSING ---
Pt admits to confusion this am, however is persistently argumentative and defensive against all education about current medical care. Educated this morning about the goal of controlling high heart rate and rhythm with multiple heart medications. Also educated about the importance of physical safety while on blood thinners as the pt relayed to this RN that eliquis is a new medication. For example, explained the severe and possibly fatal effects that can occur from a fall on eliquis, as the pt is persistently trying to ambulate himself as he does at home without assistance. Pt feels as though this RN is talking to pt like I'm an idiot and as though I haven't had these conditions for 10 years . Explained that staff is going to intervene and provide accurate information when a pt is relaying to us incorrect information about his medical care and is admittedly confused. Pt is also insisting that his I.S. is broken, so this nurse asked pt to use in order to assess the function. The I.S. worked properly, elevating to a volume of approx 1250 and the pt yelled see it is broken! Mine at home goes all the way to the top! Explained that breathing exercises will not demonstrate the same results when a pt is acutely sick with pneumonia and uncontrolled afib as he is. Pt continued to yell and dismiss this RNs teaching. Declined further needs. Will monitor. Bed exit on as well as camera.
--- NOTE | 2023-10-12 13:48 | CASEMGMT ---
Discharge Planning A list of SNF providers including quality and resource use data and consistent with the patient's preferred geographic region, medical needs, and insurance network was created in [facility] Guide.? This list was provided to the SW. Tracey Guerra Discharge Planning Asst.
--- NOTE | 2023-10-12 14:10 | PN.CARD_ITS ---
<Statement entered by Case Saavedra MD - 10/13/23 12:44> Pt seen & evaluated w/BRETT. I personally interviewed & exam the pt. I was involved in all aspects of pt's orders, interpretation of results & treatment Subjective Subjective Pt seen and examined. He feels is still SOB with exertion. HR slightly better. Has been in the 110's. Objective Data Vital Signs: Vital Signs Temp Pulse Resp BP Pulse Ox O2 Del Method O2 Flow Rate 98.1 F 115 H 18 117/93 H 93 Nasal Cannula 4 10/12/23 08:14 10/12/23 14:00 10/12/23 09:40 10/12/23 14:00 10/12/23 14:00 10/12/23 14:00 10/12/23 14:00 Oxygen Flow Rate (L/min) 4 Oxygen Delivery Method Nasal Cannula Weight: 150 lb 12.739 oz Body Mass Index (BMI) 24.3 Intake & Output: Intake and Output for Last 24 Hours 10/10/23 10/11/23 10/12/23 23:59 23:59 23:59 Intake Total 1065.00 / 1065.00 Output Total 395 / 395 900 / 900 Balance 670.00 / 670.00 -900 / -900 Lab / Micro Data 10/12/23 03:52 10/12/23 03:52 Labs: Laboratory Results - last 24 hr 10/12/23 03:52: WBC 13.8 H, RBC 4.14 L, Hgb 12.8 L, Hct 40.7, MCV 98.3 H, MCH 30.9, MCHC 31.4 L, RDW Std Deviation 48.2 H, RDW Coeff of Matt 13.4, Plt Count 204, MPV 11.8, Immature Gran % (Auto) 1.200 H, Neut % (Auto) 92.5 H, Lymph % (Auto) 3.9 L, [place] % (Auto) 2.2, Eos % (Auto) 0.0, Baso % (Auto) 0.2, Absolute Neuts (auto) 12.7 H, Absolute Lymphs (auto) 0.54 L, Nucleated RBC % 0, Differential Comment SCANNED, Sodium 147 H, Potassium 4.2, Chloride 110 H, Carbon Dioxide 32.0, Anion Gap 5, BUN 33 H, Creatinine 0.85, Estim Creat Clear Calc 58.38, Est GFR (MDRD) Af Amer 110, Est GFR (MDRD) Non-Af 91, BUN/Creatinine Ratio 38.7 H, Glucose 184 H, Calcium 7.9 L Rhythm Strip Rhythm Strip: A-fib Rate: 140 Ectopy: PVC(s) Cardiology Labs/Tests 10/12/23 03:52: WBC 13.8 H, RBC 4.14 L, Hgb 12.8 L, Hct 40.7, MCV 98.3 H, MCH 30.9, MCHC 31.4 L, Plt Count 204, MPV 11.8, Immature Gran % (Auto) 1.200 H, Neut % (Auto) 92.5 H, Lymph % (Auto) 3.9 L, [place] % (Auto) 2.2, Eos % (Auto) 0.0, Baso % (Auto) 0.2, Absolute Neuts (auto) 12.7 H, Nucleated RBC % 0, Sodium 147 H, Potassium 4.2, Chloride 110 H, Carbon Dioxide 32.0, Anion Gap 5, BUN 33 H, Creatinine 0.85, Est GFR (MDRD) Af Amer 110, Est GFR (MDRD) Non-Af 91, BUN/Creatinine Ratio 38.7 H, Glucose 184 H, Calcium 7.9 L Rhythm: Afib with RVR Physical Exam Const alert, oriented x3 and no apparent distress General Appearance: frail HEENT normocephalic, head/scalp atraumatic, external ears normal, external nose normal and moist oral mucous membranes General Ear: hearing grossly impaired Eyes PERRL, EOMs intact bilaterally, conjunctivae normal and no scleral icterus Neck no lymphadenopathy, supple and no JVD Resp normal respiratory effort Resp Narrative: Diminished with crackles, on O2 Cardio Rate: tachycardic Rhythm: abnormal rhythm irregularly irregular Heart Sounds: S1 normal and S2 normal; Negative for click, gallop or murmur GI normal to inspection, nondistended, normoactive bowel sounds, soft to palpation, non-tender and non-distended Extremity General Extremity: edema bilateral lower extremity (wearing rachele wraps) Neuro oriented x3, CN's II-XII intact bilaterally, moves all extremities and no focal motor deficits Psych cooperative and affect normal Assessment & Plan Assessment/Plan (1) Atrial fibrillation with RVR: (2) Essential (primary) hypertension: (3) Peripheral vertigo: PLAN: Plan * HR slightly better on Cardizem Oral, he is on amio taper and metoprolol. * With his lower Bp readings will start on amiodarone * He will continue with his Eliquis, lasix, potassium, Metoprolol. Will need to continue to monitor HR, may need to decrease rate limiting medications. This will likely be considered on an OP basis. * Vertigo is being followed by hospitalist. Charges/Coding Visit Charges Inpatient E&M: 21925 Subs Hosp L2
--- NOTE | 2023-10-12 15:53 | CASEMGMT ---
Addendum entered and electronically signed by Nata Reyna RN 10/12/23 16:26: Confirmed with Laura from [facility] that they can accept pt back for SN, PT/OT services. Pt will be new SOC as pt had not yet been seen prior to this readmission. THEODORA Batres Addendum entered and electronically signed by Nata Reyna RN 10/12/23 16:06: With pt's permission, this THEODORA CM contacted pt's niece Karol. Karol states she does visit pt daily and assists pt with IADLs including grocery shopping and housekeeping tasks. States pt uses the bathroom, kitchen and living room where he sleeps on the couch and does not go into the other rooms. Karol states she feels home health would be beneficial and also mentioned the need for pt to have assistance with bathing. Will convey this need to home health for possible [facility] availability. THEODORA Batres Original Note: THEODORA SOLIMAN Follow-up: This THEODORA CM met with pt at beside. Pt alert and agreeable to discussion. Pt states he continues to plan to return home at discharge with the resumption of [facility] services for SN, PT/OT and O2 from [facility]. Pt states he has the support of his niece and her spouse. Plan: Home w/[facility] SN, PT, OT; [facility] Home O2 (will need new script if O2 >2l/min) THEODORA Batres
[2023-10-12] MEDS: Ensure Plus High Protein 120 ML LIQUID PO (16:41)
--- NOTE | 2023-10-12 18:00 | CASEMGMT ---
Social Work Chart reviewed. Patient's 6 clicks score is a 12, as well as therapy notes from today indicating patient would benefit from continued skilled services. Met with patient in room, introducing self and social work role. Patient appeared hard of hearing, as evidenced by this va underwriter having to speak very loudly and close to the patient to have conversation. At first this va underwriter was concerned patient may be confused, as some of patient's responses were not quite accurate to what this va underwriter asked, however answers improved once patient could hear this va underwriter. Patient was alert and oriented to person, place, year, month, and date. Patient was aware that his 6 days until [place]. 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 Patient spontaneously discussed the passing of time, and the loss of multiple people in his family, as well as acknowledging that patient is aging and with increasing health issues this may be something he could be facing in the future. Patient discussed with the nieces and nephews last important to him in his life, and to know these family members care about the patient. Emotional support and supportive listening provided to the patient. Discussed with patient concern about need for increased therapy. Patient discussed that had been set up with [facility] home health care. Discussed having therapy every day at a care home facility prior to stepping back down to the home with home health care. This va underwriter read to the patient a care home facility choice list generated from care port, for patient's geographical region including [place] and quality data from Medicare. Patient reports would like to stay at [facility]. This va underwriter attempted to obtain a second choice, but patient stated I am screwed if [facility] TCU is unable to accept the patient. Patient unable to come up with another choice for SNF. This va underwriter left a list in room. Also reinforced to the patient that if accepted patient would move rooms and stay for therapy; not going home and coming back. Referral to Renata at [facility] TCU. Plan[facility]. -PAWEL Nielsen, COOLER TENDER
[2023-10-13] VITALS (14 sets, daily range): BP systolic 98–146; BP diastolic 48–88; PULSE 90–110; RESP 16–22; TEMP 36.1–36.6; O2SAT 85–96; BMI 23.9
--- NOTE | 2023-10-13 00:16 | NURSING ---
0015 multiple calls/ pt confused, innapropriate remarks. constantly getting oob without calling. bed alarm on. pt very sob. call light on reach, bed alarm on. attempts to redirect and reorient pt uncsuccessful.
--- NOTE | 2023-10-13 02:04 | NURSING ---
0150 pt continues to get oob, very anxious, yelling at staff, continues to hallucinate. pt moved via WC to rm 129 for closer observation and safety. bed exit on. call light on reach
[2023-10-13] MEDS: hydrOXYzine 50 MG/ML Vial IM ×2 (04:02→21:40)
[2023-10-13] MEDS: Budesonide Respules 0.5 MG/2 ML AMPUL.NEB. INHALATION ×2 (05:06→20:31)
[2023-10-13] MEDS: Albuterol 2.5 MG/3 ML VIAL.NEB. INHALATION ×2 (05:06→13:51)
[2023-10-13] MEDS: levoFLOXacin 750 MG Tablet PO (08:22)
[2023-10-13] MEDS: APIXABAN 5 MG TABLET PO ×2 (08:23→20:11)
[2023-10-13] MEDS: Multivitamins,Therapeutic Tablet 1 TABLET PO (08:23)
[2023-10-13] MEDS: Amiodarone 200 MG Tablet PO ×2 (08:23→20:10)
[2023-10-13] MEDS: dilTIAZem CD 120 MG Capsule PO ×2 (08:23→20:11)
[2023-10-13] MEDS: Furosemide 20 MG Tablet PO (08:24)
[2023-10-13] MEDS: Metoprolol(XL)Succ 100 MG Tablet PO ×2 (08:24→20:10)
[2023-10-13] MEDS: Potassium Chloride Oral Tablet 10 MEQ 20 MEQ PO (08:25)
[2023-10-13] MEDS: Ensure Plus High Protein 120 ML LIQUID PO ×2 (08:25→12:18)
--- NOTE | 2023-10-13 09:03 | PN.HOSP_ITS ---
Subjective Subjective Confusion. Objective Data Objective Data Vital Signs: Vital Signs Temp Pulse Resp BP Pulse Ox O2 Del Method O2 Flow Rate 36.6 C 105 H 16 109/65 95 Nasal Cannula 2 10/13/23 08:16 10/13/23 08:24 10/13/23 08:16 10/13/23 08:16 10/13/23 08:16 10/13/23 08:16 10/13/23 08:16 Oxygen Flow Rate (L/min) 2 Oxygen Delivery Method Nasal Cannula Weight: 67.2 kg Body Mass Index (BMI) 23.9 Intake & Output: Intake and Output for Last 24 Hours 10/11/23 10/12/23 10/13/23 23:59 23:59 23:59 Intake Total 1065.00 / 1065.00 360 / 480 120 / 120 Output Total 395 / 395 900 / 1300 400 / 400 Balance 670.00 / 670.00 -540 / -820 -280 / -280 Lab / Micro Data 10/12/23 03:52 10/12/23 03:52 Micro: Microbiology 10/11/23 00:40 Nasal Secretion SARS-CoV-2 Antigen (Rapid) - Final Rhythm Strip Rhythm Strip: A-fib Rate: 140 Ectopy: PVC(s) Physical Exam Const alert Constitutional Narrative: confused. Hallucinating thinking that his truck is in the hospital room. Knows that he is in [facility]. Resp normal respiratory effort, no retractions, no use of accessory muscles and clear to auscultation bilaterally Cardio regular rate, regular rhythm, S1 normal heart sound and S2 normal heart sound GI normal to inspection, nondistended, normoactive bowel sounds, soft to palpation, non-tender and non-distended Extremity normal to inspection Psych Mood & Affect: anxious Assessment & Plan Assessment/Plan (1) Atrial fibrillation with RVR: (2) Peripheral vertigo: PLAN: Plan Recurrent Episodes Paroxysmal atrial fibrillation w/ RVR: * Patient administered Cardizem bolus in ED with notable improvement. * 04/17/2023 echocardiogram with LVEF 65%, mild focal MV calcification, bileaflet noted to be in atrial fibrillation at that time. * 100 BID metoprolol succinate and amiodarone taper. * Cardiology consulted. Follow up with cards as outpt. 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 * IV methypred Solu-Medrol, BDs Delirium: * Patient has not drank in years so this not felt to be acute alcohol withdrawal. Concerned this could be metabolic. Check an ABG as well as ammonia level. vertigo, suspected BPPV: * Scheduled meclizine and if patient does clinically improve then will defer but if not would need to consider obtaining MRI of the brain, maintain on fall precautions, judicious hydration if necessary, as needed antiemetic regimen. If there is any concern that this is posterior stroke associated then would need to pursue further stroke workup. Adult failure to thrive, multifactorial: * PT/OT/case management consulted and may need to be considered for skilled placement as recently was discharged to home with home therapies Hypertension: Continue home regimen including amlodipine, metoprolol, Lasix, PRN hydralazine. Recent pseudomonal pneumonia. completed levofloxacin. DVT prophylaxis: We will continue patient home Eliquis regimen. Code status: DNRCCA, no intubation. Severe protein calorie malnutrition: add supplements. Disposition: plan for SNF. Charges/Coding Visit Charges Inpatient E&M: 66873 Subs Hosp L2
--- NOTE | 2023-10-13 10:27 | CASEMGMT ---
TCU can take patient at discharge. SW will notify patient. Kaitlynn CRUM
--- NOTE | 2023-10-13 11:56 | CASEMGMT ---
YESSICA went to patient's room as he had a visitor. YESSICA introduced self to family member. Family member was Luanne who is patient's niece. YESSICA explained discussion SW had with patient yesterday about TCU and patient being agreeable. SW let her know TCU will take patient. Luanne said Karol should be in later. YESSICA will also try and call Karol to update her. Kaitlynn Castillo PRESSURE CONTROL SUPERVISOR RADAMES
[2023-10-13] MEDS: 0.9% Saline Lock 10 ML Syringe IV (12:18)
[2023-10-13] MEDS: Meclizine HCl 25 MG Tablet 12.5 MG PO ×2 (12:19→20:12)
--- NOTE | 2023-10-13 13:38 | PN.CARD_ITS ---
<Statement entered by Case Saavedra MD - 10/13/23 16:02> Pt seen & evaluated w/BRETT. I personally interviewed & exam the pt. I was involved in all aspects of pt's orders, interpretation of results & treatment Subjective Subjective Pt seen and examined today. He does not have any CP. Breathing is baseline. Objective Data Vital Signs: Vital Signs Temp Pulse Resp BP Pulse Ox O2 Del Method O2 Flow Rate 97 F L 101 H 16 108/48 L 96 Nasal Cannula 5 10/13/23 10:40 10/13/23 10:40 10/13/23 10:40 10/13/23 10:40 10/13/23 10:40 10/13/23 10:40 10/13/23 10:40 Oxygen Flow Rate (L/min) 5 Oxygen Delivery Method Nasal Cannula Weight: 148 lb 2.41 oz Body Mass Index (BMI) 23.9 Intake & Output: Intake and Output for Last 24 Hours 10/11/23 10/12/23 10/13/23 23:59 23:59 23:59 Intake Total 1065.00 / 1065.00 360 / 480 120 / 120 Output Total 395 / 395 900 / 1300 400 / 400 Balance 670.00 / 670.00 -540 / -820 -280 / -280 Lab / Micro Data 10/12/23 03:52 10/12/23 03:52 Cardiology Labs/Tests Rhythm: Afib Physical Exam Const alert, oriented x3 and no apparent distress General Appearance: frail HEENT normocephalic, head/scalp atraumatic, external ears normal, external nose normal and moist oral mucous membranes General Ear: hearing grossly impaired Eyes PERRL, EOMs intact bilaterally, conjunctivae normal and no scleral icterus Neck no lymphadenopathy, supple and no JVD Resp normal respiratory effort Resp Narrative: Diminished with crackles, on O2 Cardio Rate: tachycardic Rhythm: abnormal rhythm irregularly irregular Heart Sounds: S1 normal and S2 normal; Negative for click, gallop or murmur GI normal to inspection, nondistended, normoactive bowel sounds, soft to palpation, non-tender and non-distended Extremity General Extremity: edema bilateral lower extremity (wearing rachele wraps) Neuro oriented x3, CN's II-XII intact bilaterally, moves all extremities and no focal motor deficits Psych cooperative and affect normal Assessment & Plan Assessment/Plan (1) Atrial fibrillation with RVR: (2) Essential (primary) hypertension: (3) Peripheral vertigo: PLAN: Plan * HR better controlled on Oral cardizem, amiodarone and metoprolol. * BP tolerating Cardizem * He will continue with his Eliquis * Will f/u on OP basis. Charges/Coding Visit Charges Inpatient E&M: 70164 Subs Hosp L2
--- NOTE | 2023-10-13 13:52 | CASEMGMT ---
YESSICA met with patient's niece Karol. YESSICA introduced self and role at [facility]. SW let Karol know that [facility]. YESSICA explained that yesterday the SW spoke with patient and he was agreeable to go to [facility] TCU for short term rehab. YESSICA told Karol that TCU did accept patient. Patient is currently confused. Karol said patient does not drink alcohol anymore, it has been about 5 yrs. Per Karol patient is sharp and handles all of his own affairs. Karol has never seen patient like this. Kaitlynn Castillo SLICE PLUG CUTTER OPERATOR RADAMES
[2023-10-13 15:22] LABS: Allen Test Positive; Base Excess 7 mmol/L (-2 to +2); Bicarbonate 30.4 mmol/L (22-26); Blood Gas Specimen Type ART; Mode Not entered; O2 Delivery Device Cannula; PO2 57 mmHG (75-100); SITE R Radial; SO2 91 % (95-99); Total Carbon Dioxide 32 mmol/L; pCO2 40.5 mmHg (35-45); pH 7.48 (7.35-7.45)
[2023-10-13] MEDS: Acetaminophen 325 MG Tablet 650 MG PO (17:46)
[2023-10-13] MEDS: QUEtiapine 25 MG Tablet PO (20:17)
[2023-10-14] VITALS (15 sets, daily range): BP systolic 102–121; BP diastolic 48–78; PULSE 91–134; RESP 16–26; TEMP 35.6–36.8; O2SAT 88–99; BMI 24.3
[2023-10-14] MEDS: Ziprasidone IM 20 MG/ML VIAL 10 MG IM (00:24)
[2023-10-14] MEDS: LORazepam 2 MG/ML Syringe IV (06:15)
--- NOTE | 2023-10-14 06:27 | NURSING ---
Patient has been aggressive towards staff. Patient has screamed profanity and hit staff. Patient non compliant with any treatments, continuing to remove equipment. Notified Dr. Proctor and have received orders to adjust medications. Last ciwa score was 26, administered PRN ativan IV as patient is unable to tolerate PO meds at this time.
[2023-10-14] MEDS: Budesonide Respules 0.5 MG/2 ML AMPUL.NEB. INHALATION ×2 (06:50→20:32)
--- NOTE | 2023-10-14 08:55 | PN.HOSP_ITS ---
Subjective Subjective Delirium overnight where he required ziprasidone and started on lorazepam for suspected alcohol withdrawal. Patient additionally did receive the scheduled dose of quetiapine that I had ordered yesterday. Today, the patient is not responsive to verbal stimuli. Objective Data Objective Data Vital Signs: Vital Signs Temp Pulse Resp BP Pulse Ox O2 Del Method O2 Flow Rate 36.6 C 94 26 H 121/73 H 91 Venturi Mask 7 10/14/23 06:12 10/14/23 06:50 10/14/23 06:50 10/14/23 06:12 10/14/23 06:56 10/14/23 06:56 10/14/23 05:21 FiO2 35 10/14/23 06:56 Oxygen Flow Rate (L/min) 7 Oxygen Delivery Method Venturi Mask Weight: 68.4 kg Body Mass Index (BMI) 24.3 Intake & Output: Intake and Output for Last 24 Hours 10/12/23 10/13/23 10/14/23 23:59 23:59 23:59 Intake Total 360 / 480 120 / 360 480 / 480 Output Total 900 / 1300 400 / 400 Balance -540 / -820 -280 / -40 480 / 480 Lab / Micro Data 10/14/23 09:40 10/14/23 09:40 Labs: Laboratory Results - last 24 hr 10/13/23 15:10: Ammonia 37.0 H Micro: Microbiology 10/11/23 00:40 Nasal Secretion SARS-CoV-2 Antigen (Rapid) - Final ABG Data ABG results: ABG 10/13/23 15:19 Specimen Type ART Sample Site R Radial pH 7.48 H Bicarbonate Actual 30.4 H Total CO2 32 Base Excess 7 H O2 Saturation 91 L O2 % 5.0 ABG pCO2 40.5 ABG pO2 57 L Sameer Test Positive O2 Delivery Device Cannula Vent Mode Not entered Rhythm Strip Rhythm Strip: A-fib Rate: 140 Ectopy: PVC(s) Physical Exam Const Constitutional Narrative: Confused. Does not open his eyes, does not respond to verbal or tactile stimulation. Resp normal respiratory effort and no retractions Resp Narrative: Coarse breath sounds bilaterally Cardio regular rate, regular rhythm, S1 normal heart sound and S2 normal heart sound GI normal to inspection, nondistended, normoactive bowel sounds, soft to palpation, non-tender and non-distended Extremity normal to inspection Assessment & Plan Assessment/Plan (1) Atrial fibrillation with RVR: (2) Peripheral vertigo: PLAN: Plan Recurrent Episodes Paroxysmal atrial fibrillation w/ RVR: * Patient administered Cardizem bolus in ED with notable improvement. * 04/17/2023 echocardiogram with LVEF 65%, mild focal MV calcification, bileaflet noted to be in atrial fibrillation at that time. * 100 BID metoprolol succinate and amiodarone taper. * Cardiology consulted. Follow up with cards as outpt. 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 * IV methypred Solu-Medrol, BDs Delirium: * Patient has not drank in years so this not felt to be acute alcohol withdr awal. Concerned this could be metabolic. * ABG showed pH7.48, pCO2 40.5, pO2 57. * Worse today after receiving ziprasidone as well as Ativan. I have discontinued the Ativan as I do not feel the patient is going through alcohol withdrawal. His delirium is most likely not due to alcohol withdrawal as patient and family have both been consistent with same the patient has not drank in several years. Cannot rule out hospital-acquired psychosis. Will hold off on additional agents at this time * I suspect patient has underlying dementia or mild cognitive impairment. Head CT from the showed no acute process at that time. I feel there is low utility for repeating a head CT at this time. Patient likely benefit from geriatrics evaluation as outpatient. * TSH was normal in . Check B12 and folate. vertigo, suspected BPPV: * Scheduled meclizine and if patient does clinically improve then will defer but if not would need to consider obtaining MRI of the brain, maintain on fall precautions, judicious hydration if necessary, as needed antiemetic regimen. If there is any concern that this is posterior stroke associated then would need to pursue further stroke workup. Adult failure to thrive, multifactorial: * PT/OT/case management consulted and may need to be considered for skilled placement as recently was discharged to home with home therapies Chronic conditions: * Hypertension: Continue home regimen including amlodipine, metoprolol, Lasix, PRN hydralazine. * Recent pseudomonal pneumonia. completed levofloxacin. * Severe protein calorie malnutrition: add supplements. DVT prophylaxis: We will continue patient home Eliquis regimen. Code status: DNRCCA, no intubation. Disposition: plan for SNF when medically stable Charges/Coding Visit Charges Inpatient E&M: 09920 Subs Hosp L2
[2023-10-14 10:05] LABS: Absolute Lymphocyte Count 0.78 X10^3/uL (0.83-4.51); Absolute Neutrophil Count 14.3 X10^3/uL (2.0-7.7); Basophil# 0.02 X10^3/uL; Basophil% 0.1 % (0-1); Hematocrit 41.4 % (40-54); Hemoglobin 13.7 g/dL (13.0-16.5); Lymphocyte # 0.78 X10^3/ul (0.83-4.51); Mean Corp Hgb Conc 33.1 g/dL (32-36); Mean Corpuscular Hgb 32.1 pg (27.0-32.0); Mean Platelet Vol. 11.8 fl (6.2-12.0); Monocyte# 0.47 X10^3/uL; NRBC Flagged by Analyzer 0 % (0-5); Neutrophil # 14.29 X10^3/uL (2.7-7.7); Neutrophil % 91.3 % (47-70); Platelet Count 169 K/mm3 (150-450); RBC Distribution Width CV 13.4 % (11.6-14.6); Red Blood Count 4.27 M/mm3 (4.6-6.2); White Blood Count 15.7 K/mm3 (4.4-11.0)
[2023-10-14 10:45] LABS: Anion Gap 7 (5-15); BUN 39 mg/dL (7-18); BUN/Creat Ratio 48.2 RATIO (10-20); Calcium,Total 8.5 mg/dL (8.5-10.1); Chloride 111 mmol/L (98-107); Creatinine, Serum 0.81 mg/dL (0.70-1.30); EST Glomerular Filtration Rate 97 mL/min (>60); Est Glom Filt Rate - Afr Amer 117 mL/min (>60); Estimated Creatinine Clearance 61.26 ml/min; Glucose 140 mg/dL (74-106); Sodium Level 144 mmol/L (136-145)
[2023-10-14] MEDS: 0.9% Saline Lock 10 ML Syringe IV ×2 (14:07→20:55)
--- NOTE | 2023-10-14 14:39 | CHAPLAIN ---
Type of Pastoral Visit _x__ Initial Visit ___ Follow-up Visit ___ On-call Visit ___ General Patient Visit ___ Spiritual Assessment ___ Family Conference ___ Bereavement ___ Rapid Response ___ Code Blue ___ Other (describe below) Pastoral Care Referral From ___ Patient _x__ Family ___ Nurse ___ Physician ___ Assistant Production Editor ___ Electronics Hardware Design Engineer ___ Other (describe below) Sacrament/Intervention _x__ Active listening ___ Anointing ___ Taoism ___ Bereavement ___ Communion ___ Ana exploration ___ _x__ Life review _x__ Prayer ___ Reconciliation ___ Sacrament of Sick _x__ Supportive presence ___ Wedding ___ Other (describe below) Pastoral Comments at the request of the niece of the patient, the supervisor color paste mixing was called to give support, offer prayers, and give presence; pt was not responsive at this time and was experiencing tremors and labored breathing; the niece described herself as having life long relationship with her uncle and making daily visits to his home; the niece states that this condition is not normal for the patient and she is concerned for his life; niece wishes for this supervisor color paste mixing to offer prayers and then to also contact the telephone switchboard operator for the Anointing of the Sick; niece is concerned about how to fulfill financial responsibilities of the pt who may not be able to handle his own affairs at this time; niece states she is the POA; niece is referred to the who can handle such questions; after prayers, supportive listening and affirmation shown to niece the call to [place] for anointing by the telephone switchboard operator was made and completed
[2023-10-14] MEDS: Albuterol 2.5 MG/3 ML VIAL.NEB. INHALATION (20:32)
[2023-10-14] MEDS: dilTIAZem CD 120 MG Capsule PO (20:54)
[2023-10-14] MEDS: Amiodarone 200 MG Tablet PO (20:54)
[2023-10-14] MEDS: APIXABAN 5 MG TABLET PO (20:54)
[2023-10-14] MEDS: Metoprolol(XL)Succ 100 MG Tablet PO (20:54)
[2023-10-14] MEDS: Meclizine HCl 25 MG Tablet 12.5 MG PO (20:54)
[2023-10-15] VITALS (12 sets, daily range): BP systolic 110–136; BP diastolic 61–80; PULSE 88–120; RESP 16–20; TEMP 36.1–36.6; O2SAT 92–94; BMI 24.3
[2023-10-15] MEDS: 0.9% Saline Lock 10 ML Syringe IV ×3 (04:57→20:57)
[2023-10-15] MEDS: Budesonide Respules 0.5 MG/2 ML AMPUL.NEB. INHALATION (07:11)
--- NOTE | 2023-10-15 09:00 | PN.HOSP_ITS ---
Subjective Subjective Still confused but more alert and interactive. Objective Data Objective Data Vital Signs: Vital Signs Temp Pulse Resp BP Pulse Ox O2 Del Method O2 Flow Rate 36.3 C L 112 H 16 122/69 H 93 Nasal Cannula 4 10/15/23 08:45 10/15/23 08:45 10/15/23 08:45 10/15/23 08:45 10/15/23 08:45 10/15/23 08:50 10/15/23 08:45 FiO2 35 10/14/23 13:55 Oxygen Flow Rate (L/min) 4 Oxygen Delivery Method Nasal Cannula Weight: 68.4 kg Body Mass Index (BMI) 24.3 Intake & Output: Intake and Output for Last 24 Hours 10/13/23 10/14/23 10/15/23 23:59 23:59 23:59 Intake Total 120 / 360 480 / 480 Output Total 400 / 400 200 / 200 Balance -280 / -40 280 / 280 Lab / Micro Data 10/14/23 09:40 10/14/23 09:40 Labs: Laboratory Results - last 24 hr 10/14/23 09:40: WBC 15.7 H, RBC 4.27 L, Hgb 13.7, Hct 41.4, MCV 97.0 H, MCH 32.1 H, MCHC 33.1 D, RDW Std Deviation 48.0 H, RDW Coeff of Matt 13.4, Plt Count 169, MPV 11.8, Immature Gran % (Auto) 0.600, Neut % (Auto) 91.3 H, Lymph % (Auto) 5.0 L, [place] % (Auto) 3.0, Eos % (Auto) 0.0, Baso % (Auto) 0.1, Absolute Neuts (auto) 14.3 H, Absolute Lymphs (auto) 0.78 L, Nucleated RBC % 0, Sodium 144, Potassium 5.0, Chloride 111 H, Carbon Dioxide 26.0, Anion Gap 7, BUN 39 H, Creatinine 0.81, Estim Creat Clear Calc 61.26, Est GFR (MDRD) Af Amer 117, Est GFR (MDRD) Non-Af 97, BUN/Creatinine Ratio 48.2 H, Glucose 140 H, Calcium 8.5 Micro: Microbiology 10/11/23 00:40 Nasal Secretion SARS-CoV-2 Antigen (Rapid) - Final Rhythm Strip Rhythm Strip: A-fib Rate: 140 Ectopy: PVC(s) Physical Exam Const Constitutional Narrative: Disheveled. Afebrile. Resp normal respiratory effort, no retractions, no use of accessory muscles and clear to auscultation bilaterally Cardio regular rate, regular rhythm, S1 normal heart sound and S2 normal heart sound GI normal to inspection, nondistended, normoactive bowel sounds, soft to palpation, non-tender, non-distended and hepatosplenomegaly Extremity normal to inspection Neuro Sensorium / Orientation: awake and alert Assessment & Plan Assessment/Plan (1) Atrial fibrillation with RVR: (2) Peripheral vertigo: PLAN: Plan Recurrent Episodes Paroxysmal atrial fibrillation w/ RVR: * Patient administered Cardizem bolus in ED with notable improvement. * 04/17/2023 echocardiogram with LVEF 65%, mild focal MV calcification, bileaflet noted to be in atrial fibrillation at that time. * 100 BID metoprolol succinate and amiodarone taper. * Cardiology consulted. Follow up with cards as outpt. * anticoagulation w apixaban Recent acute on chronic COPD exacerbation with chronic hypoxic respiratory f ailure * exacerbated by RSV and pseudomonal pneumonia. * IV methypred Solu-Medrol, BDs Delirium: * Patient has not drank in years so this not felt to be acute alcohol withdrawal. Concerned this could be metabolic. * ABG showed pH7.48, pCO2 40.5, pO2 57. * Worse today after receiving ziprasidone as well as Ativan. I have discontinued the Ativan as I do not feel the patient is going through alcohol withdrawal. His delirium is most likely not due to alcohol withdrawal as patient and family have both been consistent with same the patient has not drank in several years. Cannot rule out hospital-acquired psychosis. Will hold off on additional agents at this time * I suspect patient has underlying dementia or mild cognitive impairment. Head CT from the showed no acute process at that time. I feel there is low utility for repeating a head CT at this time. Patient likely benefit from geriatrics evaluation as outpatient. * TSH was normal in . Check B12 and folate. vertigo, suspected BPPV: * Scheduled meclizine and if patient does clinically improve then will defer but if not would need to consider obtaining MRI of the brain, maintain on fall precautions, judicious hydration if necessary, as needed antiemetic regimen. If there is any concern that this is posterior stroke associated then would need to pursue further stroke workup. Adult failure to thrive, multifactorial: * PT/OT/case management consulted and may need to be considered for skilled placement as recently was discharged to home with home therapies Chronic conditions: * Hypertension: Continue home regimen including amlodipine, metoprolol, Lasix, PRN hydralazine. * Recent pseudomonal pneumonia. completed levofloxacin. * Severe protein calorie malnutrition: add supplements. DVT prophylaxis: We will continue patient home Eliquis regimen. Code status: DNRCCA, no intubation. Disposition: To SNF. Patient was declined by the TCU because of his delirium. Discussed with the patient's niece at bedside. Discussed the delirium with her and the concern I have for underlying dementia. Recommended following up with geriatrics to have formal dementia testing. Charges/Coding Visit Charges Inpatient E&M: 20104 Subs Hosp L2
[2023-10-15] MEDS: Multivitamins,Therapeutic Tablet 1 TABLET PO (09:03)
[2023-10-15] MEDS: dilTIAZem CD 120 MG Capsule PO ×2 (09:03→20:51)
[2023-10-15] MEDS: Ensure Plus High Protein 120 ML LIQUID PO ×3 (09:03→17:01)
[2023-10-15] MEDS: APIXABAN 5 MG TABLET PO ×2 (09:04→20:50)
[2023-10-15] MEDS: Potassium Chloride Oral Tablet 10 MEQ 20 MEQ PO (09:04)
[2023-10-15] MEDS: Amiodarone 200 MG Tablet PO ×2 (09:04→20:51)
[2023-10-15] MEDS: Furosemide 20 MG Tablet PO (09:04)
[2023-10-15] MEDS: Metoprolol(XL)Succ 100 MG Tablet PO ×2 (09:05→20:52)
--- NOTE | 2023-10-15 10:03 | CASEMGMT ---
Addendum entered by Kaitlynn Castillo 10/15/23 11:13: TCU is not willing to take patient due to patient's aggressiveness and hitting staff. SW will talk with patient and/or his niece to discuss a plan. Kaitlynn CRUM Original Note: TCU would prefer to hold off on taking patient right now due to patient's agitation. SW notified physician. Kaitlynn CRUM
--- NOTE | 2023-10-15 13:23 | CASEMGMT ---
Patient is more alert today. YESSICA called patient's niece Karol. YESSICA explained that TCU is unable to accept patient due to his aggressiveness. Karol said he can't go home. YESSICA agreed and let her know there are other options. Karol said she would be at [facility] in about an hour. YESSICA told Karol YESSICA can meet with them once they get here and a plan can be discussed. Kaitlynn Castillo [employer]
--- NOTE | 2023-10-15 14:34 | CASEMGMT ---
Addendum entered by Kaitlynn Castillo 10/15/23 15:23: Patient's niece asked SW to also send a referral to [facility]. SW asked Tracey to send the referral. Kaitlynn CRUM Original Note: Patient's niece Karol arrived at [facility]. SW spoke with Karol about other SNF choices. Karol was in agreement with SW sending referrals to all of the [place] facilities. SW asked Tracey to send referrals to [facility], [facility], and [facility]. Kaitlynn CRUM
--- NOTE | 2023-10-15 15:09 | CASEMGMT ---
Discharge Planning Referral sent via [facility] to [facility], [facility], [facility], and [facility]. Tracey Guerra, Discharge Planning Asst.
[2023-10-15] MEDS: Meclizine HCl 25 MG Tablet 12.5 MG PO ×2 (15:26→20:49)
--- NOTE | 2023-10-15 16:13 | CASEMGMT ---
[facility] accepted patient as did [facility]. SW called patient's niece Karol and let her know. Karol said she would like [facility]. SW asked [facility] to start the pre-cert. SW also notified the other facilities that patient chose another facility. [facility] pending pre-cert. Kaitlynn CRUM
[2023-10-15] MEDS: MELATONIN 3 MG TABLET PO (20:53)
[2023-10-16] VITALS (14 sets, daily range): BP systolic 111–136; BP diastolic 57–77; PULSE 89–111; RESP 14–22; TEMP 36.2–36.8; O2SAT 80–97; BMI 22.5
[2023-10-16] MEDS: 0.9% Saline Lock 10 ML Syringe IV ×3 (05:24→22:12)
--- NOTE | 2023-10-16 06:13 | NURSING ---
Discussed meclizine with dr reyes. P is not having dizziness at this time and given his mental status impairment this stay asked if it could be changed to prn. agreed and stated to also have the nurse in the am mention it to the morning doctor to see if that could be the reason for his mental status changes.
--- NOTE | 2023-10-16 08:15 | PN.HOSP_ITS ---
Reason for Visit Reason for Visit: Diagnoses Other peripheral vertigo, unspecified ear (10/11/23) Essential (primary) hypertension (10/11/23) Unspecified atrial fibrillation (10/11/23) Objective Data Objective Data Vital Signs: Vital Signs Temp Pulse Resp BP Pulse Ox O2 Del Method O2 Flow Rate 36.2 C L 93 14 125/77 H 96 Nasal Cannula 4 10/16/23 03:00 10/16/23 03:00 10/16/23 03:00 10/16/23 03:00 10/16/23 03:00 10/16/23 06:39 10/16/23 06:39 FiO2 35 10/14/23 13:55 Oxygen Flow Rate (L/min) 4 Oxygen Delivery Method Nasal Cannula Weight: 63.4 kg Body Mass Index (BMI) 22.5 Intake & Output: Intake and Output for Last 24 Hours 10/14/23 10/15/23 10/16/23 23:59 23:59 23:59 Intake Total 480 / 480 360 / 360 Output Total 200 / 200 1050 / 1500 650 / 650 Balance 280 / 280 -1050 / -1260 -290 / -290 Lab / Micro Data 10/14/23 09:40 10/14/23 09:40 Micro: Microbiology 10/11/23 00:40 Nasal Secretion SARS-CoV-2 Antigen (Rapid) - Final Rhythm Strip Rhythm Strip: A-fib Rate: 140 Ectopy: PVC(s) Assessment & Plan Assessment/Plan (1) Atrial fibrillation with RVR: (2) Peripheral vertigo: PLAN: Plan Recurrent Episodes Paroxysmal atrial fibrillation w/ RVR: * Patient administered Cardizem bolus in ED with notable improvement. * 04/17/2023 echocardiogram with LVEF 65%, mild focal MV calcification, bileaflet noted to be in atrial fibrillation at that time. * 100 BID metoprolol succinate and amiodarone taper. * Cardiology consulted. Follow up with cards as outpt. 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 * IV methypred Solu-Medrol, BDs Delirium: * Patient has not drank in years so this not felt to be acute alcohol withdrawal. Concerned this could be metabolic. * ABG showed pH7.48, pCO2 40.5, pO2 57. * Worse today after receiving ziprasidone as well as Ativan. I have discontinue d the Ativan as I do not feel the patient is going through alcohol withdrawal. His delirium is most likely not due to alcohol withdrawal as patient and family have both been consistent with same the patient has not drank in several years. Cannot rule out hospital-acquired psychosis. Will hold off on additional agents at this time * I suspect patient has underlying dementia or mild cognitive impairment. Head CT from the showed no acute process at that time. I feel there is low utility for repeating a head CT at this time. Patient likely benefit from geriatrics evaluation as outpatient. * TSH was normal in . Check B12 and folate. * 10/16: Patient alert and oriented x 3. Patient very cantankerous and pushing on his bedside table while food is on that. Delirium overall improved. Patient appears to be back to his baseline. Will add Seroquel nightly. vertigo, suspected BPPV: * Scheduled meclizine and if patient does clinically improve then will defer but if not would need to consider obtaining MRI of the brain, maintain on fall precautions, judicious hydration if necessary, as needed antiemetic regimen. If there is any concern that this is posterior stroke associated then would need to pursue further stroke workup. Adult failure to thrive, multifactorial: * PT/OT/case management consulted and may need to be considered for skilled placement as recently was discharged to home with home therapies Chronic conditions: * Hypertension: Continue home regimen including amlodipine, metoprolol, Lasix, PRN hydralazine. * Recent pseudomonal pneumonia. completed levofloxacin. * Severe protein calorie malnutrition: add supplements. DVT prophylaxis: We will continue patient home Eliquis regimen. Code status: DNRCCA, no intubation. Disposition: To SNF. Patient was declined by the TCU because of his delirium. Charges/Coding Visit Charges Inpatient E&M: 27990 Subs Hosp L2
[2023-10-16] MEDS: APIXABAN 5 MG TABLET PO ×2 (09:03→22:12)
[2023-10-16] MEDS: Furosemide 20 MG Tablet PO (09:03)
[2023-10-16] MEDS: Ensure Plus High Protein 120 ML LIQUID PO ×2 (09:03→16:55)
[2023-10-16] MEDS: Metoprolol(XL)Succ 100 MG Tablet PO ×2 (09:03→22:12)
[2023-10-16] MEDS: Amiodarone 200 MG Tablet PO ×2 (09:03→22:12)
[2023-10-16] MEDS: Potassium Chloride Oral Tablet 10 MEQ 20 MEQ PO (09:04)
[2023-10-16] MEDS: Multivitamins,Therapeutic Tablet 1 TABLET PO (09:04)
[2023-10-16] MEDS: dilTIAZem CD 120 MG Capsule PO ×2 (09:04→22:12)
[2023-10-16] MEDS: Budesonide Respules 0.5 MG/2 ML AMPUL.NEB. INHALATION (18:36)
[2023-10-16] MEDS: QUEtiapine 25 MG Tablet PO (22:12)
[2023-10-17] VITALS (10 sets, daily range): BP systolic 113–121; BP diastolic 63–74; PULSE 88–102; RESP 18; TEMP 36.4–36.8; O2SAT 90–98; BMI 23.7
[2023-10-17] MEDS: 0.9% Saline Lock 10 ML Syringe IV ×2 (06:16→20:55)
--- NOTE | 2023-10-17 07:54 | PN.HOSP_ITS ---
Reason for Visit Reason for Visit: Diagnoses Other peripheral vertigo, unspecified ear (10/11/23) Essential (primary) hypertension (10/11/23) Unspecified atrial fibrillation (10/11/23) Subjective Subjective Breathing well. Anxious to go to rehab. Objective Data Objective Data Vital Signs: Vital Signs Temp Pulse Resp BP Pulse Ox O2 Del Method O2 Flow Rate 36.8 C 95 18 120/74 95 High Flow 8 10/17/23 03:30 10/17/23 03:30 10/17/23 03:30 10/17/23 03:30 10/17/23 03:30 10/17/23 03:45 10/17/23 03:45 FiO2 35 10/14/23 13:55 Oxygen Flow Rate (L/min) 8 Oxygen Delivery Method High Flow Weight: 66.6 kg Body Mass Index (BMI) 23.7 Intake & Output: Intake and Output for Last 24 Hours 10/15/23 10/16/23 10/17/23 23:59 23:59 23:59 Intake Total 960 / 960 Output Total 1050 / 1500 800 / 950 200 / 200 Balance -1050 / -1260 160 / 10 -200 / -200 Lab / Micro Data 10/14/23 09:40 10/14/23 09:40 Labs: Laboratory Results - last 24 hr 10/11/23 16:20: Amiodarone < 100 L Micro: Microbiology 10/11/23 00:40 Nasal Secretion SARS-CoV-2 Antigen (Rapid) - Final Rhythm Strip Rhythm Strip: A-fib Rate: 140 Ectopy: PVC(s) Physical Exam Const alert and no apparent distress HEENT head/scalp atraumatic and moist oral mucous membranes Resp normal respiratory effort, no retractions, no use of accessory muscles and clear to auscultation bilaterally Cardio regular rate, regular rhythm, S1 normal heart sound and S2 normal heart sound GI normal to inspection, nondistended, normoactive bowel sounds, soft to palpation, non-tender and non-distended Neuro Sensorium / Orientation: awake and alert Assessment & Plan Assessment/Plan (1) Atrial fibrillation with RVR: (2) Peripheral vertigo: PLAN: Plan Recurrent Episodes Paroxysmal atrial fibrillation w/ RVR: * Patient administered Cardizem bolus in ED with notable improvement. * 04/17/2023 echocardiogram with LVEF 65%, mild focal MV calcification, bileaflet noted to be in atrial fibrillation at that time. * 100 BID metoprolol succinate and amiodarone taper. * Cardiology consulted. Follow up with cards as outpt. 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 * IV methypred Solu-Medrol, BDs Delirium: * Patient has not drank in years so this not felt to be acute alcohol with drawal. Concerned this could be metabolic. * ABG showed pH7.48, pCO2 40.5, pO2 57. * Worse today after receiving ziprasidone as well as Ativan. I have discontinued the Ativan as I do not feel the patient is going through alcohol withdrawal. His delirium is most likely not due to alcohol withdrawal as patient and family have both been consistent with same the patient has not drank in several years. Cannot rule out hospital-acquired psychosis. Will hold off on additional agents at this time * I suspect patient has underlying dementia or mild cognitive impairment. Head CT from the showed no acute process at that time. I feel there is low utility for repeating a head CT at this time. Patient likely benefit from geriatrics evaluation as outpatient. * TSH was normal in . Check B12 and folate. * 10/16: Patient alert and oriented x 3. Patient very cantankerous and pushing on his bedside table while food is on that. Delirium overall improved. Patient appears to be back to his baseline. Will add Seroquel nightly. vertigo, suspected BPPV: * Scheduled meclizine and if patient does clinically improve then will defer but if not would need to consider obtaining MRI of the brain, maintain on fall precautions, judicious hydration if necessary, as needed antiemetic regimen. If there is any concern that this is posterior stroke associated then would need to pursue further stroke workup. Adult failure to thrive, multifactorial: * PT/OT/case management consulted and may need to be considered for skilled placement as recently was discharged to home with home therapies Chronic conditions: * Hypertension: Continue home regimen including amlodipine, metoprolol, Lasix, PRN hydralazine. * Recent pseudomonal pneumonia. completed levofloxacin. * Severe protein calorie malnutrition: add supplements. DVT prophylaxis: We will continue patient home Eliquis regimen. Code status: DNRCCA, no intubation. Disposition: To SNF. Patient was declined by the TCU because of his delirium. Charges/Coding Visit Charges Inpatient E&M: 07287 Subs Hosp L2
[2023-10-17] MEDS: Multivitamins,Therapeutic Tablet 1 TABLET PO (10:34)
[2023-10-17] MEDS: Ensure Plus High Protein 120 ML LIQUID PO (10:34)
[2023-10-17] MEDS: APIXABAN 5 MG TABLET PO ×2 (10:34→20:50)
[2023-10-17] MEDS: Metoprolol(XL)Succ 100 MG Tablet PO ×2 (10:35→20:50)
[2023-10-17] MEDS: dilTIAZem CD 120 MG Capsule PO ×2 (10:35→20:52)
[2023-10-17] MEDS: Amiodarone 200 MG Tablet PO ×2 (10:35→20:51)
[2023-10-17] MEDS: Potassium Chloride Oral Tablet 10 MEQ 20 MEQ PO (10:35)
[2023-10-17] MEDS: Furosemide 20 MG Tablet PO (10:35)
[2023-10-17] MEDS: Budesonide Respules 0.5 MG/2 ML AMPUL.NEB. INHALATION (19:33)
[2023-10-17] MEDS: Albuterol 2.5 MG/3 ML VIAL.NEB. INHALATION (19:33)
[2023-10-17] MEDS: QUEtiapine 25 MG Tablet PO (20:53)
[2023-10-18] VITALS (13 sets, daily range): BP systolic 103–112; BP diastolic 58–80; PULSE 86–107; RESP 18–24; TEMP 36.3–36.8; O2SAT 90–95; BMI 23.8
[2023-10-18] MEDS: 0.9% Saline Lock 10 ML Syringe IV ×2 (05:17→15:03)
[2023-10-18] MEDS: Albuterol 2.5 MG/3 ML VIAL.NEB. INHALATION ×4 (05:36→18:51)
[2023-10-18] MEDS: Budesonide Respules 0.5 MG/2 ML AMPUL.NEB. INHALATION ×2 (05:36→18:51)
--- NOTE | 2023-10-18 07:49 | PN.HOSP_ITS ---
Reason for Visit Reason for Visit: Diagnoses Other peripheral vertigo, unspecified ear (10/11/23) Essential (primary) hypertension (10/11/23) Unspecified atrial fibrillation (10/11/23) Subjective Subjective increased oxygen. Feels more short of breath. Objective Data Objective Data Vital Signs: Vital Signs Temp Pulse Resp BP Pulse Ox O2 Del Method O2 Flow Rate 36.3 C L 104 H 20 H 110/80 90 High Flow 8 10/18/23 03:22 10/18/23 05:36 10/18/23 05:36 10/18/23 03:22 10/18/23 05:45 10/18/23 05:45 10/18/23 05:45 FiO2 35 10/14/23 13:55 Oxygen Flow Rate (L/min) 8 Oxygen Delivery Method High Flow Weight: 66.8 kg Body Mass Index (BMI) 23.8 Intake & Output: Intake and Output for Last 24 Hours 10/16/23 10/17/23 10/18/23 23:59 23:59 23:59 Intake Total 960 / 960 1000 / 1120 420 / 420 Output Total 800 / 950 700 / 1500 1040 / 1040 Balance 160 / 10 300 / -380 -620 / -620 Lab / Micro Data 10/14/23 09:40 10/14/23 09:40 Micro: Microbiology 10/11/23 00:40 Nasal Secretion SARS-CoV-2 Antigen (Rapid) - Final Rhythm Strip Rhythm Strip: A-fib Rate: 140 Ectopy: PVC(s) Physical Exam Const alert and no apparent distress Resp normal respiratory effort and no retractions Resp Narrative: diminished BS bilaterally. Cardio regular rate, regular rhythm, S1 normal heart sound and S2 normal heart sound Neuro Sensorium / Orientation: awake and alert Assessment & Plan Assessment/Plan (1) Atrial fibrillation with RVR: (2) Peripheral vertigo: PLAN: Plan Recurrent Episodes Paroxysmal atrial fibrillation w/ RVR: * Patient administered Cardizem bolus in ED with notable improvement. * 04/17/2023 echocardiogram with LVEF 65%, mild focal MV calcification, bileaflet noted to be in atrial fibrillation at that time. * 100 BID metoprolol succinate and amiodarone taper. * Cardiology consulted. Follow up with cards as outpt. 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 * IV methypred Solu-Medrol, BDs * 10/18: oxygen requirements have gone up. Repeat CXR showed no acute process. Continue IV methylpred, BDs. Furosemide challenge. Delirium: * Patient has not drank in years so this not felt to be acute alcohol withdrawal. Concerned this could be metabolic. * ABG showed pH7.48, pCO2 40.5, pO2 57. * Worse today after receiving ziprasidone as well as Ativan. I have discontinued the Ativan as I do not feel the patient is going through alcohol withdrawal. His delirium is most likely not due to alcohol withdrawal as pat ient and family have both been consistent with same the patient has not drank in several years. Cannot rule out hospital-acquired psychosis. Will hold off on additional agents at this time * I suspect patient has underlying dementia or mild cognitive impairment. Head CT from the showed no acute process at that time. I feel there is low utility for repeating a head CT at this time. Patient likely benefit from geriatrics evaluation as outpatient. * TSH was normal in . Check B12 and folate. * 10/16: Patient alert and oriented x 3. Patient very cantankerous and pushing on his bedside table while food is on that. Delirium overall improved. Patient appears to be back to his baseline. Will add Seroquel nightly. vertigo, suspected BPPV: * Scheduled meclizine and if patient does clinically improve then will defer but if not would need to consider obtaining MRI of the brain, maintain on fall precautions, judicious hydration if necessary, as needed antiemetic regimen. If there is any concern that this is posterior stroke associated then would need to pursue further stroke workup. Adult failure to thrive, multifactorial: * PT/OT/case management consulted and may need to be considered for skilled placement as recently was discharged to home with home therapies Chronic conditions: * Hypertension: Continue home regimen including amlodipine, metoprolol, Lasix, PRN hydralazine. * Recent pseudomonal pneumonia. completed levofloxacin. * Severe protein calorie malnutrition: add supplements. DVT prophylaxis: We will continue patient home Eliquis regimen. Code status: DNRCCA, no intubation. Disposition: TBD Charges/Coding Visit Charges Inpatient E&M: 17122 Subs Hosp L2
--- NOTE | 2023-10-18 08:00 | RAD_ITS ---
EXAM: XR CHEST, 1 VIEW CLINICAL INDICATION: respiratory distress. TECHNIQUE: Frontal view of the chest. COMPARISON: 10/11/2023. FINDINGS: LUNGS AND PLEURAL SPACES: Pulmonary hyperinflation and flattening of the hemidiaphragms are unchanged. Asymmetric bibasilar fibrosis. No pneumothorax. No effusion. HEART: Unremarkable. Normal cardiac size. MEDIASTINUM: Central airways and mediastinal contour are unremarkable. BONES/JOINTS: Unremarkable. No acute fracture. SOFT TISSUES: Unremarkable. VASCULATURE: Atherosclerotic calcifications along the thoracic aorta. RAD/Chest 1 View (Portable) IMPRESSION: 1. COPD with asymmetric bibasilar fibrosis and no suspicious acute cardiopulmonary pathology. 2. No significant interval change. COMMENT: HRCT chest will be more helpful for further evaluation of COPD and if pneumonia is a strong clinical consideration. Electronically Signed: Shant Almaraz MD at 8:17 EST ,
[2023-10-18] MEDS: Metoprolol(XL)Succ 100 MG Tablet PO ×2 (09:07→21:24)
[2023-10-18] MEDS: Multivitamins,Therapeutic Tablet 1 TABLET PO (09:07)
[2023-10-18] MEDS: dilTIAZem CD 120 MG Capsule PO ×2 (09:08→21:24)
[2023-10-18] MEDS: Potassium Chloride Oral Tablet 10 MEQ 20 MEQ PO (09:08)
[2023-10-18] MEDS: APIXABAN 5 MG TABLET PO ×2 (09:08→21:24)
[2023-10-18] MEDS: Amiodarone 200 MG Tablet PO (09:08)
[2023-10-18] MEDS: Furosemide 20 MG Tablet PO (09:10)
[2023-10-18] MEDS: Furosemide 40 MG/4 ML Vial IV ×2 (10:53→16:54)
[2023-10-18] MEDS: Ensure Plus High Protein 120 ML LIQUID PO ×2 (10:55→16:54)
[2023-10-18] MEDS: QUEtiapine 25 MG Tablet PO (21:24)
[2023-10-19] VITALS (23 sets, daily range): BP systolic 105–131; BP diastolic 49–91; PULSE 96–113; RESP 18–20; TEMP 36.6–36.9; O2SAT 76–99; BMI 23.7
[2023-10-19 05:54] LABS: Absolute Lymphocyte Count 0.27 X10^3/uL (0.83-4.51); Absolute Neutrophil Count 25.9 X10^3/uL (2.0-7.7); Basophil# 0.04 X10^3/uL; Basophil% 0.1 % (0-1); Hemoglobin 9.9 g/dL (13.0-16.5); Lymphocyte # 0.27 X10^3/ul (0.83-4.51); Mean Corp Hgb Conc 31.9 g/dL (32-36); Mean Corpuscular Hgb 31.4 pg (27.0-32.0); Mean Corpuscular Volume 98.4 fL (80-94); Mean Platelet Vol. 12.9 fl (6.2-12.0); Monocyte# 0.96 X10^3/uL; Monocyte% 3.5 % (0-10); NRBC Flagged by Analyzer 0 % (0-5); Neutrophil # 25.88 X10^3/uL (2.7-7.7); Neutrophil % 94.2 % (47-70); POSITIVE DIFFERENTIAL YES; Platelet Count 118 K/mm3 (150-450); RBC Distribution Width CV 13.2 % (11.6-14.6); RBC Distribution Width SD 46.9 fl (35.1-43.9); Red Blood Count 3.15 M/mm3 (4.6-6.2); White Blood Count 27.5 K/mm3 (4.4-11.0)
[2023-10-19 06:08] LABS: Differential Indicated SCAN CRITERIA MET
[2023-10-19 06:23] LABS: Differential Comment SCANNED
[2023-10-19 06:24] LABS: Anion Gap 4 (5-15); BUN 51 mg/dL (7-18); BUN/Creat Ratio 57.2 RATIO (10-20); Calcium,Total 7.3 mg/dL (8.5-10.1); Chloride 107 mmol/L (98-107); Creatinine, Serum 0.89 mg/dL (0.70-1.30); EST Glomerular Filtration Rate 86 mL/min (>60); Est Glom Filt Rate - Afr Amer 104 mL/min (>60); Estimated Creatinine Clearance 55.76 ml/min; Glucose 147 mg/dL (74-106); Potassium 4.2 mmol/L (3.5-5.1); Sodium Level 144 mmol/L (136-145)
[2023-10-19] MEDS: Budesonide Respules 0.5 MG/2 ML AMPUL.NEB. INHALATION ×2 (07:01→19:38)
[2023-10-19] MEDS: Albuterol 2.5 MG/3 ML VIAL.NEB. INHALATION ×2 (07:01→19:38)
--- NOTE | 2023-10-19 08:21 | PN.HOSP_ITS ---
Reason for Visit Reason for Visit: Diagnoses Other peripheral vertigo, unspecified ear (10/11/23) Essential (primary) hypertension (10/11/23) Unspecified atrial fibrillation (10/11/23) Subjective Subjective Increased FiO2 requirements. Going up to 15 L nasal cannula. Patient suctioned and placed on Airvo. Patient states that he feels well. Objective Data Objective Data Vital Signs: Vital Signs Temp Pulse Resp BP Pulse Ox O2 Del Method O2 Flow Rate 36.6 C 107 H 20 H 107/62 95 High Flow 12 10/19/23 04:23 10/19/23 04:23 10/19/23 04:23 10/19/23 04:23 10/19/23 04:23 10/19/23 04:23 10/19/23 04:23 FiO2 35 10/14/23 13:55 Oxygen Flow Rate (L/min) 12 Oxygen Delivery Method High Flow Weight: 66.6 kg Body Mass Index (BMI) 23.7 Intake & Output: Intake and Output for Last 24 Hours 10/17/23 10/18/23 10/19/23 23:59 23:59 23:59 Intake Total 1000 / 1120 1300 / 1540 480 / 480 Output Total 700 / 1500 2140 / 2590 750 / 750 Balance 300 / -380 -840 / -1050 -270 / -270 Lab / Micro Data 10/19/23 05:41 10/19/23 05:41 Labs: Laboratory Results - last 24 hr 10/19/23 05:41: WBC 27.5 H, RBC 3.15 L, Hgb 9.9 L, Hct 31.0 L, MCV 98.4 H, MCH 31.4, MCHC 31.9 L, RDW Std Deviation 46.9 H, RDW Coeff of Matt 13.2, Plt Count 118 L, MPV 12.9 H, Immature Gran % (Auto) 1.200 H, Neut % (Auto) 94.2 H, Lymph % (Auto) 1.0 L, [place] % (Auto) 3.5, Eos % (Auto) 0.0, Baso % (Auto) 0.1, Absolute Neuts (auto) 25.9 H, Absolute Lymphs (auto) 0.27 L, Nucleated RBC % 0, Differential Comment SCANNED, Sodium 144, Potassium 4.2, Chloride 107, Carbon Dioxide 33.0 H, Anion Gap 4 L, BUN 51 H, Creatinine 0.89, Estim Creat Clear Calc 55.76, Est GFR (MDRD) Af Amer 104, Est GFR (MDRD) Non-Af 86, BUN/Creatinine Ratio 57.2 H, Glucose 147 H, Calcium 7.3 L Micro: Microbiology 10/11/23 00:40 Nasal Secretion SARS-CoV-2 Antigen (Rapid) - Final Rhythm Strip Rhythm Strip: A-fib Rate: 140 Ectopy: PVC(s) Physical Exam Const Constitutional Narrative: Much more alert and interactive and appropriate today. Patient wearing a baseball hat and is nontoxic. No respiratory distress no conversational dyspnea. Resp normal respiratory effort and no retractions Resp Narrative: Coarse breath sounds bilaterally Cardio regular rate, regular rhythm, S1 normal heart sound and S2 normal heart sound GI normal to inspection, nondistended, normoactive bowel sounds, soft to palpation, non-tender and non-distended Extremity normal to inspection Neuro moves all extremities and no focal motor deficits Sensorium / Orientation: awake and alert Psych affect normal Assessment & Plan Assessment/Plan (1) Atrial fibrillation with RVR: (2) Peripheral vertigo: PLAN: Plan Recurrent Episodes Paroxysmal atrial fibrillation w/ RVR: * Stable * 04/17/2023 echocardiogram with LVEF 65%, mild focal MV calcification, bileaflet noted to be in atrial fibrillation at that time. * 100 BID metoprolol succinate and amiodarone taper. * Cardiology consulted. Follow up with cards as outpt. * anticoagulation w apixaban acute on chronic hypoxic respiratory failure * exacerbated by RSV and COPD exacerbation * Patient did have a pseudomonal pneumonia earlier this month (earlier admission) and had completed a course of levofloxacin. * 10/18: oxygen requirements have gone up. Repeat CXR showed no acute process. Continue IV methylpred, BDs. Furosemide challenge. * 10/19: still requiring high-flow oxygen, subsequently changed over to Airvo. CTA of the chest showed no pulmonary embolism but did show infiltrates versus atelectasis in the lower lobes as well as pleural effusions. Will continue with diuresis w furosemide 40 IV BID, and add antibiotic coverage with pip- tazo and vancomycin. Check sputum culture, antigens for Streptococcus and Legionella. No audible wheezing so we will wean down his steroids. Check resp panel and COVID and influenza. Delirium: * Resolved * At 1 point, pt was hallucinating, then became agitated. Subsequently received ziprasidone, then was obtunded. Overall improved. Patient has not drank in years so this not felt to be acute alcohol withdrawal. Concerned this could be metabolic. * ABG showed pH7.48, pCO2 40.5, pO2 57. * Worse today after receiving ziprasidone as well as Ativan. I have dis continued the Ativan as I do not feel the patient is going through alcohol withdrawal. His delirium is most likely not due to alcohol withdrawal as patient and family have both been consistent with same the patient has not drank in several years. Cannot rule out hospital-acquired psychosis. Will hold off on additional agents at this time * I suspect patient has underlying dementia or mild cognitive impairment. Head CT from the showed no acute process at that time. I feel there is low ut ility for repeating a head CT at this time. Patient likely benefit from geriatrics evaluation as outpatient. * TSH was normal in . Check B12 and folate. * 10/16: Patient alert and oriented x 3. Patient very cantankerous and pushing on his bedside table while food is on that. Delirium overall improved. Patient appears to be back to his baseline. Will add Seroquel nightly. * 10/19: Much better today. Patient appropriate and interactive. Continue with Seroquel nightly. Adult failure to thrive, multifactorial: * PT/OT/case management consulted and may need to be considered for skilled p lacement as recently was discharged to home with home therapies * Plan for [facility] facility when patient is medically ready. Chronic conditions: * Hypertension: Continue home regimen including amlodipine, metoprolol, Lasix, PRN hydralazine. * Recent pseudomonal pneumonia. completed levofloxacin. * Severe protein calorie malnutrition: add supplements. * vertigo, suspected BPPV: Scheduled meclizine and if patient does clinically improve then will defer but if not would need to consider obtaining MRI of the brain, maintain on fall precautions, judicious hydration if necessary, as needed antiemetic regimen. If there is any concern that this is posterior stroke associated then would need to pursue further stroke workup. DVT prophylaxis: We will continue patient home Eliquis regimen. Code status: DNRCCA, no intubation. Disposition: TBD Charges/Coding Visit Charges Inpatient E&M: 80060 Subs Hosp L3
--- NOTE | 2023-10-19 09:08 | CT_ITS ---
EXAM: CT ANGIOGRAPHY CHEST WITHOUT AND WITH INTRAVENOUS CONTRAST CLINICAL INDICATION: respiratory failure. TECHNIQUE: Helically acquired angiography images were obtained of the chest without and with intravenous contrast. This CT exam was performed using one or more of the following dose reduction techniques: automated exposure control, adjustment of the mA and/or kV according to patient size, and/or use of iterative reconstruction technique. MIP reconstructed images were created and reviewed. CONTRAST: IV 100mL Isovue-370 RADIATION DOSE: CTDIvol = 6.89 mGy, DLP = 221.33 mGy-cm COMPARISON: CT chest without contrast 09/14/2018. FINDINGS: PULMONARY ARTERIES: Unremarkable. Normal in caliber. No evidence of pulmonary embolism. AORTA: Unremarkable. Normal in caliber. No evidence of dissection. GREAT VESSELS OF AORTIC ARCH: Unremarkable. Normal in caliber. No evidence of dissection. 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 SUPERIOR MESENTERIC ARTERY: High-grade stenosis of the SMA origin with poststenotic dilatation secondary to extensive calcified plaques. LUNGS AND PLEURAL SPACES: Multiple centrilobular cysts in the upper lobes more than the lower lobes. Mild pulmonary hyperinflation mild flattening of the hemidiaphragms. Bilateral pleural effusions with compressive atelectasis in the posterior aspect of the lower lobes and right middle lobe. No mass. No pneumothorax. HEART: Extensive calcified plaques in the LAD branch and few calcified plaques in the circumflex branch and right coronary artery. Mild cardiomegaly. Hypertrophy of the left ventricular chamber muscles. No pericardial effusion. MEDIASTINUM: Mildly prominent hiatal hernia. No mediastinal or hilar adenopathy. Esophagus is unremarkable. THYROID: Unremarkable. No thyroid lesions. BONES/JOINTS: Unremarkable. No suspicious lytic or blastic abnormality. CT/CTA Chest W/WO Contrast IMPRESSION: 1. No CTA evidence of pulmonary thromboemboli, thoracic aortic aneurysm or dissection. 2. Bilateral pleural effusions with compressive atelectasis in the posterior aspect of both lower lobes and right middle lobe atelectasis. 3. 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 This was present previously. 4. 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 5. 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 6. Mild cardiomegaly and hypertrophy of the left ventricular chamber muscles, new since 09/14/2018. Electronically Signed: Shant Almaraz MD at 9:36 EST ,
[2023-10-19] MEDS: Metoprolol(XL)Succ 100 MG Tablet PO ×2 (10:01→21:00)
[2023-10-19] MEDS: APIXABAN 5 MG TABLET PO ×2 (10:02→21:01)
[2023-10-19] MEDS: Furosemide 40 MG/4 ML Vial IV ×2 (10:02→17:10)
[2023-10-19] MEDS: Multivitamins,Therapeutic Tablet 1 TABLET PO (10:02)
[2023-10-19] MEDS: Amiodarone 200 MG Tablet PO (10:02)
[2023-10-19] MEDS: Potassium Chloride Oral Tablet 10 MEQ 20 MEQ PO (10:02)
[2023-10-19] MEDS: dilTIAZem CD 120 MG Capsule PO ×2 (10:02→21:01)
--- NOTE | 2023-10-19 10:10 | CASEMGMT ---
Discharge Planning Requested updates sent to via [facility]. Precert remains pending. Tracey Guerra, Discharge Planning Asst.
[2023-10-19] MEDS: Ensure Plus High Protein 120 ML LIQUID PO (11:43)
[2023-10-19] MEDS: Vancomycin HCl 1,750 MG in 0.9% Normal Saline (500mL Bag) 500 ML 250 MG IV (13:17)
--- NOTE | 2023-10-19 13:27 | PHA.PHARE_ITS ---
Consult Antibiotic Management Pharmacy has been consulted to manage selected antiobiotic: Vancomycin Type of Intervention Type of Consult: New start Labs Labs: Sodium 144 mmol/L (136-145) 10/19/23 05:41 Potassium 4.2 mmol/L (3.5-5.1) 10/19/23 05:41 Chloride 107 mmol/L (98-107) 10/19/23 05:41 Carbon Dioxide 33.0 mmol/L (21.0-32.0) H 10/19/23 05:41 Anion Gap 4 (5-15) L 10/19/23 05:41 BUN 51 mg/dL (7-18) H 10/19/23 05:41 Creatinine 0.89 mg/dL (0.70-1.30) 10/19/23 05:41 Est GFR (MDRD) Af Amer 104 mL/min (>60) 10/19/23 05:41 Est GFR (MDRD) Non-Af 86 mL/min (>60) 10/19/23 05:41 BUN/Creatinine Ratio 57.2 RATIO (10-20) H 10/19/23 05:41 Glucose 147 mg/dL (74-106) H 10/19/23 05:41 Microbiology Microbiology: Microbiology 10/11/23 00:40 Nasal Secretion SARS-CoV-2 Antigen (Rapid) - Final Dosing Weight Weight used for dosin.6 kg Estimated Creatinine Clearance Estimated Creatinine Clearance: 55.8ML/MIN Goal Trough Goal Trough: 15-20 mcg/mL Pharmacy Plan for Drug Dosing Pharmacy Plan for Drug Dosing: Give initial load dose of 1750mg IV x1, then continue with 750mg IV q12h per [facility] dosing protocol. Will check a trough before the 4th total dose. Pharmacy Service will continue to monitor and adjust dosing as required. Follow-Up Labs Follow-Up Labs: Trough: Vancomycin Date/Time Labs Ordered Labs to be done on [date and time ordered]: 10/21 00:30
[2023-10-19] MEDS: Piperacil/Tazobactam 3.375 GM in 0.9% Normal Saline (50mL MB+) 50 ML IV ×2 (15:10→21:00)
--- NOTE | 2023-10-19 16:30 | CASEMGMT ---
Social Work This health science writer received update from discharge psychiatric assistant, that [facility] inquiring about patient's baseline oxygen needs, as insurance was inquiring about this. Chart reviewed and noted in case management assessment that baseline oxygen at home has been 2 L but recently to hospitalization has been using 4 L. Updated the nursing facility via care port. [facility] then inquired what patient's current oxygen needs are. Uploaded last 24 hours of vital signs including oxygenation needs to [facility]. From review of information it does appear patient's oxygen needs are increasing today. Plan: [facility] for skilled care, pending insurance authorization. -PAWEL Nielsen, SHEET METAL ASSEMBLER *This note was generated with [employer] dictation software. It may contain incorrect words, spelling, and punctuation that were not noted in review of the chart prior to signing*
[2023-10-19] MEDS: QUEtiapine 25 MG Tablet PO (21:00)
[2023-10-20] VITALS (17 sets, daily range): BP systolic 93–119; BP diastolic 57–91; PULSE 85–118; RESP 16–24; TEMP 36.4–37.1; O2SAT 88–100; BMI 23.6
[2023-10-20] MEDS: Albuterol 2.5 MG/3 ML VIAL.NEB. INHALATION (01:11)
[2023-10-20] MEDS: Vancomycin HCl 750 MG in 0.9% Normal Saline (250mL Bag) 250 ML 250 MG IV ×2 (01:49→14:53)
[2023-10-20 03:45] LABS: Absolute Lymphocyte Count 0.39 X10^3/uL (0.83-4.51); Absolute Neutrophil Count 27.1 X10^3/uL (2.0-7.7); Basophil# 0.04 X10^3/uL; Basophil% 0.1 % (0-1); Hematocrit 29.1 % (40-54); Hemoglobin 9.2 g/dL (13.0-16.5); Lymphocyte # 0.39 X10^3/ul (0.83-4.51); Lymphocyte % 1.3 % (19-41); Mean Corp Hgb Conc 31.6 g/dL (32-36); Mean Corpuscular Hgb 31.3 pg (27.0-32.0); Mean Platelet Vol. 13.1 fl (6.2-12.0); Monocyte# 1.25 X10^3/uL; Monocyte% 4.3 % (0-10); NRBC Flagged by Analyzer 0 % (0-5); Neutrophil # 27.13 X10^3/uL (2.7-7.7); Neutrophil % 92.5 % (47-70); POSITIVE DIFFERENTIAL YES; Platelet Count 117 K/mm3 (150-450); RBC Distribution Width CV 13.2 % (11.6-14.6); RBC Distribution Width SD 47.2 fl (35.1-43.9); Red Blood Count 2.94 M/mm3 (4.6-6.2); White Blood Count 29.3 K/mm3 (4.4-11.0)
[2023-10-20 03:55] LABS: Differential Indicated SCAN CRITERIA MET
[2023-10-20 04:11] LABS: ALB/GLOB Ratio 0.9 RATIO (0.9-2.4); AST(SGOT) 26 U/L (15-37); Alanine Aminotransfer ALT/SGPT 82 U/L (16-61); Albumin, Serum 2.4 g/dL (3.2-5.0); Alkaline Phosphatase 62 U/L (45-117); Anion Gap 7 (5-15); BUN 49 mg/dL (7-18); BUN/Creat Ratio 42.6 RATIO (10-20); Calcium,Total 7.1 mg/dL (8.5-10.1); Chloride 106 mmol/L (98-107); Creatinine, Serum 1.15 mg/dL (0.70-1.30); EST Glomerular Filtration Rate 64 mL/min (>60); Est Glom Filt Rate - Afr Amer 78 mL/min (>60); Estimated Creatinine Clearance 43.15 ml/min; Globulin 2.6 g/dL (2.2-4.2); Glucose 159 mg/dL (74-106); Potassium 3.9 mmol/L (3.5-5.1); Sodium Level 144 mmol/L (136-145)
[2023-10-20 04:19] LABS: Differential Comment SCANNED
[2023-10-20] MEDS: Piperacil/Tazobactam 3.375 GM in 0.9% Normal Saline (50mL MB+) 50 ML IV ×3 (04:58→21:55)
[2023-10-20] MEDS: Budesonide Respules 0.5 MG/2 ML AMPUL.NEB. INHALATION ×2 (07:33→19:15)
[2023-10-20] MEDS: APIXABAN 5 MG TABLET PO ×2 (08:37→21:55)
[2023-10-20] MEDS: Metoprolol(XL)Succ 100 MG Tablet PO ×2 (08:37→21:54)
[2023-10-20] MEDS: Potassium Chloride Oral Tablet 10 MEQ 20 MEQ PO (08:37)
[2023-10-20] MEDS: Multivitamins,Therapeutic Tablet 1 TABLET PO (08:38)
[2023-10-20] MEDS: dilTIAZem CD 120 MG Capsule PO ×2 (08:38→21:54)
[2023-10-20] MEDS: Amiodarone 200 MG Tablet PO (08:38)
[2023-10-20] MEDS: Furosemide 40 MG/4 ML Vial IV (08:38)
[2023-10-20 10:55] LABS: LDH 348 U/L (87-241)
--- NOTE | 2023-10-20 11:18 | PRO.PCM_ITS ---
Procedure Report Date of Procedure: 10/20/23
--- NOTE | 2023-10-20 11:18 | PCM.OP.PRO ---
Procedure Report Date of Procedure: 10/20/23
[2023-10-20 12:06] LABS: International Normalized Ratio 2.4; Partial Thromboplast Time 28.9 Seconds (24.1-36.2); Prothrombin Time (Protime)PT. 26.8 SECONDS (11.7-14.9)
[2023-10-20] MEDS: Lidocaine 2% (20 ml mdv) 20 ML Vial INFILT (13:33)
--- NOTE | 2023-10-20 13:42 | FLU_PTH ---
PATHOLOGY RESULTS PATIENT: TOLU [place] LOC: [facility] U#:[id number] AGE/SX: 83/M ROOM: [facility] RE10/11/[address]: Dr. Shaniqua Bentley DO : 1940 BED: 1 DIS: 10/25/2023 SPEC #: [id number] RECD: 10/21/23 07:34 STATUS: BETH RETorres #: [id number] TAWNY: 10/20/23 13:[address]: Shaniqua Bentley DEPT: CYTOLOGY RECD BY: Saima Yates ENTERED: 10/21/23 07:34 SP TYPE: Fluid OTHR DR: MD Dr. Apollo Powell MD Dr. Bradley Barone, MD Dr. Derek Brown, DO Dr. Eric Jopperi, DO Dr. Eric Smith, MD Dr. Farouk Belal, MD Dr. Lamia Aljundi, MD Dr. Tanmay Panchabhai, MD Christina Muller, APPLICATIONS SUPPORT LEAD-C Tissues: THORACIC FLUID Procedures: Special Stain Group II Surgery Specimen Level IV Cytospin Fluid HEADER OPERATION: Ultrasound-guided right thoracentesis PRE-OP DIAGNOSIS: Right pleural effusion TISSUE SUBMITTED: Thoracentesis fluid for cytology DIAGNOSIS CYTOLOGY Thoracentesis fluid for cytology (cytospin and cell block): Negative for malignant cells. See comment. JACKLYN:robbie 10/22/2023 COMMENT Clinical correlation and appropriate follow up are necessary. CYTOLOGY STUDY Slides are reviewed. CYTOLOGY GROSS Received is 85 ml of yellow cloudy fluid labeled with the patient's name and and designated per the requisition as thoracentesis. Submitted for cytology preparation including cell block. / robbie 10/21/2023 TC:5 CPT: 99736, 64880
--- NOTE | 2023-10-20 13:50 | RAD_ITS ---
INDICATION: post thora EXAMINATION/TECHNIQUE: X-RAY - XR Chest 2 Views COMPARISON: Prior study dated: 10/18/2023. FINDINGS: LINES/DEVICES: None. LUNGS: Improved atelectatic changes in the right lung base. No evidence of pleural effusions. Small right apical lucency unchanged prior examinations probably due to adjacent fibrotic changes. MEDIASTINUM AND CARDIOVASCULAR STRUCTURES: Cardiac silhouette not enlarged. Central airways and mediastinal contour are unremarkable. BONES AND SOFT TISSUES: Unchanged. RAD/Chest Insp/Exp 2 View IMPRESSION: Improved right lower lung atelectasis. Electronically Signed: Deonte Calvillo MD at 14:05 EST ,
--- NOTE | 2023-10-20 14:25 | PRO.PCM_ITS ---
Procedure Report Date of Procedure: 10/20/23 Assessment & Plan Assessment/Plan (1) Pleural effusion, right: PLAN: PROCEDURE: Ultrasound Guided Thoracentesis ORDERING PROVIDER: Dr. Shaniqua Bentley INDICATION: Male, 83 years old. Right pleural effusion. PROVIDER: KODY Jones PROCEDURE: The risks, benefits, and alternatives to the procedure were explained to the patient. The specific risks of bleeding, infection, and pneumothorax requiring chest tube insertion were discussed and accepted. Specifically discussed was the patient's last dose of Eliquis. The patient is prescribed Eliquis for paroxysmal A-fib, and took this last on written informed consent was obtained. The patient was placed in the sitting, upright position. Ultrasonographic evaluation of the bilateral lower pleural spaces was carried out. An adequate p ocket was identified in the [ ].The overlying skin was prepped and draped in sterile fashion. [ ] % lidocaine was administered subcutaneously for local anesthesia. Under ultrasound guidance, a [ ]-Luxembourgish thoracentesis needle/catheter system was advanced into the [ ] posterior lower pleural fluid collection. [ ] ml of [ ] colored fluid was drained. The catheter was removed, and a sterile dressing was applied. The patient tolerated the procedure well. A chest x-ray was ordered. IMPRESSION: [ ]
--- NOTE | 2023-10-20 14:25 | PCM.OP.PRO ---
Procedure Report Date of Procedure: 10/20/23 Assessment & Plan Assessment/Plan (1) Pleural effusion, right: PLAN: PROCEDURE: Ultrasound Guided Thoracentesis ORDERING PROVIDER: Dr. Shaniqua Bentley INDICATION: Male, 83 years old. Right pleural effusion. PROVIDER: KODY Jones PROCEDURE: The risks, benefits, and alternatives to the procedure were explained to the patient. The specific risks of bleeding, infection, and pneumothorax requiring chest tube insertion were discussed and accepted. Also specifically discussed was the patient's last dose of Eliquis. The patient is prescribed Eliquis for paroxysmal A-fib, and took this last today at 8:37 AM. Thoracentesis is a very low bleeding risk procedure, when using ultrasound guidance. Also this patient has a has bled score of 2, for age and Eliquis use. Per SIR guidelines, there is no need to hold Eliquis for a thoracentesis for a patient with a has bled score of 2. Written informed consent was obtained. The patient was placed in the sitting, upright position. Ultrasonographic evaluation of the bilateral lower pleural spaces was carried out. An adequate pocket was identified in the right lower pleural space.The overlying skin was prepped and draped in sterile fashion. 2% lidocaine was administered subcutaneously for local anesthesia. Under ultrasound guidance, a 5-[place] Zealander thoracentesis needle/catheter system was advanced into the right posterior lower pleural fluid collection. 150 ml of clear yellow colored fluid was drained. 100 mL of this fluid was sent to the laboratory for analysis, as per requesting physician. The catheter was removed, and a sterile dressing was applied. The patient tolerated the procedure well. A chest x-ray was ordered. IMPRESSION: Successful ultrasound-guided thoracentesis of right pleural effusion. Procedures Radiology Radiology US Procedures: 43201 Thoracentesis
[2023-10-20 14:32] LABS: Cytology, Body Fluid / CSF SEE PATHOLOGY REPORT
[2023-10-20 14:50] LABS: Body Fluid Mononuclear WBC # 0.023 10^3/uL; Body Fluid Polynuclear WBC # 0.016 10^3/uL; Body Fluid Total Cells Counted 0.048 10^3/ul; White Blood Count/Body Fluid 0.039 10^3/uL
[2023-10-20 14:52] LABS: Appearance/Body Fluid CLEAR; Auto B Fluid Analyzer BKGD Ct COUNTS W/IN LIMITS (W/IN LIMITS); Color/Body Fluid YELLOW; Source- Body Fluid THORACENTESIS
--- NOTE | 2023-10-20 15:22 | PCM.PN.HOSP ---
Reason for Visit Reason for Visit: Shortness of breath/vertigo/racing heart Subjective Subjective Mr. Rolle is an 83-year-old white male with a history of COPD and chronic hypoxic respiratory failure requiring 3 L nasal cannula at baseline who presented to the emergency department at [facility] on 10/11/2023 with shortness of breath, racing heart rate and vertigo. He had a recent hospitalization from 10/05/2023 through 10/09/2023 at which time he was treated for an acute on chronic exacerbation of his COPD due to an RSV infection and concern for superimposed bacterial pneumonia. He was treated with IV steroids, antibiotics, nebulizers and discharged on a prednisone taper as well as Levaquin for a completion of 7-day course of antibiotics as his sputum culture was positive for Pseudomonas. Pseudomonas was sensitive to Levaquin. On presentation he was found to be in A-fib with RVR. He does have history of this. Workup in the emergency department revealed a heart rate of 139 and a stable blood pressure as well as a respiratory rate of 19 and oxygen saturation 94% on 4 L nasal cannula. COVID and flu were negative on admission. CT of the brain was performed and was unremarkable other than severe extensive. Nasal sinus disease. Chest x-ray shows chronic interstitial changes with superimposed mild acute opacities in the lower lobes indicating atelectasis versus mild infection versus aspiration. He was given diltiazem, meclizine and eventually placed on a Cardizem drip in the emergency department and admitted to the PCU. Cardiology was consulted for his A-fib with RVR and his heart rates have since improved on oral Cardizem, metoprolol and he has been transition to oral amiodarone. He is on Eliquis at baseline which she will continue. Cardiology has since signed off given his improved heart rate control and recommending outpatient follow-up. His hospital course has overall been complicated. He had some delirium during his hospital course which was actually worsened with Geodon and Ativan so this was discontinued. And his mental status had markedly improved. Seroquel was added nightly and he seems to be tolerating this well so we will continue at this time. He did have a recent echocardiogram in March 2023 so repeat was not performed. At that time his EF was found to be 65% with mild focal mitral valve calcification and bileaflet aortic valve with a fib. Unfortunately his respiratory status started to decline on 10/17 2023 and he required up titration from the 4 L at which she was discharged from his last hospitalization and is now on Airvo. 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 His white count trended up and he was placed on broad-spectrum antibiotics and sputum culture has been ordered however not able to be collected due to lack of production. Strep pneumo and Legionella antigens are negative. Respiratory viral panel was unremarkable. This time patient is complaining of ongoing vertigo versus orthostasis. History is difficult as he is somewhat of a poor historian. He remains on Airvo. States he remains short of breath. Heart rates remain controlled. Current Airvo settings are FiO2 of 92% with a flow rate of 60 L/min. Objective Data Objective Data Vital Signs: Vital Signs Temp Pulse Resp BP Pulse Ox O2 Del Method O2 Flow Rate 97.6 F L 95 20 H 111/77 95 Airvo 60 10/20/23 14:54 10/20/23 14:54 10/20/23 14:54 10/20/23 14:54 10/20/23 14:54 10/20/23 14:54 10/20/23 14:54 FiO2 92 10/20/23 14:54 Oxygen Flow Rate (L/min) 60 Oxygen Delivery Method Airvo Weight: 66.5 kg Body Mass Index (BMI) 23.6 Intake & Output: Intake and Output for Last 24 Hours 10/18/23 10/19/23 10/20/23 23:59 23:59 23:59 Intake Total 1300 / 1540 1845 / 2085 605 / 605 Output Total 2140 / 2590 1900 / 2300 1250 / 1250 Balance -840 / -1050 -55 / -215 -645 / -645 Lab / Micro Data 10/20/23 03:07 10/20/23 03:07 Labs: Laboratory Results - last 24 hr 10/20/23 03:07: WBC 29.3 H, RBC 2.94 L, Hgb 9.2 L, Hct 29.1 L, MCV 99.0 H, MCH 31.3, MCHC 31.6 L, RDW Std Deviation 47.2 H, RDW Coeff of Matt 13.2, Plt Count 117 L, MPV 13.1 H, Immature Gran % (Auto) 1.800 H, Neut % (Auto) 92.5 H, Lymph % (Auto) 1.3 L, [place] % (Auto) 4.3, Eos % (Auto) 0.0, Baso % (Auto) 0.1, Absolute Neuts (auto) 27.1 H, Absolute Lymphs (auto) 0.39 L, Nucleated RBC % 0, Differential Comment SCANNED, Sodium 144, Potassium 3.9, Chloride 106, Carbon Dioxide 31.0, Anion Gap 7, BUN 49 H, Creatinine 1.15, Estim Creat Clear Calc 43.15, Est GFR (MDRD) Af Amer 78, Est GFR (MDRD) Non-Af 64, BUN/Creatinine Ratio 42.6 H, Glucose 159 H, Calcium 7.1 L, Total Bilirubin 1.50 H, AST 26, ALT 82 H, Alkaline Phosphatase 62, Lactate Dehydrogenase 348 H, Total Protein 5.0 L, Albumin 2.4 L, Globulin 2.6, Albumin/Globulin Ratio 0.9 10/20/23 11:41: PT 26.8 H, INR 2.4, APTT 28.9 10/20/23 13:42: Fluid Source THORACENTESIS, Fluid Color YELLOW, Fluid Appearance CLEAR, Fluid WBC 0.039, Fluid Tot Cell Count 0.048, Fld Polynuclear WBCs # 0.016, Fld Polynuclear WBCs % 41.0, Fluid Mononuclear WBCs 0.023, Fld Mononuclear WBCs % 59.0, Fl Pathologist Comment May follow, Fluid Comment 2 SEE COMMENT Micro: Microbiology 10/19/23 12:50 Mucosa - Nose Respiratory Panel (PCR) - Final 10/19/23 15:35 Urine, Clean Catch Streptococcus pneumoniae Antigen (M - Final 10/19/23 15:35 Urine, Clean Catch Legionella Antigen - Final 10/19/23 13:05 Nasal Secretion SARS-CoV-2 & FLU Antigen (Rapid) - Final 10/11/23 00:40 Nasal Secretion SARS-CoV-2 Antigen (Rapid) - Final Radiography Diagnostic Testing: Radiology Impression Chest X-Ray 10/20/23 13:50 IMPRESSION: Improved right lower lung atelectasis. Electronically Signed: Deonte Calvillo MD at 14:05 EST , Rhythm Strip Rhythm Strip: A-fib Rate: 140 Ectopy: PVC(s) Physical Exam Const alert, oriented x3, no apparent distress and average body habitus; Negative for healthy appearing or well nourished Constitutional Narrative: Thin, elderly, white male, sitting up in a chair at the bedside, currently on heated Airvo with tachypnea but no acute respiratory distress noted HEENT head/scalp atraumatic HEENT Narrative: Dentition is poor, Mallampati is 2, no thrush Head and Scalp: normocephalic Eyes PERRL and EOMs intact bilaterally Eyes Narrative: Conjunctiva are mild pale bilaterally, no scleral icterus Neck no lymphadenopathy and supple Neck Narrative: Trachea midline, no thyroid enlargement Resp No normal respiratory effort, no retractions, no use of accessory muscles and No clear to auscultation bilaterally Resp Narrative: Tachypnea noted but no signs of extremis, severely diminished with coarse breath sounds diffusely bilaterally, scattered end expiratory wheeze Auscultation: Negative for rales or rhonchi Cardio regular rate, regular rhythm, S1 normal heart sound, S2 normal heart sound, no murmurs, no rub, no gallops and no clicks GI normal to inspection, nondistended, normoactive bowel sounds, soft to palpation and non-tender GI Narrative: Abdomen is scaphoid Extremity Extremity Narrative: Patient with 1-2+ bilateral lower extremity pitting edema distally, no cyanosis or clubbing Skin Skin Narrative: Large ecchymotic area on the posterior aspect of the right leg starting at the knee and enlarging distally with no significant firmness noted Neuro oriented x3, moves all extremities and no focal motor deficits Neuro Narrative: Severe generalized weakness Speech: speech normal Psych affect normal Psych Narrative: Eye contact is good, patient interacts appropriately Assessment & Plan Assessment/Plan (1) Pleural effusion, right: (2) Acute on chronic hypoxic respiratory failure: (3) Paroxysmal atrial fibrillation: (4) Vertigo: (5) Leukocytosis: (6) Anemia: (7) Thrombocytopenia: (8) Hyperbilirubinemia: (9) Mesenteric artery stenosis: (10) Severe malnutrition: PLAN: Plan Acute on chronic hypoxic respiratory failure--> etiology is unclear -Baseline oxygen utilization is 3 to 4 L -Recent RSV infection with superimposed pseudomonal pneumonia -Patient completed outpatient treatment and had been stable however increasing oxygen requirements over the last 3 days -Currently on Airvo at 92% FiO2 and 60 L/min -Wean as able -Sputum culture ordered -Strep pneumo and Legionella antigens are negative -Flu and COVID unremarkable -Respiratory viral panel is unremarkable -Patient has had a drop in hemoglobin so this could be contributing -Check BNP -Right-sided pleural effusion noted so will get thoracentesis on right side -Check lights criteria with recent pneumonia to rule out parapneumonic effusion versus empyema -Continue steroids with history of COPD -Patient had recent echocardiogram in March therefore will not repeat at this time -CT of the chest reviewed with no signs of PE but does have significant COPD -Add Mucinex scheduled -Add ipratropium and continue as needed albuterol -Continue I-S -Add Pep therapy with Acapella -Speech therapy consultation pending -Pulmonary medicine consultation with worsening respiratory status Acute anemia -During recent hospitalization hemoglobin appears to run between 12.5 and 13.5 -Hemoglobin down to 9.2 in the last 24 hours with precipitous drop from the to the -Check iron studies -Check Hemoccult stool -Check reticulocyte count -Add IV PPI -If continues to drop or positive Hemoccult we will consult GI -Will continue Eliquis for now with no acute signs of bleeding low threshold to discontinue Leukocytosis -Precipitously trending up -Patient has been on steroids so it may be related to this -Continue broad-spectrum antibiotics -Check sed rate and CRP -Patient has not been febrile -Blood cultures unfortunately were not obtained and we will hold off at this time as he has been on antibiotics for several days Thrombocytopenia -This is new -Etiology is unclear -May be related to antibiotics versus consumption due to bleeding -Repeat lab in a.m. -Normal at baseline Hyperbilirubinemia -This is new -Repeat lab in a.m. -Workup in progress Mesenteric stenosis -Noted on CT of the chest -No current abdominal pain or abdominal issues -Monitor clinically -Continue apixaban -May benefit from the addition of aspirin however will hold off on this for now given anemia Vertigo -Persistent despite treatment -Initial assumption was BPPV -Will check MRI of brain with history of A-fib to rule out posterior circulation stroke -Will monitor blood pressure closely as well as patient is a poor historian it is hard to ascertain whether he is having more orthostasis or vertigo type symptoms -If MRI is negative may need to consider backing off on antihypertensives Delirium -Resolved -Continue home Seroquel as he seems to be tolerating this well -TSH is within normal limits -B12 and folate are unremarkable -Patient appears to be back to baseline A-fib with RVR -Recurrent but currently rate controlled -Continue metoprolol 100 mg p.o. twice daily -Continue amiodarone -Continue home Cardizem -Continue home apixaban -May need to back off on antihypertensives and would start with decreasing Cardizem -depending on blood pressure trend over the next several hours -Cardiology has not seen the patient in several days and appears to have signed off Adult failure to thrive -Multifactorial -PT/OT following and [facility] medically ready Hypertension -Stop IV Lasix as patient appears to be getting volume depleted and check BNP -Monitor blood pressure and restart if appropriate -Blood pressures are on the lower side at this time -Amlodipine discontinued and patient on diltiazem -Continue home beta-antonio for now -With blood pressures being borderline may need to decrease dose of Cardizem Severe malnutrition -Continue supplements -Dietitian is following COPD -Recommend outpatient follow-up -Inhalers as ordered -Start DuoNebs -Can home albuterol DVT prophylaxis -Patient currently fully anticoagulated with Marcin CODE STATUS -DNR CCA with no intubation Charges/Coding Visit Charges Inpatient E&M: 96877 Subs Hosp L3
[2023-10-20 15:53] LABS: Red Cell Count/Body Fluid 843 /mm3
--- NOTE | 2023-10-20 16:00 | CASEMGMT ---
Social Work Receive notice from susannah cervantes that insurance authorizations back good from 10.20.23 through 10.22.23. Patients oxygenates have changed the last patient's oxygen needs have changed over the last 24 hours, and not yet ready for discharge today. Plan: Skilled care at [facility] when medically ready. If not ready by 10.22 will have to submit for new Precert. -PAWEL Nielsen, DIRECT SERVICE PROVIDER *This note was generated with [employer] dictation software. It may contain incorrect words, spelling, and punctuation that were not noted in review of the chart prior to signing*
[2023-10-20 16:13] LABS: BNP,B-Type NATRIURETIC PEPTIDE 98.3 pg/mL (0-100)
[2023-10-20 16:38] LABS: Ferritin 1060 ng/mL (26-388); Iron 34 ug/dL (65-175); Iron Binding Capacity,Total 214 ug/dL (250-450); PERCENT IRON SATURATION 15.9 % (15.0-55.0)
[2023-10-20 16:44] LABS: Lymphocytes 11 %; Neutrophil (Segs) 58 %
[2023-10-20 16:45] LABS: Monocytes 31 %
[2023-10-20 16:49] LABS: Body Fluid QC Type(s) BF2Q
[2023-10-20 16:53] LABS: Platelet Count 116 K/mm3 (150-450); RET-HE 37.7 pg (30-35); Reticulocyte Count 1.05 % (0.5-1.5)
[2023-10-20 17:05] LABS: Erythrocyte Sedimentation Rate 3 mm/hr (0-20)
[2023-10-20 18:04] LABS: Glucose, Body Fluid 180 mg/dL (40-70); LDH,Body Fluid 139 Units/L (Not Establ.); Protein, Body Fluid 1.1 g/dL (Not Establ.)
[2023-10-20] MEDS: Ipratropium/Albuterol Sulfate 3 ML AMPUL.NEB INHALATION (19:15)
--- NOTE | 2023-10-20 20:45 | CPS ---
Pt only took half of treatment. Pt very confused and agitated, not keeping aerosal mask on.
[2023-10-20] MEDS: RisperiDONE 1 MG Tablet PO (21:55)
[2023-10-20] MEDS: Pantoprazole Sodium 40 MG in 0.9% Normal Saline (100mL MB+) 100 ML 330 MG IV (21:55)
[2023-10-20] MEDS: guaiFENesin 1,200 MG Tablet 1200 MG PO (21:59)
[2023-10-21] VITALS (15 sets, daily range): BP systolic 108–150; BP diastolic 61–127; PULSE 92–110; RESP 11–22; TEMP 36.1–37.1; O2SAT 92–100; BMI 22.8
[2023-10-21 00:43] LABS: Absolute Lymphocyte Count 0.29 X10^3/uL (0.83-4.51); Absolute Neutrophil Count 19.2 X10^3/uL (2.0-7.7); Basophil# 0.02 X10^3/uL; Basophil% 0.1 % (0-1); Hematocrit 23.7 % (40-54); Hemoglobin 7.9 g/dL (13.0-16.5); Lymphocyte # 0.29 X10^3/ul (0.83-4.51); Lymphocyte % 1.4 % (19-41); Mean Corp Hgb Conc 33.3 g/dL (32-36); Mean Corpuscular Hgb 32.8 pg (27.0-32.0); Mean Corpuscular Volume 98.3 fL (80-94); Monocyte# 1.02 X10^3/uL; Monocyte% 4.9 % (0-10); NRBC Flagged by Analyzer 0 % (0-5); Neutrophil # 19.18 X10^3/uL (2.7-7.7); Neutrophil % 92.4 % (47-70); POSITIVE DIFFERENTIAL YES; Platelet Count 111 K/mm3 (150-450); RBC Distribution Width CV 13.2 % (11.6-14.6); RBC Distribution Width SD 46.5 fl (35.1-43.9); Red Blood Count 2.41 M/mm3 (4.6-6.2); White Blood Count 20.8 K/mm3 (4.4-11.0)
[2023-10-21 00:44] LABS: Differential Indicated SCAN CRITERIA MET
[2023-10-21 01:08] LABS: Anion Gap 3 (5-15); BUN 53 mg/dL (7-18); Calcium,Total 7.5 mg/dL (8.5-10.1); Chloride 107 mmol/L (98-107); Creatinine, Serum 1.02 mg/dL (0.70-1.30); EST Glomerular Filtration Rate 74 mL/min (>60); Est Glom Filt Rate - Afr Amer 89 mL/min (>60); Estimated Creatinine Clearance 48.65 ml/min; Glucose 130 mg/dL (74-106); Magnesium 2.7 mg/dL (1.6-2.6); Phosphorus 3.4 mg/dL (2.5-4.9); Potassium 3.9 mmol/L (3.5-5.1); Sodium Level 142 mmol/L (136-145)
[2023-10-21 01:21] LABS: Vancomycin, Trough Level 17.4 ug/mL (5.0-15.0)
[2023-10-21] MEDS: Vancomycin Trough/Random Due 1 LAB MC (01:29)
--- NOTE | 2023-10-21 01:33 | PCM.RX.CS ---
Consult Antibiotic Management Pharmacy has been consulted to manage selected antibiotic: Vancomycin Type of Intervention Type of Consult: Follow-up Labs Labs: Sodium 142 mmol/L (136-145) 10/21/23 00:28 Potassium 3.9 mmol/L (3.5-5.1) 10/21/23 00:28 Chloride 107 mmol/L (98-107) 10/21/23 00:28 Carbon Dioxide 32.0 mmol/L (21.0-32.0) 10/21/23 00:28 Anion Gap 3 (5-15) L 10/21/23 00:28 BUN 53 mg/dL (7-18) H 10/21/23 00:28 Creatinine 1.02 mg/dL (0.70-1.30) 10/21/23 00:28 Est GFR (MDRD) Af Amer 89 mL/min (>60) 10/21/23 00:28 Est GFR (MDRD) Non-Af 74 mL/min (>60) 10/21/23 00:28 BUN/Creatinine Ratio 52.0 RATIO (10-20) H 10/21/23 00:28 Glucose 130 mg/dL (74-106) H 10/21/23 00:28 Vancomycin Trough 17.4 ug/mL (5.0-15.0) H 10/21/23 00:28 Microbiology Microbiology: Microbiology 10/19/23 12:50 Mucosa - Nose Respiratory Panel (PCR) - Final 10/19/23 15:35 Urine, Clean Catch Streptococcus pneumoniae Antigen (M - Final 10/19/23 15:35 Urine, Clean Catch Legionella Antigen - Final 10/19/23 13:05 Nasal Secretion SARS-CoV-2 & FLU Antigen (Rapid) - Final 10/11/23 00:40 Nasal Secretion SARS-CoV-2 Antigen (Rapid) - Final Goal Trough Goal Trough: 15-20 mcg/mL Pharmacy Plan for Drug Dosing Pharmacy Plan for Drug Dosing: Pharmacy Service will continue to monitor and adjust dosing as required. TROUGH 17.4 @ 9.75 HRS. NO CHANGES, FOLLOW UP TROUGH IN 2 DAYS Follow-Up Labs Follow-Up Labs: Trough: Vancomycin Date/Time Labs Ordered Labs to be done on [date and time ordered]: 10/23 @ 0030
[2023-10-21 01:47] LABS: Differential Comment SCANNED
[2023-10-21] MEDS: Vancomycin HCl 750 MG in 0.9% Normal Saline (250mL Bag) 250 ML 250 MG IV ×2 (02:04→12:44)
[2023-10-21] MEDS: Piperacil/Tazobactam 3.375 GM in 0.9% Normal Saline (50mL MB+) 50 ML IV ×3 (04:58→21:36)
--- NOTE | 2023-10-21 06:35 | ECHOCS_ITS ---
Reason For Study: Dyspnea/SOB Procedure This was a 2D Doppler, Color Flow transthoracic echocardiogram. Technically difficult study, patient unable to hold still and was very confused. Contrast injection performed. Exam performed portable in patient room. Left Ventricle Normal size and thickness. Left ventricular systolic function is normal. The estimated ejection fraction is 55-60 %. Stage 2 diastolic dysfunction. No regional wall motion abnormalities noted. Right Ventricle Normal RV size. Normal systolic function. Atria The left atrium is not well visualized. The right atrium is not well visualized. Bubble contrast study negative for right to left interatrial shunt. Mitral Valve Mild mitral annular calcification. Poorly visualized. There is no mitral valve stenosis. No mitral valve insufficiency. Tricuspid Valve It is poorly visualized. Mild tricuspid valve insufficiency. Aortic Valve The aortic valve is not well visualized in the short axis view. No aortic valve insufficiency. Pulmonic Valve The pulmonic valve is not well visualized. Great Vessels The aortic root is not well visualized. Normal inferior vena cava. Pericardium/Pleural No pericardial effusion. Epicardial fat. Medication Diluted definity 3ml given slow IV push to enhance endocardial definition. Performed a rapid injection of agitated mix of 9 cc saline and 1cc air to assess for atrial septal defect. MMode/2D Measurements & Calculations LVIDd: 4.2 cm IVSd: 0.84 cm LA dimension: 3.6 cm LVIDs: 2.8 cm LVPWd: 0.99 cm FS: 34.2 % Time Measurements MV dec time: 0.22 sec Doppler Measurements & Calculations MV E max jarret: 90.6 cm/sec MV V2 max: 90.8 cm/sec Ao V2 max: 84.8 cm/sec MV A max jarret: 40.4 cm/sec MV max P.3 mmHg Ao max P.9 mmHg MV E/A: 2.2 MV V2 mean: 53.3 cm/sec MV mean P.4 mmHg MV V2 VTI: 19.4 cm LV V1 max: 57.2 cm/sec PA V2 max: 74.0 cm/sec TR max jarret: 204.9 cm/sec LV V1 max P.3 mmHg TR max P.8 mmHg ECHO/Echo Complete W/ Contrast Interpretation Summary Normal size and thickness. Left ventricular systolic function is normal. The estimated ejection fraction is 55-60 %. No regional wall motion abnormalities noted. Stage 2 diastolic dysfunction. Ordering Physician: Hernan Souza Referring Physician: Maulik Christy Performed By: Alvaro Collado RCS
[2023-10-21] MEDS: Budesonide Respules 0.5 MG/2 ML AMPUL.NEB. INHALATION ×2 (07:40→19:26)
[2023-10-21] MEDS: Ipratropium/Albuterol Sulfate 3 ML AMPUL.NEB INHALATION ×3 (07:45→19:26)
[2023-10-21] MEDS: Multivitamins,Therapeutic Tablet 1 TABLET PO (08:01)
[2023-10-21] MEDS: dilTIAZem CD 120 MG Capsule PO ×2 (08:01→21:26)
[2023-10-21] MEDS: Amiodarone 200 MG Tablet PO (08:01)
[2023-10-21] MEDS: APIXABAN 5 MG TABLET PO (08:02)
[2023-10-21] MEDS: Potassium Chloride Oral Tablet 10 MEQ 20 MEQ PO (08:02)
[2023-10-21] MEDS: Pantoprazole Sodium 40 MG in 0.9% Normal Saline (100mL MB+) 100 ML 330 MG IV ×2 (08:02→21:36)
[2023-10-21] MEDS: guaiFENesin 1,200 MG Tablet 1200 MG PO ×2 (08:02→21:26)
[2023-10-21] MEDS: Metoprolol(XL)Succ 100 MG Tablet PO ×2 (08:03→21:26)
[2023-10-21] MEDS: 0.9% Saline Lock 10 ML Syringe IV (08:04)
[2023-10-21 08:20] LABS: Base Excess 4 mmol/L (-2 to +2); Bicarbonate 26.4 mmol/L (22-26); Blood Gas Specimen Type ART; Comment airvo 60L 86%; Mode Not entered; O2 Delivery Device HFNC; PO2 135 mmHG (75-100); SITE L Radial; SO2 99 % (95-99); Total Carbon Dioxide 27 mmol/L; pCO2 32.3 mmHg (35-45); pH 7.52 (7.35-7.45)
[2023-10-21 08:23] LABS: Procalcitonin 0.06 ng/mL (0.00-0.09)
[2023-10-21 12:46] LABS: Pathologist Comment/Body Fluid Reviewed
--- NOTE | 2023-10-21 12:47 | CON.PCM.CC_ITS ---
Assessment & Plan Assessment/Plan (1) Acute on chronic hypoxic respiratory failure: PLAN: Plan RECOMMENDATIONS: 1. Continue to wean FiO2 to maintain oxygen saturations at or above 90%. 2. Continue empiric antimicrobials. 3. Continue scheduled bronchodilators and steroids. 4. Obtain arterial blood gas. 5. Obtain echocardiogram with bubble to evaluate for cardiac level shunt. IMPRESSIONS: 1. Acute on chronic hypoxemic respiratory failure Unclear precipitating etiology. The patient was initially admitted to the hospital with atrial fibrillation with RVR, which was medically managed by cardiology. He does have a known history of underlying obstructive lung disease with a baseline oxygen requirement of 3 to 4 L/min. He was recently hospitalized with RSV and concurrent pseudomonal pneumonia, which was treated appropriately with antimicrobials. CTA chest showed no evidence for pulmonary embolism. There were small bilateral pleural effusions, with thoracentesis completed which was transudative in etiology. At this time, I recommended we obtain an arterial blood gas along with an echocardiogram to evaluate for c ardiac level shunt. Aside from the effusions and atelectasis, there was no significant pulmonary pathology on CT imaging. I would also recommend that we provide the patient with an incentive spirometer and encourage its use. According to report, the patient has not tolerated significant attempts at diuresis in the past. His underlying anemia is also complicating his hospital course. It is reasonable to continue empiric antimicrobials, pending sputum culture results. In light of his obstructive lung disease, will continue scheduled bronchodilators and steroids. 2. Anemia Likely complicating his respiratory status. However, the patient is not demonstrating any overt signs of blood loss. Therefore, Eliquis will be continued for now. If hemoglobin continues to drop, he may require gastroenterology evaluation. 3. Paroxysmal atrial fibrillation with RVR Continue medical management per cardiology recommendations. 4. Delirium/advanced age and deconditioning/baseline obstructive lung disease/malnutrition Complicates care, management, recovery and prognosis. Continue supportive measures as noted above. This note was generated with theDrop dictation software. It may contain incorrect words, spelling, and punctuation that were not noted in checking the note before signing. HPI Consult Data Date of Consult: 10/21/23 HPI Narrative Reason for Consultation: Acute on chronic hypoxemic respiratory failure HPI Narrative: The patient is an 83-year-old male, with a history as outlined below, who presented initially to the emergency department via EMS on October 11 with shortness of breath. The patient had just been hospitalized October 05 through for an acute COPD exacerbation secondary to RSV infection and Pseudomonas identified on sputum culture. The patient was discharged home on 4 L/min of supplemental oxygen. On initial presentation to the hospital, the patient was noted to be in atrial fibrillation with RVR. All of his initial infectious workup was unrevealing. The patient is systemically anticoagulated on Eliquis at his baseline. The patient was initially admitted to the hospital for medical management of his atrial fibrillation with RVR. He was seen in consultation by cardiology with medical management employed. However, on October 17, the patient apparently experienced a decompensation in his respiratory status, requiring an escalation in supplemental oxygen. The patient is currently requiring heated high flow oxygen to maintain saturations. CTA chest completed on October 19 demonstrated cystic emphysematous changes with hyperinflated lung acharya and bilateral pleural effusions with associated atelectasis. The patient subsequently underwent an ultrasound-guided thoracentesis on October 20. The patient is currently being maintained on empiric broad-spectrum antimicrobials along with scheduled bronchodilators and steroids. The patient has an elevated white blood cell count with worsening anemia noted over the course of his hospitalization. Hemoglobin this morning was noted to be 7.9 g/dL. [facility] Medical History Anticoagulant long-term use Atrial fibrillation with RVR Chronic hypoxic respiratory failure COPD (chronic obstructive pulmonary disease) Essential (primary) hypertension History of ETOH abuse Incomplete right bundle branch block Nonsustained paroxysmal supraventricular tachycardia Nonsustained ventricular tachycardia Paroxysmal atrial fibrillation Peripheral vascular disease Tobacco use Home Medications multivitamin 1 tab PO DAILY supplement 01/27/18 [History Last Taken 10/04/23 12:00 1 TAB] Handicap Parking Placard #1 ea 10/05/22 [Rx Last Taken Unknown] budesonide-formoterol HFA 160 mcg-4.5 mcg/actuation aerosol inhaler 2 puff inhalation BID shortness of breath 03/01/23 [History Last Taken 10/05/23] apixaban 5 mg tablet (Eliquis) 5 mg PO BID #60 tabs 05/13/23 [Rx Last Taken 10/05/23 5 mg] metoprolol succinate 100 mg tablet,extended release 24 hr 100 mg PO BID #60 tabs 05/13/23 [Rx Last Taken 10/05/23 100 mg] potassium chloride 10 mEq tablet,extended release 20 meq (2 x 10 mEq) PO DAILY supplement #180 tabs 05/13/23 [Rx Last Taken 10/03/23 12:00 20 mEq] torsemide 10 mg tablet 10 mg PO DAILY fluid #90 tabs 05/13/23 [Rx Last Taken 10/03/23 00:00 10 mg] albuterol sulfate 2.5 mg/3 mL (0.083 %) solution for nebulization 2.5 mg continuous nebulization Q6H PRN shortness of breath 10/05/23 [History Last Taken 10/04/23] amlodipine 10 mg tablet 10 mg PO DAILY blood pressure 10/05/23 [History Last Taken 10/04/23 12:00 10 mg] levofloxacin 750 mg tablet 750 mg PO DAILY 2 days #2 tabs 10/09/23 [Rx Last Taken Unknown] prednisone 10 mg tablet 30 mg (3 x 10 mg) PO DAILY 3 days #9 tabs 10/09/23 [Rx Last Taken Unknown] prednisone 20 mg tablet 20 mg PO DAILY 3 days #3 tabs 10/09/23 [Rx Last Taken Unknown] prednisone 20 mg tablet 40 mg (2 x 20 mg) PO DAILY 3 days #6 tabs 10/09/23 [Rx Last Taken Unknown] Allergy/AdvReac Type Severity Reaction Status Date / Time atenolol AdvReac Intermediate Made me Verified 10/11/23 00:16 feel terrible digoxin AdvReac Intermediate Digitoxicit Verified 10/11/23 00:16 y Family History (Updated 10/11/23 @ 04:[address] Bridget Isidro MD) Brother Sudden cardiac Active rheumatic fever involving heart Mother Diabetes Father Diabetes Surgical History (Updated 10/11/23 @ 05:[address] Bridget Isidro MD) History of umbilical hernia repair Social History (Updated 10/11/23 @ 04:[address] Bridget Isidro MD) household members: none Smoking Status: Former smoker how long ago did patient quit smoking: Quit 6 months prior, smoked prior 1.5 ppd->last 1-2 yr 1 ppd. alcohol intake: former substance use type: does not use caffeine: Yes Type: coffee Number of servings: 3 ROS ROS Narrative 10 systems were reviewed with pertinent positives as noted in the HPI above. Physical Exam Const alert and no apparent distress Constitutional Narrative: Restless in bed. Will answer simple questions, nonetheless. General Appearance: cooperative HEENT normocephalic and head/scalp atraumatic Eyes PERRL and EOMs intact bilaterally Neck supple General: trachea midline Resp normal respiratory effort and no use of accessory muscles Auscultation: diminished lung sounds Cardio regular rate and regular rhythm GI normal to inspection, nondistended, normoactive bowel sounds Extremity General Extremity: edema; Negative for clubbing Skin Skin Narrative: Scattered ecchymoses on extremities Neuro moves all extremities and no focal motor deficits Psych Activity / Motor Behavior: restless Lab / Micro Data 10/21/23 00:28 10/21/23 00:28 Labs: Laboratory Results - last 24 hr 10/20/23 03:07: Iron 34 L, TIBC 214 L, Iron Saturation 15.9, Ferritin 1060 H, C-React Prot Ext Range 37.20 H, B-Natriuretic Peptide 98.3 10/20/23 13:42: Fluid Source THORACENTESIS, Fluid Color YELLOW, Fluid Appearance CLEAR, Fluid WBC 0.039, Fluid RBC 843, Fluid Tot Cell Count 0.048, Fld Polynuclear WBCs # 0.016, Fld Polynuclear WBCs % 41.0, Fluid Mononuclear WBCs 0.023, Fld Mononuclear WBCs % 59.0, Fluid Neutrophils 58, Fluid Lymphocytes 11, Fluid Monocytes 31, Fl Pathologist Comment Reviewed, Fluid Glucose 180 H, Fluid Total Protein 1.1, Fluid LDH 139, Fluid Comment 2 SEE COMMENT 10/20/23 16:33: ESR 3, Retic Count 1.05, Immature Retic Fraction 9.40, Retic Hgb Equivalent 37.7 H 10/21/23 00:28: WBC 20.8 H, RBC 2.41 L, Hgb 7.9 L, Hct 23.7 L, MCV 98.3 H, MCH 32.8 H, MCHC 33.3 D, RDW Std Deviation 46.5 H, RDW Coeff of Matt 13.2, Plt Count 111 L, MPV 13.0 H, Immature Gran % (Auto) 1.200 H, Neut % (Auto) 92.4 H, Lymph % (Auto) 1.4 L, [place] % (Auto) 4.9, Eos % (Auto) 0.0, Baso % (Auto) 0.1, Absolute Neuts (auto) 19.2 H, Absolute Lymphs (auto) 0.29 L, Nucleated RBC % 0, Differential Comment SCANNED, Sodium 142, Potassium 3.9, Chloride 107, Carbon Dioxide 32.0, Anion Gap 3 L, BUN 53 H, Creatinine 1.02, Estim Creat Clear Calc 48.65, Est GFR (MDRD) Af Amer 89, Est GFR (MDRD) Non-Af 74, BUN/Creatinine Ratio 52.0 H, Glucose 130 H, Calcium 7.5 L, Phosphorus 3.4, Magnesium 2.7 H, Procalcitonin 0.06, Vancomycin Trough 17.4 H ABG Data ABG results: ABG 10/21/23 08:15 Specimen Type ART Sample Site L Radial pH 7.52 H Bicarbonate Actual 26.4 H Total CO2 27 Base Excess 4 H O2 Saturation 99 O2 % 86.0 ABG pCO2 32.3 L ABG pO2 135 H O2 Delivery Device HFNC Vent Mode Not entered Clinical Comments airvo 60L 86% Rhythm Strip Rhythm Strip: A-fib Rate: 140 Ectopy: PVC(s) Imagaing Radiology Impression Chest X-Ray 10/20/23 13:50 IMPRESSION: Improved right lower lung atelectasis. Electronically Signed: Deonte Calvillo MD at 14:05 EST , Charges/Coding Visit Charges Inpatient E&M: 71920 Init Hosp L3
--- NOTE | 2023-10-21 14:02 | PCM.PN.HOSP ---
Reason for Visit Reason for Visit: Shortness of breath/vertigo/racing heart Subjective Subjective Patient with intermittent bouts of delirium however patient also has intermittent bouts of lucidity. Thoracentesis done yesterday and only 150 cc of fluid removed. Patient remains on high flow but denies any significant shortness of breath. Objective Data Objective Data Vital Signs: Vital Signs Temp Pulse Resp BP Pulse Ox O2 Del Method O2 Flow Rate 98.4 F 92 11 L 150/127 H 99 Airvo 60 10/21/23 08:11 10/21/23 13:10 10/21/23 13:10 10/21/23 08:11 10/21/23 13:10 10/21/23 08:11 10/21/23 09:33 FiO2 60 10/21/23 13:10 Oxygen Flow Rate (L/min) 60 Oxygen Delivery Method Airvo Weight: 64.2 kg Body Mass Index (BMI) 22.8 Intake & Output: Intake and Output for Last 24 Hours 10/19/23 10/20/23 10/21/23 23:59 23:59 23:59 Intake Total 1845 / 2085 1870 / 1870 740 / 740 Output Total 1900 / 2300 2350 / 2350 500 / 500 Balance -55 / -215 -480 / -480 240 / 240 Lab / Micro Data 10/21/23 00:28 10/21/23 00:28 Labs: Laboratory Results - last 24 hr 10/20/23 03:07: Iron 34 L, TIBC 214 L, Iron Saturation 15.9, Ferritin 1060 H, C-React Prot Ext Range 37.20 H, B-Natriuretic Peptide 98.3 10/20/23 13:42: Fluid Source THORACENTESIS, Fluid Color YELLOW, Fluid Appearance CLEAR, Fluid WBC 0.039, Fluid RBC 843, Fluid Tot Cell Count 0.048, Fld Polynuclear WBCs # 0.016, Fld Polynuclear WBCs % 41.0, Fluid Mononuclear WBCs 0.023, Fld Mononuclear WBCs % 59.0, Fluid Neutrophils 58, Fluid Lymphocytes 11, Fluid Monocytes 31, Fl Pathologist Comment Reviewed, Fluid Glucose 180 H, Fluid Total Protein 1.1, Fluid LDH 139, Fluid Comment 2 SEE COMMENT 10/20/23 16:33: ESR 3, Retic Count 1.05, Immature Retic Fraction 9.40, Retic Hgb Equivalent 37.7 H 10/21/23 00:28: WBC 20.8 H, RBC 2.41 L, Hgb 7.9 L, Hct 23.7 L, MCV 98.3 H, MCH 32.8 H, MCHC 33.3 D, RDW Std Deviation 46.5 H, RDW Coeff of Matt 13.2, Plt Count 111 L, MPV 13.0 H, Immature Gran % (Auto) 1.200 H, Neut % (Auto) 92.4 H, Lymph % (Auto) 1.4 L, [place] % (Auto) 4.9, Eos % (Auto) 0.0, Baso % (Auto) 0.1, Absolute Neuts (auto) 19.2 H, Absolute Lymphs (auto) 0.29 L, Nucleated RBC % 0, Differential Comment SCANNED, Sodium 142, Potassium 3.9, Chloride 107, Carbon Dioxide 32.0, Anion Gap 3 L, BUN 53 H, Creatinine 1.02, Estim Creat Clear Calc 48.65, Est GFR (MDRD) Af Amer 89, Est GFR (MDRD) Non-Af 74, BUN/Creatinine Ratio 52.0 H, Glucose 130 H, Calcium 7.5 L, Phosphorus 3.4, Magnesium 2.7 H, Procalcitonin 0.06, Vancomycin Trough 17.4 H Micro: Microbiology 10/19/23 12:50 Mucosa - Nose Respiratory Panel (PCR) - Final 10/19/23 15:35 Urine, Clean Catch Streptococcus pneumoniae Antigen (M - Final 10/19/23 15:35 Urine, Clean Catch Legionella Antigen - Final 10/19/23 13:05 Nasal Secretion SARS-CoV-2 & FLU Antigen (Rapid) - Final 10/11/23 00:40 Nasal Secretion SARS-CoV-2 Antigen (Rapid) - Final ABG Data ABG results: ABG 10/21/23 08:15 Specimen Type ART Sample Site L Radial pH 7.52 H Bicarbonate Actual 26.4 H Total CO2 27 Base Excess 4 H O2 Saturation 99 O2 % 86.0 ABG pCO2 32.3 L ABG pO2 135 H O2 Delivery Device HFNC Vent Mode Not entered Clinical Comments airvo 60L 86% Radiography Diagnostic Testing: Radiology Impression Chest X-Ray 10/20/23 13:50 IMPRESSION: Improved right lower lung atelectasis. Electronically Signed: Deonte Calvillo MD at 14:05 EST , Rhythm Strip Rhythm Strip: A-fib Rate: 140 Ectopy: PVC(s) Physical Exam Const alert, oriented x3, no apparent distress and average body habitus; Negative for healthy appearing or well nourished Constitutional Narrative: Thin, elderly, white male, sitting up in a chair at the bedside, currently on heated Airvo appears comfortable with no significant tachypnea at this time, watching television HEENT head/scalp atraumatic and moist oral mucous membranes HEENT Narrative: Dentition is poor, Mallampati is 1-2, no thrush, moderate hearing loss Eyes PERRL Eyes Narrative: Conjunctiva are pale bilaterally, no scleral icterus Neck no lymphadenopathy and supple Neck Narrative: Trachea midline, no thyroid enlargement Resp normal respiratory effort, no retractions, no use of accessory muscles and No clear to auscultation bilaterally Resp Narrative: Tachypnea is improved, severely diminished with coarse breath sounds diffusely bilaterally, wheezes resolved Auscultation: Negative for rales, rhonchi or wheezes Cardio regular rate, regular rhythm, S1 normal heart sound, S2 normal heart sound, no murmurs, no rub, no gallops and no clicks GI normal to inspection, nondistended, normoactive bowel sounds, soft to palpation and non-tender GI Narrative: Abdomen is scaphoid Extremity Extremity Narrative: Patient with 1-2+ bilateral lower extremity pitting edema distally, no cyanosis or clubbing Skin Skin Narrative: Large ecchymotic area on the posterior aspect of the right leg starting at the knee and enlarging distally with no significant firmness noted, skin is thin and fragile Neuro moves all extremities and no focal motor deficits Neuro Narrative: Severe generalized weakness Sensorium / Orientation: awake, alert, oriented to person, oriented to place and oriented to time Speech: speech normal Psych affect normal Psych Narrative: Eye contact is good, patient interacts appropriately Mood & Affect: anxious Assessment & Plan Assessment/Plan (1) Pleural effusion, right: (2) Acute on chronic hypoxic respiratory failure: (3) Paroxysmal atrial fibrillation: (4) Vertigo: (5) Leukocytosis: (6) Anemia: (7) Thrombocytopenia: (8) Hyperbilirubinemia: (9) Mesenteric artery stenosis: (10) Severe malnutrition: PLAN: Plan Acute on chronic hypoxic respiratory failure--> etiology is unclear -Baseline oxygen utilization is 3 to 4 L -Recent RSV infection with superimposed pseudomonal pneumonia -Patient completed outpatient treatment and had been stable however increasing oxygen requirements over the last 3 days -Etiology of worsening respiratory status is unclear -Chest with pulmonary medicine as well and there unclear on what has made him worse -Will check an echocardiogram with bubble study to rule out shunting -ABG with a pO2 of greater than 100 -Currently on Airvo at 92% FiO2 and 60 L/min -Wean as able--> discussed with respiratory therapy as his oxygen saturations have been stable on current with no signs of weaning -Sputum culture ordered but not collected due to no production -Strep pneumo and Legionella antigens are negative -Flu and COVID unremarkable -Respiratory viral panel is unremarkable -Patient has had a drop in hemoglobin so this could be contributing -BNP was normal yesterday at 98 -Thoracentesis done with only 150 removed -Transudative per lights criteria -Continue steroids with history of COPD -CT of the chest reviewed with no signs of PE but does have significant COPD -Add Mucinex scheduled -Add ipratropium and continue as needed albuterol -Continue I-S -Add Pep therapy with Acapella -Speech therapy evaluated the patient no obvious signs of dysphagia and recommended regular textures with thin liquids -Pulmonary medicine following-discussed case with Dr. Souza-appreciate input Acute anemia -During recent hospitalization hemoglobin appears to run between 12.5 and 13.5 -Hemoglobin down to 9.2 in the last 24 hours with precipitous drop from the to the -Iron studies are more consistent with chronic disease yet hemoglobin trends down -Hemoccult stool is pending -Reticulocyte count is not elevated -BUN has trended up despite stable creatinine -Continue IV PPI 40 mg twice daily -Stop Eliquis -Consult GI for EGD -Patient to be n.p.o. Leukocytosis -Has trended down in the last 4 hours -Patient has been on steroids so it may be related to this -Continue broad-spectrum antibiotics -Sed rate was normal and CRP was only mildly elevated -Procalcitonin is normal at 0.06 -Remains afebrile -Blood cultures are pending however patient has been on antibiotics Thrombocytopenia -This is new with only slight drop in last 24 hours -Etiology is unclear -May be related to antibiotics versus consumption due to bleeding -Repeat lab in a.m. -Normal at baseline -Eliquis is on hold Hyperbilirubinemia -This is new -Repeat lab in a.m. -Workup in progress Mesenteric stenosis -Noted on CT of the chest -No current abdominal pain or abdominal issues -Monitor clinically -Apixaban on hold -May benefit from the addition of aspirin however will hold off on this for now given anemia Vertigo -Persistent despite treatment--> no complaints of this today -Initial assumption was BPPV -Check MRI once patient is more clinically stable from a respiratory standpoint -Will monitor blood pressure closely as well as patient is a poor historian it is hard to ascertain whether he is having more orthostasis or vertigo type symptoms -If MRI is negative may need to consider backing off on antihypertensives Delirium -Is intermittent at times patient will be alert and oriented x 3 and other times he is very confused -Question underlying dementia versus hospital-acquired delirium versus steroid related -Seroquel discontinued in favor of Risperdal 1 mg at at bedtime and will add 0.25 mg in a.m. to see if this helps -TSH is within normal limits -B12 and folate are unremarkable A-fib with RVR -Recurrent but currently rate controlled -Continue metoprolol 100 mg p.o. twice daily -Continue amiodarone -Continue home Cardizem -Apixaban on hold due to drop in hemoglobin -Blood pressures are improved -Cardiology has not seen the patient in several days and appears to have signed off -Will need outpatient follow-up after discharge Adult failure to thrive -Multifactorial -PT/OT following and plan for discharge is group home facility once medically ready Hypertension -Blood pressures are stabilized today -Continue Cardizem and beta-antonio -Continue to monitor Severe malnutrition -Continue supplements -Dietitian is following COPD -Recommend outpatient follow-up -Inhalers as ordered -Continue DuoNebs -Can home albuterol DVT prophylaxis -Start SCDs and Eliquis on hold due to worsening anemia CODE STATUS -DNR CCA with no intubation Charges/Coding Visit Charges Inpatient E&M: [address] [facility] Hosp L3
[2023-10-21] MEDS: Acetaminophen 325 MG Tablet 650 MG PO ×2 (17:39→21:38)
[2023-10-21] MEDS: RisperiDONE 1 MG Tablet PO (21:26)
[2023-10-21] MEDS: Senna/Docusate Sodium 1 Tablet 2 TABLET PO (21:38)
[2023-10-21] MEDS: MELATONIN 3 MG TABLET PO (21:38)
--- NOTE | 2023-10-21 23:35 | NURSING ---
Patient restless disoriented and hallucinating. Trying to get out of bed, pulling off oxygen and ripping out several IVs with platelets 111. Less invasive interventions were done with medications, redirection and making sure physiological needs were being met. Concerned for pt safety, with MD and nurse conversation pt was put in soft wrist restraints.
[2023-10-22] VITALS (24 sets, daily range): BP systolic 89–148; BP diastolic 38–122; PULSE 96–124; RESP 18–26; TEMP 36–37.1; O2SAT 84–97; BMI 22.8; BMI 23.1
--- NOTE | 2023-10-22 00:39 | CPS ---
Patient off Airvo and on 10L high flow. tolerating well. Nursing aware.
[2023-10-22] MEDS: 0.9% Saline Lock 10 ML Syringe IV (01:03)
[2023-10-22] MEDS: Vancomycin HCl 750 MG in 0.9% Normal Saline (250mL Bag) 250 ML 250 MG IV ×2 (01:03→13:57)
[2023-10-22] MEDS: Piperacil/Tazobactam 3.375 GM in 0.9% Normal Saline (50mL MB+) 50 ML IV ×3 (05:08→21:53)
[2023-10-22 05:23] LABS: Absolute Lymphocyte Count 0.29 X10^3/uL (0.83-4.51); Basophil# 0.02 X10^3/uL; Basophil% 0.1 % (0-1); Hematocrit 21.4 % (40-54); Hemoglobin 7.1 g/dL (13.0-16.5); Lymphocyte # 0.29 X10^3/ul (0.83-4.51); Lymphocyte % 1.7 % (19-41); Mean Corp Hgb Conc 33.2 g/dL (32-36); Mean Corpuscular Hgb 32.6 pg (27.0-32.0); Mean Corpuscular Volume 98.2 fL (80-94); Mean Platelet Vol. 12.9 fl (6.2-12.0); Monocyte# 0.52 X10^3/uL; Monocyte% 3.1 % (0-10); NRBC Flagged by Analyzer 0 % (0-5); Neutrophil # 16.02 X10^3/uL (2.7-7.7); Neutrophil % 94.2 % (47-70); POSITIVE DIFFERENTIAL YES; Platelet Count 111 K/mm3 (150-450); RBC Distribution Width CV 13.4 % (11.6-14.6); RBC Distribution Width SD 47.2 fl (35.1-43.9); Red Blood Count 2.18 M/mm3 (4.6-6.2)
[2023-10-22 05:43] LABS: AST(SGOT) 33 U/L (15-37); Alanine Aminotransfer ALT/SGPT 67 U/L (16-61); Albumin, Serum 2.1 g/dL (3.2-5.0); Alkaline Phosphatase 56 U/L (45-117); Anion Gap 4 (5-15); BUN 64 mg/dL (7-18); BUN/Creat Ratio 51.6 RATIO (10-20); Chloride 112 mmol/L (98-107); Creatinine, Serum 1.24 mg/dL (0.70-1.30); EST Glomerular Filtration Rate 59 mL/min (>60); Est Glom Filt Rate - Afr Amer 71 mL/min (>60); Estimated Creatinine Clearance 40.02 ml/min; Globulin 2.2 g/dL (2.2-4.2); Glucose 131 mg/dL (74-106); Potassium 4.3 mmol/L (3.5-5.1); Protein, Total 4.3 g/dL (6.4-8.2); Sodium Level 145 mmol/L (136-145)
[2023-10-22 05:48] LABS: International Normalized Ratio 2.4; Prothrombin Time (Protime)PT. 26.5 SECONDS (11.7-14.9)
[2023-10-22 05:49] LABS: Partial Thromboplast Time 30.7 Seconds (24.1-36.2)
[2023-10-22 06:14] LABS: Differential Indicated SCAN CRITERIA MET
[2023-10-22 06:26] LABS: Differential Comment SCANNED
--- NOTE | 2023-10-22 06:59 | PN.CC_ITS ---
Assessment & Plan Assessment/Plan (1) Acute on chronic hypoxic respiratory failure: PLAN: Plan RECOMMENDATIONS: 1. Continue to wean FiO2 to maintain oxygen saturations at or above 90%. 2. Continue empiric antimicrobials to complete 7 days of therapy. 3. Continue scheduled bronchodilators and steroids. 4. Transfuse blood products today as ordered. Continue PPI therapy. GI cons ultation is pending. 5. If hemodynamic status allows, consider challenging with diuretics. 6. Attempt to encourage incentive spirometer use. Mobilize patient as tolerated. IMPRESSIONS: 1. Acute on chronic hypoxemic respiratory failure Unclear precipitating etiology. The patient was initially admitted to the hospital with atrial fibrillation with RVR, which was medically managed by cardiology. He does have a known history of underlying obstructive lung disease with a baseline oxygen requirement of 3 to 4 L/min. He was recently hospitali zed with RSV and concurrent pseudomonal pneumonia, which was treated appropriately with antimicrobials. CTA chest showed no evidence for pulmonary embolism. There were small bilateral pleural effusions, with thoracentesis completed which was transudative in etiology. The patient likely has limited respiratory reserve and was likely unable to compensate metabolically for his recent RSV/pseudomonal pneumonia and atrial fibrillation with RVR. In addition, he likely has an underlying component of atelectasis. Echocardiogram was completed and failed to demonstrate evidence of a cardiac level shunt. However, the patient does have underlying heart failure with preserved ejection fraction. Therefore, an attempted gentle diuresis could be considered, if hemodynamic status allows. In the interim, continue to wean FiO2 to maintain oxygen saturations at or above 90%. Encourage incentive spirometer use and mobilize patient as tolerated. Continue scheduled bronchodilators and steroids. 2. Anemia Likely complicating his respiratory status. However, the patient is not demonstrating any overt signs of blood loss. Given that his hemoglobin has dropped to 7.1 g/dL this morning, I agree with transfusion of blood products and holding of Eliquis for now. GI consultation is pending. Continue PPI therapy as ordered. 3. Paroxysmal atrial fibrillation with RVR Continue medical management per cardiology recommendations. 4. Delirium/advanced age and deconditioning/baseline obstructive lung disease/malnutrition Complicates care, management, recovery and prognosis. Continue supportive measures as noted above. This note was generated with [employer] software. It may contain incorrect words, spelling, and punctuation that were not noted in checking the note before signing. Subjective Subjective The patient was seen and examined at the bedside this morning. Events from the last 24 hours have been reviewed. The patient is currently afebrile, hemodynamically stable and maintaining appropriate oxygen saturations on heated high flow oxygen with an FiO2 of 60%. Yesterday afternoon, the patient was able to be transition to a high flow nasal cannula. Overnight, however, the patient apparently desaturated to 86% on the high flow cannula and was once again restarted on Airvo. Echocardiogram completed yesterday showed no definitive evidence of a cardiac level shunt. White count is improved to 17,000 this morning. However, hemoglobin has dropped to 7.1 g/dL. The patient remains on antimicrobials along with twice daily PPI therapy. Eliquis is currently on hold. Objective Data Objective Data The patient's most recent lab work, culture data and imaging studies have all been personally reviewed. Surface echocardiogram demonstrated stage II diastolic dysfunction. Vital Signs: Vital Signs Temp Pulse Resp BP Pulse Ox O2 Del Method O2 Flow Rate 97.0 F L 96 20 H 94/71 96 Airvo 50 10/22/23 05:35 10/22/23 05:35 10/22/23 05:35 10/22/23 05:35 10/22/23 05:35 10/22/23 05:35 10/22/23 05:35 FiO2 60 10/22/23 05:35 Oxygen Flow Rate (L/min) 50 Oxygen Delivery Method Airvo Weight: 143 lb 4.807 oz Body Mass Index (BMI) 23.1 Intake & Output: Intake and Output for Last 24 Hours 10/20/23 10/21/23 10/22/23 23:59 23:59 23:59 Intake Total 1870 / 1870 1050 / 1050 315 / 315 Output Total 2350 / 2350 500 / 500 200 / 200 Balance -480 / -480 550 / 550 115 / 115 Lab / Micro Data Attestation: I reviewed the patient's lab results. 10/22/23 05:03 10/22/23 05:03 Labs: Laboratory Results - last 24 hr 10/20/23 13:42: Fl Pathologist Comment Reviewed 10/21/23 00:28: Procalcitonin 0.06 10/22/23 05:03: WBC 17.0 H, RBC 2.18 L, Hgb 7.1 L, Hct 21.4 L, MCV 98.2 H, MCH 32.6 H, MCHC 33.2, RDW Std Deviation 47.2 H, RDW Coeff of Matt 13.4, Plt Count 111 L, MPV 12.9 H, Immature Gran % (Auto) 0.900, Neut % (Auto) 94.2 H, Lymph % (Auto) 1.7 L, [place] % (Auto) 3.1, Eos % (Auto) 0.0, Baso % (Auto) 0.1, Absolute Neuts (auto) 16.0 H, Absolute Lymphs (auto) 0.29 L, Nucleated RBC % 0, Differential Comment SCANNED, PT 26.5 H, INR 2.4, APTT 30.7, Sodium 145, Potassium 4.3, Chloride 112 H, Carbon Dioxide 29.0, Anion Gap 4 L, BUN 64 H, Creatinine 1.24, Estim Creat Clear Calc 40.02, Est GFR (MDRD) Af Amer 71, Est G FR (MDRD) Non-Af 59 L, BUN/Creatinine Ratio 51.6 H, Glucose 131 H, Calcium 7.0 L , Total Bilirubin 1.90 H, AST 33, ALT 67 H, Alkaline Phosphatase 56, Total Protein 4.3 L, Albumin 2.1 L, Globulin 2.2, Albumin/Globulin Ratio 1.0 Micro: Microbiology 10/20/23 13:42 Fluid - Thoracentesis Fluid Gram Stain - Final 10/19/23 12:50 Mucosa - Nose Respiratory Panel (PCR) - Final 10/19/23 15:35 Urine, Clean Catch Streptococcus pneumoniae Antigen (M - Final 10/19/23 15:35 Urine, Clean Catch Legionella Antigen - Final 10/19/23 13:05 Nasal Secretion SARS-CoV-2 & FLU Antigen (Rapid) - Final 10/11/23 00:40 Nasal Secretion SARS-CoV-2 Antigen (Rapid) - Final ABG Data ABG results: ABG 10/21/23 08:15 Specimen Type ART Sample Site L Radial pH 7.52 H Bicarbonate Actual 26.4 H Total CO2 27 Base Excess 4 H O2 Saturation 99 O2 % 86.0 ABG pCO2 32.3 L ABG pO2 135 H O2 Delivery Device HFNC Vent Mode Not entered Clinical Comments airvo 60L 86% Radiography Diagnostic Testing: Radiology Impression Echocardiogram 10/21/23 06:35 Interpretation Summary Normal size and thickness. Left ventricular systolic function is normal. The estimated ejection fraction is 55-60 %. No regional wall motion abnormalities noted. Stage 2 diastolic dysfunction. Ordering Physician: Hernan Souza Referring Physician: Maulik Christy Performed By: Alvaro Collado RCS Rhythm Strip Rhythm Strip: A-fib Rate: 140 Ectopy: PVC(s) Physical Exam Const alert and no apparent distress Constitutional Narrative: Speech is somewhat garbled making it difficult to understand the patient. General Appearance: cooperative HEENT normocephalic and head/scalp atraumatic Eyes PERRL and EOMs intact bilaterally Neck supple General: trachea midline Resp normal respiratory effort and no use of accessory muscles Auscultation: diminished lung sounds Cardio regular rate and regular rhythm GI normal to inspection, nondistended, normoactive bowel sounds Extremity General Extremity: edema; Negative for clubbing Skin Skin Narrative: Scattered ecchymoses on extremities Neuro moves all extremities and no focal motor deficits Psych Activity / Motor Behavior: restless Charges/Coding Visit Charges Inpatient E&M: 68467 Subs Hosp L3
[2023-10-22] MEDS: Pantoprazole Sodium 80 MG in 0.9% Normal Saline (50mL Bag) 15 ML 420 MG IV BOLUS (09:28)
--- NOTE | 2023-10-22 11:09 | NURSING ---
Pt placed on nonrebreather at 15L per AC transformation consultant. AC RN to bedside for transport, this RN informed her of PRBCs coming to unit to be started. AC RN stated she will take PRBCs to AC and start it there.
--- NOTE | 2023-10-22 11:40 | NURSING ---
pt down to pacu pre op, on heart monitor and pox. blood started as ordered. pt's niece, sabrina zavaleta, called to obtain consent for egd- talked with pt's niece about procedure and why being done. she hasn't talked with dr salinas but the dr on the floor told they were going to do this. she is asking if there are any risks with the procedure. had pt talk to dr smith (anesthesia) after pt's niece talked with dr smith she decided she does not want to do the EGD today. she wants to see how his labs look tomorrow after the blood transfusion and talk to family and decide tomorrow if he will have it. asked pt if she would like to talk with dr salinas and she said she didn't and she wanted to wait. this nurse voices understanding and than talked with dr salinas about pt's family's concerns and that they will decide tomorrow if he should have it. pt taken back to [facility]- report called by pacu nurse.
--- NOTE | 2023-10-22 15:09 | PN.HOSP_ITS ---
Reason for Visit Reason for Visit: Shortness of breath Subjective Subjective Patient with marked agitation overnight. Off his Airvo and pulled it apart into multiple pieces. Has pulled out multiple IVs. Long discussion with his niece who declined EGD earlier today. She is technically not the healthcare power of assistant city attorney however he has no other living relatives. She indicates she has been updating the rest of the family. She states has been concerned about him recently at home with regards to memory impairment and felt like he was declining overall clinically. We discussed the possibility of hospice with his poor overall status and multiple comorbidities and she was in agreements with this. Objective Data Objective Data Vital Signs: Vital Signs Temp Pulse Resp BP Pulse Ox O2 Del Method O2 Flow Rate 98.2 F 103 H 18 106/83 H 97 Airvo 15 10/22/23 14:30 10/22/23 14:30 10/22/23 14:30 10/22/23 14:30 10/22/23 14:30 10/22/23 14:30 10/22/23 11:34 FiO2 60 10/22/23 05:35 Oxygen Flow Rate (L/min) 15 Oxygen Delivery Method Airvo Weight: 65 kg Body Mass Index (BMI) 23.1 Intake & Output: Intake and Output for Last 24 Hours 10/20/23 10/21/23 10/22/23 23:59 23:59 23:59 Intake Total 1870 / 1870 1050 / 1050 666 / 666 Output Total 2350 / 2350 500 / 500 200 / 200 Balance -480 / -480 550 / 550 466 / 466 Lab / Micro Data 10/22/23 05:03 10/22/23 05:03 Labs: Laboratory Results - last 24 hr 10/20/23 13:45: Miscellaneous Cytology SEE PATHOLOGY REPORT 10/22/23 05:03: WBC 17.0 H, RBC 2.18 L, Hgb 7.1 L, Hct 21.4 L, MCV 98.2 H, MCH 32.6 H, MCHC 33.2, RDW Std Deviation 47.2 H, RDW Coeff of Matt 13.4, Plt Count 111 L, MPV 12.9 H, Immature Gran % (Auto) 0.900, Neut % (Auto) 94.2 H, Lymph % (Auto) 1.7 L, [place]apata % (Auto) 3.1, Eos % (Auto) 0.0, Baso % (Auto) 0.1, Absolute Neuts (auto) 16.0 H, Absolute Lymphs (auto) 0.29 L, Nucleated RBC % 0, Differential Comment SCANNED, PT 26.5 H, INR 2.4, APTT 30.7, Sodium 145, Potassium 4.3, Chloride 112 H, Carbon Dioxide 29.0, Anion Gap 4 L, BUN 64 H, Creatinine 1.24, Estim Creat Clear Calc 40.02, Est GFR (MDRD) Af Amer 71, Est GFR (MDRD) Non-Af 59 L, BUN/Creatinine Ratio 51.6 H, Glucose 131 H, Calcium 7.0 L, Total Bilirubin 1.90 H, AST 33, ALT 67 H, Alkaline Phosphatase 56, Total Protein 4.3 L, Albumin 2.1 L, Globulin 2.2, Albumin/Globulin Ratio 1.0 10/22/23 09:34: Blood Type A POSITIVE, Antibody Screen NEGATIVE, Crossmatch See Detail Micro: Microbiology 10/20/23 13:42 Fluid - Thoracentesis Fluid Gram Stain - Final 10/20/23 13:42 Fluid - Thoracentesis Fluid Anaerobic Culture - Preliminary No growth in 48 hours. 10/19/23 12:50 Mucosa - Nose Respiratory Panel (PCR) - Final 10/19/23 15:35 Urine, Clean Catch Streptococcus pneumoniae Antigen (M - Final 10/19/23 15:35 Urine, Clean Catch Legionella Antigen - Final 10/19/23 13:05 Nasal Secretion SARS-CoV-2 & FLU Antigen (Rapid) - Final 10/11/23 00:40 Nasal Secretion SARS-CoV-2 Antigen (Rapid) - Final Rhythm Strip Rhythm Strip: A-fib Rate: 140 Ectopy: PVC(s) Physical Exam Const alert, no apparent distress and average body habitus; Negative for healthy appearing or well nourished Constitutional Narrative: Thin, elderly, white male, sitting up in the bed, currently on heated Airvo appears comfortable with no significant tachypnea at this time, appears agitated but is oriented to self, month, and year. Not oriented to place and seems to have significant delirium at this time HEENT head/scalp atraumatic and moist oral mucous membranes HEENT Narrative: Significant temporal wasting, Mallampati is 1, dentition is poor Head and Scalp: normocephalic Eyes PERRL and EOMs intact bilaterally Eyes Narrative: Conjunctiva are pale bilaterally, no scleral icterus Neck no lymphadenopathy and supple Neck Narrative: Trachea midline, no thyroid enlargement Resp normal respiratory effort, no retractions, no use of accessory muscles and No clear to auscultation bilaterally Resp Narrative: No significant tachypnea currently, severely diminished with ongoing coarse breath sounds diffusely bilaterally, Auscultation: Negative for rales, rhonchi or wheezes Cardio regular rate, regular rhythm, S1 normal heart sound, S2 normal heart sound, no murmurs, no rub, no gallops and no clicks GI normal to inspection, nondistended, normoactive bowel sounds, soft to palpation and non-tender GI Narrative: Abdomen is scaphoid Extremity normal to inspection Extremity Narrative: Patient with 1-2+ bilateral lower extremity pitting edema distally, no cyanosis or clubbing, severely diminished lean muscle mass Skin Skin Narrative: Large ecchymotic area on the posterior aspect of the right leg starting at the knee and enlarging distally with no significant firmness noted, skin is thin and fragile Neuro oriented x3, moves all extremities and no focal motor deficits Neuro Narrative: Severe generalized weakness, speech is somewhat garbled today Sensorium / Orientation: awake, alert, oriented to person and oriented to time Psych affect normal Psych Narrative: Eye contact is good, patient is agitated Assessment & Plan Assessment/Plan (1) Pleural effusion, right: (2) Acute on chronic hypoxic respiratory failure: (3) Paroxysmal atrial fibrillation: (4) Vertigo: (5) Leukocytosis: (6) Anemia: (7) Thrombocytopenia: (8) Hyperbilirubinemia: (9) Mesenteric artery stenosis: (10) Severe malnutrition: PLAN: Plan Assessment: Acute on chronic hypoxic respiratory failure--> etiology is unclear Acute anemia Leukocytosis Thrombocytopenia Hyperbilirubinemia Mesenteric stenosis Vertigo Delirium A-fib with RVR Adult failure to thrive Hypertension Severe malnutrition COPD Plan: Extensive discussion with his niece who is the power of assistant city attorney for finances. Patient does not have an official power of assistant city attorney for healthcare however he has no next of kin other than her and her brothers and sisters. She has been updating them on his overall condition. We discussed that overall he clinically was declining instead of improving and he has developed an anemia which I suspect is related to an upper GI bleed. She states has been declining over time and has been concerned about him being alone. She suspects he has some memory impairment and indicated he was doing and saying strange things at home prior to him becoming ill. She is aware he has significant COPD at baseline and indicated that he was diagnosed with that about 10 years ago. With his declining overall condition and no significant improvement as well as new acute issues we discussed hospice as an option and she was agreeable at this time to have hospice evaluate the patient as she feels that his overall decline is not something he would be satisfied with and given his loss of independence and overall status that this would be the next option. I notified case management of family's desires to talk to hospice and anticipate he will qualify for the [facility]. Suspect meeting tomorrow with family and possible discharge tomorrow to [facility]. Will continue with current treatment course at this time with discontinuation of all nonessential medications. Charges/Coding Visit Charges Inpatient E&M: 45585 Subs Hosp L3
--- NOTE | 2023-10-22 15:45 | CASEMGMT ---
SW received a call from physician and she spoke with patient's niece about Hospice. SW sent a referral to Hospice and asked that they contact patient's niece Karol. Kaitlynn CRUM
--- NOTE | 2023-10-22 16:43 | CASEMGMT ---
YESSICA has not heard back from Renetta with [facility]. YESSICA called [facility] and made a referral and also faxed referral to . Kaitlynn Castillo DENTAL SCHEDULING COORDINATORZuleyka CRUM
--- NOTE | 2023-10-22 16:57 | CASEMGMT ---
YESSICA called Hospice and confirmed they received the referral. Phone call for Hospice referrals [phone] option 2. Fax for Hospice Kaitlynn CRUM
[2023-10-22 17:15] LABS: Hemoglobin 11.4 g/dL (13.0-16.5)
[2023-10-22] MEDS: Ipratropium/Albuterol Sulfate 3 ML AMPUL.NEB INHALATION (19:23)
[2023-10-22] MEDS: Budesonide Respules 0.5 MG/2 ML AMPUL.NEB. INHALATION (19:23)
--- NOTE | 2023-10-22 20:41 | CPS ---
Pt confused unable to do PEP therapy.
[2023-10-22] MEDS: Metoprolol(XL)Succ 100 MG Tablet PO (21:13)
[2023-10-22] MEDS: dilTIAZem CD 120 MG Capsule PO (21:14)
[2023-10-22] MEDS: RisperiDONE 1 MG Tablet PO (21:21)
[2023-10-23] VITALS (16 sets, daily range): BP systolic 91–144; BP diastolic 43–88; PULSE 99–126; RESP 14–29; TEMP 36.2–36.7; O2SAT 92–96; BMI 23.7
[2023-10-23 03:17] LABS: Vancomycin, Trough Level 18.5 ug/mL (5.0-15.0)
--- NOTE | 2023-10-23 03:25 | PCM.RX.CS ---
Consult Antibiotic Management Pharmacy has been consulted to manage selected antibiotic: Vancomycin Type of Intervention Type of Consult: Follow-up Labs Labs: Sodium 145 mmol/L (136-145) 10/22/23 05:03 Potassium 4.3 mmol/L (3.5-5.1) 10/22/23 05:03 Chloride 112 mmol/L (98-107) H 10/22/23 05:03 Carbon Dioxide 29.0 mmol/L (21.0-32.0) 10/22/23 05:03 Anion Gap 4 (5-15) L 10/22/23 05:03 BUN 64 mg/dL (7-18) H 10/22/23 05:03 Creatinine 1.24 mg/dL (0.70-1.30) 10/22/23 05:03 Est GFR (MDRD) Af Amer 71 mL/min (>60) 10/22/23 05:03 Est GFR (MDRD) Non-Af 59 mL/min (>60) L 10/22/23 05:03 BUN/Creatinine Ratio 51.6 RATIO (10-20) H 10/22/23 05:03 Glucose 131 mg/dL (74-106) H 10/22/23 05:03 Vancomycin Trough 18.5 ug/mL (5.0-15.0) H 10/23/23 02:40 Microbiology Microbiology: Microbiology 10/20/23 13:42 Fluid - Thoracentesis Fluid Gram Stain - Final 10/20/23 13:42 Fluid - Thoracentesis Fluid Anaerobic Culture - Preliminary No growth in 48 hours. 10/19/23 12:50 Mucosa - Nose Respiratory Panel (PCR) - Final 10/19/23 15:35 Urine, Clean Catch Streptococcus pneumoniae Antigen (M - Final 10/19/23 15:35 Urine, Clean Catch Legionella Antigen - Final 10/19/23 13:05 Nasal Secretion SARS-CoV-2 & FLU Antigen (Rapid) - Final 10/11/23 00:40 Nasal Secretion SARS-CoV-2 Antigen (Rapid) - Final Pharmacy Plan for Drug Dosing Pharmacy Plan for Drug Dosing: Pharmacy Service will continue to monitor and adjust dosing as required. TROUGH 18.5 @ 12.5 HRS. NO CHANGES, FOLLOW UP TROUGH IN 2 DAYS PER INCREASED SCr AND LATE TROUGH DRAW
[2023-10-23] MEDS: Vancomycin Trough/Random Due 1 LAB MC (03:35)
[2023-10-23] MEDS: Vancomycin HCl 750 MG in 0.9% Normal Saline (250mL Bag) 250 ML 250 MG IV ×2 (03:35→13:44)
[2023-10-23] MEDS: Piperacil/Tazobactam 3.375 GM in 0.9% Normal Saline (50mL MB+) 50 ML IV ×2 (05:07→14:59)
[2023-10-23] MEDS: 0.9% Normal Saline (250mL Bag) 250 ML 15 ML IV (05:07)
[2023-10-23] MEDS: Haloperidol Lactate 5 MG/ML Vial 1 MG IV (05:52)
--- NOTE | 2023-10-23 08:09 | CASEMGMT ---
Social Work SW called Hospice--[facility]. Meeting set up for 3pm today w/Nata. YESSICA notified battery recharger on PCU. PAWEL Yanes
[2023-10-23] MEDS: Amiodarone 200 MG Tablet PO (10:11)
[2023-10-23] MEDS: Metoprolol(XL)Succ 100 MG Tablet PO (10:11)
[2023-10-23] MEDS: dilTIAZem CD 120 MG Capsule PO (10:11)
[2023-10-23] MEDS: RisperiDONE 0.25 MG Tablet PO (10:12)
--- NOTE | 2023-10-23 11:33 | DS.PCM_ITS ---
Providers Date of Admission: 10/11/23 Date of Discharge: 10/25/23 Primary Care Physician: Dr. Maulik Christy MD Consultations 10/11/23 07:36 Consult: Cardiology Routine Consulting Provider: Case Saavedra Reason for Consult: afib w RVR EMERGENT Consult: No Notified: Yes Date Notified: 10/11/23 Time Notified: 07:36 Method of Notification: Verbal 10/20/23 15:37 Consult: Energy Conservation Director / Pulmonary Medicine Routine Consulting Provider: Pulmonary Medicine [facility] Reason for Consult: Acute on chronic hypoxic respiratory failure EMERGENT Consult: No Notified: Yes Date Notified: 10/20/23 Time Notified: 17:21 Method of Notification: Text 10/21/23 08:34 Consult: Energy Conservation Director / Pulmonary Medicine Routine Consulting Provider: Pulmonary Medicine [facility] Reason for Consult: worsening anemia EMERGENT Consult: No Notified: Yes Date Notified: 10/21/23 Time Notified: 08:35 Method of Notification: Verbal 10/22/23 08:07 Consult: Gastroenterology Routine Consulting Provider: [facility] Reason for Consult: Anemia EMERGENT Consult: No Notified: Yes Date Notified: 10/21/23 Time Notified: 08:07 Method of Notification: Verbal Reason For Visit: PAF RVR, VERTIGO, RECENT PNA/COPD EXAC Diagnosis Discharge Diagnosis (1) Pleural effusion, right: Status: Acute Code(s): J90 - Pleural effusion, not elsewhere classified (2) Acute on chronic hypoxic respiratory failure: Status: Chronic Code(s): J96.21 - Acute and chronic respiratory failure with hypoxia (3) Paroxysmal atrial fibrillation: Status: Chronic Code(s): I48.0 - Paroxysmal atrial fibrillation (4) Vertigo: Status: Acute Code(s): R42 - Dizziness and giddiness (5) Leukocytosis: Status: Acute Code(s): D72.829 - Elevated white blood cell count, unspecified (6) Anemia: Status: Acute Code(s): D64.9 - Anemia, unspecified (7) Thrombocytopenia: Status: Acute Code(s): D69.6 - Thrombocytopenia, unspecified (8) Hyperbilirubinemia: Status: Acute Code(s): E80.6 - Other disorders of bilirubin metabolism (9) Mesenteric artery stenosis: Status: Acute Code(s): K55.1 - Chronic vascular disorders of intestine (10) Severe malnutrition: Status: Acute Code(s): E43 - Unspecified severe protein-calorie malnutrition Medications at Discharge Home Medications albuterol sulfate 2.5 mg/3 mL (0.083 %) solution for nebulization 2.5 mg continuous nebulization Q6H PRN shortness of breath 10/05/23 albuterol sulfate 2.5 mg/3 mL (0.083 %) solution for nebulization 2.5 mg (3 mL) inhalation Q2H PRN PRN Dyspnea, wheezing #0 mL 10/23/23 amiodarone 200 mg tablet 200 mg PO DAILY #0 tabs 10/23/23 Hospital Course Procedures 2-D Echocardiogram, EKG and - (CTA chest/chest x-ray) Summary of Care Provided Minutes Spent on Discharge: 40 Hospital Course: Mr. Rolle is an 83-year-old white male with a history of COPD and chronic hypoxic respiratory failure requiring 3 L nasal cannula at baseline who presented to the emergency department at [facility] on 10/11/2023 with shortness of breath, racing heart rate and vertigo. He had a recent hospitalization from 10/05/2023 through 10/09/2023 at which time he was treated for an acute on chronic exacerbation of his COPD due to an RSV infection and concern for superimposed bacterial pneumonia. He was treated with IV steroids, antibiotics, nebulizers and discharged on a prednisone taper as well as Levaquin for a completion of 7-day course of antibiotics as his sputum culture was positive for Pseudomonas. Pseudomonas was sensitive to Levaquin. On presentation he was found to be in A-fib with RVR. He does have history of this. Workup in the emergency department revealed a heart rate of 139 and a stable blood pressure as well as a respiratory rate of 19 and oxygen saturation 94% on 4 L nasal cannula. COVID and flu were negative on admission. CT of the brain was performed and was unremarkable other than severe extensive. Nasal sinus disease. Chest x-ray shows chronic interstitial changes with superimposed mild acute opacities in the lower lobes indicating atelectasis versus mild infection versus aspiration. He was given diltiazem, meclizine and eventually placed on a Cardizem drip in the emergency department and admitted to the PCU. Cardiology was consulted for his A-fib with RVR and his heart rates have since improved on oral Cardizem, metoprolol and he has been transition to oral amiodarone. He is on Eliquis at baseline which she will continue. Cardiology has since signed off given his improved heart rate control and recommending outpatient follow-up. His hospital course has overall been complicated. He had some delirium during his hospital course which was actually worsened with Geodon and Ativan so this was discontinued. And his mental status had markedly improved. Seroquel was added nightly and he seems to be tolerating this well so we will continue at this time. He did have a recent echocardiogram in March 2023 so repeat was not performed. At that time his EF was found to be 65% with mild focal mitral valve calcification and bileaflet aortic valve with a fib. Unfortunately his respiratory status started to decline on 10/17 2023 and he required up titration from the 4 L at which she was discharged from his last hospitalization and is now on Airvo. 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 His white count trended up and he was placed on broad-spectrum antibiotics and sputum culture has been ordered however not able to be collected due to lack of production. Strep pneumo and Legionella antigens are negative. Respiratory viral panel was unremarkable. The etiology for his worsening hypoxia was unclear. We had pulmonary medicine evaluate the patient and they thought maybe it was related to worsening fibrosis and inflammation from his recent RSV and pneumonia however nothing was clear. We did do a thoracentesis with removal of only 150 cc of fluid from the right lung. The fluid was transudative and not exudative. His mental status was waxing and waning throughout his hospitalization having intermittent delirium with periods of lucidity. Unfortunately, his hemoglobin slowly trended down. We stopped his Eliquis and started him on Protonix IV twice daily and consulted gastroenterology. The intent was to perform an EGD as we highly suspected he had an upper GI bleed because his BUN was increasing with a relatively stable creatinine however when we called for consent to his niece she declined. With this, I had an extensive conversation with her on his home functional status, his ongoing medical problems and overall prognosis. She indicated that she felt he had been declining at home. She had worried that he may have some dementia at baseline developing as she had heard him say some [id number] things and do some strange things in the last year. He was also suffering from worsening debility as well. She felt that he would not want to be in the situation and opted for hospice consultation. She is not the healthcare power of commercial litigation attorney and has power of commercial litigation attorney only established for finances however, she is closest next of kin. She met with hospice on 10/23/2023 and agreed for ongoing hospice care. He was discharged to the inpatient hospice unit on 10/25/2023. I suspect life expectancy is hours to days. Discharge diagnoses: Acute on chronic hypoxic respiratory failure Acute anemia Leukocytosis Thrombocytopenia Hyperbilirubinemia Mesenteric stenosis Vertigo Delirium A-fib with RVR Adult failure to thrive Hypertension Severe malnutrition COPD Suspected dementia Physical Exam Const no apparent distress; Negative for average body habitus, no limitations, healthy appearing or well nourished Constitutional Narrative: Thin, elderly, white male, flat on his back in bed sleeping, appears comfortable with no signs of agitation General Appearance: comfortable and ill appearing Exam Limitations: altered mental status Nutritional Appearance: cachectic HEENT normocephalic and head/scalp atraumatic HEENT Narrative: Mucous membranes are dry, Mallampati is 1, no thrush Eyes PERRL Eyes Narrative: Conjunctiva are pale bilaterally, no scleral icterus Neck no lymphadenopathy and supple Neck Narrative: Trachea midline, no thyroid enlargement Resp normal respiratory effort, no retractions and no use of accessory muscles Resp Narrative: Shallow breathing with somewhat irregular respiratory pattern Auscultation: Negative for rales, rhonchi or wheezes Cardio regular rate, regular rhythm, S1 normal heart sound, S2 normal heart sound, no murmurs, no rub, no gallops and no clicks GI normal to inspection, nondistended, normoactive bowel sounds, soft to palpation and non-tender GI Narrative: Abdomen is scaphoid Extremity normal to inspection Extremity Narrative: Patient with 1-2+ bilateral lower extremity pitting edema distally, no cyanosis or clubbing, severely diminished lean muscle mass Skin no jaundice Skin Narrative: Thin frail skin, pale Neuro Neuro Narrative: Unable to assess due to mental status Psych Psych Narrative: Very calm with no signs of agitation Mood & Affect: anxious Weight / BMI Weight Weight: 66.7 kg Body Mass Index (BMI) 23.7 ABG / Lab / Microbiology Data 10/22/23 17:05 10/22/23 05:03 Laboratory: Laboratory Results - last 24 hr 10/20/23 13:45: Miscellaneous Cytology SEE PATHOLOGY REPORT 10/22/23 09:34: Blood Type A POSITIVE, Antibody Screen NEGATIVE, Crossmatch See Detail 10/22/23 17:05: Hgb 11.4 L 10/23/23 02:40: Vancomycin Trough 18.5 H Microbiology: Microbiology 10/20/23 13:42 Fluid - Thoracentesis Fluid Gram Stain - Final 10/20/23 13:42 Fluid - Thoracentesis Fluid Body Fluid Culture - Final Culture exhibits no growth. 10/20/23 13:42 Fluid - Thoracentesis Fluid Anaerobic Culture - Preliminary No growth in 48 hours. 10/20/23 17:38 Blood Culture (Wb) - Anticubital Left Blood Culture - Preliminary No growth in 48 hours. 10/20/23 17:38 Blood Culture (Wb) - Anticubital Right Blood Culture - Preliminary No growth in 48 hours. 10/19/23 12:50 Mucosa - Nose Respiratory Panel (PCR) - Final 10/19/23 15:35 Urine, Clean Catch Streptococcus pneumoniae Antigen (M - Final 10/19/23 15:35 Urine, Clean Catch Legionella Antigen - Final 10/19/23 13:05 Nasal Secretion SARS-CoV-2 & FLU Antigen (Rapid) - Final 10/11/23 00:40 Nasal Secretion SARS-CoV-2 Antigen (Rapid) - Final D/C Instructions Discharge Diet: No restrictions Meaningful Use Info Meaningful Use Diagnoses (Choose all that apply): None applicable Discharge Plan Admission Admit Date/Time: 10/11/23 04:15 Primary Reason for Your Visit: Shortness of breath Attending Provider: Shaniqua Bentley Primary Care Provider: Maulik Christy Consulting Providers: Bridget Isidro; Case Saavedra; Maulik Espinoza Discharge Orders/Prescriptions Prescriptions: New albuterol sulfate 2.5 mg /3 mL (0.083 %) Solution For Nebulization 2.5 mg inhalation Q2H PRN PRN (Reason: Dyspnea, wheezing) Qty: 0 0RF amiodarone 200 mg Tablet 200 mg PO DAILY Qty: 0 0RF Continued albuterol sulfate 2.5 mg /3 mL (0.083 %) solution for nebulization 2.5 mg continuous nebulization Q6H PRN (Reason: shortness of breath ) Discontinued multivitamin tablet 1 tab PO DAILY budesonide-formoterol 160-4.5 mcg/actuation HFA aerosol inhaler 2 puff INHALATION BID amlodipine 10 mg tablet 10 mg PO DAILY prednisone 20 mg tablet 40 mg PO DAILY 3 Days Qty: 6 0RF prednisone 10 mg tablet 30 mg PO DAILY 3 Days Qty: 9 0RF prednisone 20 mg tablet 20 mg PO DAILY 3 Days Qty: 3 0RF levofloxacin 750 mg tablet 750 mg PO DAILY 2 Days Qty: 2 0RF (DME) Handicap Parking Placard See Rx Instructions .Route .MEDSUPPLY Qty: 1 0RF Rx Instructions: As directed Eliquis 5 mg tablet 5 mg PO BID Qty: 60 11RF metoprolol succinate 100 mg tablet extended release 24 hr 100 mg PO BID Qty: 60 11RF torsemide 10 mg tablet 10 mg PO DAILY Qty: 90 3RF potassium chloride 10 mEq tablet extended release 20 meq PO DAILY Qty: 180 3RF Referrals / Follow Up: Maulik Christy MD [Primary Care Provider] - Yvonne Wall NP, ENVIRONMENTAL PROTECTION OFFICER-C [Non-Staff -Ordering Privileges] - None Disposition Disposition (needs filled in before D/C Order can be placed): Hospice in Medical Facility Charges/Coding Visit Charges Inpatient E&M: 51913 Disch Hosp >30min
[2023-10-23] MEDS: Ipratropium/Albuterol Sulfate 3 ML AMPUL.NEB INHALATION (13:04)
--- NOTE | 2023-10-23 14:16 | CASEMGMT ---
Social Work As per RN from hospice, there are no beds in the [facility]. Pt will likely be put on a wait list. PAWEL Yanes
[2023-10-23] MEDS: LORazepam 2 MG/ML Syringe 0.25 MG IV (14:57)
[2023-10-23] MEDS: 0.9% Saline Lock 10 ML Syringe IV ×2 (14:58→17:56)
--- NOTE | 2023-10-23 16:06 | PCM.PN.HOSP ---
Reason for Visit Reason for Visit: Shortness of breath Subjective Subjective Still with some intermittent agitation overnight for which she was given Haldol. Calmer today. Family has signed papers for hospice and I have transitioned everything over to comfort measures. No available bed in the [facility] at this time and he will be on a wait list. Objective Data Objective Data Vital Signs: Vital Signs Temp Pulse Resp BP Pulse Ox O2 Del Method O2 Flow Rate 97.6 F L 99 17 91/43 L 92 Airvo 50 10/23/23 15:00 10/23/23 15:00 10/23/23 15:00 10/23/23 15:00 10/23/23 15:00 10/23/23 15:00 10/23/23 08:00 FiO2 43 10/23/23 08:00 Oxygen Flow Rate (L/min) 50 Oxygen Delivery Method Airvo Weight: 66.7 kg Body Mass Index (BMI) 23.7 Intake & Output: Intake and Output for Last 24 Hours 10/21/23 10/22/23 10/23/23 23:59 23:59 23:59 Intake Total 1050 / 1050 717 / 792 875 / 875 Output Total 500 / 500 200 / 200 Balance 550 / 550 517 / 592 875 / 875 Lab / Micro Data 10/22/23 17:05 10/22/23 05:03 Labs: Laboratory Results - last 24 hr 10/11/23 16:20: Amiodarone < 100 L, Noramiodarone Not Reportable 10/22/23 09:34: Crossmatch See Detail 10/22/23 17:05: Hgb 11.4 L 10/23/23 02:40: Vancomycin Trough 18.5 H Micro: Microbiology 10/20/23 13:42 Fluid - Thoracentesis Fluid Gram Stain - Final 10/20/23 13:42 Fluid - Thoracentesis Fluid Body Fluid Culture - Final Culture exhibits no growth. 10/20/23 13:42 Fluid - Thoracentesis Fluid Anaerobic Culture - Preliminary No growth in 48 hours. 10/20/23 17:38 Blood Culture (Wb) - Anticubital Left Blood Culture - Preliminary No growth in 48 hours. 10/20/23 17:38 Blood Culture (Wb) - Anticubital Right Blood Culture - Preliminary No growth in 48 hours. 10/19/23 12:50 Mucosa - Nose Respiratory Panel (PCR) - Final 10/19/23 15:35 Urine, Clean Catch Streptococcus pneumoniae Antigen (M - Final 10/19/23 15:35 Urine, Clean Catch Legionella Antigen - Final 10/19/23 13:05 Nasal Secretion SARS-CoV-2 & FLU Antigen (Rapid) - Final 10/11/23 00:40 Nasal Secretion SARS-CoV-2 Antigen (Rapid) - Final Rhythm Strip Rhythm Strip: A-fib Rate: 140 Ectopy: PVC(s) Physical Exam Const no apparent distress; Negative for average body habitus, healthy appearing or well nourished Constitutional Narrative: Thin, elderly, white male, flat on his back in bed sleeping, currently calm but gets mildly agitated with exam currently on heated Airvo appears comfortable with no significant tachypnea at this time, intermittent agitation and significant confusion as patient is only oriented to self Orientation / Consciousness: confused, disoriented and lethargic Exam Limitations: altered mental status Nutritional Appearance: cachectic HEENT normocephalic, head/scalp atraumatic and moist oral mucous membranes HEENT Narrative: Dentition is poor, Mallampati is 1, no thrush Eyes PERRL and EOMs intact bilaterally Eyes Narrative: Conjunctiva are pale bilaterally, no scleral icterus Neck no lymphadenopathy and supple Neck Narrative: Trachea midline, no thyroid enlargement Resp normal respiratory effort, no retractions, no use of accessory muscles and No clear to auscultation bilaterally Resp Narrative: Patient currently appears comfortable on Airvo, lung sounds are markedly diminished with no significant adventitious sounds noted at this time Auscultation: Negative for rales, rhonchi or wheezes Cardio regular rate, S1 normal heart sound, S2 normal heart sound, no murmurs, no rub, no gallops and no clicks Cardio Narrative: Mild tachycardia GI normal to inspection, nondistended, normoactive bowel sounds, soft to palpation and non-tender GI Narrative: Abdomen is scaphoid Extremity normal to inspection Extremity Narrative: Patient with 1-2+ bilateral lower extremity pitting edema distally, no cyanosis or clubbing, severely diminished lean muscle mass Neuro moves all extremities and no focal motor deficits Neuro Narrative: Severe generalized weakness, speech is garbled when he tries to talk, oriented only to self, is very confused Speech: Negative for speech normal Psych Psych Narrative: Patient is currently calm but confused Assessment & Plan Assessment/Plan (1) Pleural effusion, right: (2) Acute on chronic hypoxic respiratory failure: (3) Paroxysmal atrial fibrillation: (4) Vertigo: (5) Leukocytosis: (6) Anemia: (7) Thrombocytopenia: (8) Hyperbilirubinemia: (9) Mesenteric artery stenosis: (10) Severe malnutrition: PLAN: Plan Assessment: Acute on chronic hypoxic respiratory failure--> etiology is unclear Acute anemia Leukocytosis Thrombocytopenia Hyperbilirubinemia Mesenteric stenosis Vertigo Delirium A-fib with RVR Adult failure to thrive Hypertension Severe malnutrition COPD Suspected dementia Plan: -Family has met with hospice and signed papers for hospice. All nonessential comfort medications have been discontinued and I have started as needed Ativan, atropine, Lasix, Tylenol, and morphine. -Discontinue high flow oxygen and placed on nasal cannula at 6 L for comfort, discontinue continuous pulse ox -Vitals daily -If patient does not will transition to [facility] once bed is available -Expect hours to days for life expectancy Charges/Coding Visit Charges Inpatient E&M: 26380 Subs Hosp L2
--- NOTE | 2023-10-23 17:11 | NURSING ---
Spoke to patient's neIbeth wallace. Called to verify if she or any other family wanted to be here with patient when I switched patient from airvo to nasal cannula in case patient would pass shortly after. Ibeth was going to make a couple phone calls to family and call me back. Will wait to switch O2 until I hear back.
--- NOTE | 2023-10-23 17:26 | NURSING ---
family coming to be with patient when RN switches patient from airvo to nasal cannula.
[2023-10-23] MEDS: Morphine 4 MG/ML Syringe IV (17:55)
--- NOTE | 2023-10-23 18:05 | NURSING ---
1804- Switched patient to 6L Nasal cannula from airvo per orders. Family at bedside.
[2023-10-23] MEDS: morphine 10 MG/ML Syringe 4 MG SC (18:23)
[2023-10-23] MEDS: LORazepam 2 MG/ML Syringe 0.5 MG IM (18:50)
--- NOTE | 2023-10-23 19:36 | NURSING ---
1819-Patient extremely restless and agitated. Dr. Bentley notified. Orders obtained. See MAR. O2 decreased to 3L per Dr. Bentley. Attempted to repostion the patient. Family present and aware of situation and left the room. 1899- attempted to find family, not in rawls or waiting room.
--- NOTE | 2023-10-23 19:40 | NURSING ---
Called to update pts preet Karol, explained that pt is much calmer now and sleeping. Karol expressed thanks for the update, stated that she updated the rest of the family and no one will be coming in.
--- NOTE | 2023-10-24 00:16 | CPS ---
Pt unable to PEP at this time.
[2023-10-24 01:39] VITALS: RESP 12; O2SAT 93
[2023-10-24] MEDS: LORazepam 2 MG/ML Syringe 0.5 MG IM ×3 (03:56→18:50)
[2023-10-24] MEDS: morphine (oral solution) 10MG/0.5ML Syringe 5 MG SL/PO ×2 (04:20→09:19)
[2023-10-24] MEDS: morphine 10 MG/ML Syringe 4 MG SC (04:44)
[2023-10-24 05:04] VITALS: RESP 20
[2023-10-24 05:22] VITALS: BMI 23.6
[2023-10-24 06:03] VITALS: BP 98/58; PULSE 101; RESP 14; TEMP 35.9; O2SAT 100
[2023-10-24 07:13] VITALS: O2SAT 93
[2023-10-24] MEDS: Morphine 4 MG/ML Syringe SC ×5 (10:20→22:23)
--- NOTE | 2023-10-24 10:42 | PN.HOSP_ITS ---
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 Intermittent agitation overnight that responded well to subcu morphine. Awaiting bed availability at inpatient hospice unit. Will continue comfort care measures here until bed became available or the patient expires. Objective Data Objective Data Vital Signs: Vital Signs Temp Pulse Resp BP Pulse Ox O2 Del Method O2 Flow Rate 96.7 F L 101 H 14 98/58 L 93 Nasal Cannula 3 10/24/23 06:03 10/24/23 06:03 10/24/23 06:03 10/24/23 06:03 10/24/23 07:13 10/24/23 08:02 10/24/23 08:02 FiO2 43 10/23/23 08:00 Oxygen Flow Rate (L/min) 3 Oxygen Delivery Method Nasal Cannula Weight: 66.5 kg Body Mass Index (BMI) 23.6 Intake & Output: Intake and Output for Last 24 Hours 10/22/23 10/23/23 10/24/23 23:59 23:59 23:59 Intake Total 717 / 792 1144 / 1144 Output Total 200 / 200 Balance 517 / 592 1144 / 1144 Lab / Micro Data 10/22/23 17:05 10/22/23 05:03 Labs: Laboratory Results - last 24 hr 10/11/23 16:20: Amiodarone < 100 L, Noramiodarone Not Reportable Micro: Microbiology 10/20/23 13:42 Fluid - Thoracentesis Fluid Gram Stain - Final 10/20/23 13:42 Fluid - Thoracentesis Fluid Body Fluid Culture - Final Culture exhibits no growth. 10/20/23 13:42 Fluid - Thoracentesis Fluid Anaerobic Culture - Preliminary No growth in 48 hours. 10/20/23 17:38 Blood Culture (Wb) - Anticubital Left Blood Culture - Preliminary No growth in 48 hours. 10/20/23 17:38 Blood Culture (Wb) - Anticubital Right Blood Culture - Preliminary No growth in 48 hours. 10/19/23 12:50 Mucosa - Nose Respiratory Panel (PCR) - Final 10/19/23 15:35 Urine, Clean Catch Streptococcus pneumoniae Antigen (M - Final 10/19/23 15:35 Urine, Clean Catch Legionella Antigen - Final 10/19/23 13:05 Nasal Secretion SARS-CoV-2 & FLU Antigen (Rapid) - Final 10/11/23 00:40 Nasal Secretion SARS-CoV-2 Antigen (Rapid) - Final Rhythm Strip Rhythm Strip: A-fib Rate: 140 Ectopy: PVC(s) Physical Exam Const no apparent distress; Negative for average body habitus, healthy appearing or well nourished Constitutional Narrative: elderly, white male, flat on his back in bed sleeping, on nasal cannula at 3 L, appears comfortable at this time however was having intermittent agitation overnight General Appearance: ill appearing Nutritional Appearance: cachectic HEENT normocephalic and head/scalp atraumatic HEENT Narrative: Temporal wasting, Mallampati is 1, dentition is poor, no thrush Resp normal respiratory effort, no retractions, no use of accessory muscles and No clear to auscultation bilaterally Resp Narrative: Severely diminished diffusely but currently with comfortable breathing and no s igns of distress Auscultation: Negative for rales, rhonchi or wheezes Cardio regular rate, regular rhythm, S1 normal heart sound, S2 normal heart sound, no murmurs, no rub, no gallops and no clicks GI normal to inspection, nondistended, normoactive bowel sounds, soft to palpation and non-tender GI Narrative: Abdomen is scaphoid Psych Mood & Affect: anxious Assessment & Plan Assessment/Plan (1) Pleural effusion, right: (2) Acute on chronic hypoxic respiratory failure: (3) Paroxysmal atrial fibrillation: (4) Vertigo: (5) Leukocytosis: (6) Anemia: (7) Thrombocytopenia: (8) Hyperbilirubinemia: (9) Mesenteric artery stenosis: (10) Severe malnutrition: PLAN: Plan Assessment: Acute on chronic hypoxic respiratory failure--> etiology is unclear Acute anemia Leukocytosis Thrombocytopenia Hyperbilirubinemia Mesenteric stenosis Vertigo Delirium A-fib with RVR Adult failure to thrive Hypertension Severe malnutrition COPD Suspected dementia Plan: -Family signed papers for hospice on 10/23/2023. -Currently waiting bed at [facility] -Continue nasal cannula at 3 L -Patient has pulled out all IV access and I have transitioned medications to subcu and IM -Morphine subcu 4 mg every hour as needed terminal agitation or pain -Ativan IM 0.5 mg every 2 hours as needed anxiety/terminal agitation -If patient does not will transition to [facility] once bed is available -Patient currently comfortable with ongoing comfort treatment Charges/Coding Visit Charges Inpatient E&M: 62557 [facility] L2
--- NOTE | 2023-10-24 11:37 | NURSING ---
This RN called and updated pt's niece, Karol.
[2023-10-24] MEDS: Atropine Sulfate 1% 2 ml Bottle 4 DRP SL ×4 (15:27→22:18)
[2023-10-24 20:51] VITALS: RESP 13; O2SAT 90
[2023-10-25] MEDS: Atropine Sulfate 1% 2 ml Bottle 4 DRP SL (03:51)
[2023-10-25 05:33] VITALS: BMI 23.6
[2023-10-25 06:02] VITALS: BP 101/57; PULSE 75; RESP 12; TEMP 35.9; O2SAT 97
[2023-10-25] MEDS: Morphine 4 MG/ML Syringe SC (08:33)
--- NOTE | 2023-10-25 08:37 | PN.HOSP_ITS ---
Reason for Visit Reason for Visit: Shortness of breath Subjective Subjective No issues overnight. Patient has been comfortable with current medication regimen. Awaiting bed [facility] for discharge. Objective Data Objective Data Vital Signs: Vital Signs Temp Pulse Resp BP Pulse Ox O2 Del Method O2 Flow Rate 96.6 F L 75 12 101/57 L 97 Nasal Cannula 4 10/25/23 06:02 10/25/23 06:02 10/25/23 06:02 10/25/23 06:02 10/25/23 06:02 10/25/23 06:02 10/25/23 06:02 FiO2 43 10/23/23 08:00 Oxygen Flow Rate (L/min) 4 Oxygen Delivery Method Nasal Cannula Weight: 66.4 kg Body Mass Index (BMI) 23.6 Intake & Output: Intake and Output for Last 24 Hours 10/23/23 10/24/23 10/25/23 23:59 23:59 23:59 Intake Total 1144 / 1144 Output Total 0 / 0 Balance 1144 / 1144 0 / 0 Lab / Micro Data 10/22/23 17:05 10/22/23 05:03 Micro: Microbiology 10/20/23 13:42 Fluid - Thoracentesis Fluid Gram Stain - Final 10/20/23 13:42 Fluid - Thoracentesis Fluid Body Fluid Culture - Final Culture exhibits no growth. 10/20/23 13:42 Fluid - Thoracentesis Fluid Anaerobic Culture - Preliminary No growth in 48 hours. 10/20/23 17:38 Blood Culture (Wb) - Anticubital Left Blood Culture - Preliminary No growth in 48 hours. 10/20/23 17:38 Blood Culture (Wb) - Anticubital Right Blood Culture - Preliminary No growth in 48 hours. 10/19/23 12:50 Mucosa - Nose Respiratory Panel (PCR) - Final 10/19/23 15:35 Urine, Clean Catch Streptococcus pneumoniae Antigen (M - Final 10/19/23 15:35 Urine, Clean Catch Legionella Antigen - Final 10/19/23 13:05 Nasal Secretion SARS-CoV-2 & FLU Antigen (Rapid) - Final 10/11/23 00:40 Nasal Secretion SARS-CoV-2 Antigen (Rapid) - Final Rhythm Strip Rhythm Strip: A-fib Rate: 140 Ectopy: PVC(s) Physical Exam Const no apparent distress; Negative for alert, oriented x3, average body habitus, healthy appearing or well nourished Constitutional Narrative: Older cachectic, white male, lying in bed, sleeping and appears comfortable HEENT head/scalp atraumatic HEENT Narrative: Temporal wasting, dentition is poor, Mallampati is 1 Head and Scalp: normocephalic Resp normal respiratory effort, no retractions and no use of accessory muscles Resp Narrative: Shallow somewhat intermittently irregular breathing pattern but no signs of distress Cardio regular rate, regular rhythm, S1 normal heart sound, S2 normal heart sound, no murmurs, no rub, no gallops and no clicks GI normal to inspection, nondistended, normoactive bowel sounds and soft to palpation GI Narrative: Abdomen is scaphoid Extremity Extremity Narrative: 2-3+ bilateral lower extremity distal pitting edema Assessment & Plan Assessment/Plan (1) Severe malnutrition: (2) Mesenteric artery stenosis: (3) Hyperbilirubinemia: (4) Thrombocytopenia: (5) Anemia: (6) Leukocytosis: (7) Acute on chronic hypoxic respiratory failure: (8) Pleural effusion, right: PLAN: Plan Assessment: Acute on chronic hypoxic respiratory failure--> etiology is unclear Acute anemia Leukocytosis Thrombocytopenia Hyperbilirubinemia Mesenteric stenosis Vertigo Delirium A-fib with RVR Adult failure to thrive Hypertension Severe malnutrition COPD Suspected dementia Plan: -Family signed papers for hospice on 10/23/2023. -Currently waiting bed at [facility] -Continue comfort related medications as the current regimen seems effective -If patient does not will transition to [facility] once bed is available -Patient currently comfortable with ongoing comfort treatment Charges/Coding Visit Charges Inpatient E&M: 77914 [facility] L1
--- NOTE | 2023-10-25 13:20 | NURSING ---
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 pt transferred to [facility] hosp[facility] via [facility] cart and belongings sent.
== END 2023-10-25 12:52 | disposition hospice, inpatient (51) | DRG 308 ==
LOC: ED 04:10 → ICU 06:02 → PCU 10-14 08:44
PROVIDERS: Anesthesiology; Internal Medicine Critical Care Medicine; Internal Medicine Gastroenterology; Nurse Practitioner Acute Care; Physician Assistant Medical; Admitting Provider Family Medicine; Emergency Provider Emergency Medicine; PCP Family Medicine; Referring Provider Emergency Medicine; Visit Provider Internal Medicine
PROC: 0DJ08ZZ Inspection of Upper Intestinal Tract, Via Natural or Artificial Opening Endoscopic (ICD-10-PCS; CPT 43235; principal; 2023-10-22 11:25)
DX: I48.0 Paroxysmal atrial fibrillation (principal); E43 Unspecified severe protein-calorie malnutrition; J96.21 Acute and chronic respiratory failure with hypoxia; K55.1 Chronic vascular disorders of intestine; J90 Pleural effusion, not elsewhere classified; J98.11 Atelectasis; D69.6 Thrombocytopenia, unspecified; F03.90 Unspecified dementia, unspecified severity, without behavioral disturbance, psychotic disturbance, mood disturbance, and anxiety; D64.9 Anemia, unspecified; I10 Essential (primary) hypertension; I70.90 Unspecified atherosclerosis; D72.829 Elevated white blood cell count, unspecified; E80.6 Other disorders of bilirubin metabolism; J34.9 Unspecified disorder of nose and nasal sinuses; H81.10 Benign paroxysmal vertigo, unspecified ear; R62.7 Adult failure to thrive; Z79.01 Long term (current) use of anticoagulants; Z51.5 Encounter for palliative care; Z87.891 Personal history of nicotine dependence; Z66 Do not resuscitate; Z68.24 Body mass index [BMI] 24.0-24.9, adult
CPT/HCPCS: 32555; 36415; 36600; 70450; 71045; 71046; 71275; 80048; 80053; 80202; 80299; 82140; 82728; 82803; 82945; 83540; 83550; 83615; 83735; 83880; 84100; 84145; 84157; 84443; 84484; 85018; 85025; 85045; 85610; 85652; 85730; 86140; 86850; 86900; 86901; 86920; 86922; 87040; 87070; 87075; 87205; 87428; 87449; 87633; 87811; 88108; 88305; 88313; 89050; 92526; 92610; 93005; 93306; 94640; 94660; 94668; 94760; 94762; 97110; 97162; 97166; 97530; 97535; 99285; 99406; J7030; J7040; J7050; P9016; Q9957; Q9967; A4216; C8929; J1940; J3486; J3490